=== PATIENT | male | born 1980 | race Caucasian/White ===

== ENCOUNTER 2024-03-17 17:05 | Emergency (ER) | payer OTHER, SELFPAY ==
[2024-03-17 17:20] VITALS: BP 144/85; PULSE 78; RESP 15; TEMP 36.6; O2SAT 97
--- NOTE | 2024-03-17 17:37 | ED.SKABFB ---
HPI - Skin/Abscess/Foreign Bdy General Chief complaint: Skin/Abscess/Foreign Body Stated complaint: allergic reaction Time Seen by Provider: 03/17/24 17:34 Source: patient, RN notes reviewed and old records reviewed Mode of arrival: ambulatory Limitations: no limitations History of Present Illness HPI narrative: 44 year old male presents to [facility] care with complaints of exposure to some form of poison plant on the 6th when doing yard work. He noticed a small cut to his left forearm on the 9 with start of rash and did a virtual visit through [employer] and started on steroids without improvement. Patient reports that rash has spread to his groin, left ankle, abdomen, chest, right arm and left ankle and is very pruritic. Patient has taken Benadryl at night to help him sleep. He denies any difficulty with breathing or with swallowing. MD complaint: rash Onset (ago): day(s) Location: generalized Severity scale (1-10): 7 Quality: aching, pruritic and other Treatments prior to arrival: other (steroid) Related Data Home Medications Medication Instructions Recorded Confirmed prednisone 20 mg tablet 20 mg DIRECTED 03/17/24 03/17/24 Allergies Allergy/AdvReac Type Severity Reaction Status Date / Time No Known Allergies Allergy Verified 03/17/24 17:22 Review of Systems Review of Systems: CONSTITUTIONAL: Denies fever, chills, or sweats. CARDIOVASCULAR: Denies chest pain, palpitations, or edema. RESPIRATORY: Denies cough or dyspnea. SKIN: Reports rash with increase since the 9th of month after exposure on the 6th while working in yard. rash red irritating and pruritic on left arm, right arm, chest abdomen and groin and left ankle. MUSCULOSKELETAL: Denies joint pain or myalgia. NEUROLOGIC: Denies headache, numbness, or weakness. All systems reviewed & are unremarkable except as noted in HPI and below PMFSH Surgical History Surgical History (Updated 03/17/24 @ 19:01 by Leah Chris NP) H/O hernia repair Hx of appendectomy Social History Social History (Updated 03/17/24 @ 19:15 by Leah Chris NP) Smoking status: Never smoker Alcohol intake: current Alcohol use details: social Substance use type: does not use Living arrangements: with family Gender identity (if verbalized by the patient): Male Comments At time of signature, agree with nursing past medical, surgical, social and family history. There is no relevant family history pertinent to the presenting complaint Exam Narrative: GENERAL: Well-appearing, well-nourished, and in no acute distress. HEAD: Normocephalic, atraumatic. EYES: PERRLA, conjunctivae clear, and EOMI. ENT: Mucous membranes moist. Oropharynx without edema, erythema or lesions. NECK: Supple. No lymphadenopathy CHEST: Clear to auscultation. No respiratory distress. SAO2 97% on room air HEART: Regular rate and rhythm. SKIN: Warm, dry.? Patches of erythema and edema noted on left forearm, on chest and abdomen and also left ankle and right arm and groin,itchy and some discomfort to areas. NEURO:? Alert and oriented x3. PSYCH: Normal mood and affect Course Course Emergency Course: Patient is aware of diagnosis, understands and agrees to treatment plan.? Anticipatory guidance given.? Patient agrees to follow-up as directed and is aware of reasons to seek care at the emergency department. Portions of this record may have been created with voice recognition software Level of Care: Express Care Visit Vital Signs Vital signs: Vital Signs Temperature 36.6 C 03/17/24 17:20 Pulse Rate 78 03/17/24 17:20 Respiratory Rate 15 03/17/24 17:20 Blood Pressure 144/85 H 03/17/24 17:20 Pulse Oximetry 97 03/17/24 17:20 Oxygen Delivery Room Air 03/17/24 17:20 Temperature 36.6 C 03/17/24 17:20 Pulse Rate 78 03/17/24 17:20 Respiratory Rate 15 03/17/24 17:20 Blood Pressure 144/85 H 03/17/24 17:20 Pulse Oximetry 97
[2024-03-17] MEDS: methylPREDNISolone ACETATE 80 MG/ML VIAL IM (17:48)
== END 2024-03-17 18:08 | disposition home or self-care (01) ==
PROVIDERS: Emergency Provider Registered Nurse; PCP Nurse Practitioner Family
DX: L23.7 Allergic contact dermatitis due to plants, except food (principal)
CPT/HCPCS: 96372; 99203; G0463; J1010

== ENCOUNTER 2024-06-01 17:12 | Emergency (ER) | payer OTHER, SELFPAY ==
--- NOTE | ~2024-06-01 | XR_ITS ---
EXAMINATION: XR chest 1V portable Exam Date/Time: 06/01/2024 21:06 SENIOR J2EE DEVELOPER HISTORY: R shoulder pain, chest tightness Comparison: None. RESULT: Lines, tubes, and devices: None. Lungs and pleura: Clear. Cardiomediastinal silhouette: Unremarkable. Other: No acute osseous or upper abdominal finding. IMPRESSION: No acute cardiopulmonary process. Reviewed, dictated and finalized at location K. OR J2EE DEVELOPER
--- NOTE | ~2024-06-01 | XR_ITS ---
EXAM: XR shoulder RT min 2V DATE: 06/01/2024 18:00 HISTORY: pain, no injury . COMPARISON: None available. FINDINGS: Normal mineralization. No fracture or dislocation. No lytic or blastic lesion. Mild degene rative change at the AC joint and glenohumeral joint. No erosion or periosteal change. Soft tissues w ithin normal limits. IMPRESSION: No acute osseous finding in the right shoulder. Reviewed, dictated and finalized at location K. NGUAL MIDDLE SCHOOL TEACHER
--- NOTE | ~2024-06-01 | CT_ITS ---
EXAMINATION: CTA brain carotid DATE: 06/01/2024 17:57 INDICATION: R neck pain, into RUE TECHNIQUE: Computed tomographic angiography (CTA) of the head was performed without and with 100 mL O [id number] intravenous contrast. CTA of the neck was performed with intravenous contrast. Automated exposure control and iterative reconstruction technique were employed. The dose-length product was 1 743.34 mGy-cm. Maximum intensity projection and volume rendered 3D-reconstructions were created by felisa wasserman technologist on a separate workstation. COMPARISON: None. FINDINGS: CT BRAIN: No acute large vessel infarct, intracranial hemorrhage, mass, or hydrocephalus. CTA HEAD: No large vessel occlusion, aneurysm, high flow vascular malformation, nidus or extravasation. CTA NECK: Aortic arch and proximal great vessels: The left vertebral artery takes its origin off the arch, an n ormal variant. Right common carotid, carotid bifurcation, and internal carotid artery: No plaque.There is 0% stenosi s of the proximal right internal carotid artery relative to normal distal artery lumen diameter (NASC ET criteria). Left common carotid, carotid bifurcation, and internal carotid artery: No plaque.There is 0% stenosis of the proximal left internal carotid artery relative to normal distal artery lumen diameter (NASCET criteria). Vertebral arteries: No significant plaque or stenosis. Vertebral arteries co-dominant. Other findings: None. IMPRESSION: No acute intracranial process. No large vessel intracranial occlusion, high-grade intracranial stenosis, or aneurysm. No carotid or vertebral artery occlusion, dissection, or significant stenosis. Reviewed, dictated and finalized at location K. ER MACHINE OPERATOR IMPRESSION: No acute intracranial process. No large vessel intracranial occlusion, high-grade intracranial stenosis, or an eurysm. No carotid or vertebral artery occlusion, dissection, or significant stenosis.
--- NOTE | 2024-06-01 17:14 | ECG_ITS ---
Test Date: 2024-06-01 17:23:06 Measurements Intervals [place] Rate: 78 P: 35 RI: 154 QRS: -40 QRSD: 126 T: 52 QT: 379 QTc: 433 Interpretive Statements SINUS RHYTHM MARKED LEFT AXIS DEVIATION [QRS AXIS < -30] POSSIBLE RIGHT VENTRICULAR CONDUCTION DELAY [RSR (QR) IN V1/V2] No previous ECG available for comparison Electronically Signed On 06-06-2024 10:22:29 ORDER PROCESSING MANAGER by Elvis Tate M.D.
[2024-06-01 17:15] VITALS: BP 151/96; PULSE 80; RESP 16; TEMP 36.6; O2SAT 100
--- NOTE | 2024-06-01 17:24 | ED.NECK ---
HPI - Neck Pain/Injury General Chief Complaint: Neck Pain/Injury <TOMMY Mcginnis Last Filed: 06/01/24 17:43> Stated Complaint: right side neck, shoulder, back pain since 05/20 <TOMMY Mcginnis Last Filed: 06/01/24 17:43> Time Seen by Provider: 06/01/24 17:24 <TOMMY Mcginnis Last Filed: 06/01/24 17:43> Focused HPI: Patient is a 44 y/o male who presents to the ED with c/o R sided neck pain. Patient reports he woke up with the pain on 05/20. States it has been progressively worsening since then. C/o pain in his R sided neck, radiating down R arm into his hand, into his R upper back. Pain worse with movement. Denies any known injury. Has had 3 chiropractor adjustments, using a TENS unit, taking ibuprofen and muscle relaxers w/o improvement. Has not taken anything for pain today. States pain began to radiate into his chest wall on the way here. Denies SOB, pleuritic pain. GENERAL: Mildly uncomfortable-appearing, obese with BMI of 33.0, and in mild acute distress d/t pain. HEAD: Normocephalic, atraumatic. CHEST: Clear to auscultation. ?No respiratory distress. HEART: Regular rate and rhythm.? MSK: Diffuse muscle tension R paraspinal cervical region into upper trapezius region with reproducible tenderness. No midline spinal tenderness. No palpable bony deformities or step offs. Sensation intact throughout RUE. Limited ROM of RUE d/t pain past 90 degree abduction/flexion. NEURO: ?Alert and oriented x3. Patient screened in triage and initial orders placed.? ?Additional care and disposition to be based upon?diagnostic testing and treatment. <TOMMY Mcginnis Last Filed: 06/01/24 17:43> Focused HPI: Patient is a 44 y/o male who presents to the ED with c/o R sided neck pain. Patient reports he woke up with the pain on 05/20. States it has been progressively worsening since then. C/o pain in his R sided neck, radiating down R arm into his hand, into his R upper back. Pain worse with movement. Denies any known injury. Has had 3 chiropractor adjustments, using a TENS unit, taking ibuprofen and muscle relaxers w/o improvement. Has not taken anything for pain today. States pain began to radiate into his chest wall on the way here. Denies SOB, pleuritic pain. after the patient arrived in the ED said he developed chest tightness in the center of his chest. GENERAL: Mildly uncomfortable-appearing, obese with BMI of 33.0, and in mild acute distress d/t pain. HEAD: Normocephalic, atraumatic. CHEST: Clear to auscultation. ?No respiratory distress. HEART: Regular rate and rhythm.? MSK: Diffuse muscle tension R paraspinal cervical region into upper trapezius region with reproducible tenderness. No midline spinal tenderness. No palpable bony deformities or step offs. Sensation intact throughout RUE. Limited ROM of RUE d/t pain past 90 degree abduction/flexion. NEURO: ?Alert and oriented x3. Patient screened in triage and initial orders placed.? ?Additional care and disposition to be based upon?diagnostic testing and treatment. <Errol Muhammad MD - Last Filed: 06/02/24 00:24> Source: patient <TOMMY Mcginnis Last Filed: 06/01/24 17:43> Mode of arrival: ambulatory <Karrie Russell PA-C - Last Filed: 06/01/24 17:43> Limitations: no limitations <TOMMY Mcginnis Last Filed: 06/01/24 17:43> Related Data Home Medications: Home Medications ?Medication ?Instructions ?Recorded ?Confirmed ?Last Taken ?Type prednisone 20 mg tablet 20 mg DIRECTED 03/17/24 03/17/24 Unknown History <Karrie Russell PA-C - Last Filed: 06/01/24 17:43> Allergies/Adverse Reactions: Allergies Allergy/AdvReac Type Severity Reaction Status Date / Time No Known Allergies Allergy Verified 03/17/24 17:22 <TOMMY Mcginnis Last Filed: 06/01/24 17:43> [facility] Surgical History Surgical History: Surgical History (Updated 03/17/24 @ 19:01 by Leah Chris NP) H/O hernia repair Hx of appendectomy <Karrie Russell PA-C - Last Filed: 06/01/24 17:43> Social History Social History: Social History (Updated 03/17/24 @ 19:15 by Leah Chris NP) Smoking status: Never smoker Alcohol intake: current Alcohol use details: social Substance use type: does not use Living arrangements: with family Gender identity (if verbalized by the patient): Male <Karrie Russell PA-C - Last Filed: 06/01/24 17:43> Exam Narrative: APPEARANCE: No apparent distress. Head: atraumatic. EYES: EOMI, NOSE: Atraumatic NECK: no midline tenderness RESPIRATORY: No increased rate of breathing CTAB CARDIOVASCULAR: RRR, ABDOMINAL: Non-distended MUSCULOSKELETAl: exquisitepain on active and passive range of motion of the shoulder, arm is neurovascularly intact, compartments are soft, trigger point noted just medial to the scapular edge NEURO: Alert. Moving 4/4 extremities SKIN:: Warm, dry. Normal color PSYCHIATRIC: Normal affect <Errol Muhammad MD - Last Filed: 06/02/24 00:24> Course Vital Signs Vital signs: Vital Signs Temperature 97.8 F 06/01/24 17:15 Pulse Rate 80 06/01/24 17:15 Respiratory Rate 16 06/01/24 17:15 Blood Pressure 151/96 H 06/01/24 17:15 Pulse Oximetry 100 06/01/24 17:15 Oxygen Delivery Room Air 06/01/24 17:15 Temperature 97.9 F 06/01/24 23:05 Pulse Rate 88 06/01/24 23:05 Respiratory Rate 17 06/01/24 23:05 Blood Pressure 138/69 06/01/24 23:05 Pulse Oximetry 98 06/01/24 23:05 Oxygen Delivery Room Air 06/01/24 17:15 <Karrie Russell PA-C - Last Filed: 06/01/24 17:43> Vital Signs Temperature 97.8 F 06/01/24 17:15 Pulse Rate 80 06/01/24 17:15 Respiratory Rate 16 06/01/24 17:15 Blood Pressure 151/96 H 06/01/24 17:15 Pulse Oximetry 100 06/01/24 17:15 Oxygen Delivery Room Air 06/01/24 17:15 Temperature 97.9 F 06/01/24 23:05 Pulse Rate 88 06/01/24 23:05 Respiratory Rate 17 06/01/24 23:05 Blood Pressure 138/69 06/01/24 23:05 Pulse Oximetry 98 06/01/24 23:05 Oxygen Delivery Room Air 06/01/24 17:15 <Errol Muhammad MD - Last Filed: 06/02/24 00:24> MDM - Neck Pain/Injury MDM Narrative Medical decision making narrative: MSE by FIDELIA in triage. <Karrie Russell PA-C - Last Filed: 06/01/24 17:43> MSE by FIDELIA in triage. -Course: 44-year-old male presenting with shoulder pain has gotten progressively worse chiropractic adjustments. Imaging and workup was negative for an acute cause. Physical exam shows some tenderness and a trigger point over the scapular ridge. Patient received multiple rounds p.o. and IV pain medications with no relief. We discussed trigger point injections and the patient is amenable to that. These were performed patient is feeling good enough to go home. Discharged with primary care follow-up -DDX includes but is not limited to: myofascial pain syndrome muscle spasm, muscle soreness, regional neuropathy -Independent interpretation of studies: labs imaging reviewed -Shared decision making / Disposition:discharged. <Errol Muhammad MD - Last Filed: 06/02/24 00:24> Lab Data Result diagrams: 06/01/24 20:15 06/01/24 20:15 <Karrie Russell PA-C - Last Filed: 06/01/24 17:43> Labs: Lab Results 06/01/24 06/01/24 Range/Units 20:15 22:58 WBC 9.7 (4.5-10.0) K/mm3 RBC 5.12 (4.6-6.20) M/mm3 Hgb 15.2 (14.0-18.0) g/dL Hct 43.7 (42.0-52.0) % MCV 85.4 (80-100) fl MCH 29.7 (26-34) pg MCHC 34.8 (32-36) g/dl RDW 12.3 (11.5-14.5) % Plt Count 247 (150-375) k/mm3 MPV 9.6 (7.4-10.4) fl Immature Gran % (Auto) 0.4 (0-0.5) % Neut % (Auto) 84.9 H (45.5-73.1) % Lymph % (Auto) 10.4 L (18.3-44.2) % Wirt % (Auto) 3.3 (2.6-8.5) % Eos % (Auto) 0.5 (0-4.4) % Baso % (Auto) 0.5 (0.2-1.2) % Lymph # (Auto) 1.01 (0.9-3.2) K/mm3 Wirt # (Auto) 0.3 (0.1-0.6) K/mm3 Eos # (Auto) 0.1 (0-0.3) K/mm3 Baso # (Auto) 0.1 (0.0-0.1) K/mm3 Abs Immat Gran (auto) 0.04 H (0.00-0.031) K/mm3 Absolute Neuts (auto) 8.2 H (1.3-6.7) K/mm3 Absolute Nucleated RBC 0.000 (0.0-0.012) K/mm3 Nucleated RBC % 0.0 (0.0-0.2) % D-Dimer < 0.27 (<0.48) ug/mL Sodium 136 L (137-145) mmol/L Potassium 4.0 (3.4-5.0) mmol/L Chloride 103 (98-107) mmol/L Carbon Dioxide 28 (22-30) mmol/L Anion Gap 5 (4-12) mmol/L BUN 25 H (9-20) mg/dL Creatinine 1.20 (0.7-1.3) mg/dL Estim Creat Clear Calc 92 ml/min Estimated GFR > 60 (59 - ) Glucose 109 (65-110) mg/dL Calcium 9.9 (8.4-10.2) mg/dL Total Bilirubin 1.2 (0.2-1.3) mg/dL AST 37 (17-59) U/L ALT 65 H (6-50) U/L Alkaline Phosphatase 81 (38-126) U/L Troponin I < 0.012 < 0.012 (0.000-0.034) ng/mL NT-Pro-B Natriuret Pep < 20 (19.9-100) pg/mL Total Protein 8.0 (6.3-8.2) g/dL Albumin 4.9 (3.5-5.1) g/dL <Karrie Russell PA-C - Last Filed: 06/01/24 17:43> Lab Results 06/01/24 06/01/24 Range/Units 20:15 22:58 WBC 9.7 (4.5-10.0) K/mm3 RBC 5.12 (4.6-6.20) M/mm3 Hgb 15.2 (14.0-18.0) g/dL Hct 43.7 (42.0-52.0) % MCV 85.4 (80-100) fl MCH 29.7 (26-34) pg MCHC 34.8 (32-36) g/dl RDW 12.3 (11.5-14.5) % Plt Count 247 (150-375) k/mm3 MPV 9.6 (7.4-10.4) fl Immature Gran % (Auto) 0.4 (0-0.5) % Neut % (Auto) 84.9 H (45.5-73.1) % Lymph % (Auto) 10.4 L (18.3-44.2) % Wirt % (Auto) 3.3 (2.6-8.5) % Eos % (Auto) 0.5 (0-4.4) % Baso % (Auto) 0.5 (0.2-1.2) % Lymph # (Auto) 1.01 (0.9-3.2) K/mm3 Wirt # (Auto) 0.3 (0.1-0.6) K/mm3 Eos # (Auto) 0.1 (0-0.3) K/mm3 Baso # (Auto) 0.1 (0.0-0.1) K/mm3 Abs Immat Gran (auto) 0.04 H (0.00-0.031) K/mm3 Absolute Neuts (auto) 8.2 H (1.3-6.7) K/mm3 Absolute Nucleated RBC 0.000 (0.0-0.012) K/mm3 Nucleated RBC % 0.0 (0.0-0.2) % D-Dimer < 0.27 (<0.48) ug/mL Sodium 136 L (137-145) mmol/L Potassium 4.0 (3.4-5.0) mmol/L Chloride 103 (98-107) mmol/L Carbon Dioxide 28 (22-30) mmol/L Anion Gap 5 (4-12) mmol/L BUN 25 H (9-20) mg/dL Creatinine 1.20 (0.7-1.3) mg/dL Estim Creat Clear Calc 92 ml/min Estimated GFR > 60 (59 - ) Glucose 109 (65-110) mg/dL Calcium 9.9 (8.4-10.2) mg/dL Total Bilirubin 1.2 (0.2-1.3) mg/dL AST 37 (17-59) U/L ALT 65 H (6-50) U/L Alkaline Phosphatase 81 (38-126) U/L Troponin I < 0.012 < 0.012 (0.000-0.034) ng/mL NT-Pro-B Natriuret Pep < 20 (19.9-100) pg/mL Total Protein 8.0 (6.3-8.2) g/dL Albumin 4.9 (3.5-5.1) g/dL <Errol Muhammad MD - Last Filed: 06/02/24 00:24> Discharge Plan Discharge Clinical Impression: Trapezius strain <Karrie Russell PA-C - Last Filed: 06/01/24 17:43> Patient Disposition: Home, Self-Care <Karrie Russell PA-C - Last Filed: 06/01/24 17:43> Condition: Stable <Karrie Russell PA-C - Last Filed: 06/01/24 17:43> Instructions: Antibiotic Form, Musculoskeletal Pain (ED), Trigger Point Injection (DC) <Karrie Russell PA-C - Last Filed: 06/01/24 17:43> Additional Instructions: You were seen in the emergency department for shoulder pain. Please take the medications as prescribed for your pain. Please follow-up with your primary care physician for further management. If your pain becomes unbearable or you develop any new symptoms like weakness your arm please return to ED for re-evaluation. <Karrie Russell PA-C - Last Filed: 06/01/24 17:43> Patient Language: Lithuanian <Karrie Russell PA-C - Last Filed: 06/01/24 17:43> Prescriptions: New acetaminophen 500 mg tablet 1,000 mg PO TID PRN (Reason: william) 7 Days Qty: 42 0RF ibuprofen 800 mg tablet 800 mg PO TID PRN (Reason: pain) 7 Days Qty: 21 0RF methocarbamol 750 mg tablet 1,500 mg PO TID Qty: 35 0RF lidocaine 5 % adhesive patch,medicated 1 patch topical DAILY Qty: 15 0RF Rx Instructions: leave on most painful area for up to 12 hrs oxycodone 5 mg tablet 5 mg PO Q4H PRN (Reason: pain) Qty: 6 0RF No Action prednisone 20 mg tablet 20 mg DIRECTED triamcinolone acetonide 0.1 % ointment 1 applic topical BID Qty: 80 0RF Rx Instructions: never use on face prednisone 10 mg tablet 10 mg PO DIRECTED Qty: 21 0RF Rx Instructions: see taper instructions 6 tabs day 1, 5 tabs day 2, 4 tabs day 3, 3 tabs day 4, 2 tabs day 5, 1 tab day 6 take with food in the morning famotidine [Pepcid] 20 mg tablet 20 mg PO DAILY Qty: 10 0RF <Karrie Russell PA-C - Last Filed: 06/01/24 17:43> Follow-up/Referrals: NATANAEL,BRYANT ANGULO [Primary Care Provider] - <Karrie Russell PA-C - Last Filed: 06/01/24 17:43>
[2024-06-01] MEDS: ACETAMINOPHEN 500 MG TABLET 1000 MG PO (17:38)
[2024-06-01] MEDS: KETOROLAC 30 MG/ML VIAL (*BKC) IV PUSH (17:39)
[2024-06-01] MEDS: diazePAM INJ (*CRX) 10 MG/2 ML SYRINGE 2 MG IV PUSH (17:39)
[2024-06-01] MEDS: methylPREDNISolone SOD SUCC 125 MG VIAL IV PUSH (17:39)
[2024-06-01 19:00] VITALS: BP 145/87; PULSE 88; RESP 19; O2SAT 100
[2024-06-01 20:22] LABS: Basophils Absolute Auto 0.1 K/mm3 (0.0-0.1); Basophils Percent Auto 0.5 % (0.2-1.2); Eosinophils Absolute Auto 0.1 K/mm3 (0-0.3); Eosinophils Percent Auto 0.5 % (0-4.4); Hematocrit 43.7 % (42.0-52.0); Hemoglobin 15.2 g/dL (14.0-18.0); Immature Granulocyte Absolute 0.04 K/mm3 (0.00-0.031); Immature Granulocyte Percent A 0.4 % (0-0.5); Lymphocytes Absolute Auto 1.01 K/mm3 (0.9-3.2); Lymphocytes Percent Auto 10.4 % (18.3-44.2); Mean Corpuscular HGB Conc 34.8 g/dl (32-36); Mean Corpuscular Hemoglobin 29.7 pg (26-34); Mean Corpuscular Volume 85.4 fl (80-100); Mean Platelet Volume 9.6 fl (7.4-10.4); Monocytes Absolute Auto 0.3 K/mm3 (0.1-0.6); Monocytes Percent Auto 3.3 % (2.6-8.5); Neutrophils Absolute Auto 8.2 K/mm3 (1.3-6.7); Neutrophils Percent Auto 84.9 % (45.5-73.1); Platelet Count Result 247 k/mm3 (150-375); Red Blood Count 5.12 M/mm3 (4.6-6.20); Red Cell Distribution Width 12.3 % (11.5-14.5); White Blood Count 9.7 K/mm3 (4.5-10.0)
[2024-06-01] MEDS: HYDROmorphone HCL INJ (*CRX) 1 MG/ML SYR IM (20:24)
[2024-06-01 20:34] LABS: Alanine Aminotransferase 65 U/L (6-50); Albumin Level 4.9 g/dL (3.5-5.1); Alkaline Phosphatase 81 U/L (38-126); Anion Gap 5 mmol/L (4-12); Aspartate Amino Transferase 37 U/L (17-59); Bilirubin,Total 1.2 mg/dL (0.2-1.3); Blood Urea Nitrogen 25 mg/dL (9-20); Calcium 9.9 mg/dL (8.4-10.2); Carbon Dioxide 28 mmol/L (22-30); Chloride 103 mmol/L (98-107); Estimated CRCL calculation 92 ml/min; Estimated Glomerular Filt Rate > 60; Glucose 109 mg/dL (65-110); Sodium 136 mmol/L (137-145)
[2024-06-01 20:43] LABS: D Dimer < 0.27 ug/mL (<0.48)
[2024-06-01 20:44] LABS: NT Pro B Type Natriuretic Pept < 20 pg/mL (19.9-100); Troponin I < 0.012 ng/mL (0.000-0.034)
[2024-06-01 21:50] VITALS: BP 136/79; PULSE 87; RESP 19; O2SAT 100
--- NOTE | 2024-06-01 22:48 | ECG_ITS ---
Test Date: 2024-06-01 22:57:39 Measurements Intervals [place] Rate: 86 P: 48 OR: 136 QRS: -25 QRSD: 124 T: 47 QT: 372 QTc: 446 Interpretive Statements SINUS RHYTHM BORDERLINE LEFT AXIS DEVIATION [QRS AXIS < -20] POSSIBLE RIGHT VENTRICULAR CONDUCTION DELAY [RSR (QR) IN V1/V2] Compared to ECG 06/01/2024 17:23:06 No significant changes Electronically Signed On 06-06-2024 10:27:22 COMBINER OPERATOR by Elvis Tate M.D.
[2024-06-01 23:05] VITALS: BP 138/69; PULSE 88; RESP 17; TEMP 36.6; O2SAT 98
[2024-06-01 23:30] LABS: Troponin I < 0.012 ng/mL (0.000-0.034)
[2024-06-03 10:24] LABS: Estimated CRCL calculation 86 ml/min; Estimated Glomerular Filt Rate 60
--- OUTSIDE RECORDS SUMMARY | 2024-06-08 15:02 | XMS_ITS | Encounter Summary ---
Author Organization [facility] Address [address] [place] [address] Care Team Providers Care [employer] Name Role Phone Hanh Duke MD Primary Care Provider Reason for Visit * Reason Comments Injury Leg c/o L leg pain. stat es metal fell on it at work. pain from knee down. states was hit in back of leg by a cart of metal Encounter Details Date Type Department Care Team (Late st Contact Info) Description 06/04/2015 11:25 AM PLANNING INTERN - 06/04/2015 12:54 PM PLANNING INTERN Emergency ER at [address] [address] Daren Orellana MD [address] [place] [address] [place] [address] Multiple leg contusions, left, initial encounter Discharge Disposition: Home or Self Care Social History Tobacco Use Types Packs/Day Years Used Date Smoking Tobacco: Never Assessed Sex and Gender Information Value Date Recorded Sex Assigned at Not on file Gender Identity Not on file Sexual Orientation Not on file documented as of this encounter Last Filed Vital Signs Vital Sign Reading Time Taken Comments Blood Pressure 141/95 06/04/2015 11:30 AM PLANNING INTERN Pulse 85 06/04/2015 11:29 AM PLANNING INTERN Temperature 36.3 ??C (97.4 ??F) 06/04/2015 11:[address] Respiratory Rate 19 06/04/2015 11:29 AM PLANNING INTERN Oxygen Saturation 100% 06/04/2015 11:29 AM PLANNING INTERN Inhaled Oxygen Concentration - - Weight 104.3 kg (230 lb) 06/04/2015 11:28 AM PLANNING INTERN Height 185.4 cm (6' 1 ) 06/04/2015 11:28 AM PLANNING INTERN Body Mass Index 30.34 06/04/2015 11:28 AM PLANNING INTERN documented in this encounter Discharge Instructions * Discharge Instructions* Jreomy Hunter PA-C - 06/04/2015 12:32 PM PLANNING INTERN Images from the original note were not included. Contusion A contusion is a deep bruise. Contusions happen when an injury causes bleeding under the skin. Signs of bruising include pain, puffiness (swelling), and discolored skin. The contusion may turn blue, purple, or yellow. HOME CARE ?? Put ice on the injured area. ?? Put ice in a plastic bag. ?? Place a towel between your skin and the bag. ?? Leave the ice on for 15-20 minutes, 3-4 times a day. ?? Only take medicine as told by your doctor. ?? Rest the injured area. ?? If possible, raise (elevate) the injured area to lessen puffiness. GET HELP RIGHT AWAY IF: ?? You have more bruising or puffiness. ?? You have pain that is getting worse. ?? Your puffiness or pain is not helped by medicine. MAKE SURE YOU: ?? Understand these instructions. ?? Will watch your condition. ?? Will get help right away if you are not doing well or get worse. Document Released: 11/03/2008 Document Revised: 08/09/2012 Document Reviewed: 03/22/2012 ExitCare?? Patient Information ??2013 mPATH. NING INTERN documented in this encounter Medications at Time of Discharge Medication Sig Dispensed Refills Start Date End Date hydrocodone-acetaminophen (NORCO) 5-325 MG tablet Take 1 Tab by mouth every 4 hours as needed for Pain 15 Tab 0 06/04/2015 naproxen (NAPROSYN) 500 MG tablet Take 1 Tab by mouth 2 times daily as needed for Pain 20 Tab 0 06/04/2015 documented as of this encounter ED Notes * Rachel Ortega APRN-CNP - 06/04/2015 12:54 PM CST Rigoberto wrap and crutches for comfort. NING INTERN * Jeromy Hunter PA-C - 06/04/2015 11:36 AM CST Provider contact with the patient: 06/04/2015 11:36 Ameya Santacruz [id number] [facility] History Chief Complaint Patient presents with ??? Injury Leg c/o L leg pain. states metal fell on it at work. pain from knee down. states was hit in back of legby a cart of metal Chief complaint narrative was entered by triage nurse, not by physician. HPI Comments: 11:36 AM Ameya Santacruz, a 35 y.o. male with no past medical history no that presents to the ER c/o left leg injury occuring prior to arrival. Pt reports that a large bundle of menta fell and landed on the back of his left leg by his knee. Pt states it struck the back of his knee and that the mental rolled down his leg but he was able to move so that it did not crush his leg. He states his pain is in back of his knee and calf, he denies ankle or foot pain. Pt is unable to ambulate secondary to pain. He rates his pain severity as a 10/10. Pt denies any other injury sustained from incident including head, neck, back pain.. No other complaints or modifying factors at this time. Pt was driven to the ED by his boss. 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 PCP: Hanh Duke MD No past medical history on file. No past surgical history on file. No family history on file. History Social History ??? Marital Status: Spouse Name: N/A Number of Children: N/A ??? Years of Education: N/A Occupational History ??? Not on file. Social History Main Topics ??? Smoking status: Not on file ??? Smokeless tobacco: Not on file ??? Alcohol Use: Not on file ??? Drug Use: Not on file ??? Sexual Activity: Not on file Other Topics Concern ??? Not on file Social History Narrative ??? No narrative on file Review of Systems Review of Systems Constitutional: Negative. Negative for fever and chills. HENT: Negative. Eyes: Negative. Negative for blurred vision. Respiratory: Negative. Negative for cough and shortness of breath. Cardiovascular: Negative. Negative for chest pain. Gastrointestinal: Negative. Negative for nausea, abdominal pain and diarrhea. Genitourinary: Negative. Negative for dysuria. Musculoskeletal: (+) left leg pain (lower leg) Skin: Negative. Negative for itching and rash. Neurological: Negative. Negative for dizziness, loss of consciousness, weakness and headaches. Psychiatric/Behavioral: Negative. All other systems reviewed and are negative. Physical Exam BP 141/95 mmHg Pulse 85 Temp(Src) 97.4 ??F Resp 19 Ht 1.854 m (6' 1 ) Wt 104.327 kg (230 lb) BMI 30.35 kg/m2 SpO2 100% Physical Exam Constitutional: He is oriented to person, place, and time. He appears well- developed and well-nourished. No distress. HENT: Head: Normocephalic and atraumatic. Right Ear: External ear normal. Left Ear: External ear normal. Nose: Nose normal. Mouth/Throat: Oropharynx is clear and moist. No oropharyngeal exudate. Eyes: Conjunctivae and EOM are normal. Pupils are equal, round, and reactive to light. Right eye exhibits no discharge. Left eye exhibits no discharge. No scleral icterus. Neck: Normal range of motion. Neck supple. No JVD present. No tracheal deviation present. No thyromegaly present. Cardiovascular: Normal rate, regular rhythm and intact distal pulses. Exam reveals no gallop and nofriction rub. No murmur heard. Pulses: Popliteal pulses are 2+ on the right side, and 2+ on the left side. Dorsalis pedis pulses are 2+ on the right side, and 2+ on the left side. Posterior tibial pulses are 2+ on the right side, and 2+ on the left side. Pulmonary/Chest: Effort normal and breath sounds normal. No stridor. No respiratory distress. He has no wheezes. He has no rales. He exhibits no tenderness. Abdominal: Soft. Bowel sounds are normal. He exhibits no distension and no mass. There is no tenderness. There is no rebound and no guarding. No hernia. Musculoskeletal: He exhibits tenderness. He exhibits no deformity. Left lower leg: He exhibits tenderness and swelling. He exhibits no bony tenderness, no edema, no deformity and no laceration. TTP of the posterior lateral aspect of the left knee with tenderness of the left calf. No visible deformity. Comparison with right slight swelling noted 1+ however not ecchymosis ROM limited secondary to pain. Tenderness of left 5th MTP left With dorsal swelling over dorsal aspect of foot and ankle. Tenderness of lateral malleolus of left foot however patient able to flex and extend and los and invert freely. Lymphadenopathy: He has no cervical adenopathy. Neurological: He is alert and oriented to person, place, and time. He has normal reflexes. He displays normal reflexes. No cranial nerve deficit. He exhibits normal muscle tone. Coordination normal. Skin: Skin is warm and dry. No rash noted. He is not diaphoretic. No erythema. No pallor. Psychiatric: He has a normal mood and affect. His behavior is normal. Judgment and thought content normal. Nursing note and vitals reviewed. Medications Current Outpatient Prescriptions Medication Sig Dispense Refill ??? hydrocodone-acetaminophen (NORCO) 5-325 MG tablet Take 1 Tab by mouth every 4 hours as needed for Pain 15 Tab 0 ??? naproxen (NAPROSYN) 500 MG tablet Take 1 Tab by mouth 2 times daily as needed for Pain 20 Tab 0 Procedures Procedures ECG Interpretation ECG Interpretation Lab Interpretation Oxygen Saturation Interpretation The oxygen saturation level is: 100%. The patient was on Room Air for the saturation measurement. Measurement frequency: Spot Check. Oxygen saturation interpretation is Normal. Intervention(s) used: None. No results found for this visit on 06/04/15. XR TIBIA AND FIBULA 2 VW LEFT Final Result No acute fracture. XR FOOT 3+ VW LEFT Final Result XR FOOT 3+ VW LEFT (Final result) Result time: 06/04/15 12:13:34 ?? Final result by Results Interface, Radiology In (06/04/15 12:13:34) ?? Narrative: ?? Left Foot 3 Views INDICATION: Left leg pain, fall, initial evaluation FINDINGS: ??No fracture or malalignment is seen. ? XR TIBIA AND FIBULA 2 VW LEFT (Final result) Result time: 06/04/15 12:13:53 ?? Final result by Results Interface, Radiology In (06/04/15 12:13:53) ?? Impression: ?No acute fracture. ?? Narrative: ?? Left tibia and fibula 2 views Indication: Left flank pain 2 views of the left lower leg are provided. There is normal alignment. There is normal mineralization. There is no fracture evident. There is no destructive lesion. Is no large effusion. Soft tissue swelling is noted at the anterior ankle. Progress Notes 1141: Patient administered 5/325mg Percocet po and ice applied to left lower calf and foot. 12:34 PM: Rechecked pt - Pt is resting in no acute distress. Pt was updated on XR reports and my clinical impression of acute sprain. I expressed to patient if he is unable to weight bear after 48 hours of RICE therapy and use of NSAID therapy to follow up with orthopedics or company preferred [facility] provider for injury. Educated pt on RICE therapy treatment methods. Pt expresses understanding and agrees with plan to be d/c home. All questions and concerns have been addressed. Pt is medically stable for d/c home at this time. I have given the patient instructions regarding his diagnosis, expectations, follow up, and return precautions. I explained to the patient that emergent conditions may arise and to return to the ER for new, worsening, or any persistent conditions. I've explained the importance of following up with his doctor--Hanh Duke MD--(or the referral physician) as instructed. The patient verbalizedunderstanding of the discharge instructions. ED Course Medical Decision Making I have reviewed the: Previous Chart, Nursing Notes and Vitals. I have interpreted the following results: X-Ray and Oxygen Saturation. Orders Placed This Encounter ??? XR TIBIA AND FIBULA 2 VW LEFT ??? XR FOOT 3+ VW LEFT ??? oxyCODONE-acetaminophen (PERCOCET) 5-325 MG tablet 2 Tab ??? hydrocodone-acetaminophen (NORCO) 5-325 MG tablet ??? naproxen (NAPROSYN) 500 MG tablet Diagnosis: Encounter Diagnoses Name Primary? Leg injury, left, initial encounter ??? Multiple leg contusions, left, initial encounter New Medications: New Prescriptions HYDROCODONE-ACETAMINOPHEN (NORCO) 5-325 MG TABLET Take 1 Tab by mouth every 4 hours as needed for Pain NAPROXEN (NAPROSYN) 500 MG TABLET Take 1 Tab by mouth 2 times daily as needed for Pain I have advised the patient to follow-up with: Hanh Duke MD [address] [place], [place] [address] [address] [place] [address] [facility] [address] Count includes the [facility] [id number] Disposition: Discharged I have reviewed the information recorded by the scribe and agree with its accuracy and contents--Brittany 06/04/2015 12:43 PM Transcribed by Broderick Lee acting scribe on behalf of MOHINDER Hunter 06/04/2015 11:36 AM NING INTERN documented in this encounter Plan of Treatment Not on file documented as of this encounter Procedures Procedure Name Priority Date/Time Associated Diagnosis Comments XR FOOT LEFT 3VW OR MORE STAT 06/04/2015 12:06 PM PLANNING INTERN Leg injury, left, initial encounter XR TIBIA FIBULA LEFT 2VW STAT 06/04/2015 12:06 PM PLANNING INTERN Leg injury, left, initial encounter documented in this encounter Results * XR FOOT 3+ VW LEFT (06/04/2015 12:06 PM PLANNING INTERN) Anatomical Region Laterality Modality Ankle / Foot Radiographic Fern ging 06/04/2015 12:0 9 PM PLANNING INTERN Narrative 06/04/2015 12:10 PM PLANNING INTERN Left Foot 3 Views INDICATION: Left leg pain, fall, initial evaluation FINDINGS: ??No fracture or malalignment is seen. Procedure Note Ron Lares MD - 06/04/2015 Left Foot 3 Views INDICATION: Left leg pain, fall, initial evaluation FINDINGS: No fracture or malalignment is seen. Jeromy Hunter PA-C DIAGNOSTIC IMAGING O RDERABLES * XR TIBIA AND FIBULA 2 VW LEFT (06/04/2015 12:06 PM PLANNING INTERN) Anatomical Region Laterality Modality Lower Extremity Radiographic Fern ging 06/04/2015 12:1 0 PM PLANNING INTERN Impressions 06/04/2015 12:10 PM PLANNING INTERN No acute fracture. Narrative 06/04/2015 12:10 PM PLANNING INTERN Left tibia and fibula 2 views Indication: Left flank pain 2 views of the left lower leg are provided. There is normal alignment. There is normal mineralization. There is no fracture evident. There is no destructive lesion. Is no large effusion. Soft tissue swelling is noted at the anterior ankle. Procedure Note Casandra Masterson MD - 06/04/2015 Left tibia and fibula 2 views Indication: Left flank pain 2 views of the left lower leg are provided. There is normal alignment. There is normal mineralization. There is no fracture evident. There is no destructive lesion. Is no large effusion. Soft tissue swelling is noted at the anterior ankle. IMPRESSION No acute fracture. Jeromy Hunter PA-C DIAGNOSTIC IMAGING O RDERABLES documented in this encounter Visit Diagnoses Diagnosis Leg injury, left, initial encounter Multiple leg contusions, left, initial encounter documented in this encounter Administered Medications Inactive Administered Medications - up to 3 most recent administrations Medication Order MAR Action Action Date Dose Rate Site oxyCODONE-acetaminophen (PERCOCET) 5-325 MG tablet 2 Tab 2 tablet, Oral, NOW, 1 dose, On Thu06/04/15 at 1145 $ Given 06/04/2015 11:44 AM PLANNING INTERN 2 tablets documented in this encounter Active and Recently Administered Medications Times are shown in PLANNING INTERN. Scheduled Medication Order 06/02/2015 06/03/2015 06/04/2015 oxyCODONE-acetaminophen (PERCOCET) 5-325 MG tablet 2 Tab (COMPLETED) 2 tablet, Oral, NOW, 1 dose, On Thu06/04/15 at 1145 1144 ($ Given - Prov ider: Faby Henderson, EMT-P) documented in this encounter Care Teams [employer] Relationship Specialty Start Date End Date Hanh Duke MD [address] [id number] PCP - General 09/05/08 documented as of this encounter
--- OUTSIDE RECORDS SUMMARY | 2024-06-08 15:02 | XMS_ITS | Patient Health Summary ---
Author Organization [facility] Communication Intelligence Address [address] [place] [address] Care Team Providers Care Script Writer Name Role Phone Hanh Duke MD Primary Care Provider [phone] Note from [facility],non-owned Affiliates and Associated Physician Practices is amultiple site organization consisting of ambulatory clinics and hospital sitesin [place], [place]. This disclosure is being madepursuant to the Care Everywhere program and may not contain all information available regarding this patient. Last updated 18.[facility] Communication Intelligence Allergies No known active allergies Medications * Be aware that medications may not be up to date on this document. Alwaysverify current medications with the patient. * hydrocodone-acetaminophen (NORCO) 5-325 MG tablet(Started 06/04/2015) Take 1 Tab by mouth every 4 hours as needed for Pain * naproxen (NAPROSYN) 500 MG tablet(Started 06/04/2015) Take 1 Tab by mouth 2 times daily as needed for Pain Social History Tobacco Use Types Packs/Day Years Used Date Smoking Tobacco: Never Assessed Sex and Gender Information Value Date Recorded Sex Assigned at Not on file Gender Identity Not on file Sexual Orientation Not on file Last Filed Vital Signs Vital Sign Reading Time Taken Comments Blood Pressure 141/95 06/04/2015 11:30 AM WELL LOGGING OPERATOR MUD ANALYSIS Pulse 85 06/04/2015 11:29 AM WELL LOGGING OPERATOR MUD ANALYSIS Temperature 36.3 ??C (97.4 ??F) 06/04/2015 11:[address] Respiratory Rate 19 06/04/2015 11:29 AM WELL LOGGING OPERATOR MUD ANALYSIS Oxygen Saturation 100% 06/04/2015 11:29 AM WELL LOGGING OPERATOR MUD ANALYSIS Inhaled Oxygen Concentration - - Weight 104.3 kg (230 lb) 06/04/2015 11:28 AM WELL LOGGING OPERATOR MUD ANALYSIS Height 185.4 cm (6' 1 ) 06/04/2015 11:28 AM WELL LOGGING OPERATOR MUD ANALYSIS Body Mass Index 30.34 06/04/2015 11:28 AM WELL LOGGING OPERATOR MUD ANALYSIS Procedures * XR FOOT LEFT 3VW OR MORE(Performed 06/04/2015) Performed for Leg injury, left, initial encounter * XR TIBIA FIBULA LEFT 2VW(Performed 06/04/2015) Performed for Leg injury, left, initial encounter * CT ANGIO CHEST(Performed 09/07/2008) Performed for Other Pulmonary Embolism and Infarction (HCC) * NM MYOCARD PERF REST STRESS(Performed 09/06/2008) Performed for Unspecified Chest Pain * LIPID PROFILE(Performed 09/06/2008) Performed for Unspecified Chest Pain * CK BLOOD(Performed 09/06/2008) Performed for Unspecified Chest Pain * TROPONIN I(Performed 09/06/2008) Performed for Unspecified Chest Pain * CKMB(Performed 09/06/2008) Performed for Unspecified Chest Pain * TROPONIN I(Performed 09/05/2008) Performed for Unspecified Chest Pain * MYOGLOBIN BLOOD(Performed 09/05/2008) Performed for Unspecified Chest Pain * COMPREHENSIVE METABOLIC PANEL(Performed 09/05/2008) Performed for Unspecified Chest Pain * MAGNESIUM BLOOD(Performed 09/05/2008) Performed for Unspecified Chest Pain * PTT(Performed 09/05/2008) Performed for Unspecified Chest Pain * PT-INR(Performed 09/05/2008) Performed for Unspecified Chest Pain * CBC W AUTO DIFFERENTIAL(Performed 09/05/2008) Performed for Unspecified Chest Pain * XR CHEST 1VW PORTABLE(Performed 09/05/2008) Performed for Unspecified Chest Pain Results * XR FOOT 3+ VW LEFT (06/04/2015 12:06 PM WELL LOGGING OPERATOR MUD ANALYSIS) Anatomical Region Laterality Modality Ankle / Foot Radiographic Fern ging 06/04/2015 12:0 9 PM WELL LOGGING OPERATOR MUD ANALYSIS Narrative 06/04/2015 12:10 PM WELL LOGGING OPERATOR MUD ANALYSIS Left Foot 3 Views INDICATION: Left leg pain, fall, initial evaluation FINDINGS: ??No fracture or malalignment is seen. Procedure Note Ron Lares MD - 06/04/2015 Left Foot 3 Views INDICATION: Left leg pain, fall, initial evaluation FINDINGS: No fracture or malalignment is seen. Jeromy VINES-Kaylie DIAGNOSTIC IMAGING O RDERABLES * XR TIBIA AND FIBULA 2 VW LEFT (06/04/2015 12:06 PM WELL LOGGING OPERATOR MUD ANALYSIS) Anatomical Region Laterality Modality Lower Extremity Radiographic Fern ging 06/04/2015 12:1 0 PM WELL LOGGING OPERATOR MUD ANALYSIS Impressions 06/04/2015 12:10 PM WELL LOGGING OPERATOR MUD ANALYSIS No acute fracture. Narrative 06/04/2015 12:10 PM WELL LOGGING OPERATOR MUD ANALYSIS Left tibia and fibula 2 views Indication: Left flank pain 2 views of the left lower leg are provided. There is normal alignment. There is normal mineralization. There is no fracture evident. There is no destructive lesion. Is no large effusion. Soft tissue swelling is noted at the anterior ankle. Procedure Note Jesse Oakes MD - 06/04/2015 Left tibia and fibula 2 views Indication: Left flank pain 2 views of the left lower leg are provided. There is normal alignment. There is normal mineralization. There is no fracture evident. There is no destructive lesion. Is no large effusion. Soft tissue swelling is noted at the anterior ankle. IMPRESSION No acute fracture. Jeromy VINES-Kaylie DIAGNOSTIC IMAGING O RDERABLES * CT ANGIO CHEST COMB INCLUDE PROC (09/07/2008 8:13 AM CDT) Anatomical Region Laterality Modality Chest Other 09/07/2008 8:13 AM CDT Narrative 09/07/2008 9:[address] CHEST WITH CONTRAST MEDIA Indication- chest pain and shortness of breath The CT scan of the chest is carried out during the administration of ??80 cc of Omnipaque 350 utilizing the special pulmonary embolus technique. Coronal reformatted images performed as part of pulmonary embolus protocol. The CT scan of the chest is negative. The pulmonary arteries are well seen down the through the fourth order branches and no emboli are identified. The mediastinal and hilar structures are unremarkable. The tracheobronchial airways are widely patent. Lung hallman are clear. Summary- Normal CT scan of the chest. ? Read By- JESSE OAKES ??M.D. ? Released By- JESSE M GAU ??M.D. ? Released Date Time- 09/07/08919 ? Tutoring Assistant- CODY ??GilaD. ? ADM- MITCH BAKER ?ATT- MITCH BAKER REF- ?CON- TWYLA LOBO- HANH DUKE ?SCP- Procedure Note Jesse Oakes - 09/07/2008 CT CHEST WITH CONTRAST MEDIA Indication- chest pain and shortness of breath The CT scan of the chest is carried out during the administration of 80 cc of Omnipaque 350 utilizing the special pulmonary embolus technique. Coronal reformatted images performed as part of pulmonary embolus protocol. The CT scan of the chest is negative. The pulmonary arteries are well seen down the through the fourth order branches and no emboli are identified. The mediastinal and hilar structures are unremarkable. The tracheobronchial airways are widely patent. Lung hallman are clear. Summary- Normal CT scan of the chest. Read By- JESSE OAKES M.D. Released By- JESSE OAKES M.D. Released Date Time- 09/07/08919 Tutoring Assistant- MMG M.D. ADM- MITCH BAKER ATT- MITCH BAKER REF- CON- BARIJESSICATWYLA PCP- HANH DUKE [facility]- Mitch Baker MD CT ORDERABLES * NUC MYOCARD PERFUSION SPECT STRESS AND REST (09/06/2008 12:30 PM CDT) Anatomical Region Laterality Modality Chest Other 09/06/2008 12:3 0 PM CDT Narrative 09/06/2008 3:26 PM CDT NM MYOCARDIAL SPECT SCAN Indication- Chest pain The resting dose is 11.0 mCi Myoview. ??The patient is reported to have exercised ?? for 10 minutes 38 seconds ?? achieving 85 % of maximum predicted heart rate at the time of injection and 90 % at the end of stress. The stress dose is 40.0 mCi Tc Myoview. No ? fixed or reversible perfusion defects are demonstrated. The left ventricular ejection fraction is borderline at 50 %. There is normal appearing left ventricular wall motion and volume. Impression- Borderline ejection fraction. The myocardial perfusion scan and motion study are otherwise negative. ? Read By- CHACE EANMORADO ??M.D. ? Released By- CHACE ENAMORADO ??M.D. ? Released Date Time- 09/06/08 1526 ? Tutoring Assistant- ADIEL ??M.D. ? ADM- MITCH BAKRE ?ATT- TRINITYMITCH Bernstein REF- ?QI- TWYLA LOBO SUSAN R ?SCP- Procedure Note Chace Enamorado - 09/06/2008 NM MYOCARDIAL SPECT SCAN Indication- Chest pain The resting dose is 11.0 mCi Myoview. The patient is reported to have exercised for 10 minutes 38 seconds achieving 85 % of maximum predicted heart rate at the time of injection and 90 % at the end of stress. The stress dose is 40.0 mCi Tc Myoview. No fixed or reversible perfusion defects are demonstrated. The left ventricular ejection fraction is borderline at 50 %. There is normal appearing left ventricular wall motion and volume. Impression- Borderline ejection fraction. The myocardial perfusion scan and motion study are otherwise negative. Read By- CHACE ENAMORADO M.D. Released By- CHACE ENAMORADO M.D. Released Date Time- 09/06/08 1526 Tutoring AssistantSahra CHUN M.D. ADM- MITCH BAKER ATT- MITCH BAKER REF- TWYLA ARREDONDO SUSAN R [facility]- Mitch Baker MD SD ORDERABLES * TROPONIN I (09/06/2008 5:03 AM CDT) Only the most recent of2 resultswithin the time period is included. Troponin I <0.10 SEE BELOW ng/ml [facility] Comment: Normal ? <0.10 [place] ??0.10-0.99 Positive ?? >=1.00 BLOOD SPECIMEN / Unknown 09/06/2008 5:03 AM CDT Mitch Baker MD LAB - CHEMISTRY YENNY RUIZ Performing Organization Address [facility] de Phone Number [facility] [address] [place] [address] * CKMB (09/06/2008 5:03 AM CDT) CK-MB 0.5 0.0 - 5.0 ng/ml [facility] Interpretation CK-MB [facility] Comment: An abrupt rise/fall of CKMB over 24 hours is an acute injury pattern. BLOOD SPECIMEN / Unknown 09/06/2008 5:03 AM CDT Mitch Baker MD LAB - CHEMISTRY YENNY RUIZ Performing Organization Address [facility] de Phone Number [facility] [address] [place] [address] * CK BLOOD (09/06/2008 5:03 AM CDT) CK 117 55.0 - 170.0 U/L [facility] BLOOD SPECIMEN / Unknown 09/06/2008 5:03 AM CDT Mitch Baker MD LAB - CHEMISTRY YENNY RUIZ Performing Organization Address [facility] de Phone Number [facility] [address] [place] [address] * (ABNORMAL) LIPID PROFILE (09/06/2008 5:03 AM CDT) Cholesterol 159 120.0 - 200.0 mg/dl [facility] Triglycerides 123 0.0 - 250.0 mg/dl [facility] HDL Cholesterol 27(L) >40 mg/dl [facility] LDL Calculated 107.4 mg/dl [facility] Chol HDL Ratio 5.9 [facility] Comment Lipid [facility] Comment: Risk Classification ? HDL CHOL ?? LDL CHOL ?TOTAL CHOL According to NCEP ? (mg/dl) ?(mg/dL) ?(mg/dl) ? Desirable ? >40 ?<130 ? < 200 ? Borderline/High ?- ?130-159 ?200-239 ? High ? - ? >159 ? > 239 The total cholesterol to HDL cholesterol ratio may be used to predict risk for coronary heart disease in untreated patients according to data reported from the [place] Study by Xavi Quijano M.D. ??The predictive value in patients over 60 years of age is uncertain. ? Risk ?TOTAL CHOL/HDL RATIO ? MEN ?WOMEN ? 1/2 Average ? 3.43 ? 3.27 ? Average ? 4.97 ? 4.44 ? 2X Average ?9.55 ? 7.05 ? 3X Average ? 23.39 ?11.04 In Coronary Artery Disease patients, in whom nonpharmacological therapy has failed, the AHA recommends that drug therapy should be prescribed to lower LDL cholesterol to <100mg/dL. ??Drug therapy may be instituted in patients with HDL <35mg/dL. ??The reported LDL is a calculated result. ??For a more precise measurement, a direct LDL test is available, as necessary. BLOOD SPECIMEN / Unknown 09/06/2008 5:03 AM CDT Mitch Baker MD LAB - CHEMISTRY YENNY RUIZ [facility] [address] [place] [address] * MYOGLOBIN BLOOD (09/05/2008 11:10 PM CDT) Pathologist [facility] Myoglobin 43.9 0.0 - 110.0 ng/ml [facility] BLOOD SPECIMEN / Unknown 09/05/2008 11:10 PM CDT Daniel De Jesus MD LAB - CHEMISTRY OR DERABLES Performing Organization Address City/[facility] Co de Phone Number [facility] [address] [place] [address] * PTT (09/05/2008 11:10 PM CDT) Pathologist [facility] PTT 27.6 24.0 - 32.0 seconds [facility] BLOOD SPECIMEN / Unknown 09/05/2008 11:10 PM CDT Daniel De Jesus MD LAB - COAGULATION ORDERABLES Performing Organization Address [facility] Co de Phone Number [facility] [address] [place] [address] * PT-INR (09/05/2008 11:10 PM CDT) Pathologist [facility] PT 10.9 9.4 - 11.2 seconds [facility] INR 1.0 0.9 - 1.1 [facility] Interpretation INR D [facility] Comment: Conventional Anticoagulation INR 2.0-3.0 Intensive Anticoagulation INR 2.5-3.5 BLOOD SPECIMEN / Unknown 09/05/2008 11:10 PM CDT Daniel De Jesus MD LAB - COAGULATION ORDERABLES Performing Organization Address City/[facility] Co de Phone Number [facility] [address] [place] [address] * (ABNORMAL) CBC W AUTO DIFFERENTIAL (09/05/2008 11:10 PM CDT) Pathologist [facility] WBC 5.9 4.5 - 11.0 1000/mm3 [facility] RBC 5.15 4.7 - 6.1 10X6 [facility] Hemoglobin 14.7 13.0 - 18.0 gm/dl [facility] Hematocrit 42.9 39.0 - 54.0 % [facility] MCV 83.3 80.0 - 99.0 fl [facility] MCH 28.5 25.0 - 31.0 pg [facility] MCHC 34.3 32.0 - 36.0 gm/dl [facility] RDW 12.1 11.5 - 14.5 % [facility] Platelet Count 220 130.0 - 400.0 1000/mm3 [facility] Granulocytes % 46.1 40.0 - 70.0 % [facility] Lymphocytes % Manual 41.9(H) 22.0 - 40.0 % [facility] Monocytes % 9.6 2.0 - 10.0 % [facility] Eosinophils % 1.7 0.0 - 6.0 % [facility] Basophils % 0.7 0.0 - 3.0 % [facility] Comment Manual Diff Not Indicated [facility] Granulocytes Absolute 2.70 1.8 - 7.7 1000/mm3 [facility] BLOOD SPECIMEN / Unknown 09/05/2008 11:10 PM CDT Daniel De Jesus MD LAB - HEMATOLOGY O RDERABLES [facility] [address] [place] [address] * (ABNORMAL) COMPREHENSIVE METABOLIC PANEL (09/05/2008 11:10 PM CDT) BUN 15 9.0 - 20.0 mg/dl [facility] Sodium 139 137 - 145 mEq/L [facility] Potassium 3.9 3.6 - 5.0 mEq/L [facility] Chloride 98 98.0 - 107.0 mEq/L [facility] Glucose 87 75 - 110 mg/dl [facility] Creatinine 1.2 0.8 - 1.5 mg/dl [facility] AST 57 17.0 - 59.0 U/L [facility] Alkaline Phosphatase 74 38.0 - 126.0 U/L [facility] Calcium 9.4 8.4 - 10.2 mg/dl [facility] Bilirubin Total 0.5 0.2 - 1.3 mg/dl [facility] Albumin 4.7 3.5 - 5.0 gm/dl [facility] Protein Total 7.8 6.3 - 8.2 gm/dl [facility] CO2 31(H) 22.0 - 30.0 mEq/L [facility] ALT 47 21.0 - 72.0 U/L [facility] eGFR by MDRD 76.6 ml/min/1.7 3m2 [facility] BLOOD SPECIMEN / Unknown 09/05/2008 11:10 PM CDT Daniel De Jesus MD LAB - CHEMISTRY OR DERABLES Performing Organization Address [facility] Co de Phone Number [facility] [address] [place] [address] * MAGNESIUM BLOOD (09/05/2008 11:10 PM CDT) Magnesium 2.1 1.6 - 2.3 mg/dl [facility] BLOOD SPECIMEN / Unknown 09/05/2008 11:10 PM CDT Daniel De Jesus MD LAB - CHEMISTRY OR DERABLES Performing Organization Address [facility] Co de Phone Number [facility] [address] [place] [address] * XR CHEST 1VW PORTABLE (09/05/2008 10:33 PM CDT) Anatomical Region Laterality Modality Chest Other 09/05/2008 10:3 3 PM CDT Narrative 09/06/2008 7:43 AM CDT Indication- Chest pain A single portable view of the chest shows the lungs are clear. Mediastinal contour and heart size are within normal limits. Pulmonary vascularity is unremarkable. Impression- No acute disease. Code 0 ? Read By- JESSE OAKES ??M.D. ? Released By- JESSE OAKES ??M.D. ? Released Date Time- 09/06/08742 ? Tutoring Assistant- CODY ??M.D. ? ADM- MITCH BAKER ?ATT- MITCH BAKER REF- ?CON- PCP- HANH DUKE ?SCP- Procedure Note Jesse Oakes - 09/06/2008 Indication- Chest pain A single portable view of the chest shows the lungs are clear. Mediastinal contour and heart size are within normal limits. Pulmonary vascularity is unremarkable. Impression- No acute disease. Code 0 Read By- JESSE OAKES M.D. Released By- JESSE OAKES M.D. Released Date Time- 09/06/08 0743 Tutoring Assistant- CODY Srivastava ADM- MITCH BAKER ATT- MITCH BAKER REF- CON- PCP- HANH DUKE SCP- Daniel De Jesus MD DIAGNOSTIC IMAGING ORDERABLES Care Teams Script Writer Relationship Specialty Start Date End Date Hanh Duke MD [address] [place] [address] [address] [place] [address] [facility] - General 09/05/08
--- OUTSIDE RECORDS SUMMARY | 2024-06-08 15:02 | XMS_ITS | Clinical Summary ---
Author Organization [employer] Address [address] [place] [address] Care Team Providers Care Cracking And Fanning Machine Operator Name Role Phone Hanh Duke MD Primary Care Provider Source Comments [facility],non-owned Affiliates and Associated Physician Practices is amultiple site organization consisting of ambulatory clinics and hospital sitesin [place], [place], [place] and [place]. This disclosure is being madepursuant to the Care Everywhere program and may not contain all information available regarding this patient. Last updated 18.[facility] Allergies No known active allergies Medications * Be aware that medications may not be up to date on this document. Alwaysverify current medications with the patient. Medication Sig Dispensed Refills Start Date End Date Status hydrocodone-acetaminop hen (NORCO) 5-325 MG tablet Take 1 Tab by mouth every 4 hours as needed for Pain 15 Tab 0 06/04/2015 Active naproxen (NAPROSYN) 500 MG tablet Take 1 Tab by mouth 2 times daily as needed for Pain 20 Tab 0 06/04/2015 Active Social History Tobacco Use Types Packs/Day Years Used Date Smoking Tobacco: Never Assessed Sex and Gender Information Value Date Recorded Sex Assigned at Not on file Gender Identity Not on file Sexual Orientation Not on file Last Filed Vital Signs Vital Sign Reading Time Taken Comments Blood Pressure 141/95 06/04/2015 11:30 AM CUSTOMER SUCCESS ADVOCATE Pulse 85 06/04/2015 11:29 AM CUSTOMER SUCCESS ADVOCATE Temperature 36.3 ??C (97.4 ??F) 06/04/2015 11:[address] Respiratory Rate 19 06/04/2015 11:29 AM CUSTOMER SUCCESS ADVOCATE Oxygen Saturation 100% 06/04/2015 11:29 AM CUSTOMER SUCCESS ADVOCATE Inhaled Oxygen Concentration - - Weight 104.3 kg (230 lb) 06/04/2015 11:28 AM CUSTOMER SUCCESS ADVOCATE Height 185.4 cm (6' 1 ) 06/04/2015 11:28 AM CUSTOMER SUCCESS ADVOCATE Body Mass Index 30.34 06/04/2015 11:28 AM CUSTOMER SUCCESS ADVOCATE Plan of Treatment Health Maintenance Due Date Last Done Comments HIV SCREENING 1995 HEPATITIS C SCREENING 03/08/1998 DTAP/TDAP/TD VACCINES (1 - Tdap) 1999 HEPATITIS B VACCINE (1 of 3 - 19+ 3-dose series) 1999 LIPID TESTING 09/06/2013 09/06/2008 COVID-19 VACCINE (1 - 2023-2 5 season) 2024 INFLUENZA VACCINE (#1) 2024 DEPRESSION SCREENING 06/01/2024 ZOSTER VACCINE (1 of 2) 2030 HIB VACCINE Aged Out No longer eligi ble based on patient's age to complete this topic HPV VACCINE Aged Out No longer eligi ble based on patient's age to complete this topic MENINGOCOCCAL (Group B) VACCINE Aged Out No longer eligible based on patient's age to complete this topic MENINGOCOCCAL VACCINE Aged Out No niurka janki eligible based on patient's age to complete this topic PNEUMOCOCCAL VACCINE Aged Out No long er eligible based on patient's age to complete this topic Procedures Procedure Name Priority Date/Time Associated Diagnosis Comments LIPID PROFILE Routine 09/06/2008 5:03 AM CDT Unspecified Chest Pain from Last 3 Months or Most Recently Relevant to Health Maintenance Results * (ABNORMAL) LIPID PROFILE (09/06/2008 5:03 AM CDT) Cholesterol 159 120.0 - 200.0 mg/dl [facility] Triglycerides 123 0.0 - 250.0 mg/dl [facility] HDL Cholesterol 27(L) >40 mg/dl [facility] LDL Calculated 107.4 mg/dl [facility] Chol HDL Ratio 5.9 [facility] Comment Lipid [facility] Comment: Risk Classification ? HDL CHOL [...] patients according to data reported from the [place] Study by Xavi Quijano M.D. ??The predictive [...] SPECIMEN / Unknown 09/06/2008 5:03 AM CDT Leanne Baker MD LAB - CHEMISTRY YENNY Benitez Organization Address City/State/ZIP Co de Phone Number [facility] [address] [place] [address] from Last 3 Months or Most Recently Relevant to Health Maintenance Care Teams Cracking And Fanning Machine Operator Relationship Specialty Start Date End Date Hanh Duke MD [address] [id number] PCP - General 09/05/08
--- OUTSIDE RECORDS SUMMARY | 2024-06-08 15:02 | XMS_ITS | Referral Summary ---
Author Organization [facility] [employer] Address [address] [place] [address] Care Team Providers Care Professor Of Management Name Role Phone Hanh Duke MD Primary Care Provider Source Comments [facility] [employer],non-owned Affiliates and Associated Physician Practices is amultiple site organization consisting of ambulatory clinics and hospital sitesin [place], [place], [place]. This disclosure is being madepursuant to the Care Everywhere program and may not contain all information available regarding this patient. Last updated 18.[place] Allergies No known active allergies Medications * [...] Comments Blood Pressure 141/95 06/04/2015 11:30 AM STEEL FIXER Pulse 85 06/04/2015 11:29 AM STEEL FIXER Temperature 36.3 ??C (97.4 ??F) 06/04/2015 11:[address] Respiratory Rate 19 06/04/2015 11:29 AM STEEL FIXER Oxygen Saturation 100% 06/04/2015 11:29 AM STEEL FIXER Inhaled Oxygen Concentration - - Weight 104.3 kg (230 lb) 06/04/2015 11:28 AM STEEL FIXER Height 185.4 cm (6' 1 ) 06/04/2015 11:28 AM STEEL FIXER Body Mass Index 30.34 06/04/2015 11:28 AM STEEL FIXER Plan of Treatment Not on file Procedures Procedure Name Priority Date/Time Associated Diagnosis Comments LIPID PROFILE Routine 09/06/2008 5:03 AM CDT Unspecified Chest Pain from Last 3 Months or Most Recently Relevant to Health Maintenance Results * (ABNORMAL) LIPID PROFILE (09/06/2008 5:03 AM CDT) Cholesterol 159 120.0 - 200.0 mg/dl [facility] Triglycerides 123 0.0 - 250.0 mg/dl [facility] HDL Cholesterol 27(L) >40 mg/dl [facility] LDL Calculated 107.4 mg/dl [facility] Chol HDL Ratio 5.9 [facility] Comment Lipid [facility] Comment: Risk Classification ? HDL CHOL [...] patients according to data reported from the [place] Study by Xavi Quijano M.D. ??The predictive [...] Leanne Baker MD LAB - CHEMISTRY [facility] [address] [place] [address] from Last 3 Months or Most Recently Relevant to Health Maintenance Care Teams Professor Of Management Relationship Specialty Start Date End Date Hanh Duke MD [address] [address] PCP - General 09/05/08
--- OUTSIDE RECORDS SUMMARY | 2024-06-08 15:03 | XMS_ITS | Encounter Summary ---
Author Organization [facility] Address [address] [place] [address]. [place], [place] [address] [place] [address] Care Team Providers Care Coroner/Medical Examiner Name Role Phone Jeanna Rubin Primary Care Provider Encounter Details Date Type Department Care Team (Latest Contact Info) Description 10/13/2016 Abstract [facility] Social History Tobacco Use Types Packs/Day Years Used Date Smoking Tobacco: Never Assessed Sex and Gender Information Value Date Recorded Sex Assigned at Not on file Legal Sex Male 8:31 PM CDT Gender Identity Not on file Sexual Orientation Not on file documented as of this encounter Plan of Treatment Not on file documented as of this encounter Visit Diagnoses Not on filedocumented in this encounter Care Teams Coroner/Medical Examiner Relationship Specialty Start Date End Date Jeanna Rubin FNP [address] [facility] [facility] [place] [address] PCP - General 09/24/16 documented as of this encounter
--- OUTSIDE RECORDS SUMMARY | 2024-06-08 15:03 | XMS_ITS | Encounter Summary ---
Author Organization [facility] Address [address] [place] [address]. [place], [place] [address] [place] [address] Care Team Providers Care Aircraft Communicator Name Role Phone Jeanna Rubin [facility] Primary Care Provider [phone] Encounter Details Date Type Department Care Team (Latest Contact Info) Description 06/02/2017 Abstract [facility] Social History Tobacco Use Types Packs/Day Years Used Date Smoking Tobacco: Never Assessed Sex and Gender Information Value Date Recorded Sex Assigned at Not on file Legal Sex Male 8:31 PM CDT Gender Identity Not on file Sexual Orientation Not on file documented as of this encounter Progress Notes * Generic Conversion MD Maritza - 06/02/2017 10:07 AM CST Message Recorded as Task Date: 05/31/2017 02:08 PM, Created By: Jeanna Rubin Task Name: Call Back Assigned To: [facility] Nurse Team Regarding Patient: Ameya Santacruz, Status: Active Comment: Jeanna Rubin - 31 May 2017 2:08 PM TASK CREATED Ameya's A1C is normal. It is 5.3 at 5.7 to 6.4, you are considered prediabetic. He should continue aheart healthy diet and daily physical activity. Kath Ward - 02 Jun 2017 9:47 AM TASK EDITED Kath Ward - 02 Jun 2017 9:49 AM TASK EDITED 06-02-17 tn Message: Pt updated and V/U-venkatesh Signatures Electronically signed by : Katiana Iverson R.N.; Jun 02 2017 10:08AM ENVELOPE PATTERNMAKER (Author) documented in this encounter Plan of Treatment Not on file documented as of this encounter Visit Diagnoses Not on filedocumented in this encounter Care Teams Aircraft Communicator Relationship Specialty Start Date End Date Jeanna Rubin FNP [address] [place] [address] PCP - General 09/24/16 documented as of this encounter
--- OUTSIDE RECORDS SUMMARY | 2024-06-08 15:03 | XMS_ITS | Encounter Summary ---
Author Organization [facility] Address [address] [place] [address]. [place], [place] [address] [place] [address] Care Team Providers Care Mopper Name Role Phone Jeanna Rubin Primary Care Provider Encounter Details Date Type Department Care Team (Latest Contact Info) Description 07/24/2017 Abstract [facility] Social History Tobacco Use Types [...] on filedocumented in this encounter Care Teams Mopper Relationship Specialty Start Date End Date Jeanna Rubin FNP [address] [place] [address] PCP - General 09/24/16 documented as of this encounter
--- OUTSIDE RECORDS SUMMARY | 2024-06-08 15:03 | XMS_ITS | Encounter Summary ---
Author Organization [facility] Address [address] [place] [address] [place] [address] Care Team Providers Care Local Az Truck Driver Name Role Phone Jeanna Rubin Primary Care Provider Jeanna Rubin Primary Care Provider Jeanna Rubin Primary Care Provider [phone] Encounter Details Date Type Department Care Team (Late st Contact Info) Description 04/21/[address] [facility] [place] [address] Jeanna Rubin FNP [address] [place], [place] [id number] Social History Tobacco Use Types Packs/Day Years [...] Procedure Name Priority Date/Time Associated Diagnosis Comments TSH W/REFLEX Routine 04/21/2016 11:37 AM SUPERVISOR MOLD [employer]OP TESTOSTERONE, FREE & TOTAL Routine 04/21/2016 11:37 AM [employer] COMPREHENSIVE METABOLIC PANEL Routine 04/21/2016 11:37 AM [employer]PER[employer] LIPID PANEL Routine 04/21/2016 11:37 AM [employer]PERVISOR [employer] CBC, MANUAL DIFF Routine 04/21/2016 11:3 7 AM SUPERVISOR MOLD SHOP VITAMIN D, 25 OH Routine 04/21/2016 11:3 7 AM SUPERVISOR [employer] documented in this encounter Results * VITAMIN D, 25 OH (04/21/2016 11:37 AM SUPERVISOR MOLD SHOP) VITAMIN D 25 HYDROXY S/P/B 42 30 - 100 NG/ML 04/22/2016 5:52 PM SUPERVISOR [employer] [facility] Comment: SUPPLEMENTING WITH VITAMIN D2 MAY RESULT IN FALSELY LOW RESULTS, CLINICAL CORRELATION NEEDED. ? INTERPRETATION ? DEFICIENT ??<20 ?INSUFFICIENT 20-30 ?SUFFICIENT 30-100 POTENTIAL INTOXICATION ??>100 TEST[place] [address] 04/21/2016 11:3 7 AM SUPERVISOR MOLD SHOP 04/21/2016 8:47 PM SUPERVISOR MOLD SHOP us Generic Conversion Md [facility] Final R esult [facility] [address] [place] [address], * TSH W/REFLEX (SNS) (04/21/2016 11:37 AM SUPERVISOR MOLD SHOP) Pathologist [facility] TSH 1.93 0.27 - 4.20 mIU/mL 04/21/2016 9:37 PM SUPERVISOR [employer]OLD [employer] [facility] Comment:FREE T4 NOT INDICATE D SERUM OR PLASMA SPECIMEN / Unknown 04/21/2016 11:37 AM SUPERVISOR MOLD SHOP 04/21/2016 8:47 PM SUPERVISOR MOLD SHOP Generic Conversion Md [facility] Final R esult [facility] [address] [address], [place] [phone] * TESTOSTERONE, FREE & TOTAL (04/21/2016 11:37 AM SUPERVISOR MOLD SHOP) TESTOSTERONE TOTAL 590 250 - 1,100 ng/dL 04/24/2016 4:55 PM SUPERVISOR M[employer] [facility] AIDAN MILLER Comment: For more information on this test, go to http://education.DeepRockDrive/faq/ TotalTestosteroneLCMSMS TESTOSTERONE FREE 83.8 35.0 - 155.0 pg/mL 04/24/2016 4:55 PM SUPERVISOR M[employer] [facility] AIDAN MILLER Comment: Test Performed by [employer], [employer] [facility], [address] [place] [address] Peter Silva M.D., Ph.D., Director of Laboratories , [facility] [id number] SERUM SPECIMEN / Unknown 04/21/2016 11:37 AM SUPER[employer] 04/21/2016 8:47 PM SUPERVISOR [employer] Generic Conversion Md [facility] Final R esult [facility] [address] [address], [place] [phone] * (ABNORMAL) LIPID PANEL (04/21/2016 11:37 AM SUPERVISOR MOLD SHOP) CHOLESTEROL 194 <200 MG/DL 04/21/2016 9:37 PM SUPERVISOR MOLD SH[employer] [facility] Comment: NOTE: Acetaminophen, N Acetyl p benzoquinone imine (NAPQI), N acetylcysteine (NAC), Metamizole, 4 Aminoantipyrine (4 AAP) and 4 Methylamino antipyrine (4 MAP) at high concentrations can cause falsely low results on Lactate, Uric Acid, Cholesterol, Triglyceride, HDL, and Direct LDL. TRIGLYCERIDES 72 <150 MG/DL 04/21/2016 9:37 PM [facility] HDL 44(L) >59 MG/DL 04/21/2016 9:37 PM [facility] LDL (CALCULATED) 136(H) <100 MG/DL 04/21/2016 9:37 PM [facility] NON HDL CHOLESTEROL 150(H) <130 MG/DL 04/21/2016 9:37 PM [facility] Comment: NOTE: WHEN THE TRIGLYCERIDES ARE >200 mg/dL, NON HDL C IS A SECONDARY TARGET OF THERAPY, WITH A GOAL 30 mg/dL HIGHER THAN THE IDENTIFIED LDL C GOAL. CHOL/HDL RATIO 4.4 0.0 - 4.5 04/21/2016 9:37 PM [facility] VLDL CALCULATION 14 5 - 55 MG/DL 04/21/2016 9:37 PM [facility] LIPID INTERPRETATION 04/21/2016 9:37 PM [facility] Comment: [facility] REPORT RECOMMENDATIONS: ?ADULT ?CHILD ??LOW RISK: ?CHOLESTEROL ? <200 ? <170 ?TRIGLYCERIDE ?<150 ?--- ?HDL ? >=60 ?--- ?LDL ? <100 ? <110 ??BORDERLINE: ?CHOLESTEROL ? 200-239 ?? 170-199 ?TRIGLYCERIDE ?150-199 ? --- ?HDL ?40-59 ?--- ?LDL ? 100-159 ?? 110-129 ??HIGH RISK: ?CHOLESTEROL ? >=240 ?>=200 ?TRIGLYCERIDE ?>=200 ? --- ?HDL ?<40 ?--- ?LDL ? >=160 ?>=130 04/21/2016 11:3 7 AM [employer] 04/21/2016 8:47 PM SUPERVIS[employer] us Generic Conversion Md [facility] Final R esult [facility] [address] [place] [address], * (ABNORMAL) COMPREHENSIVE METABOLIC PANEL (04/21/2016 11:37 AM SUPERVISOR [employer]) GLUCOSE 91 70 - 99 mg/dL 04/21/2016 9:37 PM [facility] BUN 12 8 - 23 mg/dL 04/21/2016 9:37 PM [facility] CREATININE S/P/B 0.94 0.70 - 1.20 mg/dL 04/21/2016 9:37 PM [facility] SODIUM S/P/B 140 136 - 145 mmol/L 04/21/2016 9:37 PM [facility] POTASSIUM S/P/B 4.5 3.5 - 5.1 mmol/L 04/21/2016 9:37 PM [facility] CHLORIDE S/P/B 101 98 - 107 mmol/L 04/21/2016 9:37 PM [facility] CO2 28 22 - 29 mmol/L 04/21/2016 9:37 PM [facility] BILIRUBIN TOTAL S/P/B 0.6 0.2 - 1.2 mg/dL 04/21/2016 9:37 PM [facility] CALCIUM S/P/B 9.8 8.6 - 10.2 mg/dL 04/21/2016 9:37 PM [facility] ALKALINE PHOSPHATASE S/P/B 65 40 - 129 U/L 04/21/2016 9:37 PM [facility] AST 32 0 - 40 U/L 04/21/2016 9:37 PM [facility] TOTAL PROTEIN S/P/B 7.2 6.4 - 8.3 g/dL 04/21/2016 9:37 PM [facility] ALBUMIN S/P/B 4.9 3.5 - 5.2 g/dL 04/21/2016 9:37 PM [facility] ALT 48(H) 0 - 41 U/L 04/21/2016 9:37 PM [facility] GLOBULIN 2.3 2.3 - 3.6 g/dL 04/21/2016 9:37 PM [facility] A/G RATIO 2.1(H) 1.0 - 2.0 04/21/2016 9:37 PM [facility] ANION GAP 16 8 - 20 04/21/2016 9:37 PM [facility] EGFR NON-AFR. AMER. >60 >60 mL/min/1.7 3m'2 04/21/2016 9:37 PM [facility] EGFR AFR. AMER. >60 >60 mL/min/1.7 3m'2 04/21/2016 9:37 PM SUPERVISOR MOLD SH[employer] [facility] Comment: NOTE: eGFR is not calculated for patients <18 years of age. This is an estimated GFR (CKD EPI) and should not be used for calculating drug doses. 04/21/2016 11:3 7 AM SUPERVISOR [employer] SH[employer] 04/21/2016 8:47 PM SUPERVISOR MOLD SHOP us Generic Conversion Md [facility] Final R esult [facility] [address] [place] [address], * (ABNORMAL) CBC, MANUAL DIFF (04/21/2016 11:37 AM SUPERVISOR MOLD SHOP) EOSINOPHILS 1 1.0 - 3.0 % 04/21/2016 11:55 PM [facility] BANDS 2 0.0 - 3.0 % 04/21/2016 11:55 PM [facility] SEG NEUTROPHILS 43 43.0 - 65.0 % 04/21/2016 11:55 PM [facility] LYMPHOCYTES 44 20.0 - 46.0 % 04/21/2016 11:55 PM [facility] MONOCYTES 10 5.0 - 12.0 % 04/21/2016 11:55 PM [facility] DIFFERENTIAL TYPE MANUAL 016 11:55 PM [facility] WBC 4.2(L) 4.8 - 10.8 x10'3/uL 04/21/2016 11:49 PM [facility] RBC 5.04 4.70 - 6.10 x10'6/uL 04/21/2016 11:49 PM [facility] HGB 14.9 14.0 - 18.0 G/DL 04/21/2016 11:49 PM [facility] HCT 44.3 43.0 - 54.0 % 04/21/2016 11:49 PM SUPERVISOR M[employer] SH[employer] [facility] MCV 87.9 80.0 - 94.0 FL 04/21/2016 11:49 PM [employer]PERVISOR [employer] [facility] MCH 29.6 27.0 - 31.0 PG 04/21/2016 11:49 PM SUPERVISOR MOLD SH[employer] [facility] MCHC 33.6 32.0 - 36.0 G/DL 04/21/2016 11:49 PM SUPERVISOR MOLD SH[employer] [facility] RDW 12.1 11.5 - 14.5 % 04/21/2016 11:49 PM SUPERVISOR MOLD SHOP [facility] PLT 217 130 - 400 x10'3/uL 04/21/2016 11:49 PM [facility] MPV 11.1 9.3 - 12.2 FL 04/21/2016 11:49 PM [facility] 04/21/2016 11:3 7 AM SUPERVISOR MOLD SHOP 04/21/2016 8:47 PM SUPERVISOR MOLD SHOP us Generic Conversion Md [facility] Final R esult Performing Organization Address City/State/[facility] Co de Phone Number [facility] [address] [place] [address], documented in this encounter Visit Diagnoses Diagnosis Left lower quadrant pain Abdominal pain, left lower quadrant documented in this encounter Care Teams Local Az Truck Driver Relationship Specialty Start Date End Date Jeanna Rubin FNP [address] [place] [address] PCP - General 09/24/16 Jeanna Rubin FNP [address] [place] [address] PCP - General 09/16/16 09/23/16 Jeanna Rubin FNP [address] [place] [address] PCP - General 04/21/16 09/15/16 documented as of this encounter
--- OUTSIDE RECORDS SUMMARY | 2024-06-08 15:03 | XMS_ITS | Encounter Summary ---
Author Organization [facility] Address [address]. [place], [place] [address] [place] [address] Care Team Providers Care Mobile Home Servicer Name Role Phone Jeanna Rubin Primary Care Provider [phone] Jeanna Rubin Primary Care Provider [phone] Encounter Details Date Type Department Care Team (Latest Contact Info) Description 09/17/2016 Abstract [facility] Medical Group Social History Tobacco Use Types Packs/Day Years Used Date Smoking Tobacco: Never Assessed Sex and Gender Information Value Date Recorded Sex Assigned at Not on file Legal Sex Male 8:31 PM CDT Gender Identity Not on file Sexual Orientation Not on file documented as of this encounter Progress Notes * MICHELLE Fox - 09/17/2016 10:21 AM CDT Message Recorded as Task Date: 09/16/2016 09:04 PM, Created By: Jeanna Rubin Task Name: Medical Complaint Callback [facility] Regarding Patient: Ameya Santacruz, Status: Complete Comment: Jeanna Rubin - 16 Sep 2016 9:04 PM TASK CREATED Ameya's labs show that he is ever so slightly dehydrated. He needs to make sure that he is drinking an electrolyte replacement type drink to help with this. It does not warrant IV hydration unless he is unable to keep fluids down. His white count was normal. I am still waiting for his records from [facility] to determine if further testing needs to be done. Clemente Anaya - 17 Sep 2016 10:11 AM TASK EDITED lmom for pt to call Mandy Raya - 17 Sep 2016 10:21 AM TASK COMPLETED Message: pt informed and verbalized understanding. Signatures Electronically signed by : Mandy Raya, ; Sep 17 2016 10:22AM REVIVAL CLERK (Author) documented in this encounter Plan of Treatment Not on file documented as of this encounter Visit Diagnoses Not on filedocumented in this encounter Care Teams Mobile Home Servicer Relationship Specialty Start Date End Date Jeanna Rubin FNP [address] [place] [address] PCP - General 09/24/16 Jeanna Rubin FNP [address] [place] [address] PCP - General 09/16/16 09/23/16 documented as of this encounter
--- OUTSIDE RECORDS SUMMARY | 2024-06-08 15:03 | XMS_ITS | Encounter Summary ---
Author Organization [facility] Address [address] [place] [address]. [place], [place] [id number] [place] [id number] Care Team Providers Care Spout Tender Name Role Phone Jeanna Rubin MICHELLE Primary Care Provider [phone] Reason for Visit * Reason Comments Other abdominal pain Encounter Details Date Type Department Care Team (Late st Contact Info) Description 06/15/2019 3:20 PM PRODUCT SPECIALIST Office Visit [facility] - [address] [phone] Sharad Rivers MD Other (abdominal pain) Social History Tobacco Use Types Packs/Day Years Used Date Smoking Tobacco: Former Cigarettes 1 2 Smokeless Tobacco: Never Alcohol Use Standard Drinks/Week Comments Yes 0 (1 standard drink = 0.6 oz pur e alcohol) Social PHQ-2 Answer Date Recorded PHQ-2 Score 0 06/08/2019 Sex and Gender Information Value Date Recorded Sex Assigned at Not on file Legal Sex Male 8:31 PM CDT Gender Identity Not on file Sexual Orientation Not on file documented as of this encounter Last Filed Vital Signs Vital Sign Reading Time Taken Comments Blood Pressure 130/93 06/15/2019 3:48 PM PRODUCT SPECIALIST Pulse 78 06/15/2019 3:48 PM PRODUCT SPECIALIST Temperature 37.1 ??C (98.8 ??F) 06/15/2019 3:48 PM CS T Respiratory Rate 18 06/15/2019 3:48 PM PRODUCT SPECIALIST Oxygen Saturation 97% 06/15/2019 3:48 PM PRODUCT SPECIALIST Inhaled Oxygen Concentration - - Weight 109 kg (240 lb 6.4 oz) 06/15/2019 3:48 PM PRODUCT SPECIALIST Height - - Body Mass Index 31.72 06/08/2019 11:33 AM PRODUCT SPECIALIST documented in this encounter Patient Instructions * Patient Instructions* Sharad Rivers MD - 06/15/2019 3:20 PM PRODUCT SPECIALIST Images from the original note were not included. 1) Take any prescribed medications or recommended over the counter medications as directed. 2) See your primary care physician in 2-3 days if not improving or sooner if symptoms worsen or change. 3) See any informational handouts. 4) Thank you for coming to the [facility] today. I hope that you had a good experience here today and I hope that you are feeling better very soon. Please understand that the Same Day Clinic is not a substitute for ongoing care and follow-up with your primary care physician. Please follow-up with your primary care physician as recommended and follow-up with your primary care physician for your regular check-ups/appointments. 5) TAKE OVER THE COUNTER MIRALAX DAILY UNTIL YOUR FOLLOW-UP WITH YOUR DOCTOR. THE DOSE OF MIRALAX IS 17 GRAMS BY MOUTH DAILY, SEE BOTTLE FOR DETAILS. SEE YOUR DOCTOR IN 7-10 DAYS FOR A RECHECK. Patient Education Patient Education Severe Abdominal Pain The Basics Written by the doctors and editors at [facility] Are there different types of abdominal pain???--??Yes. Abdominal pain means pain in the abdomen (or belly), which is the part of the body between the chest and the genital area. This pain can happen for different reasons. It can be chronic, which means it develops over time, or acute, which means it starts suddenly. It can be mild or severe. A person might feel the pain all over their abdomen, or only in 1 part. Abdominal pain can feel different for different people. It can feel sharp or crampy, or dull and steady. Some people feel better if they curl into a ball, while others need to lie flat and completelystill. People often feel sick to their stomach and retch or vomit. Doctors use the term acute abdomen to describe an episode of severe abdominal pain that starts suddenly and lasts for a few hours or longer. It can cause pain so severe that the person has a hard time moving or breathing and it makes them want to go to the hospital or see their doctor or nurse right away. A true acute abdomen is a medical emergency. What causes abdominal pain???--??Lots of different things can cause abdominal pain. When pain is less severe, it can be due to something like a virus or a stomach inflammation (called gastritis ). Acute pain that is more severe can be caused by problems with 1 or more organs in the abdomen. Organs in the abdomen can be part of the digestive, urinary, or reproductive systems (figure 1 and figure 2 and figure 3). Conditions that affect organs in the chest or genital area can also cause pain. Even though these organs aren't in the abdomen, people might still have abdominal pain. Common causes of acute abdominal pain in adults include: ?? Appendicitis - Appendicitis is the term for when the appendix (a long, thin pouch that hangs down from the large intestine) gets infected and inflamed. ?? Diverticulitis - Diverticulitis is an infection that develops in small pouches that can form in the intestine. This is common in older people. ?? Gallstones - Gallstones are small stones that form inside an organ called the gallbladder, whichstores bile, a fluid that helps the body break down fat. ?? Abscess - An abscess is a collection of pus. An abscess can form in the abdomen, typically near the intestine. ?? Kidney stones - Kidney stones can form when salts and minerals that are normally in the urine build up and harden. They can cause pain when they pass through the ureters, which are the tubes that carry urine from the kidney to the bladder. ?? Bowel perforation - This is a hole in the bowel wall. ?? Perforated ulcer - This is a hole in the wall of the stomach or intestine. ?? Pancreatitis - This is the term for when the pancreas gets inflamed. ?? Ruptured cyst in the ovary - Cysts in the ovary are fluid-filled sacs that can form in some women. They sometimes rupture, which means that they break open and spill out. ?? Ectopic - An ectopic is a that develops outside the uterus. Should I see a doctor or nurse???--??Yes. If you have sudden or severe abdominal pain, call your doctor or nurse or go to the hospital right away. Depending on the cause of your pain, you might need immediate treatment. Will I need tests???--??Probably. The doctor or nurse will ask about your symptoms, including whereyour pain is and what it feels like. The location of the pain can be an important clue to the cause. Your doctor will ask about your current and past medical conditions, and do a physical exam. They might do repeat exams over time to follow your symptoms. Your doctor will decide which tests you should have based on your symptoms and individual situation. The tests might include: ?? Blood tests ?? Urine tests ?? X-rays ?? An ultrasound, CT scan, or other imaging test - Imaging tests create pictures of the inside of the body. How is abdominal pain treated???--??Treatment depends on what's causing the pain. It might include 1 or more of the following: ?? Fluids given by IV ?? Pain medicines ?? Antibiotic medicines to treat an infection ?? Other medicines to treat other medical conditions ?? Surgery All topics are updated as new evidence becomes available and our peer review process is complete. This topic retrieved from [employer] on: Jan 12, 2019. Topic 03570 Version 12.0 Release: 27.3.2 - C27.227 ?2019??[employer] and/or its affiliates.??All rights reserved. figure 1: Organs inside the abdomen (belly) Graphic 70527 Version 6.0 figure 2: Anatomy of the urinary tract Urine is made by the kidneys. It passes from the kidneys into the bladder through two tubes called the ureters. Then it leaves the bladder through another tube called the urethra. Graphic 47003 Version 7.0 figure 3: Female reproductive anatomy These are the internal organs that make up a woman's reproductive system. Graphic 78644 Version 5.0 Consumer Information Use and Disclaimer This information is not specific medical advice and does not replace information you receive from your health care provider. This is only a brief summary of general information. It does NOT include all information about conditions, illnesses, injuries, tests, procedures, treatments, therapies, discharge instructions or life-style choices that may apply to you. You must talk with your health care provider for complete information about your health and treatment options. This information should not be used to decide whether or not to accept your health care provider's advice, instructions or recommendations. Only your health care provider has the knowledge and training to provide advice that is right for you.The use of [employer] content is governed by the [employer] Terms of Use. ??2019 [employer]. All rights reserved. Copyright ?2019??[employer] and/or its affiliates.??All rights reserved. Patient Education Patient Education Constipation in Adults The Basics Written by the doctors and editors at [facility] What is constipation???--??Constipation is a common problem that makes it hard to have bowel movements. Your bowel movements might be: ?? Too hard ?? Too small ?? Hard to get out ?? Happening fewer than 3 times a week What causes constipation???--??Constipation can be caused by: ?? Side effects of some medicines ?? Poor diet ?? Diseases of the digestive system (figure 1) What other symptoms should I watch for???--??These symptoms could signal a more serious problem: ?? Blood in the toilet or on the toilet paper after having a bowel movement ?? Fever ?? Weight loss ?? Feeling weak Is there anything I can do on my own to get rid of constipation???--??Yes. Try these steps: ?? Eat foods that have a lot of fiber. Good choices are fruits, vegetables, prune juice, and cereal(table 1). ?? Drink plenty of water and other fluids. ?? When you feel the need to go to the bathroom, go to the bathroom. Don't hold it. ?? Take laxatives. These are medicines that help make bowel movements easier to get out. Some are pills that you swallow. Others go into the rectum. These are called suppositories. Should I see a doctor or nurse???--??See your doctor or nurse if: ?? Your symptoms are new or not normal for you ?? You do not have a bowel movement for a few days ?? The problem comes and goes, but lasts for longer than 3 weeks ?? You are in a lot of pain ?? You have other symptoms that also worry you (for example, bleeding, weakness, weight loss, or fever) ?? Other people in your family have had colorectal cancer or inflammatory bowel disease Are there tests I should have???--??Your doctor or nurse will decide which tests you should have based on your age, other symptoms, and individual situation. There are lots of tests, but you might not need any. Here are the most common tests doctors use to find the cause of constipation: ?? Rectal exam - Your doctor will look at the outside of your anus. He or she will also use a finger to feel inside the opening. ?? Sigmoidoscopy or colonoscopy - For these tests, the doctor puts a thin tube into your anus. Then, he or she advances the tube into your large intestine. The large intestine is also called the colon. The tube has a camera attached to it, so the doctor can look inside your intestines. During thesetests, the doctor can also take samples of tissue to look at under a microscope (figure 2). ?? X-rays or MRI - These create images of the inside of your body. ?? Manometry studies - Manometry allows the doctor to measure the pressure inside the rectum at various points. It can help the doctor find out if the muscles that control bowel movements are workingright. The test also shows whether the person's rectum can feel normally. How is constipation treated???--??That depends on what is causing your constipation. First, your doctor will want you to try eating more fiber and drinking more water. If that doesn't help, your doctor might suggest: ?? Medicines that you swallow or put in your rectum ?? Changing the medicines you are taking for other conditions ?? A treatment called an enema. For this treatment, a doctor or nurse will squirt water into yourrectum. He or she might also use a thin tool to help break up bowel movements that are still insideyou. ?? Biofeedback - This is a technique that teaches you to relax your muscles so you can let go and push bowel movements out. Can constipation be prevented???--??You can reduce your chances of getting constipation again by: ?? Eating a diet that is full of fiber (table 1) ?? Drinking water and other fluids during the day ?? Going to the bathroom at regular times every day All topics are updated as new evidence becomes available and our peer review process is complete. This topic retrieved from [employer] on: Jan 12, 2019. Topic 55959 Version 6.0 Release: 27.3.2 - C27.227 ?2019??[employer]. and/or its affiliates.??All rights reserved. figure 1: Digestive system This drawing shows the organs in the body that process food. Together these organs are called the digestive system, or digestive tract. As food travels through this system, the body absorbs nutrients and water. Graphic 61545 Version 4.0 table 1: Amount of fiber in different foods Food Serving Grams of fiber Fruits Apple (with skin) 1 medium apple 4.4 Banana 1 medium banana 3.1 Oranges 1 orange 3.1 Prunes 1 cup, pitted 12.4 Juices Apple, unsweetened, with added ascorbic acid 1 cup 0.5 Grapefruit, white, canned, sweetened 1 cup 0.2 Grape, unsweetened, with added ascorbic acid 1 cup 0.5 [facility] 1 cup 0.7 Vegetables Cooked Green beans 1 cup 4.0 Carrots 1/2 cup sliced 2.3 Peas 1 cup 8.8 Potato (baked, with skin) 1 medium potato 3.8 Raw [place] (with peel) 1 cucumber 1.5 Lettuce 1 cup shredded 0.5 Tomato 1 medium tomato 1.5 Spinach 1 cup 0.7 Legumes Baked beans, canned, no salt added 1 cup 13.9 Kidney beans, canned 1 cup 13.6 Looney beans, canned 1 cup 11.6 Lentils, boiled 1 cup 15.6 Breads, pastas, flours Bran muffins 1 medium muffin 5.2 Oatmeal, cooked 1 cup 4.0 White bread 1 slice 0.6 Whole-wheat bread 1 slice 1.9 Pasta and rice, cooked Macaroni 1 cup 2.5 Rice, brown 1 cup 3.5 Rice, white 1 cup 0.6 Spaghetti (regular) 1 cup 2.5 Nuts Almonds 1/2 cup 8.7 Peanuts 1/2 cup 7.9 To learn how much fiber and other nutrients are in different foods, visit the [place] Department of Agriculture (USDA) National Nutrient Database at: http://www.nal.usda.gov/fnic/foodcomp/search/. Graphic 44237 Version 4.0 figure 2: Colonoscopy During a colonoscopy, you lie on your side and the doctor or nurse puts a thin tube with a camera into your anus (from behind). Then the doctor or nurse advances the tube into the rectum and colon. The camera sends pictures from inside your colon to a television screen. [id number] Version 5.0 Consumer Information Use and Disclaimer This information is not specific medical advice and does not replace information you receive from your health care provider. This is only a brief summary of general information. It does NOT include all information about conditions, illnesses, injuries, tests, procedures, treatments, therapies, discharge instructions or life-style choices that may apply to you. You must talk with your health care provider for complete information about your health and treatment options. This information should not be used to decide whether or not to accept your health care provider's advice, instructions or recommendations. Only your health care provider has the knowledge and training to provide advice that is right for you.The use of [employer] content is governed by the [employer] Terms of Use. ??2019 [employer]. All rights reserved. Copyright ?2019??[employer] and/or its affiliates.??All rights reserved. UCT SPECIALIST UCT SPECIALIST UCT SPECIALIST documented in this encounter Progress Notes * Sharad Rivers MD - 06/15/2019 3:20 PM CSTAddended by: SHARAD RIVERS on: 06/15/2019 06:36 PM Modules accepted: Orders UCT SPECIALIST * Sharad Rivers MD - 06/15/2019 3:20 PM CST Images from the original note were not included. OFFICE ACUTE VISIT Patient name: Ameya Santacruz Date of : 1980 Encounter Date: 06/15/2019 Chief Complaint: Ameya Santacruz is a 39-year-old male who presents for Other (abdominal pain) . HPI: Patient is a 39-year-old male who presents to the same-day clinic with a 5-week history of left lower quadrant abdominal pain. Patient says for the last 5 weeks he has a constant tightening pain in his left lower abdomen extending into his left groin. At times he will have intermittent stabbing pain in this area as well as spasming pains in this area, but he has had a constant tightness pain for 5 weeks. He denies any nausea, vomiting, diarrhea. He says his appetite is fine. He denies constipation. He denies any dysuria, but does think that he has had some urinary frequency for about 5 weeks.Denies any blood in the urine. He denies any penile discharge. He denies any testicular pain. Denies any fevers. He has had intermittent pain in his left lower back for the last several weeks, but hesays this is not uncommon for him to have low back pain, so this is not necessarily uncommon for him. 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 He says that usually movement does not affect the pain, but occasionally certain movements will make the pain worse. He reportsthat he is in a monogamous sexual relationship for the last 18 years and has no concerns about STDs. Patient saw his PCP for this problem on 06/08/2019. At that time a urine dip was negative and patient was prescribed Flagyl and Cipro for colitis. Patient says his symptoms are unchanged after taking the 1 week course of Flagyl and Cipro, so he presents to the same day clinic today. He does report that he feels as though he is belching more than normal, but this problem has been going on for months , prior to when the aforementioned abdominal pain began 5 weeks ago. He denies any chronic health problems. He does have a history of an appendectomy. He reports that he is currently on no medications. He says he took last dose of the Flagyl and Cipro prescribed by his PCP 1 week ago today. He says is low-grade he has only drinks alcohol. He is allergic to Toradol. Patient Active Problem List Diagnosis ??? Acute bacterial conjunctivitis of both eyes ??? Class 1 obesity with body mass index (BMI) of 32.0 to 32.9 in adult ??? Cough ??? Elevated fasting lipid profile ??? Fatigue ??? Hyperglycemia ??? URI, acute ??? Vitamin D deficiency History reviewed. No pertinent past medical history. Past Surgical History: Procedure Laterality Date ??? APPENDECTOMY Allergies Allergen Reactions ??? Ketorolac Tromethamine Vomiting Current Outpatient Medications Medication Sig Dispense Refill ??? omeprazole 40 MG capsule Take 1 capsule (40 mg total) by mouth daily. 30 capsule 0 ??? albuterol sulfate HFA (PROAIR HFA) 108 (90 Base) MCG/ACT inhaler Inhale 2 puffs into the lungs as needed. ??? ciprofloxacin (CIPRO) 500 MG tablet Take 1 tablet (500 mg total) by mouth 2 (two) times daily for 7 days. 14 tablet 0 ??? metroNIDAZOLE (FLAGYL) 500 MG tablet Take 1 tablet (500 mg total) by mouth 3 (three) times daily for 7 days. 21 tablet 0 No current facility-administered medications for this visit. Family History Problem Relation Name Age of Onset ??? Heart Disease Father Includes MA ??? Cancer Father Carcinoid ??? Cancer Maternal Grandmother Breast Cancer ??? Heart Disease Maternal Grandfather ??? Diabetes Paternal Grandmother ??? Cancer Paternal Grandmother Pancreatic ??? Cancer Paternal Grandfather Prostate Social History Socioeconomic History ??? Marital status: Spouse name: Not on file ??? Number of children: Not on file ??? Years of education: Not on file ??? Highest education level: Not on file Occupational History ??? Not on file Social Needs ??? Financial resource strain: Not on file ??? Food insecurity: Worry: Not on file Inability: Not on file ??? Transportation needs: Medical: Not on file Non-medical: Not on file Tobacco Use ??? Smoking status: Former Smoker Packs/day: 1.00 Years: 2.00 Pack years: 2.00 Types: Cigarettes ??? Smokeless tobacco: Never Used Substance and Sexual Activity ??? Alcohol use: Yes Comment: Social ??? Drug use: No ??? Sexual activity: Not on file Lifestyle ??? Physical activity: Days per week: Not on file Minutes per session: Not on file ??? Stress: Not on file Relationships ??? Social connections: Talks on phone: Not on file Gets together: Not on file Attends sikhism service: Not on file Active member of club or organization: Not on file Attends meetings of clubs or organizations: Not on file Relationship status: Not on file ??? Intimate partner violence: Fear of current or ex partner: Not on file Emotionally abused: Not on file Physically abused: Not on file Forced sexual activity: Not on file Other Topics Concern ??? Not on file Social History Narrative ??? Not on file ROS: See HPI Physical Exam: Filed Vitals: 06/15/19 1548 BP: (!) 130/93 Pulse: 78 Resp: 18 Temp: 98.8 ??F (37.1 ??C) SpO2: 97% Weight: 109 kg (240 lb 6.4 oz) Gen: Nad Heent: No rhinorhea. Neck: Supple. No adenopathy. Heart: RRR s MRG Lungs: CTA Abdomen: Soft. No masses. No organomegally. Mild tenderness in the left groin and inferior aspect of the LLQ. No hernia noted. Skin: No Rash Neuro: No gross, focal, neurologic deficits. Genital: No penile discharge or lesions. No testicular masses or tenderness. No hernia. Rectal: Prostate feels normal. No enlargement or masses. Labs: Microbiology Results (last 14 days) Procedure Component Value Units Date/Time CULTURE URINE [[id number]] Collected: 06/15/19 1716 Order Status: No result Lab Status: No result Specimen: URINE, CLEAN CATCH Procedure: Procedures Urine dip has trace leukocyte Esterase. Otherwise negative. Urine micro and urine culture ordered. Pt declines urine for STD testing. Assessment: Encounter Diagnose(s) ICD-10-CM ICD-9-CM SNOMED CT(R) 1. Abdominal pain, unspecified abdominal location R10.9 789.00 ABDOMINAL PAIN URINALYSIS AUTO DIP URINALYSIS MICRO ONLY CULTURE URINE CBC W/DIFF AUTOMATED COMPREHENSIVE METABOLIC PANEL LIPASE omeprazole 40 MG capsule Plan: 1. Abdominal pain, unspecified abdominal location - URINALYSIS AUTO DIP - URINALYSIS MICRO ONLY; Future - CULTURE URINE; Future - CBC W/DIFF AUTOMATED; Future - COMPREHENSIVE METABOLIC PANEL; Future - LIPASE; Future - omeprazole 40 MG capsule; Take 1 capsule (40 mg total) by mouth daily. Dispense: 30 capsule; Refill: 0 Discussion/Summary: Left lower quadrant abdominal pain for 5 weeks as described in HPI: Uncertain etiology. ? Constipation. ? Muscular ? Diverticulitis (I doubt this based on H and P and the fact that he had no improvement after 1 week of Cipro/Flagyl). Urine dip unremarkable. Urine micro and urine culture ordered. Ptdeclines urine STD testing. Physical exam unremarkable. Check stat labs and CT abdomen and pelvis. Further recommendations pending these results. Patient is going to [facility] now to get the labs and CT and will return to the same day clinic afterwards to discuss results and plan. May consider a trial of PPI due to his increased belching. Pt told that BP was elevated and to monitorBP with PCP. Addendum: CT abdomen and pelvis showed moderate stool throughout the colon including distention of the distal sigmoid colon and rectum with feces. No evidence of acute intra-abdominal pathology. White blood cell count 5.0, hemoglobin 14.4, platelets 229, lipase normal at 92, glucose 92, BUN 18, crea tinine 1.23, sodium 134, potassium 4.3, chloride 103, CO2 29, calcium 9.2, bilirubin 0.9, albumin 4.3, AST elevated at 65, ALT elevated at 99, alk phos normal at 63. Per EMR about 2 years ago patient's ALT was mildly elevated at 54 but AST was normal at that time at 32. Assessment: I believe patient's left lower quadrant abdominal pain is most likely from constipation given his CT findings. A lower abdominal muscle/groin muscle strain is also possible, but his CT findings including moderate stool throughout the colon and distention of the distal sigmoid colon and rectum with feces suggest that constipation is the more likely cause. I have recommended cena-pyi-zmcyyut MiraLAX 17 g p.o. daily until he follows up with PCP in 7 to 10 days. I have also recommended that he push oral fluids. Omeprazole 40 mg p.o. daily prescribed for what I believe is most likely acid reflux with the belching that he describes. Follow-up with PCP in 7 to 10 days for reevaluation. If his left lower quadrant abdominal pain does not resolve with above treatment, this may be an abdominal/groin muscle strain. Sodium is mildly decreased today. This is of doubtful clinical significance. Patient does have mild elevation of ALT and AST further work-up of this will be needed via PCP. This all discussed with patient at length and he communicated understanding. He will start the MiraLAX, omeprazole, push oral fluids, and follow-up with PCP in 7 to 10 days for reevaluation. This all discussed with patient. TM, 06/15/2019. Addendum: I called pt today (06/17/19) to see how he is doing. He told me he is feeling much better.I told him to continue Miralax and see PCP in ~ 1 week for a recheck. Consider GI referral via PCP.This all d/w pt. TM, 06/17/19 SHARAD RIVERS MD [facility] [address] [place] [address] (phone) [phone] (fax) UCT SPECIALIST UCT SPECIALIST UCT SPECIALIST UCT SPECIALIST documented in this encounter Plan of Treatment Not on file documented as of this encounter Procedures Procedure Name Priority Date/Time Associated Diagnosis Comments URINALYSIS AUTO DIP Routine 06/15/2019 Abdominal pain, unspecified abdominal location documented in this encounter Results * LIPASE (06/15/2019 5:56 PM PRODUCT SPECIALIST) Pathologist [facility] [place] LIPASE 92 73 - 393 UNITS/L 06/15/2019 6:36 PM PRODUCT SPECIALIST [facility] 06/15/2019 5:56 PM PRODUCT SPECIALIST us Sharad Rivers MD LABORATORY Final Result [facility] [address] [place] [address], [place] [phone] * (ABNORMAL) COMPREHENSIVE METABOLIC PANEL (06/15/2019 5:56 PM PRODUCT SPECIALIST) Pathologist [facility] [place] GLUCOSE 92 70 - 99 MG/DL 06/15/2019 6:36 PM PRODUCT SPECIALIST [facility] BUN 18 7 - 18 MG/DL 06/15/2019 6:36 PM [facility] CREATININE S/P/B 1.23 0.7 - 1.3 MG/DL 06/15/2019 6:36 PM [facility] SODIUM S/P/B 134(L) 136 - 145 MMOL/L 06/15/2019 6:36 PM [facility] POTASSIUM S/P/B 4.3 3.5 - 5.1 MMOL/L 06/15/2019 6:36 PM [facility] CHLORIDE S/P/B 103 100 - 108 MMOL/L 06/15/2019 6:36 PM [facility] CO2 29.0 21 - 32 MMOL/L 06/15/2019 6:36 PM [facility] CALCIUM S/P/B 9.2 8.5 - 10.1 MG/DL 06/15/2019 6:36 PM [facility] BILIRUBIN TOTAL S/P/B 0.9 0.2 - 1.2 MG/DL 06/15/2019 6:36 PM [facility] TOTAL PROTEIN S/P/B 7.5 6.4 - 8.2 G/DL 06/15/2019 6:36 PM [facility] ALBUMIN S/P/B 4.3 3.4 - 5.0 G/DL 06/15/2019 6:36 PM [facility] AST 65(H) 15 - 37 U/L 06/15/2019 6:36 PM [facility] ALT 99(H) 16 - 60 U/L 06/15/2019 6:36 PM [facility] ALKALINE PHOSPHATASE S/P/B 63 50 - 136 U/L 06/15/2019 6:36 PM [facility] ANION GAP 2.0(L) 5 - 15 MMOL/L 06/15/2019 6:36 PM [facility] BUN CREATININE RATIO 14.6 6 - 26 06/15/2019 6:36 PM [facility] A/G RATIO 1.3 1.0 - 2.0 RATIO 06/15/2019 6:36 PM [facility] EGFR NON-AFR. AMER. 73(L) >90 ML/MIN/1.7 3 M2 06/15/2019 6:36 PM [facility] EGFR AFR. AMER. 85(L) >90 ML/MIN/1.7 3 M2 06/15/2019 6:36 PM [facility] Comment: NOTE: eGFR is not calculated for patients <18 years of age. This is an estimated GFR (CKD EPI) and should not be used for calculating drug doses. 06/15/2019 5:56 PM PRODUCT SPECIALIST us Sharad Rivers MD LABORATORY Final Result [facility] [address] [place] [address], * CBC W/DIFF AUTOMATED (06/15/2019 5:56 PM PRODUCT SPECIALIST) WBC 5.0 4.5 - 11.0 x10'3/uL 06/15/2019 6:09 PM [facility] RBC 5.10 4.70 - 6.10 x10'6/uL 06/15/2019 6:09 PM [facility] HGB 14.4 14.0 - 18.0 G/DL 06/15/2019 6:09 PM [facility] HCT 43.4 43.0 - 54.0 % 06/15/2019 6:09 PM [facility] MCV 85.1 80.0 - 94.0 FL 06/15/2019 6:09 PM [facility] MCH 28.2 27.0 - 31.0 PG 06/15/2019 6:09 PM [facility] MCHC 33.2 32.0 - 36.0 G/DL 06/15/2019 6:09 PM [facility] RDW 12.0 11.5 - 14.5 % 06/15/2019 6:09 PM [facility] PLT 229 130 - 400 x10'3/uL 06/15/2019 6:09 PM [facility] MPV 9.6 9.3 - 12.2 FL 06/15/2019 6:09 PM [facility] DIFFERENTIAL TYPE AUTOMATED DIFFERENTIAL 06/15/2019 6:09 PM [facility] NEUTROPHILS % 50.8 % 06/15/2019 6:09 PM [facility] LYMPHOCYTES % 36.3 % 06/15/2019 6:09 PM [facility] MONOCYTES % 10.5 % 06/15/2019 6:09 PM [facility] EOSINOPHILS 1.4 % 06/15/2019 6:09 PM [facility] BASOPHILS 0.8 % 06/15/2019 6:09 PM [facility] IMMATURE GRANS % 0.2 % 06/15/19 20 6:09 PM [facility] ABS. NEUTROPHILS TOTAL 2.52 1.80 - 7.70 x10'3/uL 06/15/2019 6:09 PM [facility] ABS. LYMPHOCYTES 1.80 1.00 - 4.80 x10'3/uL 06/15/2019 6:09 PM [facility] ABS. MONOCYTES 0.52 0.30 - 0.82 x10'3/uL 06/15/2019 6:09 PM PRODUCT SPECIALIST [facility] ABS. EOSINOPHILS 0.07 0.04 - 0.54 x10'3/uL 06/15/2019 6:09 PM PRODUCT SPECIALIST [facility] ABS. BASOPHILS 0.04 0.01 - 0.08 x10'3/uL 06/15/2019 6:09 PM PRODUCT SPECIALIST [facility] ABS. IMMATURE GRANULOCYTES 0.01 0.00 - 0.49 x10'3/uL 06/15/2019 6:09 PM PRODUCT SPECIALIST [facility] 06/15/2019 5:56 PM PRODUCT SPECIALIST Sharad Rivers MD LABORATORY Final Result Performing Organization Address [facility]/ZIP Co de Phone Number [facility] [address] [place] [address], [place] [phone] * CULTURE URINE (06/15/2019 4:09 PM PRODUCT SPECIALIST) SPEC DESCRIPTION URINE CLEAN CATCH 06/15/2019 7:38 PM PRODUCT SPECIALIST [facility] SPECIAL REQUESTS NO SPECIAL REQUEST 06/15/2019 7:38 PM [facility] CULTURE RESULT NO GROWTH 2 DAYS 06/18/2019 10:21 AM PRODUCT SPECIALIST [facility] URINE SPECIMEN OBTAINED BY CLEAN CATCH PROCEDURE / Unknown 06/15/2019 4:09 PM PRODUCT SPECIALIST 06/15/2019 8:22 PM PRODUCT SPECIALIST us Sharad Rivers MD MICROBIOLOGY - GENERAL ORDER HARINDER Final Result Performing Organization Address City/[facility]/ZIP Co de Phone Number [facility] [address] [place] [address], [place] [phone] * URINALYSIS MICRO ONLY (06/15/2019 4:09 PM PRODUCT SPECIALIST) WBC/HPF <1 <6 /HPF 06/15/2019 9:28 PM PRODUCT SPECIALIST [facility] RBC/HPF 1 <6 /HPF 06/15/2019 9:28 PM PRODUCT SPECIALIST [facility] CA OXALATE CRYSTALS RARE /HPF 06/15/2019 9:28 PM PRODUCT SPECIALIST [facility] URINE SPECIMEN OBTAINED BY CLEAN CATCH PROCEDURE / Unknown 06/15/2019 4:09 PM PRODUCT SPECIALIST Sharad Rivers MD URINE ORDERABLES Final Resul t [facility] [address] [place] [address], [place] [phone] * URINALYSIS AUTO DIP (06/15/2019) COLOR (U) YELLOW [address], [place] TRANSPARENCY CLEAR [address], [place] GLUCOSE (U) NEGATIVE NEGATIVE MG/DL [address], [place] BILIRUBIN (U) NEGATIVE NEGATIVE [address], [place] KETONES MG/DL (U) NEGATIVE NEGATIVE MG/DL [address], [place] SPECIFIC GRAVITY (U) 1.030 1.001 - 1.[address], [place] BLOOD (U) NEGATIVE NEGATIVE [address], [place] U PH 5.5 5.0 - 9.[address], [place] PROTEIN (U) NEGATIVE NEGATIVE mg/dL [address], [place] UROBILINOGEN 0.2 0.2 - 1.0 EU/dL = mg/dL [address], [place] NITRITES NEGATIVE NEGATIVE MG/DL [address], [place] LEUKOCYTES (U) TRACE NEGATIVE [address], [place] URINE SPECIMEN OBTAINED BY CLEAN CATCH PROCEDURE / Unknown 06/15/2019 us Sharad Rivers MD URINE ORDERABLES Final Resul t [address], [place] [address] [place] [address], documented in this encounter Visit Diagnoses Diagnosis Abdominal pain, unspecified abdominal location- Primary documented in this encounter Additional Health Concerns Assessment Noted Time PHQ-9 Depression Total Score: 0 06/08/19 20 12:13 PM PRODUCT SPECIALIST documented as of this encounter Care Teams Spout Tender Relationship Specialty Start Date End Date Jeanna Rubin FNP [address] [place] [address] PCP - General 09/24/16 documented as of this encounter
--- OUTSIDE RECORDS SUMMARY | 2024-06-08 15:03 | XMS_ITS | Encounter Summary ---
Author Organization [facility] Address [facility] [place], [place] [address] [place] [address] Care Team Providers Care Professor Of Political Science Name Role Phone Jeanna Rubin MICHELLE Primary Care Provider [phone] Encounter Details Date Type Department Care Team (Latest Contact Info) Description 06/15/2019 7:37 PM BENEFITS CONSULTANT - 06/15/2019 11:59 PM [facility] Hospital Encounter [facility] [place] [address] Marcus Rivers MD Discharge Disposition: Home or Self Care (Routine Discharge) Social History Tobacco Use Types Packs/Day Years [...] on file documented as of this encounter Medications at Time of Discharge albuterol sulfate HFA (PROAIR HFA) 108 (90 Base) MCG/ACT inhaler Inhale 2 puffs into the lungs as needed. 09/16/2016 omeprazole 40 MG capsuleIndication s:Abdominal pain, unspecified abdominal location Take 1 capsule (40 mg total) by mouth daily. 30 capsule 06/15/2019 07/21/2019 documented as of this encounter Plan of Treatment Not on file documented as of this encounter Procedures Procedure Name Priority Date/Time Associated Diagnosis Comments URINE BACTERIA CULTURE Routine 06/15/2019 4:09 PM BENEFITS CONSULTANT Abdominal pain, unspecified abdominal location URINALYSIS MICRO ONLY Routine 06/15/2019 4:09 PM BENEFITS CONSULTANT Abdominal pain, unspecified abdominal location documented in this encounter Results * CULTURE URINE (06/15/2019 4:09 PM BENEFITS CONSULTANT) SPEC DESCRIPTION URINE CLEAN CATCH 06/15/2019 7:38 PM BENEFITS CONSULTANT [facility] SPECIAL REQUESTS NO SPECIAL REQUEST 06/15/2019 7:38 PM BENEFITS CONSULTANT [facility] CULTURE RESULT NO GROWTH 2 DAYS 06/18/2019 10:21 AM BENEFITS CONSULTANT [facility] URINE SPECIMEN OBTAINED BY CLEAN CATCH PROCEDURE / Unknown 06/15/2019 4:09 PM BENEFITS CONSULTANT 06/15/2019 8:22 PM BENEFITS CONSULTANT Marcus Rivers MD MICROBIOLOGY - GENERAL ORDER HARINDER Final Result [facility] [address] [place] [address], [place] [phone] * URINALYSIS MICRO ONLY (06/15/2019 4:09 PM BENEFITS CONSULTANT) WBC/HPF <1 <6 /HPF 06/15/2019 9:28 PM BENEFITS CONSULTANT [facility] RBC/HPF 1 <6 /HPF 06/15/2019 9:28 PM BENEFITS CONSULTANT [facility] CA OXALATE CRYSTALS RARE /HPF 06/15/2019 9:28 PM BENEFITS CONSULTANT [facility] URINE SPECIMEN OBTAINED BY CLEAN CATCH PROCEDURE / Unknown 06/15/2019 4:09 PM BENEFITS CONSULTANT us Marcus Rivers MD URINE ORDERABLES Final Resul t [facility] [address] [place] [address], documented in this encounter Visit Diagnoses Diagnosis Abdominal pain, unspecified abdominal location documented in this encounter Additional Health Concerns Assessment Noted Time PHQ-9 Depression Total Score: 0 06/08/19 20 12:13 PM BENEFITS CONSULTANT documented as of this encounter Care Teams Professor Of Political Science Relationship Specialty Start Date End Date Jeanna Rubin FNP [address] [place] [address] PCP - General 09/24/16 documented as of this encounter
--- OUTSIDE RECORDS SUMMARY | 2024-06-08 15:03 | XMS_ITS | Encounter Summary ---
Author Organization [facility] Address [address] [place] [address]. [place] [address] [place] [address] Care Team Providers Care Knotter Hand Name Role Phone Jeanna Rubin MICHELLE Primary Care Provider [phone] Encounter Details Date Type Department Care Team (Late st Contact Info) Description 07/23/2017 Abstract [facility] Medical [facility] Family and Sports Medicine - [address] [phone] Renetta Block DO Social History Tobacco Use Types Packs/Day Years Used Date Smoking Tobacco: Never Assessed Sex and Gender Information Value Date Recorded Sex Assigned at Not on file Legal Sex Male 8:31 PM CDT Gender Identity Not on file Sexual Orientation Not on file documented as of this encounter Last Filed Vital Signs Vital Sign Reading Time Taken Comments Blood Pressure 140/82 07/23/2017 10:35 AM COMMUNITY LEADER Pulse 76 07/23/2017 10:35 AM COMMUNITY LEADER Temperature - - Respiratory Rate - - Oxygen Saturation - - Inhaled Oxygen Concentration - - Weight 110.2 kg (243 lb) 07/23/2017 10:35 AM COMMUNITY LEADER Height 185.4 cm (6' 1 ) 07/23/2017 10:35 AM COMMUNITY LEADER Body Mass Index 32.06 07/23/2017 10:35 AM COMMUNITY LEADER documented in this encounter Progress Notes * Renetta Block DO - 07/23/2017 10:20 AM CST Chief Complaint Pt c/o cough, congestion, stuffy X Thursday History of Present Illness HPI Free Text: congestion and cough. mostly in head but fear of pneumonia as he has developed that in the past after head congestion. began 3 nights ago. occ prod cough. no SOB or wheeze. no asthma hx. no fever. Review of Systems See HPI for pertinent positives. Active Problems 1. Blood glucose elevated (790.29) (R73.9) 2. Class 1 obesity with body mass index (BMI) of 32.0 to 32.9 in adult (278.00,V85.32) (E66.9,Z68.32) 3. Cough (786.2) (R05) 4. Elevated fasting glucose (790.21) (R73.01) 5. Elevated fasting lipid profile (272.4) (E78.5) 6. Fatigue (780.79) (R53.83) 7. Immunization due (V05.9) (Z23) 8. Screening cholesterol level (V77.91) (Z13.220) 9. Screening for blood disease (V78.9) (Z13.0) 10. Vitamin D deficiency (268.9) (E55.9) Surgical History 1. History of Appendectomy Family History Father 1. Family history of Cardiovascular disease with arteriosclerosis 2. Family history of Malignant carcinoid tumor of unspecified site Maternal Grandmother 3. Family history of malignant neoplasm of breast (V16.3) (Z80.3) Paternal Grandmother 4. Family history of diabetes mellitus (V18.0) (Z83.3) 5. Family history of pancreatic cancer (V16.0) (Z80.0) Maternal Grandfather 6. Family history of Cardiovascular disease with arteriosclerosis Paternal Grandfather 7. Family history of prostate cancer (V16.42) (Z80.42) 8. FH: heart attack (V17.3) (Z82.49) Social History ?? Full-time employment ? Never a smoker ?? Two children Current Meds 1. ProAir HFA 108 (90 Base) MCG/ACT Inhalation Aerosol Solution; INHALE 2 PUFFS BY MOUTH EVERY 4 TO 6 HOURS NEEDED; Therapy: [id number] to (Last Rx:[id number]) Requested for: [id number] Ordered Rx By: Jeanna Rubin; Dispense: 0 Days ; #:1 X 8.5 GM Inhaler; Refill: 6; For: Cough; CONCETTA = N; Verified Transmission to [facility] [id number]; Last Updated By: Sonny Zaidi; 05/21/2017 5:02:17 PM Allergies 1. Toradol Vomiting; Recorded By: Marley Chen; 04/21/2016 9:32:03 AM Vitals Recorded: [id number] 10:35AM Temperature 98.2 F, Oral Heart Rate 76 Pulse Quality Normal Respiration Quality Normal Respiration 16 Systolic 140, Sitting Diastolic 82, Sitting O2 Saturation 97, RA Not able to obtain height Patient stated height Height 6 ft 1 in Weight 243 lb BMI Calculated 32.06 BSA Calculated 2.34 Physical Exam General Appearance : Well developed and well- nourished, NAD Eyes: clear conjunctiva. Ears: TM clear and flat bilaterally. Nose : nose clear. Mouth: Oropharynx clear with MMM. Throat: pharynx white post nasal drainage and tonsils normal. Neck : no lymphadenopathy. Heart : RRR, no murmurs. Lungs : clear to auscultation bilaterally, no wheezing, rhonchi, or rales. breathing effort normal. Assessment 1. URI, acute (465.9) (J06.9) Discussion/Summary Discussed usual viral etiology and expected course. May take 10-14 days from onset to resolve. Signs and symptoms of secondary bacterial infections discussed. For worsening or failure to resolve in expected time frame, to contact PCP. OTC measures discussed appropriate to patients symptoms and comor bid conditions in addition to rest and fluids. Signatures Electronically signed by : Renetta Block D.O.; Jul 23 2017 10:49AM COMMUNITY LEADER (Author) documented in this encounter Plan of Treatment Not on file documented as of this encounter Visit Diagnoses Not on filedocumented in this encounter Care Teams Knotter Hand Relationship Specialty Start Date End Date Jeanna Rubin FNP [address] [place] [address] PCP - General 09/24/16 documented as of this encounter
--- OUTSIDE RECORDS SUMMARY | 2024-06-08 15:03 | XMS_ITS | Encounter Summary ---
Author Organization [facility] Address [facility] [address] [place] [address] Care Team Providers Care Tutoring Assistant Name Role Phone Jeanna Rubin Primary Care Provider [phone] Jeanna Rubin Primary Care Provider [phone] Encounter Details Date Type Department Care Team (Late st Contact Info) Description 09/16/2016 Abstract [facility] [place] [address] Jeanna Rubin FNP [facility] [place], [place] [id number] Social History Tobacco Use Types Packs/Day Years [...] Procedure Name Priority Date/Time Associated Diagnosis Comments COMPREHENSIVE METABOLIC PANEL Routine 09/16/2016 10:43 AM CDT CBC W/DIFF AUTOMATED Routine 09/16/2016 10:43 AM CDT documented in this encounter Results * (ABNORMAL) COMPREHENSIVE METABOLIC PANEL (09/16/2016 10:43 AM CDT) GLUCOSE 107(H) 70 - 99 mg/dL 09/16/2016 8:48 PM CDT [facility] BUN 12 8 - 23 mg/dL 09/16/2016 8:48 PM CDT [facility] CREATININE S/P/B 0.98 0.70 - 1.20 mg/dL 09/16/2016 8:48 PM CDT [facility] SODIUM S/P/B 135(L) 136 - 145 mmol/L 09/16/2016 8:48 PM CDT [facility] POTASSIUM S/P/B 4.1 3.5 - 5.1 mmol/L 09/16/2016 8:48 PM CDT [facility] CHLORIDE S/P/B 93(L) 98 - 107 mmol/L 09/16/2016 8:48 PM CDT [facility] CO2 27 22 - 29 mmol/L 09/16/2016 8:48 PM CDT [facility] BILIRUBIN TOTAL S/P/B 0.7 0.2 - 1.2 mg/dL 09/16/2016 8:48 PM CDT [facility] CALCIUM S/P/B 9.4 8.6 - 10.2 mg/dL 09/16/2016 8:48 PM CDT [facility] ALKALINE PHOSPHATASE S/P/B 67 40 - 129 U/L 09/16/2016 8:48 PM CDT [facility] AST 23 0 - 40 U/L 09/16/2016 8:48 PM CDT [facility] TOTAL PROTEIN S/P/B 7.0 6.4 - 8.3 g/dL 09/16/2016 8:48 PM CDT [facility] ALBUMIN S/P/B 4.3 3.5 - 5.2 g/dL 09/16/2016 8:48 PM CDT [facility] ALT 32 0 - 41 U/L 09/16/2016 8:48 PM CDT [facility] GLOBULIN 2.7 2.3 - 3.6 g/dL 09/16/2016 8:48 PM CDT [facility] A/G RATIO 1.6 1.0 - 2.0 09/16/2016 8:48 PM CDT [facility] ANION GAP 19 8 - 20 09/16/2016 8:48 PM CDT [facility] EGFR NON-AFR. AMER. >60 >60 mL/min/1.7 3m'2 09/16/2016 8:48 PM CDT [facility] EGFR AFR. AMER. >60 >60 mL/min/1.7 '2 09/16/2016 8:48 PM CDT [facility] Comment: NOTE: eGFR is not calculated for patients <18 years of age. This is an estimated GFR (CKD EPI) and should not be used for calculating drug doses. 09/16/2016 10:4 3 AM CDT 09/16/2016 8:08 PM CDT us Generic Conversion Md [facility] Final R esult [facility] [address] [place] [address], * (ABNORMAL) CBC W/DIFF AUTOMATED (09/16/2016 10:43 AM CDT) WBC 6.0 4.8 - 10.8 x10'3/uL 09/16/2016 8:50 PM CDT [facility] RBC 4.99 4.70 - 6.10 x10'6/uL 09/16/2016 8:50 PM CDT [facility] HGB 14.4 14.0 - 18.0 G/DL 09/16/2016 8:50 PM CDT [facility] HCT 44.0 43.0 - 54.0 % 09/16/2016 8:50 PM CDT [facility] MCV 88.2 80.0 - 94.0 FL 09/16/2016 8:50 PM CDT [facility] MCH 28.9 27.0 - 31.0 PG 09/16/2016 8:50 PM CDT [facility] MCHC 32.7 32.0 - 36.0 G/DL 09/16/2016 8:50 PM CDT [facility] RDW 12.3 11.5 - 14.5 % 09/16/2016 8:50 PM CDT [facility] PLT 211 130 - 400 x10'3/uL 09/16/2016 8:50 PM CDT [facility] MPV 10.6 9.3 - 12.2 FL 09/16/2016 8:50 PM CDT [facility] IMMATURE GRANS % 0.3 0.0 - 1.0 % 09/16/2016 8:50 PM CDT [facility] NEUTROPHILS % 71.0(H) 43.0 - 65.0 % 09/16/2016 8:50 PM CDT [facility] LYMPHOCYTES % 15.1(L) 20.0 - 46.0 % 09/16/2016 8:50 PM T [facility] MONOCYTES % 12.1(H) 5.0 - 12.0 % 09/16/2016 8:50 PM CDT [facility] EOSINOPHILS 0.8(L) 1.0 - 3.0 % 09/16/2016 8:50 PM T [facility] BASOPHILS 0.7 0.0 - 1.0 % 09/16/2016 8:50 PM T [facility] WHOLE BLOOD SPECIMEN / Unknown 09/16/2016 10:43 AM CDT 09/16/2016 8:08 PM CDT us Generic Conversion Md [facility] Final R esult [facility] [address] [place] [address], documented in this encounter Visit Diagnoses Diagnosis Streptococcal pharyngitis Streptococcal sore throat documented in this encounter Care Teams Tutoring Assistant Relationship Specialty Start Date End Date Jeanna Rubin FNP [address] [place] [address] PCP - General 09/24/16 Jeanna Rubin FNP [address] [place] [address] PCP - General 09/16/16 09/23/16 documented as of this encounter
--- OUTSIDE RECORDS SUMMARY | 2024-06-08 15:03 | XMS_ITS | Encounter Summary ---
Author Organization [facility] Address [address] [place] [address]. [place], [place] [id number] [place] [address] Care Team Providers Care Technical Fellow Name Role Phone Jeanna Rubin Primary Care Provider Encounter Details Date Type Department Care Team (Late st Contact Info) Description 09/29/2016 Abstract [facility] Family [facility] Internal Medicine [place] [id number] [place] [address] Jeanna Rubin FNP [address] [place], [place] [id number] Social History Tobacco Use Types Packs/Day Years Used Date Smoking Tobacco: Never Assessed Sex and Gender Information Value Date Recorded Sex Assigned at Not on file Legal Sex Male 8:31 PM CDT Gender Identity Not on file Sexual Orientation Not on file documented as of this encounter Last Filed Vital Signs Vital Sign Reading Time Taken Comments Blood Pressure 120/80 09/29/2016 11:51 AM CDT Pulse 76 09/29/2016 11:51 AM CDT Temperature - - Respiratory Rate - - Oxygen Saturation - - Inhaled Oxygen Concentration - - Weight 102.5 kg (226 lb) 09/29/2016 11:51 AM CDT Height 185.4 cm (6' 1 ) 09/29/2016 11:51 AM CDT Body Mass Index 29.82 09/29/2016 11:51 AM CDT documented in this encounter Progress Notes * MICHELLE Fox - 09/29/2016 11:30 AM CDT Reason For Visit Acute Follow-Up Visit Chief Complaint Patient is here today to follow up on pneumonia and short of breath History of Present Illness HPI Free Text: Ameya presents to the office for a f/u of his recent pneumonia and strep throat illness. He states that he feels better but still has a productive cough with clear phlegm. He denies fever. He is stillusing the albuterol inhaler as needed and Advair daily. He would like to be released to resume normal duties/activities at work. Review of Systems See HPI for pertinent positives. Respiratory: cough and shortness of breath during exertion. Active Problems 1. Abdominal pain, left lower quadrant (789.04) (R10.32) 2. Acute streptococcal pharyngitis (034.0) (J02.0) 3. Dyspnea (786.09) (R06.00) 4. Headache (784.0) (R51) 5. Left flank pain (789.09) (R10.9) 6. Overweight (278.02) (E66.3) 7. Pneumonia (486) (J18.9) 8. Short of breath on exertion (786.05) (R06.02) Surgical History 1. History of Appendectomy Family History 1. Family history of Malignant carcinoid tumor of unspecified site 2. Family history of malignant neoplasm of breast (V16.3) (Z80.3) 3. Family history of diabetes mellitus (V18.0) (Z83.3) 4. Family history of pancreatic cancer (V16.0) (Z80.0) 5. Family history of prostate cancer (V16.42) (Z80.42) 6. FH: heart attack (V17.3) (Z82.49) Social History ?? Full-time employment ? Never a smoker ?? Two children Current Meds 1. Advair Diskus 250-50 MCG/DOSE Inhalation Aerosol Powder Breath Activated; INHALE 1 PUFF BY MOUTH TWICE DAILY . RINSE MOUTH AFTER USE; Therapy: [id number] to (Last Rx:24Sep2016) Ordered 2. Hydrocodone-Acetaminophen 5-325 MG Oral Tablet; Take 1 to 2 tablets every 4-6 hours as needed for pain; Therapy: [id number] to (Last Rx:[id number]) Ordered 3. ProAir HFA 108 (90 Base) MCG/ACT Inhalation Aerosol Solution; INHALE 2 PUFFS BY MOUTH EVERY 4 TO 6 HOURS NEEDED; Therapy: [id number] to (Last Rx:[id number]) Requested for: [id number] Ordered Allergies 1. Toradol Vitals Recorded: 29Sep2016 11:51AM Temperature 97.2 F Heart Rate 76 Respiration 16 Systolic 120 Diastolic 80 O2 Saturation 98 Height 6 ft 1 in Weight 226 lb BMI Calculated 29.82 BSA Calculated 2.27 Physical Exam Constitutional General appearance: No acute distress, well appearing and well nourished. Eyes Conjunctiva and lids: No swelling, erythema, or discharge. Pupils and irises: Equal, round and reactive to light. Ears, Nose, Mouth, and Throat External inspection of ears and nose: Normal. Pulmonary Respiratory effort: No increased work of breathing or signs of respiratory distress. Auscultation of lungs: Clear to auscultation. Cardiovascular Palpation of heart: Normal PMI, no thrills. Auscultation of heart: Normal rate and rhythm, normal S1 and S2, without murmurs. Examination of extremities for edema and/or varicosities: Normal. Lymphatic Palpation of lymph nodes in neck: No lymphadenopathy. Skin Skin and subcutaneous tissue: Normal without rashes or lesions. Psychiatric Orientation to person, place and time: Normal. Mood and affect: Normal. Results/Data CBC W Differential 24Sep2016 10:49AM Jeanna Rubin Test Name Result Flag Reference WBC 6.7 x10'3/uL 4.8-10.8 RBC 5.26 x10'6/uL 4.70-6.10 Hemoglobin (HGB) 15.4 G/DL 14.0-18.0 Hematocrit (HCT) 46.2 % 43.0-54.0 Mean Corpuscular Volume (MCV) 87.8 FL 80.0-94.0 Mean Corpuscular Hgb (MCH) 29.3 PG 27.0-31.0 Mean Corpuscular Hgb Conc (MCH 33.3 G/DL 32.0-36.0 RDW 12.2 % 11.5-14.5 PLATELET COUNT 326 x10'3/uL 130-400 Mean Platelet Volume (MPV) 10.3 FL 9.3-12.2 IMMATURE GRANULOCYTES 0.4 % 0.0-1.0 NEUTROPHILS 56.7 % 43.0-65.0 Lymphocytes % (Auto) 30.8 % 20.0-46.0 MONOCYTES 7.9 % 5.0-12.0 Eosinophils % (Auto) 3.0 % 1.0-3.0 Basophils % (Auto) 1.2 % H 0.0-1.0 Compr Metabolic Prof ( CMP ) 24Sep2016 10:49AM Jeanna Rubin Test Name Result Flag Reference Glucose 97 mg/dL 70-99 Blood Urea Nitrogen (BUN) 16 mg/dL 8-23 Creatinine 1.05 mg/dL 0.70-1.20 Sodium (Na) 140 mmol/L 136-145 Potassium (K) 4.5 mmol/L 3.5-5.1 Chloride (Cl) 99 mmol/L 98-107 Carbon Dioxide (CO2) 25 mmol/L 22-29 Total Bilirubin 0.6 mg/dL 0.2-1.2 Calcium 10.1 mg/dL 8.6-10.2 Alkaline Phosphatase (ALKP) 81 U/L 40-129 AST/GOT 24 U/L 0-40 Total Protein 7.5 g/dL 6.4-8.3 Albumin 4.7 g/dL 3.5-5.2 ALT/GPT 34 U/L 0-41 Globulin, Calc 2.8 g/dL 2.3-3.6 A:G Ratio 1.7 1.0-2.0 Anion Gap 21 H 8-20 Glomerular Filt Rate Calc >60 mL/min/1.73m'2 >60 Glomerular Filt Rate (AA) Calc >60 >60 NOTE: eGFR is not calculated for patients <18 years of age. This is an estimated GFR (CKD EPI) and should not be used for calculating drug doses. mL/min/1.73m'2 Counseling The patient was counseled regarding instructions for management, risk factor reductions, prognosis,patient and family education, impressions, risks and benefits of treatment options and importance of compliance with treatment. total time of encounter was 15 minutes and 10 minutes was spent counseling. Assessment 1. Pneumonia (486) (J18.9) Plan Pneumonia 1. Follow-up PRN Outpatient Follow-up Status: Complete Done: [id number] 12:41PM Ordered; For: Pneumonia; Ordered By: Jeanna Rubin Performed: Due: [id number] 2. Call if: New symptoms occur.; Status:Complete; Done: 29Sep2016 12:41PM Ordered; For:Pneumonia; Ordered By:Jeanna Rubin; 3. Call if: You have questions or concerns about your problem.; Status:Complete; Done: 29Sep2016 12:41PM Ordered; For:Pneumonia; Ordered By:Jeanna Rubin; 4. Call if: Your symptoms return during treatment.; Status:Complete; Done: 29Sep2016 12:41PM Ordered; For:Pneumonia; Ordered By:Jeanna Rubin; 5. Continue with our present treatment plan.; Status:Complete; Done: 29Sep2016 12:41PM Ordered; For:Pneumonia; Ordered By:Jeanna Rubin; 6. How to use an inhaler.; Status:Complete; Done: 29Sep2016 12:41PM Ordered; For:Pneumonia; Ordered By:Jeanna Rubin; 7. You may slowly resume your normal level of activity once you feel better.; Status:Complete; Done: 29Sep2016 12:41PM Ordered; For:Pneumonia; Ordered By:Jeanna Rubin; Signatures Electronically signed by : Jeanna Rubin CNP; Sep 29 2016 3:24PM PANEL CUTTER (Author) documented in this encounter Miscellaneous Notes * Letter - MICHELLE Fox - 09/29/2016 11:30 AM CDT Date: September 29, 2016 Work Release This is to advise that Ameya Santacruz was seen on September 29, 2016 and may return to work, no limitations on September 30, 2016. (Physician's Signature) Electronically signed by:Jeanna Rubin CNP Sep 29 2016 12:39PM PANEL CUTTER documented in this encounter Plan of Treatment Not on file documented as of this encounter Visit Diagnoses Not on filedocumented in this encounter Care Teams Technical Fellow Relationship Specialty Start Date End Date Jeanna Rubin FNP [address] [facility] [place] [address] PCP - General 09/24/16 documented as of this encounter
--- OUTSIDE RECORDS SUMMARY | 2024-06-08 15:03 | XMS_ITS | Encounter Summary ---
Author Organization [facility] Address [address] [address] Care Team Providers Care Heavy Truck Mechanic Name Role Phone Hanh Duke MD Primary Care Provider Encounter Details Date Type Department Care Team (Late st Contact Info) Description 09/05/2008 Orders Only [facility] Default [address] [place] [address] Daniel De Jesus MD [facility] [place] [address] Unspecified Chest Pain Social History Tobacco Use Types Packs/Day Years Used Date Smoking Tobacco: Never Assessed Sex and Gender Information Value Date Recorded Sex Assigned at Not on file Gender Identity Not on file Sexual Orientation Not on file documented as of this encounter Plan of Treatment Not on file documented as of this encounter Procedures Procedure Name Priority Date/Time Associated Diagnosis Comments XR CHEST 1VW PORTABLE STAT 09/05/2008 10:33 PM CDT Unspecified Chest Pain documented in this encounter Results * XR CHEST 1VW PORTABLE (09/05/2008 10:33 PM CDT) Anatomical Region Laterality Modality Chest Other 09/05/2008 10:3 3 PM CDT Narrative 09/06/2008 7:43 AM CDT Indication- Chest pain A single portable view of the chest shows the lungs are clear. Mediastinal contour and heart size are within normal limits. Pulmonary vascularity is unremarkable. Impression- No acute disease. Code 0 ? Read By- CASANDRA MASTERSON ??M.D. ? Released By- CASANDRA MASTERSON ??M.D. ? Released Date Time- 09/06/08742 ? Joni ROSS ??Regino. ? MITCH ALVARADO ?MITCH MATIAS REF- ?CON- PCP- [facility] ?SCP- Procedure Note Casandra Masterson - 09/06/2008 Indication- Chest pain A single portable view of the chest shows the lungs are clear. Mediastinal contour and heart size are within normal limits. Pulmonary vascularity is unremarkable. Impression- No acute disease. Code 0 Read By- CASANDRA MASTERSON M.D. Released By- CASANDRA MASTERSON M.D. Released Date Time- 09/06/08742 Joni ROSS M.D. - MITCH PETERSEN ARDAMAN S REF- CON- PCP- [facility] SCP- Daniel De Jesus MD DIAGNOSTIC IMAGING ORDERABLES documented in this encounter Visit Diagnoses Diagnosis Chest pain, unspecified documented in this encounter Care Teams Heavy Truck Mechanic Relationship Specialty Start Date End Date Hanh Duke MD [address] [address] PCP - General 09/05/08 documented as of this encounter
--- OUTSIDE RECORDS SUMMARY | 2024-06-08 15:03 | XMS_ITS | Encounter Summary ---
Author Organization [facility] Address [facility]ly [facility] [facility]. [place], [place] [address] [place] [address] Care Team Providers Care Anthropology Instructor Name Role Phone Jeanna Rubin Primary Care Provider [phone] Encounter Details Date Type Department Care Team (Latest Contact Info) Description 03/11/2024 Travel Social History Tobacco Use Types Packs/Day Years Used Date Smoking Tobacco: Former Cigarettes 1 2 Smokeless Tobacco: Never Alcohol Use Standard Drinks/Week Comments Yes 0 (1 standard drink = 0.6 oz pur e alcohol) Social PHQ-2 Answer Date Recorded PHQ-2 Score - If the patient scores above 3, please move on to questions 3-9 0 10/12/2020 Sex and Gender Information Value Date Recorded Sex Assigned at Not on file Legal Sex Male 8:31 PM CDT Gender Identity Not on file Sexual Orientation Not on file documented as of this encounter Plan of Treatment Not on file documented as of this encounter Visit Diagnoses Not on filedocumented in this encounter Additional Health Concerns Assessment Noted Time PHQ-9 Depression Total Score: 0 10/13/19 21 9:29 AM CDT documented as of this encounter Care Teams Anthropology Instructor Relationship Specialty Start Date End Date Jeanna Rubin FNP [address] [place] [address] PCP - General 09/24/16 documented as of this encounter
--- OUTSIDE RECORDS SUMMARY | 2024-06-08 15:03 | XMS_ITS | Encounter Summary ---
Author Organization [facility] Address [facility] [facility] [place] [address] [place] [address] Care Team Providers Care Finish Carpenter Name Role Phone Jeanna Rubin Primary Care Provider Reason for Visit * Reason Comments ER F/U Encounter Details Date Type Department Care Team (Late st Contact Info) Description 07/21/2019 2:20 PM CONTINUING EDUCATION DEAN Office Visit [facility] [id number] [place] [address] Jeanna Rubin FNP [address] [place] [address] [id number] ER F/U Social History Tobacco Use Types Packs/Day Years [...] on file documented as of this encounter Patient Instructions * Patient Instructions* MICHELLE Fox - 07/21/2019 2:20 PM CONTINUING EDUCATION DEAN Continue your medications as we discussed We will call you with your lab results when they come back Call for any questions or concerns Follow up in one month or sooner if needed. INUING EDUCATION DEAN documented in this encounter Progress Notes * MICHELLE Fox - 07/21/2019 2:20 PM CST Office Progress Note Reason for Visit: ER F/U History of Present Illness: Ameya presents to the office for follow up of a recent issue with abdominal pain. He reports that heis still having pain but it has subsided since he made this appointment on Thursday. He was treated for colitis/diverticulitis and then was found to have developed constipation afterward that sent him to the same day clinic. Needs to still have some dietary changes to help with constipation. He reports to still having left flank pain with no reported urinary symptoms. He was advised that his liver enzymes were elevated and he needed to return here for a recheck of these levels CT scan in the ER showed no abnormalities with his liver but did note some diverticulosis. The CT scan was obtained after he finished the antibiotics for the acute abdominal pain. ROS: Review of Systems Constitutional: Negative for chills, diaphoresis, fever, malaise/fatigue and weight loss. HENT: Negative for congestion, ear discharge, ear pain, hearing loss, nosebleeds, sinus pain, sore throat and tinnitus. Eyes: Negative for blurred vision, double vision, photophobia, pain, discharge and redness. Respiratory: Negative for cough, hemoptysis, sputum production, shortness of breath and wheezing. Cardiovascular: Negative for chest pain, palpitations, orthopnea, claudication, leg swelling and PND. Gastrointestinal: Positive for abdominal pain and constipation. Negative for blood in stool, diarrhea, heartburn, melena, nausea and vomiting. Genitourinary: Positive for flank pain. Negative for dysuria, frequency, hematuria and urgency. Musculoskeletal: Negative for falls, joint pain and myalgias. Neurological: Negative for dizziness, tingling, tremors, sensory change, speech change, focal weakness, seizures, loss of consciousness, weakness and headaches. Psychiatric/Behavioral: Negative for depression, hallucinations, memory loss, substance abuse and suicidal ideas. The patient is not nervous/anxious and does not have insomnia. Medications: Current Outpatient Medications on File Prior to Visit Medication Sig ??? albuterol sulfate HFA (PROAIR HFA) 108 (90 Base) MCG/ACT inhaler Inhale 2 puffs into the lungs as needed. ??? K-yxitljv-C-folic acid 1 mg Tab Take 1 tablet by mouth daily. No current facility-administered medications on file prior to visit. Allergies: Allergies Allergen Reactions ??? Ketorolac Tromethamine Vomiting Medical History: History reviewed. No pertinent past medical history. Surgical History: Past Surgical History: Procedure Laterality Date ??? APPENDECTOMY Social History: Social History Socioeconomic History ??? Marital status: [...] file Gets together: Not on file Attends rastafarian service: Not on file Active member of [...] Social History Narrative ??? Not on file Family History: Family History Problem Relation Name Age of Onset ??? Heart Disease Father Includes NM ??? Cancer Father Carcinoid ??? Cancer Maternal Grandmother Breast Cancer ??? Heart Disease Maternal Grandfather ??? Diabetes Paternal Grandmother ??? Cancer Paternal Grandmother Pancreatic ??? Cancer Paternal Grandfather Prostate PE: Physical Exam Constitutional: He is oriented to person, place, and time. Vital signs are normal. He appears well-developed and well-nourished. He is cooperative. He does not have a sickly appearance. He does not appear ill. No distress. HENT: Head: Normocephalic and atraumatic. Right Ear: Hearing and external ear normal. Left Ear: Hearing and external ear normal. Nose: Nose normal. Mouth/Throat: Oropharynx is clear and moist and mucous membranes are normal. Eyes: Pupils are equal, round, and reactive to light. Conjunctivae, EOM and lids are normal. Neck: Trachea normal, normal range of motion, full passive range of motion without pain and phonation normal. Neck supple. Normal carotid pulses present. Carotid bruit is not present. No tracheal deviation present. No thyroid mass and no thyromegaly present. Cardiovascular: Normal rate, regular rhythm, normal heart sounds and intact distal pulses. Exam reveals no gallop and no friction rub. No murmur heard. Pulmonary/Chest: Effort normal and breath sounds normal. No accessory muscle usage. No respiratory distress. He has no decreased breath sounds. He has no wheezes. He has no rhonchi. He has no rales. Abdominal: Soft. Bowel sounds are normal. He exhibits no distension, no abdominal bruit, no pulsatile midline mass and no mass. There is no hepatosplenomegaly. There is no tenderness. There is no rebound, no guarding and no CVA tenderness. Musculoskeletal: Normal range of motion. He exhibits no tenderness or deformity. Lymphadenopathy: He has no cervical adenopathy. Neurological: He is alert and oriented to person, place, and time. He has normal reflexes. Coordination and gait normal. Skin: Skin is warm, dry and intact. No rash noted. No erythema. Psychiatric: He has a normal mood and affect. His speech is normal and behavior is normal. Judgmentand thought content normal. Cognition and memory are normal. Nursing note and vitals reviewed. There were no vitals filed for this visit. Diagnoses/Impression: 1. Abnormal laboratory test CBC W/DIFF AUTOMATED COMPREHENSIVE METABOLIC PANEL VENIPUNC ARM DRAW 2. Elevated liver enzymes HEPATITIS PANEL,ACUTE VENIPUNC ARM DRAW 3. Left flank pain URINALYSIS AUTO DIP VENIPUNC ARM DRAW Recommendations and Plan: 1. Abnormal laboratory test - CBC W/DIFF AUTOMATED; Future - COMPREHENSIVE METABOLIC PANEL; Future - CBC W/DIFF AUTOMATED - COMPREHENSIVE METABOLIC PANEL - VENIPUNC ARM DRAW 2. Elevated liver enzymes - HEPATITIS PANEL,ACUTE; Future - HEPATITIS PANEL,ACUTE - VENIPUNC ARM DRAW 3. Left flank pain - URINALYSIS AUTO DIP - VENIPUNC ARM DRAW -labs today -continue current medications as previously directed - follow up in one month or sooner if needed. Orders Placed This Encounter ??? VENIPUNC ARM DRAW ??? CBC W/DIFF AUTOMATED ??? COMPREHENSIVE METABOLIC PANEL ??? URINALYSIS AUTO DIP ??? HEPATITIS PANEL,ACUTE ??? D-wvvybdu-P-folic acid 1 mg Tab Cannot display discharge medications since this is not an admission. PCP: MICHELLE KAUR 07/26/2019 INUING EDUCATION DEAN * MICHELLE Fox - 07/21/2019 2:20 PM CST Labs show liver enzymes are still a little elevated. He can continue to take the supplements that he was previously taking because they are lower than they were previously and maybe this has helped. His CT scan showed no abnormalities with his liver, and so we will just monitor these levels and recheck them in 2 weeks. Also, he should be referred to GI if not already done so. INUING EDUCATION DEAN documented in this encounter Plan of Treatment Not on file documented as of this encounter Procedures Procedure Name Priority Date/Time Associated Diagnosis Comments COLLECTION VENOUS BLOOD VENIPUNCTURE Routine 07/21/2019 3:14 PM CONTINUING EDUCATION DEAN Abnormal laboratory test Elevated liver enzymes Left flank pain COMPREHENSIVE METABOLIC PANEL Routine 07/21/2019 3:03 PM CONTINUING EDUCATION DEAN Abnormal laboratory test HEPATITIS PANEL,ACUTE Routine 07/21/2019 3:03 PM CONTINUING EDUCATION DEAN Elevated liver enzymes CBC W/DIFF AUTOMATED Routine 07/21/2019 3:03 PM CONTINUING EDUCATION DEAN Abnormal laboratory test URINALYSIS AUTO DIP Routine 07/21/2019 Left flank pain documented in this encounter Results * HEPATITIS PANEL,ACUTE (07/21/2019 3:03 PM CONTINUING EDUCATION DEAN) HAV IGM NON-REACT TIFFANY NON-REACT TIFFANY [facility] Comment: For additional information, please refer to http://TxCell.LiB/faq/RRJ439 (This link is being provided for informational/ educational purposes only.) HEPATITIS B SURFACE AG NON-REACT TIFFANY NON-REACT TIFFANY [facility] HEP B CORE IGM NON-REACT TIFFANY NON-REACT TIFFANY [facility] HEPATITIS C AB NON-REACT TIFFANY NON-REACT TIFFANY [facility] SIGNAL TO CUTOFF 0.01 <1.00 [facility] Comment: HCV antibody was non-reactive. There is no laboratory evidence of HCV infection. In most cases, no further action is required. However, if recent HCV exposure is suspected, a test for HCV RNA (test code 47003) is suggested. For additional information please refer to http://TxCell.LiB/faq/QEN09l0 (This link is being provided for informational/ educational purposes only.) 07/21/2019 3:03 PM CONTINUING EDUCATION DEAN 07/22/2019 5:02 AM CONTINUING EDUCATION DEAN Narrative Resulting Agency Comment Performing Organization Information: ?Site ID: [place] ?Name: [facility] ?Address: [address] [place] [address] ?Director: Xavi Silverman D.O., MPH [facility] Final Result [facility] * (ABNORMAL) COMPREHENSIVE METABOLIC PANEL (07/21/2019 3:03 PM CONTINUING EDUCATION DEAN) GLUCOSE 84 65 - 99 mg/dL [facility] Comment: ? Fasting reference interval BUN 20 7 - 25 mg/dL [facility] CREATININE S/P/B 1.15 0.60 - 1.35 mg/dL [facility] EGFR NON-AFR. AMER. 80 > OR = 60 mL/min/1. 73m2 [facility] EGFR AFR. AMER. 92 > OR = 60 mL/min/1. 73m2 [facility] BUN CREATININE RATIO NOT APPLICABLE 6 - 22 (calc) [facility] SODIUM S/P/B 137 135 - 146 mmol/L [facility] POTASSIUM S/P/B 3.9 3.5 - 5.3 mmol/L [facility] CHLORIDE S/P/B 100 98 - 110 mmol/L [facility] CO2 25 20 - 32 mmol/L [facility] CALCIUM S/P/B 9.9 8.6 - 10.3 mg/dL [facility] TOTAL PROTEIN S/P/B 6.9 6.1 - 8.1 g/dL [facility] ALBUMIN S/P/B 4.6 3.6 - 5.1 g/dL [facility] GLOBULIN 2.3 1.9 - 3.7 g/dL (calc) [facility] ALBUMIN/GLOBUL IN RATIO 2.0 1.0 - 2.5 (calc) [facility] BILIRUBIN TOTAL (FLUID) 0.7 0.2 - 1.2 mg/dL [facility] ALK PHOS 65 36 - 130 U/L [facility] AST 49(H) 10 - 40 U/L [facility] ALT 67(H) 9 - 46 U/L [facility] 07/21/2019 3:03 PM CONTINUING EDUCATION DEAN 07/22/2019 5:02 AM CONTINUING EDUCATION DEAN Narrative Resulting Agency Comment Performing Organization Information: ?Site ID: [place] ?Name: [facility] ?Address: [address] [place] [address] ?Director: Xavi Silverman D.O., MPH [facility] Final Result [facility] * CBC W/DIFF AUTOMATED (07/21/2019 3:03 PM CONTINUING EDUCATION DEAN) WBC 6.2 3.8 - 10.8 Thousand/u L [facility] RBC 5.02 4.20 - 5.80 Million/uL [facility] HGB 14.8 13.2 - 17.1 g/dL [facility] HCT 42.5 38.5 - 50.0 % [facility] MCV 84.7 80.0 - 100.0 fL [facility] MCH (QHPE) 29.5 27.0 - 33.0 pg [facility] MCHC 34.8 32.0 - 36.0 g/dL [facility] RDW (QHPE) 12.6 11.0 - 15.0 % [facility] PLT 210 140 - 400 Thousand/u L [facility] MPV 10.5 7.5 - 12.5 fL [facility] ABS. NEUTROPHILS 3,230 1,500 - 7,800 cells/uL [facility] ABS. LYMPHOCYTES 1,910 850 - 3,900 cells/uL [facility] ABS. MONOCYTES 837 200 - 950 cells/uL [facility] ABS. EOSINOPHILS 174 15 - 500 cells/uL [facility] ABS. BASOPHILS 50 0 - 200 cells/uL [facility] SEG NEUTROPHILS 52.1 % [facility] LYMPHOCYTES 30.8 % [facility] MONOCYTES 13.5 % [facility] EOSINOPHILS 2.8 % [facility] BASOPHILS 0.8 % [facility] 07/21/2019 3:03 PM CONTINUING EDUCATION DEAN 07/22/2019 5:02 AM CONTINUING EDUCATION DEAN Narrative Resulting Agency Comment Performing Organization Information: ?Site ID: [place] ?Name: [facility] ?Address: [facility] [address] [place] [address] ?Director: Xavi Silverman D.O., MPH [facility] Final Result [facility] * URINALYSIS AUTO DIP (07/21/2019) COLOR (U) YELLOW [facility] TRANSPARENCY CLEAR [facility] GLUCOSE (U) NEGATIVE NEGATIVE MG/DL [facility] BILIRUBIN (U) NEGATIVE NEGATIVE [facility] KETONES MG/DL (U) NEGATIVE NEGATIVE MG/DL [facility] SPECIFIC GRAVITY (U) 1.025 1.001 - 1.035 [facility] BLOOD (U) NEGATIVE NEGATIVE [facility] U PH 7.0 5.0 - 9.0 [facility] PROTEIN (U) NEGATIVE NEGATIVE mg/dL [facility] UROBILINOGEN 0.2 0.2 - 1.0 EU/dL = mg/dL [facility] NITRITES NEGATIVE NEGATIVE MG/DL [facility] LEUKOCYTES (U) NEGATIVE NEGATIVE [facility] URINE SPECIMEN OBTAINED BY CLEAN CATCH PROCEDURE / Unknown 07/21/2019 Jeanna MARTINEZ URINE ORDERABLES Final Result Performing Organization Address City/State/[facility] Co de Phone Number [facility] [address] [place] [address], documented in this encounter Visit Diagnoses Diagnosis Abnormal laboratory test- Primary Other abnormal clinical finding Elevated liver enzymes Nonspecific elevation of levels of transaminase or lactic acid dehydrogenase (LDH) Left flank pain Abdominal pain, unspecified site documented in this encounter Additional Health Concerns Assessment Noted Time PHQ-9 Depression Total Score: 0 06/08/19 20 12:13 PM CONTINUING EDUCATION DEAN documented as of this encounter Care Teams Finish Carpenter Relationship Specialty Start Date End Date Jeanna Rubin FNP [address] [place] [address] PCP - General 09/24/16 documented as of this encounter
--- OUTSIDE RECORDS SUMMARY | 2024-06-08 15:03 | XMS_ITS | Encounter Summary ---
Author Organization [facility] Address [facility] [place] [address] [place] [address] Care Team Providers Care Guide Escort Name Role Phone Jeanna Rubin Primary Care Provider [phone] Jeanna Rubin Primary Care Provider Encounter Details Date Type Department Care Team (Late st Contact Info) Description 09/16/2016 Abstract [facility] Family & Internal Medicine [facility] [address] [place] [address] Blue Shultz MD [address] [place] [address] [id number] Social History Tobacco Use Types Packs/Day Years Used Date Smoking Tobacco: Never Assessed Sex and Gender Information Value Date Recorded Sex Assigned at Not on file Legal Sex Male 8:31 PM CDT Gender Identity Not on file Sexual Orientation Not on file documented as of this encounter Last Filed Vital Signs Vital Sign Reading Time Taken Comments Blood Pressure 118/82 09/16/2016 9:16 AM CDT Pulse 71 09/16/2016 9:16 AM CDT Temperature - - Respiratory Rate - - Oxygen Saturation - - Inhaled Oxygen Concentration - - Weight 105.2 kg (232 lb) 09/16/2016 9:16 AM CDT Height 185.4 cm (6' 1 ) 09/16/2016 9:16 AM CDT Body Mass Index 30.61 09/16/2016 9:16 AM CDT documented in this encounter Progress Notes * MICHELLE Fox - 09/16/2016 9:00 AM CDT Date: Sep 16, 2016 To Whom It May Concern: This is to advise that Ameya Santacruz has been under my care and should be excused from work until at least Thursday, September 22, 2016. If you have any questions, you may contact my office at the numberlisted above. Thank you, Jeanna NUNES Electronically signed by:Jeanna Rubin ADVISORY INTERN Sep 16 2016 9:50AM DIRECTOR OF ORTHOPEDICS * MICHELLE Fox - 09/16/2016 9:00 AM CDT Reason For Visit Acute Visit Chief Complaint Patient c/o Headache,nausea,cough Patient was positive for strep throat and pneumonia August at [facility] ER History of Present Illness HPI Free Text: Ameya presents to the office, accompanied by his , with c/o being diagnosed with pneumonia and strep throat by [facility] on the . He reports that they gave him some IV fluids, one round of IV antibiotics and was sent home with Augmentin, Z-yaakov and Albuterol inhaler and to f/u with me and aPulmonologist. He and his report severe pain and SOB with his illness. He reports that it is hard to swallow his spit due to the pain and he is very fatigued. He is taking his antibiotics as ordered but feels like he is not improving. He still reports nausea, cough, headache, body aches and fever. Review of Systems See HPI for pertinent positives. Active Problems 1. Abdominal pain, left lower quadrant (789.04) (R10.32) 2. Left flank pain (789.09) (R10.9) Surgical History 1. History of Appendectomy Family History Father 1. Family history of Malignant carcinoid tumor of unspecified site Maternal Grandmother 2. Family history of malignant neoplasm of breast (V16.3) (Z80.3) Paternal Grandmother 3. Family history of diabetes mellitus (V18.0) (Z83.3) 4. Family history of pancreatic cancer (V16.0) (Z80.0) Paternal Grandfather 5. Family history of prostate cancer (V16.42) (Z80.42) 6. FH: heart attack (V17.3) (Z82.49) Social History ?? Full-time employment ? Never a smoker ?? Two children Allergies 1. Toradol Vitals Recorded: 16Sep2016 09:16AM Temperature 98.4 F Heart Rate 71 Respiration 16 Systolic 118 Diastolic 82 O2 Saturation 97 Height 6 ft 1 in Weight 232 lb BMI Calculated 30.61 BSA Calculated 2.29 Physical Exam Constitutional General appearance: Abnormal. acutely ill, uncomfortable, appears tired and acutely exhausted, but well developed and well nourished. Eyes Conjunctiva and lids: No swelling, erythema, or discharge. Pupils and irises: Equal, round and reactive to light. Ears, Nose, Mouth, and Throat External inspection of ears and nose: Normal. Otoscopic examination: Abnormal. The right tympanic membrane was red and was bulging. The left tympanic membrane was bulging, but was not red. The right external canal was normal. The left external canal was normal. Oropharynx: Abnormal. Oral mucosa was moist, but was normal. The palate examination showed no abnormalities. The tongue was normal. There was erythema of both tonsils. The posterior pharynx was erythematous. Pulmonary Respiratory effort: Abnormal. Respiratory rate: normal. Assessment of respiratory effort revealed normal rhythm and effort. Respiratory Findings: wet cough. Auscultation of lungs: Abnormal. no rales or crackles were heard bilaterally. rhonchi over both bases. no wheezing. diminished breath sounds over both bases. no bronchial breath sounds. Cardiovascular Palpation of heart: Normal PMI, no thrills. Auscultation of heart: Normal rate and rhythm, normal S1 and S2, without murmurs. Examination of extremities for edema and/or varicosities: Normal. Abdomen Abdomen: Non-tender, no masses. Liver and spleen: No hepatomegaly or splenomegaly. Lymphatic Palpation of lymph nodes in neck: Abnormal. bilateral anterior cervical node enlargement. Musculoskeletal Gait and station: Normal. Digits and nails: Normal without clubbing or cyanosis. Skin Skin and subcutaneous tissue: Abnormal. pallor. Psychiatric Orientation to person, place and time: Normal. Mood and affect: Normal. Counseling The patient was counseled regarding diagnostic results, instructions for management, risk factor reductions, prognosis, patient and family education, impressions, risks and benefits of treatment options and importance of compliance with treatment. total time of encounter was 25 minutes and 20 minutes was spent counseling. Assessment 1. Headache (784.0) (R51) 2. Acute streptococcal pharyngitis (034.0) (J02.0) 3. Pneumonia (486) (J18.9) Plan Acute streptococcal pharyngitis 1. Drink plenty of fluids.; Status:Complete; Done: [id number] 10:49PM Ordered; For:Acute streptococcal pharyngitis; Ordered By:Jeanna Rubin; 2. Gargle with warm salt water for 5 minutes every 4 hours.; Status:Complete; Done: [id number] 10:49PM Ordered; For:Acute streptococcal pharyngitis; Ordered By:Jeanna Rubin; 3. Stay home from work or school until your condition is improved.; Status:Complete; Done: [id number] 10:49PM Ordered; For:Acute streptococcal pharyngitis; Ordered By:Jeanna Rubin; 4. The following home treatments may soothe a sore throat.; Status:Complete; Done: [id number] 10:49PM Ordered; For:Acute streptococcal pharyngitis; Ordered By:Jeanna Rubin; 5. Call if: The fever has not gone away in 2 days.; Status:Complete; Done: [id number] 10:49PM Ordered; For:Acute streptococcal pharyngitis; Ordered By:Jeanna Rubin; 6. Call if: You get a rash.; Status:Complete; Done: [id number] 10:49PM Ordered; For:Acute streptococcal pharyngitis; Ordered By:Jeanna Rubin; 7. Call if: You start vomiting.; Status:Complete; Done: [id number] 10:49PM Ordered; For:Acute streptococcal pharyngitis; Ordered By:Jeanna Rubin; 8. Call if: Your swallowing difficulty is not better in 3 days.; Status:Complete; Done: [id number] 10:49PM Ordered; For:Acute streptococcal pharyngitis; Ordered By:Jeanna Rubin; 9. Call 911 if: You have difficulty breathing, or you are short of breath more often.; Status:Complete; Done: [id number] 10:49PM Ordered; For:Acute streptococcal pharyngitis; Ordered By:Jeanna Rubin; 10. Seek Immediate Medical Attention if: You become dehydrated.; Status:Complete; Done: 41Omz1439 10:49PM Ordered; For:Acute streptococcal pharyngitis; Ordered By:Jeanna Rubin; 11. Seek Immediate Medical Attention if: You get a severe headache that seems different from your usual ones.; Status:Complete; Done: [id number] 10:49PM Ordered; For:Acute streptococcal pharyngitis; Ordered By:Jeanna Rubin; 12. Seek Immediate Medical Attention if: Your swallowing difficulty is worse.; Status:Complete; Done: [id number] 10:49PM Ordered; For:Acute streptococcal pharyngitis; Ordered By:Jeanna Rbuin; Acute streptococcal pharyngitis, Headache, Pneumonia 13. Hydrocodone-Acetaminophen 5-325 MG Oral Tablet; Take 1 to 2 tablets every 4-6 hours as needed for pain Rx By: Jeanna Rubin; Dispense: 0 Days ; #:60 Tablet; Refill: 0; For: Acute streptococcal pharyngitis, Headache, Pneumonia; CONCETTA = N; Print Rx 14. MethylPREDNISolone 4 MG Oral Tablet; USE DIRECTED Rx By: Jeanna Rubin; Dispense: 0 Days ; #:21 Tablet; Refill: 0; For: Acute streptococcal pharyngitis, Headache, Pneumonia; CONCETTA = N; Verified Transmission to [facility]; Last Updated By: Sonny Zaidi; 09/16/2016 10:08:45 AM Acute streptococcal pharyngitis, Pneumonia 15. CefTRIAXone Sodium 1 GM Injection Solution Reconstituted Rx By: Jeanna Rubin; For: Acute streptococcal pharyngitis, Pneumonia; Dose of 1 GM; Intramuscular; CONCETTA = N; Administered by: Kath Ward: 09/16/2016 11:28:00 AM; Last Updated By: Kath Ward; 09/16/2016 11:29:26 AM 16. MethylPREDNISolone Acetate 80 MG/ML Injection Suspension Rx By: Jeanna Rubin; For: Acute streptococcal pharyngitis, Pneumonia; Dose of 80 MG; Intramuscular; CONCETTA = N; Administered by: Kath Ward: 09/16/2016 11:27:00 AM; Last Updated By: Kath Ward;09/16/2016 11:29:26 AM 17. Call if: You have questions or concerns about your problem.; Status:Complete; Done: [id number] 10:50PM Ordered; For:Acute streptococcal pharyngitis, Pneumonia; Ordered By:Jeanna Rubin; 18. Complete medication as prescribed.; Status:Complete; Done: 21Sep2016 10:50PM Ordered; For:Acute streptococcal pharyngitis, Pneumonia; Ordered By:Jeanna Rubin; 19. Follow-up visit in 2 days Outpatient Follow-up Status: Hold For - Scheduling Requested for: 21Sep2016 Ordered; For: Acute streptococcal pharyngitis, Pneumonia; Ordered By: Jeanna Rubin Performed: Due: [id number] Pneumonia 20. ProAir HFA 108 (90 Base) MCG/ACT Inhalation Aerosol Solution; INHALE 2 PUFFS BY MOUTH EVERY 4 TO 6 HOURS NEEDED Rx By: Jeanna Rubin; Dispense: 0 Days ; #:1 X 8.5 GM Inhaler; Refill: 2; For: Pneumonia; CONCETTA = N;Verified Transmission to [facility]; Last Updated By: Sonny Zaidi; 09/16/2016 10:08:45 AM 21. Ipratropium-Albuterol 0.5-2.5 (3) MG/3ML Inhalation Solution Rx By: Jeanna Rubin; For: Pneumonia; Dose of 1 VIAL; Inhalation; CONCETTA = N; Administered by: Kath Ward: 09/16/2016 11:39:00 AM; Last Updated By: Kath Ward; 09/16/2016 11:40:05 AM 22. Call if: The cough is not gone in 10 days.; Status:Complete; Done: [id number] 10:49PM Ordered; For:Pneumonia; Ordered By:Jeanna Rubin; 23. Call if: The symptoms seem worse.; Status:Complete; Done: [id number] 10:49PM Ordered; For:Pneumonia; Ordered By:Jeanna Rubin; 24. Call if: You have pain in the chest that gets worse with deep breathing or coughing.; Status:Complete; Done: [id number] 10:49PM Ordered; For:Pneumonia; Ordered By:Jeanna Rubin; 25. Call if: Your shortness of breath is getting worse.; Status:Complete; Done: [id number] 10:49PM Ordered; For:Pneumonia; Ordered By:Jeanna Rubin; 26. Seek Immediate Medical Attention if: You are coughing up blood or pink colored phlegm.; Status:Complete; Done: 93Kot8576 10:49PM Ordered; For:Pneumonia; Ordered By:Jeanna Rubin; 27. Seek Immediate Medical Attention if: You are feeling short of breath.; Status:Complete; Done: [id number] 10:49PM Ordered; For:Pneumonia; Ordered By:Jeanna Rubin; Continue the Z-yaakov and the Augmentin as prescribed from the ER doctor. Signatures Electronically signed by : Jeanna Rubin CNP; Sep 21 2016 10:52PM DIRECTOR OF ORTHOPEDICS (Author) documented in this encounter Plan of Treatment Not on file documented as of this encounter Procedures Procedure Name Priority Date/Time Associated Diagnosis Comments COMPREHENSIVE METABOLIC PANEL Routine 09/16/2016 10:43 AM CDT CBC W/DIFF AUTOMATED Routine 09/16/2016 10:43 AM CDT documented in this encounter Results * (ABNORMAL) COMPREHENSIVE METABOLIC PANEL (09/16/2016 10:43 AM CDT) SODIUM S/P/B 135(L) 136 - 145 mmol/L [facility] CONVERSION POTASSIUM S/P/B 4.1 3.5 - 5.1 mmol/L [facility] CONVERSION CHLORIDE S/P/B 93(L) 98 - 107 mmol/L [facility] CONVERSION CO2 27 22 - 29 mmol/L [facility] CONVERSION ANION GAP 19 8 - 20 [facility] T O EPIC CONVERSION BUN 12 8 - 23 mg/dL [facility] CONVERSION CREATININE S/P/B 0.98 0.70 - 1.20 mg/dL [facility] CONVERSION GFR ESTIMATE >60 >60 mL/min/1 .73m'2 [facility] CONVERSION EGFR AFR. AMER. >60 NOTE: eGFR is not calculated for patients <18 years of age. This is an estimated GFR (CKD EPI) and should not be used for calculating drug doses. >60 mL/min/1 .73m'2 [facility] CONVERSION GLUCOSE 107(H) 70 - 99 mg/dL [facility] CONVERSION CALCIUM S/P/B 9.4 8.6 - 10.2 mg/dL [facility] CONVERSION BILIRUBIN TOTAL S/P/B 0.7 0.2 - 1.2 mg/dL [facility] CONVERSION AST 23 0 - 40 U/L [facility] CONVERSION ALT 32 0 - 41 U/L [facility] CONVERSION ALKALINE PHOSPHATASE S/P/B 67 40 - 129 U/L [facility] CONVERSION TOTAL PROTEIN S/P/B 7.0 6.4 - 8.3 g/dL [facility] CONVERSION ALBUMIN S/P/B 4.3 3.5 - 5.2 g/dL [facility] CONVERSION GLOBULIN 2.7 2.3 - 3.6 g/dL [facility] CONVERSION A/G RATIO 1.6 1.0 - 2.0 [facility] CONVERSION 09/16/2016 10:4 3 AM CDT 09/16/2016 10:43 AM CDT Narrative [facility] CONVERSION - 09/16/2016 8:48 PM CDT Result Communication: No patient communication needed at this time Jeanna [facility] Final Result [facility] CONVERSION * (ABNORMAL) CBC W/DIFF AUTOMATED (09/16/2016 10:43 AM CDT) WBC 6.0 4.8 - 10.8 x10'3/uL [facility] CONVERSION RBC 4.99 4.70 - 6.10 x10'6/uL [facility] CONVERSION HGB 14.4 14.0 - 18.0 G/DL [facility] CONVERSION HCT 44.0 43.0 - 54.0 % [facility] CONVERSION MCV 88.2 80.0 - 94.0 FL [facility] CONVERSION MCH 28.9 27.0 - 31.0 PG [facility] CONVERSION MCHC 32.7 32.0 - 36.0 G/DL [facility] CONVERSION RDW 12.3 11.5 - 14.5 % [facility] CONVERSION PLT 211 130 - 400 x10'3/uL [facility] CONVERSION GLUCOSE 10.6 9.3 - 12.2 FL [facility] CONVERSION BASOPHILS % 0.7 0.0 - 1.0 % [facility] CONVERSION EOSINOPHILS % 0.8(L) 1.0 - 3.0 % [facility] CONVERSION NEUTROPHILS % 71.0(H) 43.0 - 65.0 % [facility] CONVERSION LYMPHOCYTES % 15.1(L) 20.0 - 46.0 % [facility] CONVERSION IMMATURE GRANS % 0.3 0.0 - 1.0 % [facility] CONVERSION MONOCYTES 12.1(H) 5.0 - 12.0 % [facility] CONVERSION 09/16/2016 10:4 3 AM CDT 09/16/2016 10:43 AM CDT Narrative [facility] CONVERSION - 09/16/2016 8:50 PM CDT Result Communication: No patient communication needed at this time Jeanna [facility] Final Result [facility] CONVERSION documented in this encounter Visit Diagnoses Not on filedocumented in this encounter Care Teams Guide Escort Relationship Specialty Start Date End Date Jeanna Rubin FNP [address] [place] [address] PCP - General 09/24/16 Jeanna Rubin FNP [address] [place] [address] PCP - General 09/16/16 09/23/16 documented as of this encounter
--- OUTSIDE RECORDS SUMMARY | 2024-06-08 15:03 | XMS_ITS | Encounter Summary ---
Author Organization [facility] Address [facility] [facility] [place] [address] [place] [address] Care Team Providers Care Field Agronomist Name Role Phone Kev Santoyo Primary Care Provider [phone] Reason for Referral * Imaging (Emergency) - Closed Specialty Diagnoses / Procedures Referred By Ankur sneed Referred To Contact RADIOLOGY Diagnoses Pain in both testicles Swelling of the testicles Procedures US TESTICULAR W DOPPLER Kev Santoyo FNP [address] [place] [address] Phone: tel: fax: Referral ID Status Reason Start Date Expiration Date Visits Re quested Visits Authorized [id number] Closed 10/12/2020 11/11/2021 1 1 Reason for Visit * Reason Comments Hernia lower abdomen/testic ular pain s/p surgeries Encounter Details Date Type Department Care Team (Late st Contact Info) Description 10/12/2020 8:00 AM CDT Office Visit [facility] Family & Internal Medicine - [address] [phone] Kev Santoyo FNP [address] [place] [address] Hernia (lower abdomen/testicular pain s/p surgeries ) Social History Tobacco Use Types Packs/Day Years [...] on file Sexual Orientation Not on file COVID-19 Exposure Response Date Recorded In the last month, have you been in contact with someone who was confirmed or suspected to have Coronavirus / COVID-19? No / Unsure 10/12/2020 7:52 AM CDT documented as of this encounter Last Filed Vital Signs Vital Sign Reading Time Taken Comments Blood Pressure 132/98 10/12/2020 9:04 AM CDT Pulse 83 10/12/2020 8:13 AM CDT Temperature 37.1 ??C (98.7 ??F) 10/12/2020 8:13 AM CD T Respiratory Rate 16 10/12/2020 8:13 AM CDT Oxygen Saturation 97% 10/12/2020 8:13 AM CDT Inhaled Oxygen Concentration - - Weight 115.2 kg (254 lb) 10/12/2020 8:13 AM CDT Height 185.4 cm (6' 1 ) 10/12/2020 8:13 AM CDT Body Mass Index 33.51 10/12/2020 8:13 AM CDT documented in this encounter Patient Instructions * Patient Instructions* MICHELLE Fox - 10/12/2020 8:00 AM CDT Testicular and groin imaging is needed today LIVIER, 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 Take medications as directed and prescribed Go to the ER for any worsening of your pain Maintain follow up with specialists as scheduled. Follow up with me in 2 weeks or sooner if needed or otherwise advised documented in this encounter Progress Notes * MICHELLE Fox - 10/12/2020 8:00 AM CDTSummary: testicular pain post op Images from the original note were not included. Office Progress Note Reason for Visit: Hernia (lower abdomen/testicular pain s/p surgeries ) History of Present Illness: Ameya presents to the office for a f/u of his recent hernia surgeries. He is here for c/o testicular pain. He reports that his last surgery was 3 weeks ago and that was aneurectomy. He reports that he is still having pain and trouble walking due to surgery. He reports that it is still hard standing or sitting for any extended period of time. He only get pain relief laying flat. He did follow up with surgeon last Thursday and was advised to alternate with azeb la and this is what he has been doing. He feels like something is wrong due to the increasedpain and swelling that is still present. He reports that he called the surgeon and is still yet to hear back from this surgeon since the about these issues. 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 He will call back once he gets the okay to have this done today. We will, at this time, order the imaging stat today. He is to go to the ER for any worsening of his symptoms. ROS: Review of Systems Constitutional: Negative for chills, diaphoresis, fever, malaise/fatigue and weight loss. HENT: Negative for congestion, ear discharge, ear pain, hearing loss, nosebleeds, sinus pain, sore throat and tinnitus. Eyes: Negative for blurred vision, double vision, photophobia, pain, discharge and redness. Respiratory: Negative for cough, hemoptysis, sputum production, shortness of breath, wheezing and stridor. Cardiovascular: Negative for chest pain, palpitations, orthopnea, claudication, leg swelling and PND. Gastrointestinal: Negative for abdominal pain, blood in stool, constipation, diarrhea, heartburn, melena, nausea and vomiting. Genitourinary: Negative for dysuria, flank pain, frequency, hematuria and urgency. Testicular pain bilaterally Musculoskeletal: Negative for back pain, falls, joint pain, myalgias and neck pain. Skin: Negative for itching and rash. Neurological: Negative for dizziness, tingling, tremors, sensory change, speech change, focal weakness, seizures, loss of consciousness, weakness and headaches. Endo/Heme/Allergies: Negative for environmental allergies and polydipsia. Does not bruise/bleed easily. Psychiatric/Behavioral: Negative for depression, hallucinations, memory loss, substance abuse and suicidal ideas. The patient is not nervous/anxious and does not have insomnia. Medications: Current Outpatient Medications on File Prior to Visit Medication Sig ??? albuterol sulfate HFA (PROAIR HFA) 108 (90 Base) MCG/ACT inhaler Inhale 2 puffs into the lungs as needed. ??? L-kcawvws-L-folic acid 1 mg Tab Take 1 tablet by mouth daily. ??? ibuprofen 200 MG tablet Take 200 mg by mouth every 6 (six) hours as needed for Pain. ??? Naproxen Sodium (ALEVE) 220 MG Cap No current facility-administered medications on file prior to visit. Allergies: Allergies Allergen Reactions ??? Ketorolac Tromethamine Vomiting Medical History: No past medical history on file. Surgical History: Past Surgical History: Procedure Laterality Date ??? APPENDECTOMY ??? HERNIA REPAIR x 3 with neurectomy Social History: Social History Socioeconomic History ??? Marital status: Spouse name: Not on file ??? Number of children: Not on file ??? Years of education: Not on file ??? Highest education level: Not on file Occupational History ??? Not on file Tobacco Use ??? Smoking status: Former Smoker Packs/day: 1.00 Years: 2.00 Pack years: 2.00 Types: Cigarettes ??? Smokeless tobacco: Never Used Substance and Sexual Activity ??? Alcohol use: Yes Comment: Social ??? Drug use: No ??? Sexual activity: Not on file Other Topics Concern ??? Not on file Social History Narrative ??? Not on file Social Determinants of Health Financial Resource Strain: ??? Difficulty of Paying Living Expenses: Food Insecurity: ??? Worried About Running Out of Food in the Last Year: ??? Ran Out of Food in the Last Year: Transportation Needs: ??? Lack of Transportation (Medical): ??? Lack of Transportation (Non-Medical): Physical Activity: ??? Days of Exercise per Week: ??? Minutes of Exercise per Session: Stress: ??? Feeling of Stress : Social Connections: ??? Frequency of Communication with Friends and Family: ??? Frequency of Social Gatherings with Friends and Family: ??? Attends Jewish Services: ??? Active Member of Clubs or Organizations: ??? Attends Club or Organization Meetings: ??? Marital Status: Intimate Partner Violence: ??? Fear of Current or Ex-Partner: ??? Emotionally Abused: ??? Physically Abused: ??? Sexually Abused: Family History: Family History Problem Relation Name Age of Onset ??? Heart Disease Father Includes [place] ??? Cancer Father Carcinoid ??? Cancer Maternal [...] external ear normal. Nose: Nose normal. Mouth/Throat: Mucous membranes are normal. Eyes: Conjunctivae, EOM and lids are normal. Cardiovascular: Normal rate and regular rhythm. Pulmonary/Chest: Effort normal. No accessory muscle usage. No respiratory distress. Abdominal: Soft. Normal appearance and bowel sounds are normal. There is no abdominal tenderness. Musculoskeletal: Cervical back: Full passive range of motion without pain and normal range of motion. Legs: Neurological: He is alert and oriented to person, place, and time. He has normal strength. No cranial nerve deficit or sensory deficit. Gait (hesitant due to pain, but steady) abnormal. Skin: Skin is warm, dry and intact. No rash noted. Psychiatric: He has a normal mood and affect. His speech is normal and behavior is normal. Judgmentand thought content normal. Cognition and memory are normal. Filed Vitals: 10/12/20 0813 10/12/20 0904 BP: (!) 138/103 (!) 132/98 Pulse: 83 Resp: 16 Temp: 98.7 ??F (37.1 ??C) SpO2: 97% Weight: 115.2 kg (254 lb) Height: 6' 1 (1.854 m) Diagnoses/Impression: 1. Pain in both testicles HYDROcodone-acetaminophen 5-325 MG tablet URINALYSIS AUTO DIP US TESTICULAR W DOPPLER 2. Swelling of the testicles US TESTICULAR W DOPPLER 3. S/P hernia surgery US GROIN NON VASCULAR 4. Inguinal pain, unspecified laterality US GROIN NON VASCULAR Recommendations and Plan: 1. Pain in both testicles - HYDROcodone-acetaminophen 5-325 MG tablet; Take 1-2 tablets by mouth every 6 (six) hours as needed for Pain. Indications: Acute Pain < 7 Day Supply Dispense: 30 tablet; Refill: 0 - URINALYSIS AUTO DIP - US TESTICULAR W DOPPLER; Future 2. Swelling of the testicles - US TESTICULAR W DOPPLER; Future 3. S/P hernia surgery - US GROIN NON VASCULAR; Future 4. Inguinal pain, unspecified laterality - US GROIN NON VASCULAR; Future - advised to take medications as directed and prescribed. - discussed going to the hospital for stat testing today, as we discussed and advised. - advised to maintain follow up with specialists as scheduled. - advised on 2 week f/u or sooner if needed or otherwise advised. Orders Placed This Encounter ??? URINALYSIS AUTO DIP ??? US TESTICULAR W DOPPLER ??? US GROIN NON VASCULAR ??? Naproxen Sodium (ALEVE) 220 MG Cap ??? ibuprofen 200 MG tablet ??? HYDROcodone-acetaminophen 5-325 MG tablet Cannot display discharge medications since this is not an admission. PCP: MICHELLE KAUR 10/12/2020 * MICHELLE Fox - 10/12/2020 8:00 AM CDT Discussed with patient at office visit. documented in this encounter Plan of Treatment Not on file documented as of this encounter Procedures Procedure Name Priority Date/Time Associated Diagnosis Comments URINALYSIS AUTO DIP Routine 10/12/2020 Pain in both testicles documented in this encounter Results * US TESTICULAR W DOPPLER (10/12/2020 12:41 PM CDT) Anatomical Region Laterality Modality Pelvis Ultrasound 10/12/2020 12:5 5 PM CDT Impressions 10/12/2020 12:58 PM CDT IMPRESSION: 1. ??Trace bilateral hydroceles. 2. ??No intratesticular lesion. 3. ??No abnormal vascular flow on Doppler ultrasound. Referred By: KEV SANTOYO Interpreted By: Demetrius Duarte MD, 10/12/2020 12:55 PM Narrative 10/12/2020 12:58 PM CDT EXAMINATION: US TESTICULAR W DOPPLER INDICATIONS: Pain and swelling COMPARISON: NONE TECHNIQUE B-mode ultrasound with color and duplex doppler of the testes and scrotum. FINDINGS: The right testicle measures approximately 3.8 x 2.2 x 3.0 cm with normal parenchymal echogenicity. No discrete parenchymal lesion or hypervascularity. The right epididymis is within normal limits. The left testicle measures approximately 4.2 x 2.3 x 3.5 ??cm with normal parenchymal echogenicity. No discrete parenchymal lesion or hypervascularity. The left epididymis is within normal limits. Symmetric color Doppler vascular flow to the testicles. Normal arterial and venous waveforms bilaterally. Trace bilateral hydroceles. No significant varicocele. Procedure Note Demetrius Duarte MD - 10/12/2020 EXAMINATION: US TESTICULAR W DOPPLER INDICATIONS: Pain and swelling COMPARISON: NONE TECHNIQUE B-mode ultrasound with color and duplex doppler of the testesand scrotum. FINDINGS: The right testicle measures approximately 3.8 x 2.2 x 3.0 cm with normalparenchymal echogenicity. No discrete parenchymal lesion or hypervascularity. The right epididymis is within normal limits. The left testicle measures approximately 4.2 x 2.3 x 3.5 cm with normalparenchymal echogenicity. No discrete parenchymal lesion or hypervascularity. The left epididymis is within normal limits. Symmetric color Doppler vascular flow to the testicles. Normal arterial and venous waveforms bilaterally. Trace bilateral hydroceles. No significant varicocele. IMPRESSION: 1. Trace bilateral hydroceles. 2. No intratesticular lesion. 3. No abnormal vascular flow on Doppler ultrasound. Referred By: KEV SANTOYO Interpreted By: Demetrius Duarte MD, 10/12/2020 12:55 PM Kev AARONP ULTRASOUND Final Result * URINALYSIS AUTO DIP (10/12/2020) COLOR (U) YELLOW [facility] TRANSPARENCY CLEAR -SOUT H [facility] GLUCOSE (U) NEGATIVE NEGATIVE MG/DL [facility] BILIRUBIN (U) NEGATIVE NEGATIVE [facility] KETONES MG/DL (U) NEGATIVE NEGATIVE MG/DL [facility] SPECIFIC GRAVITY (U) 1.030 1.001 - 1.035 [facility] BLOOD (U) NEGATIVE NEGATIVE [facility] U PH 5.0 5.0 - 9.0 [facility] PROTEIN (U) NEGATIVE NEGATIVE mg/dL [facility] UROBILINOGEN 0.2 0.2 - 1.0 EU/dL = mg/dL [facility] NITRITES NEGATIVE NEGATIVE MG/DL [facility] LEUKOCYTES (U) NEGATIVE NEGATIVE [facility] URINE SPECIMEN OBTAINED BY CLEAN CATCH PROCEDURE / Unknown 10/12/2020 Kev Santoyo [facility] URINE ORDERABLES Final Result [facility] [address] [place] [address], documented in this encounter Visit Diagnoses Diagnosis Pain in both testicles- Primary Swelling of the testicles Edema of male genital organs S/P hernia surgery Other postprocedural status Inguinal pain, unspecified laterality Pain in both testicles Swelling of the testicles Edema of male genital organs S/P hernia surgery Other postprocedural status Inguinal pain, unspecified laterality documented in this encounter Additional Health Concerns Assessment Noted Time PHQ-9 Depression Total Score: 0 10/13/19 21 9:29 AM CDT documented as of this encounter Care Teams Field Agronomist Relationship Specialty Start Date End Date Kev Santoyo FNP [address] [place] [address] PCP - General 09/24/16 documented as of this encounter
--- OUTSIDE RECORDS SUMMARY | 2024-06-08 15:03 | XMS_ITS | Encounter Summary ---
Author Organization [facility] Address [address] [facility] [place] [address] [place] [address] Care Team Providers Care Auto Accessories Installer Name Role Phone Jeanna Rubin Primary Care Provider [phone] Jeanna Rubin Primary Care Provider [phone] Jeanna Rubin Primary Care Provider [phone] Encounter Details Date Type Department Care Team (Latest Contact Info) Description 04/25/2016 Abstract [facility] Social History Tobacco Use Types Packs/Day Years Used Date Smoking Tobacco: Never Assessed Sex and Gender Information Value Date Recorded Sex Assigned at Not on file Legal Sex Male 8:31 PM CDT Gender Identity Not on file Sexual Orientation Not on file documented as of this encounter Progress Notes * Generic Conversion MD Maritza - 04/25/2016 2:56 PM CST Message Recorded as Task Date: 04/25/2016 07:28 AM, Created By: Jeanna Rubin Task Name: Medical Complaint Callback Assigned To: [facility] Nurse Team Regarding Patient: Ameya Santacruz, Status: In Progress Comment: Jeanna Rubin - 25 Apr 2016 7:28 AM TASK CREATED Ameya's labs are all within normal limits. His HDL (good cholesterol) could be a little higher, thiscan only improve with exercise. Otherwise everything else was normal. Please ask him how is abdominal pain is doing. and Thank you Jacinta Lyle - 25 Apr 2016 2:47 PM TASK IN PROGRESS Jacinta Lyle - 25 Apr 2016 2:49 PM TASK EDITED LMTC//af Jacinta Lyle - 25 Apr 2016 2:56 PM TASK EDITED Patient informed, he reports being pain free in abd since the 2nd day after being seen. he will call back if that changes//af Signatures Electronically signed by : Jacinta Lyle, ; Apr 25 2016 2:56PM SOCIAL SERVICES COORDINATOR (Author) documented in this encounter Plan of Treatment Not on file documented as of this encounter Visit Diagnoses Not on filedocumented in this encounter Care Teams Auto Accessories Installer Relationship Specialty Start Date End Date Jeanna Rubin FNP [address] [place] [address] PCP - General 09/24/16 Jeanna Rubin FNP [address] [place] [address] PCP - General 09/16/16 09/23/16 Jeanna Rubin FNP [address] [place] [address] PCP - General 04/21/16 09/15/16 documented as of this encounter
--- OUTSIDE RECORDS SUMMARY | 2024-06-08 15:03 | XMS_ITS | Encounter Summary ---
Author Organization [facility] Address [facility] [facility] [place] [address] [place] [address] Care Team Providers Care Brand Strategist Name Role Phone Jeanna Rubin MICHELLE Primary Care Provider [phone] Reason for Visit * Reason Comments Congestion Chest Breathing Problem Fatigue x 4 days Eye Problem right eye redness an d swelling x 4 days Encounter Details Date Type Department Care Team (Late st Contact Info) Description 10/28/2018 2:00 PM CDT Office Visit [facility] Family & Internal Medicine [address] [phone] Rafita Manzo DO [address] [place] [id number] Congestion (Chest ); Breathing Problem; Fatigue (x 4 days ); Eye Problem (right eye redness and swelling x 4 days ) Social History Tobacco Use Types Packs/Day Years Used Date Smoking Tobacco: Former Cigarettes 1 2 Smokeless Tobacco: Never Alcohol Use Standard Drinks/Week Comments Yes 0 (1 standard drink = 0.6 oz pur e alcohol) Social Sex and Gender Information Value Date Recorded Sex Assigned at Not on file Legal Sex Male 8:31 PM CDT Gender Identity Not on file Sexual Orientation Not on file documented as of this encounter Last Filed Vital Signs Vital Sign Reading Time Taken Comments Blood Pressure 108/78 10/28/2018 2:33 PM CDT Pulse 64 10/28/2018 2:12 PM CDT Temperature 35.8 ??C (96.4 ??F) 10/28/2018 2:12 PM CD T Respiratory Rate 16 10/28/2018 2:12 PM CDT Oxygen Saturation 98% 10/28/2018 2:12 PM CDT Inhaled Oxygen Concentration - - Weight 109.4 kg (241 lb 2 oz) 10/28/2018 2:12 PM CDT Height 185.4 cm (6' 1 ) 10/28/2018 2:12 PM CDT Body Mass Index 31.81 10/28/2018 2:12 PM CDT documented in this encounter Progress Notes * Rafita Woodruff Jovany, DO - 10/28/2018 2:00 PM CDT GENERAL OFFICE VISIT Encounter Date: 10/28/2018 Chief Complaint: 38-year-old male presents for Congestion (Chest ); Breathing Problem; Fatigue (x 4 days ); and Eye Problem (right eye redness and swelling x 4 days ) . HPI: Patient states symptoms have been present for 4 days. Symptoms include cough, fatigue, SOB, congestion. Pt has had pneumonia before; unsure if this similar. Pertinent negatives include N/V, Fevers, Chills, Chest Pain and Myalgias. Patient has No sick contacts. OTC medications tried include none. Does have an inhaler; he notes improvement with the albuterol. Pt has eye complaint. His eyelid has swollen. This has occurred in the past. There is yellow discharge. He has had this before and it improved with ciprofloxacin. He has noted improvement with cipro this time as well. The drops were from a previous infection. Review of Systems Constitutional: Negative for chills and fever. HENT: See HPI Eyes: Negative for discharge. Respiratory: See HPI Cardiovascular: Negative for chest pain. Gastrointestinal: Negative for abdominal pain, nausea and vomiting. Musculoskeletal: Negative for myalgias. Skin: Negative for rash. Patient Active Problem List Diagnosis ??? Acute bacterial conjunctivitis of both eyes ??? Class 1 obesity with body mass index (BMI) of 32.0 to 32.9 in adult ??? Cough ??? Elevated fasting lipid profile ??? Fatigue ??? Hyperglycemia ??? URI, acute ??? Vitamin D deficiency History reviewed. No pertinent past medical history. Past Surgical History: Procedure Laterality Date ??? APPENDECTOMY Family History Problem Relation Name Age of Onset ??? Heart Disease Father Includes [place] ??? Cancer Father Carcinoid ??? Cancer Maternal [...] file Gets together: Not on file Attends adventist service: Not on file Active member of [...] Social History Narrative ??? Not on file There is no immunization history on file for this patient. Current Outpatient Medications Medication Sig Dispense Refill ??? albuterol sulfate HFA (PROAIR HFA) 108 (90 Base) MCG/ACT inhaler Inhale 2 puffs into the lungs as needed. ??? azithromycin (ZITHROMAX) 250 MG tablet Take 2 tabs the first day, then 1 tab daily 6 tablet 0 ??? ciprofloxacin 0.3 % ophthalmic solution Apply 2 drops to eye 3 (three) times daily. ??? methylPREDNISolone, LYDIA, 4 MG tablet 6 TABLETS ON DAY ONE, 5 TABLETS DAY TWO, 4 TABLETS DAY THREE, 3 TABLETS DAY FOUR, 2 TABLETS DAY FIVE, AND 1 TABLET DAY SIX 1 each 0 No current facility-administered medications for this visit. Current Outpatient Medications on File Prior to Visit Medication Sig ??? albuterol sulfate HFA (PROAIR HFA) 108 (90 Base) MCG/ACT inhaler Inhale 2 puffs into the lungs as needed. ??? ciprofloxacin 0.3 % ophthalmic solution Apply 2 drops to eye 3 (three) times daily. No current facility-administered medications on file prior to visit. Allergies Allergen Reactions ??? Ketorolac Tromethamine Vomiting Objective: Filed Vitals: 10/28/18 1412 10/28/18 1433 BP: (!) 125/98 108/78 Pulse: 64 Resp: 16 Temp: 96.4 ??F (35.8 ??C) TempSrc: Oral SpO2: 98% Weight: 109.4 kg (241 lb 2 oz) Height: 6' 1 (1.854 m) Physical Exam Constitutional: He is well-developed, well-nourished, and in no distress. HENT: Head: Normocephalic and atraumatic. Right Ear: Tympanic membrane, external ear and ear canal normal. Left Ear: Tympanic membrane, external ear and ear canal normal. Nose: Nose normal. Cobblestoning in posterior oropharynx, otherwise WNL Eyes: EOM are normal. Notable swelling of upper eyelid on the right, conjunctiva mildly irritated, questionable drainage Neck: Neck supple. Cardiovascular: Normal rate, regular rhythm and normal heart sounds. Exam reveals no gallop and no friction rub. No murmur heard. Pulmonary/Chest: Effort normal and breath sounds normal. No respiratory distress. He has no wheezes. He has no rales. Abdominal: Soft. Bowel sounds are normal. There is no tenderness. Musculoskeletal: He exhibits no edema. Lymphadenopathy: He has no cervical adenopathy. Skin: Skin is warm and dry. No rash noted. Nursing note and vitals reviewed. Assessment & Plan: Ameya was seen today for congestion, breathing problem, fatigue and eye problem. Diagnoses and all orders for this visit: Bronchitis - methylPREDNISolone, LYDIA, 4 MG tablet; 6 TABLETS ON DAY ONE, 5 TABLETS DAY TWO, 4 TABLETS DAY THREE, 3 TABLETS DAY FOUR, 2 TABLETS DAY FIVE, AND 1 TABLET DAY SIX - azithromycin (ZITHROMAX) 250 MG tablet; Take 2 tabs the first day, then 1 tab daily Hordeolum externum of right upper eyelid Discussion/Summary: We will treat as per above. Expectant management discussed. Follow-up if not improving. Eye symptoms are most consistent with hordeolum; given improvement can continue ciprofloxacin drops, 2 drops inthe affected eye 3 times daily for 7 days. If not improving, patient needs to see eye care provider. Instructed pt to f/u with his regular PCP for check-up, as it has been some time since his last evaluation. Patient verbalized understanding. Rafita Manzo DO documented in this encounter Plan of Treatment Not on file documented as of this encounter Visit Diagnoses Diagnosis Bronchitis- Primary Bronchitis, not specified as acute or chronic Hordeolum externum of right upper eyelid Hordeolum externum documented in this encounter Care Teams Brand Strategist Relationship Specialty Start Date End Date Jeanna Rubin FNP [address] [place] [address] PCP - General 09/24/16 documented as of this encounter
--- OUTSIDE RECORDS SUMMARY | 2024-06-08 15:03 | XMS_ITS | Encounter Summary ---
Author Organization [facility] Address Formerly [facility], [facility] [place] [address] [place] [address] Care Team Providers Care Panelboard Tank Pumper Name Role Phone Kev Santoyo Primary Care Provider [phone] Reason for Referral * Imaging (Emergency) - Closed Specialty Diagnoses / Procedures Referred By Ankur sneed Referred To Contact RADIOLOGY Diagnoses Pain in both testicles Swelling of the testicles Procedures US TESTICULAR W DOPPLER Kev Santoyo FNP [address] [place] [address] Phone: tel: fax: Referral ID Status Reason Start Date Expiration Date Visits Re quested Visits Authorized [id number] Closed 10/12/2020 11/11/2021 1 1 Reason for Visit * Imaging (Emergency) - Closed Specialty Diagnoses / Procedures Referred By Ankur sneed Referred To Contact RADIOLOGY Diagnoses Pain in both testicles Swelling of the testicles Procedures US TESTICULAR W DOPPLER Kev Santoyo FNP [address] [place] [address] Phone: tel: fax: Referral ID Status Reason Start Date Expiration Date Visits Re quested Visits Authorized [id number] Closed 10/12/2020 11/11/2021 1 1 Encounter Details Date Type Department Care Team (Latest Contact Info) Description 10/12/2020 11:30 AM CDT - 10/12/2020 11:59 PM CDT Hospital Encounter [facility] [address] [place] [address] Kev Santoyo FNP [address] [place] [address] Discharge Disposition: Home or Self Care (Routine [...] AM CDT documented as of this encounter Medications at Time of Discharge albuterol sulfate HFA (PROAIR HFA) 108 (90 Base) MCG/ACT inhaler Inhale 2 puffs into the lungs as needed. 09/16/2016 U-ndrkhcr-K-folic acid 1 mg Tab Take 1 tablet by mouth daily. HYDROcodone-aceta minophen 5-325 MG tabletIndications :Acute Pain < 7 Day Supply Take 1-2 tablets by mouth every 6 (six) hours as needed for Pain. Indications: Acute Pain < 7 Day Supply 30 tablet 10/12/2020 ibuprofen 200 MG tablet Take 200 mg by mouth every 6 (six) hours as needed for Pain. Naproxen Sodium (ALEVE) 220 MG Cap documented as of this encounter Progress Notes * MICHELLE Fox - 10/12/2020 11:30 AM CDT Testicular u/s normal; wondering if we need to order a ct of his abdomen or pelvis to visualize mesh implants due to his pain? I guess check and see if his surgeon has returned his call please. documented in this encounter Plan of Treatment Not on file documented as of this encounter Procedures Procedure Name Priority Date/Time Associated Diagnosis Comments US TESTICULAR W DOPPLER STAT 10/12/2020 12:41 PM CDT Pain in both testicles Swelling of the testicles documented in this encounter Results * [...] Demetrius Duarte MD, 10/12/2020 12:55 PM Kev MARTINEZ ULTRASOUND Final Result documented in this encounter Visit Diagnoses Diagnosis Pain in both testicles Swelling of the testicles Edema of male genital organs S/P hernia surgery Other postprocedural status Inguinal pain, unspecified laterality documented in this encounter Additional Health Concerns Assessment Noted Time PHQ-9 Depression Total Score: 0 10/13/19 21 9:29 AM CDT documented as of this encounter Care Teams Panelboard Tank Pumper Relationship Specialty Start Date End Date Kev Santoyo FNP [address] [place] [address] PCP - General 09/24/16 documented as of this encounter
--- OUTSIDE RECORDS SUMMARY | 2024-06-08 15:03 | XMS_ITS | Encounter Summary ---
Author Organization [facility] Address [address] [place] [address]. [place], [place] [id number] [place] [id number] Care Team Providers Care Wire Rope Sling Maker Name Role Phone Jeanna Rubin Primary Care Provider [phone] Reason for Visit * Reason Comments Abdominal Pain LLQ Encounter Details Date Type Department Care Team (Late st Contact Info) Description 06/08/2019 11:00 AM TRADE CLERK Office Visit [facility] Medical Group Family & Internal Medicine [id number] [place] [address] Jeanna Rubin FNP [address] [place] [address] [phone] Abdominal Pain (LLQ) Social History Tobacco Use Types Packs/Day Years [...] Sign Reading Time Taken Comments Blood Pressure 128/86 06/08/2019 11:33 AM TRADE CLERK Pulse 70 06/08/2019 11:33 AM TRADE CLERK Temperature - - Respiratory Rate 16 06/08/2019 11:33 AM TRADE CLERK Oxygen Saturation 97% 06/08/2019 11:33 AM TRADE CLERK Inhaled Oxygen Concentration - - Weight 109.8 kg (242 lb) 06/08/2019 11:33 AM TRADE CLERK Height 185.4 cm (6' 1 ) 06/08/2019 11:33 AM TRADE CLERK Body Mass Index 31.93 06/08/2019 11:33 AM TRADE CLERK documented in this encounter Patient Instructions * Patient Instructions* Jeanna Rubin, MEDICAL CODING TECHNICIAN - 06/08/2019 11:00 AM TRADE CLERK Start the medications as directed and prescribed Drink plenty of fluids. If you do not notice any improvement in your symptoms by Thursday, please call and let us know. If your symptoms or pain worsen, please go to the ER, as we discussed Start a daily probiotic to help minimize the side effects of the medication. Patient Education Patient Education Colitis About this topic Colitis is inflammation or swelling of the lining of your large bowel or colon. There are many kinds of colitis and your doctor may not be able to tell you what kind you have without more tests. What are the causes? You may have colitis because of: ?? An infection ?? Poor blood flow ?? Food poisoning ?? Recent antibiotics ?? Radiation to your bowel ?? An allergic reaction ?? An abnormal immune reaction What can make this more likely to happen? Colitis is more likely to happen: ?? During or after some kind of infection ?? If a close family member also has this condition What are the main signs? You may have: ?? Belly pain, cramping, and feel bloated ?? Loose stools ?? Bloody or mucous stools ?? Upset stomach ?? Fever ?? Weight loss ?? Fatigue How does the doctor diagnose this health problem? Your doctor will do an exam and ask about your history. The doctor will feel your belly for any enlarged organs. Your doctor may order: ?? Lab tests ?? Stool test to look for germs ?? Colonoscopy or other tests to look at your bowel ?? CT Scan How does the doctor treat this health problem? Your care is based on what is causing your colitis. What drugs may be needed? The doctor may order drugs to: ?? Fight infection ?? Ease belly pain ?? Stop throwing up ?? Replace body fluids ?? Decrease the acid in the stomach Do not take drugs to stop the loose stools. This will only prevent your body from getting rid of the toxins. What problems could happen? ?? Too much fluid loss ?? Thrombotic microangiopathy ?? Low red blood cell count ?? Low platelet count ?? Weakened or damaged kidneys ?? Feel weak or pass out ?? Poor appetite; weight loss What can be done to prevent this health problem? ?? Wash your hands with soap and water before eating and after using the toilet or changing diapers. ?? Drink water and ice from a clean source. If you are not sure if your water is clean, boil it for3 minutes and then let it cool. If the ice source is unknown, do not use it. ?? Practice these food safety tips: ? Eat well-cooked food. Do not eat raw ground beef. ? Cook your foods fully. Make sure that meat is fully cooked or brown. Use a meat thermometer to make sure the meat is at least 155??F (68??C). ? Keep hot foods hot and cold foods cold. ? Wash, peel, or cook all fruits and vegetables. Wash salad greens thoroughly before eating them. ? Thaw meats in the refrigerator or microwave. Do not thaw them on the counter. ?? Prevent cross-contamination: ? Wash your kitchen tools after using on raw meat. ? Use different containers or cutting boards for dry and wet foods. ? Do not put cooked patties or meat on the same plate when it was still raw. ? Wash your hands with soap and water after touching raw meat. ?? Keep others from getting this illness: ? Stay at home until your loose stools are gone and the doctor says you cannot spread the disease. ? Do not cook food for others while you have loose stools. ? Wash hands right away after you visit a petting zoo. Last Reviewed Date 2018-11-08 Consumer Information Use and Disclaimer This information [...] or not to accept your health care provider???s advice, instructions or recommendations. Only your health care provider has the knowledge and training to provide advice that is right for you. Copyright Copyright ?? 2019 [employer] and its affiliates and/or licensors. All rights reserved. E CLERK documented in this encounter Progress Notes * MICHELLE Fox - 06/08/2019 11:00 AM CST Office Progress Note Reason for Visit: Abdominal Pain (LLQ) History of Present Illness: He is here with lower abdomen pain, left sided for about one month. He denies any known injury but reports that he lifts things daily due to his job. He denies trying any medications for the pain andreports sitting and moving makes pain uncomfortable. He reports that his pain is worse with movement. He denies any N/V/D with this pain. He does report that he had some urinary urgency when the pain started but not at this time. He alsodenies any hematuria or fever with this pain. ROS: Review of Systems Constitutional: Negative for chills, fever and weight loss. HENT: Negative for congestion, ear discharge, ear pain, hearing loss, nosebleeds, sinus pain, sore throat and tinnitus. Eyes: Negative for blurred vision, double vision, photophobia, pain, discharge and redness. Respiratory: Negative for cough, hemoptysis, sputum production, shortness of breath and wheezing. Cardiovascular: Negative for chest pain, palpitations, orthopnea, claudication, leg swelling and PND. Gastrointestinal: Positive for abdominal pain. Negative for blood in stool, constipation, diarrhea,heartburn, melena, nausea and vomiting. Genitourinary: Positive for urgency. Negative for dysuria, flank pain, frequency and hematuria. Musculoskeletal: Positive for back pain. Negative for falls, joint pain and myalgias. [...] 2 puffs into the lungs as needed. No current facility-administered medications on file prior [...] file Gets together: Not on file Attends druze service: Not on file Active member of [...] of Onset ??? Heart Disease Father Includes MS ??? Cancer Father Carcinoid ??? Cancer Maternal Grandmother Breast Cancer ??? Heart Disease Maternal Grandfather ??? Diabetes Paternal Grandmother ??? Cancer Paternal Grandmother Pancreatic ??? Cancer Paternal Grandfather Prostate PE: Physical Exam Constitutional: He is oriented to person, place, and time. He appears well- developed and well-nourished. He is cooperative. He does not have a sickly appearance. He does not appear ill. No distress. HENT: Head: Normocephalic and atraumatic. Right Ear: Hearing and external ear normal. Left Ear: Hearing and external ear normal. Nose: Nose normal. Mouth/Throat: Uvula is midline, oropharynx is clear and moist and mucous membranes are normal. Eyes: Conjunctivae, EOM and lids are normal. Pupils are equal, round, and reactive to light. Neck: Trachea normal, normal range of motion, full passive range of motion without pain and phonation normal. Neck supple. Normal carotid pulses present. No spinous process tenderness and no musculartenderness present. Carotid bruit is not present. No [...] mass. There is no hepatosplenomegaly. There is tenderness in the left upper quadrant and left lower quadrant. There is CVA tenderness. There is no rigidity, no rebound, no guarding, no tenderness at McBurney's point and negative Solares's sign. Musculoskeletal: Normal range of motion. He exhibits no tenderness or deformity. Lymphadenopathy: He has no cervical adenopathy. Neurological: He is alert and oriented to person, place, and time. He has normal reflexes. No cranial nerve deficit. Coordination and gait normal. Skin: Skin is warm, dry and intact. No rash noted. No erythema. Psychiatric: He has a normal mood and affect. His speech is normal and behavior is normal. Judgmentand thought content normal. Cognition and memory are normal. Nursing note and vitals reviewed. Filed Vitals: 06/08/19 1133 BP: 128/86 Pulse: 70 Resp: 16 SpO2: 97% Weight: 109.8 kg (242 lb) Height: 6' 1 (1.854 m) Diagnoses/Impression: 1. Left lower quadrant abdominal pain URINALYSIS AUTO DIP 2. Colitis metroNIDAZOLE (FLAGYL) 500 MG tablet ciprofloxacin (CIPRO) 500 MG tablet 3. Flank pain Recommendations and Plan: 1. Left lower quadrant abdominal pain - URINALYSIS AUTO DIP 2. Colitis - metroNIDAZOLE (FLAGYL) 500 MG tablet; Take 1 tablet (500 mg total) by mouth 3 (three) times dailyfor 7 days. Dispense: 21 tablet; Refill: 0 - ciprofloxacin (CIPRO) 500 MG tablet; Take 1 tablet (500 mg total) by mouth 2 (two) times daily for 7 days. Dispense: 14 tablet; Refill: 0 3. Flank pain Orders Placed This Encounter ??? URINALYSIS AUTO DIP ??? metroNIDAZOLE (FLAGYL) 500 MG tablet ??? ciprofloxacin (CIPRO) 500 MG tablet Cannot display discharge medications since this is not an admission. Time Spent: Approximately 25 minutes was spent in direct patient consultation and the majority of that time (>50%) was spent on counseling and coordination of care. PCP: MICHELLE KAUR 06/16/2019 E CLERK documented in this encounter Plan of Treatment Not on file documented as of this encounter Procedures Procedure Name Priority Date/Time Associated Diagnosis Comments URINALYSIS AUTO DIP Routine 06/08/2019 Left lower quadrant abdominal pain documented in this encounter Results * URINALYSIS AUTO DIP (06/08/2019) COLOR (U) YELLOW [facility] TRANSPARENCY [facility]AR [facility] GLUCOSE (U) NEGATIVE NEGATIVE MG/DL [facility] BILIRUBIN (U) NEGATIVE NEGATIVE [facility] KET[facility] MG/DL (U) NEGATIVE NEGATIVE MG/DL [facility] SPECIFIC GRAVITY (U) 1.030 1.001 - 1.035 [facility] BLOOD (U) NEGATIVE NEGATIVE [facility] U PH 5.5 5.0 - 9.0 [facility] PROTEIN (U) NEGATIVE NEGATIVE mg/dL [facility] UROBILINOGEN 0.2 0.2 - 1.0 EU/dL = mg/dL [facility] NITRITES NEGATIVE NEGATIVE MG/DL [facility] LEUKOCYTES (U) NEGATIVE NEGATIVE [facility] URINE SPECIMEN OBTAINED BY CLEAN CATCH PROCEDURE / Unknown 06/08/2019 Jeanna MARTINEZ URINE ORDERABLES Final Result [facility] [address] [place] [address], documented in this encounter Visit Diagnoses Diagnosis Left lower quadrant abdominal pain- Primary Colitis Other and unspecified noninfectious gastroenteritis and colitis Flank pain Abdominal pain, unspecified site documented in this encounter Additional Health Concerns Assessment Noted Time PHQ-9 Depression Total Score: 0 06/08/19 20 12:13 PM TRADE CLERK documented as of this encounter Care Teams Wire Rope Sling Maker Relationship Specialty Start Date End Date Jeanna Rubin FNP [address] [place] [address] PCP - General 09/24/16 documented as of this encounter
--- OUTSIDE RECORDS SUMMARY | 2024-06-08 15:03 | XMS_ITS | Encounter Summary ---
Author Organization [facility] Address [address] [facility] [place] [address] [place] [address] Care Team Providers Care Specialty Development Consultant Name Role Phone Jeanna Rubin Primary Care Provider [phone] Reason for Referral * Consultation (Routine) - Closed Specialty Diagnoses / Procedures Referred By Ankur sneed Referred To Contact GASTROENTEROLOGY Diagnoses Elevated liver enzymes Abnormal laboratory test Jeanna Rubin FNP [address] [place] [address] Phone: tel: fax: Chandler eZng MD [address] [place] [address] Phone: tel: fax: Referral ID Status Reason Start Date Expiration Date Visits Re quested Visits Authorized [id number] Closed 07/26/2019 08/24/2020 100 100 ORATING MACHINE OPERATOR Reason for Visit * Reason Onset Date Comments Lab Results 07/25/2019 Encounter Details Date Type Department Care Team (Late st Contact Info) Description 07/25/2019 Telephone [facility] Medical Group Family & Internal Medicine - [place] [address] [place] [address] Jeanna Rubin FNP [address] [place], [place] [phone] (work) Lab Results Social History Tobacco Use Types Packs/Day Years [...] as of this encounter Progress Notes * Rebeca Chaudhari MA - 07/26/2019 9:39 AM CST Patient notified and v/u ORATING MACHINE OPERATOR * Karrie Mcnulty RN - 07/26/2019 9:02 AM CST LMTC 07/26/19 ORATING MACHINE OPERATOR * Karrie Mcnulty RN - 07/25/2019 10:17 AM CST LMTC 07/25/19 lab pended and referral pended ORATING MACHINE OPERATOR * Karrie Mcnulty RN - 07/25/2019 10:09 AM CST ----- Message from MICHELLE Fox sent at 07/25/2019 9:36 AM PERFORATING MACHINE OPERATOR ----- Labs show liver enzymes are still a [...] to GI if not already done so. ORATING MACHINE OPERATOR documented in this encounter Plan of Treatment Scheduled Referrals Name Type Priority Associated Diagnoses Orde r Schedule Ambulatory referral to Gastroenterology (OTHER) Referral Routine Elevated liver enzymes Abnormal laboratory test Ordered: 07/26/2019 documented as of this encounter Visit Diagnoses Diagnosis Elevated liver enzymes- Primary Nonspecific elevation of levels of transaminase or lactic acid dehydrogenase (LDH) Abnormal laboratory test Other abnormal clinical finding documented in this encounter Additional Health Concerns Assessment Noted Time PHQ-9 Depression Total Score: 0 06/08/19 20 12:13 PM PERFORATING MACHINE OPERATOR documented as of this encounter Care Teams Specialty Development Consultant Relationship Specialty Start Date End Date Jeanna Rubin FNP [address] [place] [address] PCP - General 09/24/16 documented as of this encounter
--- OUTSIDE RECORDS SUMMARY | 2024-06-08 15:03 | XMS_ITS | Encounter Summary ---
Author Organization [facility] Address [facility] [place] [address] [place] [address] Care Team Providers Care Address Change Clerk Name Role Phone Jeanna Rubin Primary Care Provider Reason for Visit * Reason Onset Date Comments Follow Up Call 06/15/2019 Encounter Details Date Type Department Care Team (Late st Contact Info) Description 06/15/2019 Telephone [facility] Medical Group Family & Internal Medicine [id number] [place] [address] Jeanna Rubin FNP [facility] [place] [address] Follow Up Call Social History Tobacco Use Types Packs/Day Years [...] Progress Notes * Rebeca Chaudhari MA - 06/15/2019 2:00 PM CST Patient scheduled for SDC SALES EXECUTIVE * Rafita Manzo DO - 06/15/2019 12:55 PM CST Needs to be seen today, at this point in the day can do same day clinic. He needs imaging, and he needs evaluation by someone in person ascertain if we can continue trying to treat this as an outpatient. SALES EXECUTIVE * Nazia Burciaga - 06/15/2019 12:18 PM CST Pt was in to see Jeanna last week due to abd pain, was rxd abx. Pt finished this and only had slight improvement. Stated the pain is still miserable. Asking what next steps would be? SALES EXECUTIVE documented in this encounter Plan of Treatment Not on file documented as of this encounter Visit Diagnoses Not on filedocumented in this encounter Additional Health Concerns Assessment Noted Time PHQ-9 Depression Total Score: 0 06/08/19 20 12:13 PM IT SALES EXECUTIVE documented as of this encounter Care Teams Address Change Clerk Relationship Specialty Start Date End Date Jeanna Rubin FNP [address] [place] [address] PCP - General 09/24/16 documented as of this encounter
--- OUTSIDE RECORDS SUMMARY | 2024-06-08 15:03 | XMS_ITS | Encounter Summary ---
Author Organization [facility] Address [address] [place] [address]. [place], [place] [id number] [place] [id number] Care Team Providers Care Mailroom Coordinator Name Role Phone Jeanna Rubin Primary Care Provider Encounter Details Date Type Department Care Team (Late st Contact Info) Description 09/24/2016 Abstract [facility] Family & Internal Medicine [id number] [place] [address] Blue Shultz MD [address] [place] [address] [id number] Social History Tobacco Use Types Packs/Day Years Used Date Smoking Tobacco: Never Assessed Sex and Gender Information Value Date Recorded Sex Assigned at Not on file Legal Sex Male 8:31 PM CDT Gender Identity Not on file Sexual Orientation Not on file documented as of this encounter Last Filed Vital Signs Vital Sign Reading Time Taken Comments Blood Pressure 122/84 09/24/2016 10:01 AM CDT Pulse 93 09/24/2016 10:01 AM CDT Temperature - - Respiratory Rate - - Oxygen Saturation - - Inhaled Oxygen Concentration - - Weight 102.5 kg (226 lb) 09/24/2016 10:01 AM CDT Height 185.4 cm (6' 1 ) 09/24/2016 10:01 AM CDT Body Mass Index 29.82 09/24/2016 10:01 AM CDT documented in this encounter Progress Notes * MICHELLE Fox - 09/24/2016 9:45 AM CDT Reason For Visit Acute Visit Chief Complaint Patient still c/o shortness of breath and productive cough with clear mucous History of Present Illness HPI Free Text: Ameya presents to the office with continued cough and SOB. He was diagnosed with strep throat and pneumonia on the 14 of September and does feel somewhat better but still has fatigue and SOB. He denies fever. He reports that the only medication he is still taking is Augmentin and today is his last dayof this medication. He is also using the Albuterol inhaler PRN. He states that his phlegm is clear when he coughs it up. Review of Systems See HPI for pertinent positives. Constitutional: feeling tired. Respiratory: shortness of breath, cough and shortness of breath during exertion. Active Problems 1. Abdominal pain, left lower quadrant (789.04) (R10.32) 2. Acute streptococcal pharyngitis (034.0) (J02.0) 3. Headache (784.0) (R51) 4. Left flank pain (789.09) (R10.9) 5. Pneumonia (486) (J18.9) Surgical History 1. History of Appendectomy Family [...] smoker ?? Two children Current Meds 1. Hydrocodone-Acetaminophen 5-325 MG Oral Tablet; Take 1 to 2 tablets every 4-6 hours as needed for pain; Therapy: [id number] to (Last Rx:[id number]) Ordered 2. MethylPREDNISolone 4 MG Oral Tablet; USE DIRECTED; Therapy: [id number] to (Last Rx:[id number]) Requested for: [id number] Ordered 3. ProAir HFA 108 (90 Base) MCG/ACT Inhalation Aerosol Solution; INHALE 2 PUFFS BY MOUTH EVERY 4 TO 6 HOURS NEEDED; Therapy: [id number] to (Last Rx:16Sep2016) Requested for: [id number] Ordered Allergies 1. Toradol Vitals Recorded: 24Sep2016 10:01AM Temperature 97.3 F Heart Rate 93 Respiration 16 Systolic 122 Diastolic 84 O2 Saturation 97 Height 6 ft 1 in Weight 226 lb BMI Calculated 29.82 BSA Calculated 2.27 Physical Exam Constitutional General appearance: No acute distress, well appearing and well nourished. Eyes Conjunctiva and lids: No swelling, erythema, or discharge. Pupils and irises: Equal, round and reactive to light. Ears, Nose, Mouth, and Throat External inspection of ears and nose: Normal. Otoscopic examination: Tympanic membrane translucent with normal light reflex. Canals patent without erythema. Oropharynx: Normal with no erythema, edema, exudate or lesions. Pulmonary Respiratory effort: Abnormal. Respiratory rate: normal. Assessment of respiratory effort revealed normal rhythm and effort. Respiratory Findings: wet cough. Auscultation of lungs: Abnormal. no rales or crackles were heard bilaterally. rhonchi over both bases. no friction rub. no wheezing. diminished breath sounds over both bases. no bronchial breath sounds. Cardiovascular Palpation of heart: Normal PMI, no thrills. Auscultation of heart: Normal rate and rhythm, normal S1 and S2, without murmurs. Examination of extremities for edema and/or varicosities: Normal. Lymphatic Palpation of lymph nodes in neck: No lymphadenopathy. Musculoskeletal Gait and station: Normal. Digits and nails: Normal without clubbing or cyanosis. Skin Skin and subcutaneous tissue: Normal without rashes or lesions. Psychiatric Orientation to person, place and time: Normal. Mood and affect: Normal. Counseling The patient was counseled regarding instructions for management, risk factor reductions, prognosis,patient and family education, impressions, risks and benefits of treatment options and importance of compliance with treatment. total time of encounter was 25 minutes and 20 minutes was spent counseling. Assessment 1. Overweight (278.02) (E66.3) 2. Short of breath on exertion (786.05) (R06.02) 3. Dyspnea (786.09) (R06.00) 4. Pneumonia (486) (J18.9) Plan Overweight 1. Begin or continue regular aerobic exercise. Gradually work up to at least 3 sessions of 30 minutes of exercise a week.; Status:Complete; Done: 24Sep2016 Last Updated By:Kath Ward; 09/24/2016 10:07:57 AM;Ordered; For:Overweight; Ordered By:Jeanna Rubin; 2. We recommend that you change your eating habits slowly.; Status:Complete; Done: 24Sep2016 Last Updated By:Kath Ward; 09/24/2016 10:07:57 AM;Ordered; For:Overweight; Ordered By:Jeanna Rubin; Pneumonia 3. Advair Diskus 250-50 MCG/DOSE Inhalation Aerosol Powder Breath Activated; INHALE 1 PUFF BY MOUTH TWICE DAILY . RINSE MOUTH AFTER USE Rx By: Jeanna Rubin; Dispense: 0 Days ; #:2 Aerosol Powder Breath Activated; Refill: 0; For: Pneumonia; CONCETTA = N; Dispense Sample; Last Updated By: Kath Ward; 09/24/2016 10:19:33 AM 4. CBC W Differential; Status:In Progress - Specimen/Data Collected; Done: 24Sep2016 Perform:[facility]; Due:24Oct2016; Last Updated By:Rachael Cerda; 09/24/2016 10:49:38 AM;Ordered; For:Pneumonia; Ordered By:Jeanna Rubin; 5. Compr Metabolic Prof ( CMP ); Status:In Progress - Specimen/Data Collected; Done: 24Sep2016 [facility]; Due:24Oct2016; Last Updated By:Rachael Cerda; 09/24/2016 10:49:38 AM;Ordered; For:Pneumonia; Ordered By:Jeanna Rubin; 6. XR CHEST 2 VIEW ( Routine ); Status:Active; Requested for:22Oct2016; Perform:[facility]; Due:21Nov2016; Last Updated By:Kath Ward; 09/24/2016 10:16:13 AM;Ordered; For:Pneumonia; Ordered By:Jeanna Rubin; 7. Avoid exposure to cigarette smoke.; Status:Complete; Done: 24Sep2016 03:14PM Ordered; For:Pneumonia; Ordered By:Jeanna Rubin; 8. Complete medication as prescribed.; Status:Complete; Done: 24Sep2016 03:15PM Ordered; For:Pneumonia; Ordered By:Jeanna Rubin; 9. Drink at least 6 glasses of clear liquids a day.; Status:Complete; Done: 24Sep2016 03:14PM Ordered; For:Pneumonia; Ordered By:Jeanna Rubin; 10. Eat small frequent meals.; Status:Complete; Done: 24Sep2016 03:14PM Ordered; For:Pneumonia; Ordered By:Jeanna Rubin; 11. Use a cool mist humidifier in the room.; Status:Complete; Done: 24Sep2016 03:14PM Ordered; For:Pneumonia; Ordered By:Jeanna Rubin; 12. Call if: New symptoms occur.; Status:Complete; Done: 24Sep2016 03:15PM Ordered; For:Pneumonia; Ordered By:Jeanna Rubin; 13. Call if: The cough is not gone in 10 days.; Status:Complete; Done: 24Sep2016 03:14PM Ordered; For:Pneumonia; Ordered By:Jeanna Rubin; 14. Call if: The symptoms are suddenly worse.; Status:Complete; Done: 24Sep2016 03:15PM Ordered; For:Pneumonia; Ordered By:Jeanna Rubin; 15. Call if: The symptoms seem worse.; Status:Complete; Done: 24Sep2016 03:14PM Ordered; For:Pneumonia; Ordered By:Jeanna Rubin; 16. Call if: You have pain in the chest that gets worse with deep breathing or coughing.; Status:Complete; Done: 24Sep2016 03:14PM Ordered; For:Pneumonia; Ordered By:Jeanna Rubin; 17. Call if: You have questions or concerns about your problem.; Status:Complete; Done: 24Sep2016 03:15PM Ordered; For:Pneumonia; Ordered By:Jeanna Rubin; 18. Call if: Your shortness of breath is getting worse.; Status:Complete; Done: 24Sep2016 03:14PM Ordered; For:Pneumonia; Ordered By:Jeanna Rubin; 19. Call if: Your temperature is higher than 101F.; Status:Complete; Done: 24Sep2016 03:14PM Ordered; For:Pneumonia; Ordered By:Jeanna Rubin; 20. Seek Immediate Medical Attention if: You are coughing up blood or pink colored phlegm.; Status:Complete; Done: 24Sep2016 03:14PM Ordered; For:Pneumonia; Ordered By:Jeanna Rubin; 21. Seek Immediate Medical Attention if: You are feeling short of breath.; Status:Complete; Done: 24Sep2016 03:14PM Ordered; For:Pneumonia; Ordered By:Jeanna Rubin; Pneumonia, Short of breath on exertion 22. *Nebulizer Treatment In Office; Status:Hold For - Manual Activation; Requested for:24Sep2016; Perform:In Office; Due:[id number]; Last Updated By:Kath Ward; 09/24/2016 10:17:49 AM;Ordered; For:Pneumonia, Short of breath on exertion; Ordered By:Jeanna Rubin; Short of breath on exertion 23. Ipratropium-Albuterol 0.5-2.5 (3) MG/3ML Inhalation Solution Rx By: Jeanna Rubin; For: Short of breath on exertion; Dose of 1 VIAL; Inhalation; CONCETTA = N; Administered by: Kath Ward: 09/24/2016 10:17:00 AM; Last Updated By: Kath Ward; 09/24/2016 10:17:49 AM Signatures Electronically signed by : Jeanna Rubin CNP; Sep 24 2016 3:16PM DIRECTOR WORK (Author) documented in this encounter Miscellaneous Notes * Letter - Generic Conversion MD Maritza - 09/24/2016 9:45 AM CDT Date: Sep 24, 2016 Work Release This is to advise that Ameya Santacruz was seen on Sep 24, 2016 and may return to work with the following limitations No climbing No pushing/pulling No prolonged standing/walking No lifiting over _5__ lbs. No reaching above shoulders [Will be on light duty until re-evauation on September (Physician's Signature) Electronically signed by:Jeanna Rubin DIRECTOR OF DIRECT MARKETING Sep 24 2016 11:06AM DIRECTOR WORK documented in this encounter Plan of Treatment Not on file documented as of this encounter Procedures Procedure Name Priority Date/Time Associated Diagnosis Comments COMPREHENSIVE METABOLIC PANEL Routine 09/24/2016 10:49 AM CDT CBC W/DIFF AUTOMATED Routine 09/24/2016 10:49 AM CDT documented in this encounter Results * (ABNORMAL) COMPREHENSIVE METABOLIC PANEL (09/24/2016 10:49 AM CDT) SODIUM S/P/B 140 136 - 145 mmol/L [facility] TO [facility] CONVERSION POTASSIUM S/P/B 4.5 3.5 - 5.1 mmol/L [facility] TO [facility] CONVERSION CHLORIDE S/P/B 99 98 - 107 mmol/L [facility] CONVERSION CO2 25 22 - 29 mmol/L [facility] TO [facility] CONVERSION ANION GAP 21(H) 8 - 20 [facility] T O EPIC CONVERSION BUN 16 8 - 23 mg/dL [facility] CONVERSION CREATININE S/P/B 1.05 0.70 - 1.20 mg/dL [facility] CONVERSION GFR ESTIMATE >60 >60 mL/min/1 .73m'2 [facility] TO [facility] CONVERSION EGFR AFR. AMER. >60 NOTE: eGFR is not calculated for patients <18 years of age. This is an estimated GFR (CKD EPI) and should not be used for calculating drug doses. >60 mL/min/1 .73m'2 [facility] TO [facility]IC CONVERSION GLUCOSE 97 70 - 99 mg/dL [facility] CONVERSION CALCIUM S/P/B 10.1 8.6 - 10.2 mg/dL [facility] TO [facility]IC CONVERSION BILIRUBIN TOTAL S/P/B 0.6 0.2 - 1.2 mg/dL [facility] CONVERSION AST 24 0 - 40 U/L [facility] CONVERSION ALT 34 0 - 41 U/L [facility] CONVERSION ALKALINE PHOSPHATASE S/P/B 81 40 - 129 U/L [facility] CONVERSION TOTAL PROTEIN S/P/B 7.5 6.4 - 8.3 g/dL [facility] TO [facility] CONVERSION ALBUMIN S/P/B 4.7 3.5 - 5.2 g/dL [facility] CONVERSION GLOBULIN 2.8 2.3 - 3.6 g/dL [facility] CONVERSION A/G RATIO 1.7 1.0 - 2.0 [facility] TO [facility] CONVERSION 09/24/2016 10:4 9 AM CDT 09/24/2016 10:49 AM CDT Narrative [facility] CONVERSION - 09/24/2016 8:42 PM CDT Result Communication: No patient communication needed at this time us Jeanna C[facility] Final Result [facility] TO [facility] CONVERSION * (ABNORMAL) CBC W/DIFF AUTOMATED (09/24/2016 10:49 AM CDT) WBC 6.7 4.8 - 10.8 x10'3/uL [facility] CONVERSION RBC 5.26 4.70 - 6.10 x10'6/uL [facility] CONVERSION HGB 15.4 14.0 - 18.0 G/DL [facility] CONVERSION HCT 46.2 43.0 - 54.0 % [facility] CONVERSION MCV 87.8 80.0 - 94.0 FL [facility] TO [facility] CONVERSION MCH 29.3 27.0 - 31.0 PG [facility] TO [facility] CONVERSION MCHC 33.3 32.0 - 36.0 G/DL [facility] TO [facility] CONVERSION RDW 12.2 11.5 - 14.5 % [facility] TO [facility] CONVERSION PLT 326 130 - 400 x10'3/uL [facility] CONVERSION GLUCOSE 10.3 9.3 - 12.2 FL [facility] TO [facility]IC CONVERSION BASOPHILS % 1.2(H) 0.0 - 1.0 % [facility] TO [facility]IC CONVERSION EOSINOPHILS % 3.0 1.0 - 3.0 % [facility] TO [facility] CONVERSION NEUTROPHILS % 56.7 43.0 - 65.0 % [facility] CONVERSION LYMPHOCYTES % 30.8 20.0 - 46.0 % [facility] CONVERSION IMMATURE GRANS % 0.4 0.0 - 1.0 % [facility] CONVERSION MONOCYTES 7.9 5.0 - 12.0 % [facility] CONVERSION 09/24/2016 10:4 9 AM CDT 09/24/2016 10:49 AM CDT Narrative [facility] CONVERSION - 09/24/2016 8:30 PM CDT Result Communication: No patient communication needed at this time Jeanna [facility] Final Result [facility] CONVERSION documented in this encounter Visit Diagnoses Not on filedocumented in this encounter Care Teams Mailroom Coordinator Relationship Specialty Start Date End Date Jeanna Rubin FNP [address] [place] [address] PCP - General 09/24/16 documented as of this encounter
--- OUTSIDE RECORDS SUMMARY | 2024-06-08 15:03 | XMS_ITS | Clinical Summary ---
Author Organization [facility] Address [address] [place] [address] [place] [address] Care Team Providers Care Front Office Coordinator Name Role Phone Jeanna Rubin MICEHLLE Primary Care Provider [phone] Allergies Active Allergy Reactions Criticality Noted Date Comments Ketorolac Tromethamine Vomiting 04/21/2016 Medications albuterol sulfate HFA (PROAIR HFA) 108 (90 Base) MCG/ACT inhaler Inhale 2 puffs into the lungs as needed. 09/16/2016 Active G-yrkokhy-T-fol ic acid 1 mg Tab Take 1 tablet by mouth daily. Active Naproxen Sodium (ALEVE) 220 MG Cap Active ibuprofen 200 MG tablet Take 200 mg by mouth every 6 (six) hours as needed for Pain. Active HYDROcodone-maria luisa taminophen 5-325 MG tabletIndicatio ns:Acute Pain < 7 Day Supply Take 1-2 tablets by mouth every 6 (six) hours as needed for Pain. Indications: Acute Pain < 7 Day Supply 30 tablet 10/12/2020 Active Active Problems Problem Noted Date Diagnosed Date Pain in both testicles 10/12/2020 Swelling of the testicles 10/12/2020 S/P hernia surgery 10/12/2020 Inguinal pain, unspecified laterality 10/12/2020 Abnormal laboratory test 07/26/2019 Elevated liver enzymes 07/26/2019 Left flank pain 07/26/2019 Left lower quadrant abdominal pain 06/16/2019 Colitis 06/16/2019 Flank pain 06/16/2019 Acute bacterial conjunctivitis of both eyes 07/31 URI, acute 07/23/2017 Elevated fasting lipid profile 07/21/2017 Fatigue 07/21/2017 Vitamin D deficiency 07/21/2017 Hyperglycemia 05/28/2017 Class 1 obesity with body ma ss index (BMI) of 32.0 to 32.9 in adult 05/27/2017 Cough 05/21/2017 Encounters Date Type Department Care Team Description 03/17/2024 Scan [facility] Scanned, Doc [facility] 03/11/2024 Travel 03/10/2024 Telephone [facility] Family & Internal Medicine [address] [phone] Jeanna Rubin FNP Medication from Last 3 Months Family History Medical History Relation Comments Cancer Father Carcinoid Heart Disease Father Includes [place] Heart Disease Maternal Grandfather Cancer Maternal Grandmother Breast Canc er Cancer Paternal Grandfather Prostate Cancer Paternal Grandmother Pancreatic Diabetes Paternal Grandmother Relation Status Comments Father Maternal Grandfather Maternal Grandmother Paternal Grandfather Paternal Grandmother Social History Tobacco Use Types Packs/Day Years [...] Mass Index 33.51 10/12/2020 8:13 AM CDT Plan of Treatment Health Maintenance Due Date Last Done Comments Annual Physical 1983 DTaP, Tdap and Td Vaccines ( 1 - Tdap) 1999 Hepatitis B Vaccines (1 of 3 - 19+ 3-dose series) 1999 COVID-19 Vaccine (2023-2 5 season) 2024 Influenza Adult (#1) 2024 Hepatitis C Completed 07/21/2019 HPV Vaccines Aged Out No longer eligi ble based on patient's age to complete this topic Meningococcal Vaccine Aged Out No niurka janki eligible based on patient's age to complete this topic Pneumococcal Vaccine: Pediat rics (0 to 5 Years) and At-Risk Patients (6 to 64 Years) Aged Out No longer eligi ble based on patient's age to complete this topic RSV Immunizations Under 20 Months Aged Out No longer eligible based on patient's age to complete this topic Procedures Procedure Name Priority Date/Time Associated Diagnosis Comments HEPATITIS PANEL,ACUTE Routine 07/21/2019 3:03 PM PASTE UP WORKER Elevated liver enzymes from Last 3 Months or Most Recently Relevant to Health Maintenance Results * HEPATITIS PANEL,ACUTE (07/21/2019 3:03 PM PASTE UP WORKER) HAV IGM NON-REACT TIFFANY NON-REACT TIFFANY [facility] Comment: For additional information, please refer to http://[employer].BoatsGo/faq/RMT345 (This link is being provided for informational/ [...] a test for HCV RNA (test code 35924) is suggested. For additional information please refer to http://[employer].BoatsGo/faq/GIK35o8 (This link is being provided for informational/ educational purposes only.) 07/21/2019 3:03 PM PASTE UP WORKER 07/22/2019 5:02 AM PASTE UP WORKER Narrative Resulting Agency Comment Performing Organization Information: ?Site ID: [email or web address] ?Name: [facility] ?Address: [facility] [place] [id number] ?Director: Xavi Silverman D.O., MPH us Jeanna [facility] Final Result [facility] from Last 3 Months or Most Recently Relevant to Health Maintenance [place] [address] [place] [address] Care Teams Front Office Coordinator Relationship Specialty Start Date End Date Jeanna Rubin FNP [address] [place] [id number] PCP - General 09/24/16
--- OUTSIDE RECORDS SUMMARY | 2024-06-08 15:03 | XMS_ITS | Encounter Summary ---
Author Organization [facility] Address On license of [facility] [place] [address] [place] [address] Care Team Providers Care Wood And Hardware Outfitter Name Role Phone Jeanna Rubin MICHELLE Primary Care Provider [phone] Reason for Referral * Imaging (Emergency) - Closed Specialty Diagnoses / Procedures Referred By Contac t Referred To Contact RADIOLOGY Diagnoses Abdominal pain Procedures CT ABD+PEL W CON Marcus Rivers MD Referral ID Status Reason Start Date Expiration Date Visits Re quested Visits Authorized [id number] Closed 06/15/2019 07/16/2020 1 1 [facility] HEALTH NURSE PRACTITIONER Reason for Visit * Imaging (Emergency) - Closed Specialty Diagnoses / Procedures Referred By Contac t Referred To Contact RADIOLOGY Diagnoses Abdominal pain Procedures CT ABD+PEL W CON Marcus Rivers MD Referral ID Status Reason Start Date Expiration Date Visits Re quested Visits Authorized [id number] Closed 06/15/2019 07/16/2020 1 1 Encounter Details Date Type Department Care Team (Latest Contact Info) Description 06/15/2019 4:30 PM MENTAL HEALTH NURSE PRACTITIONER - 06/15/2019 4:46 PM MENTAL HEALTH NURSE PRACTITIONER Hospital Encounter [facility] CT [address] [place] [address] Marcus Rivers MD Discharge Disposition: Home or [...] puffs into the lungs as needed. 09/16/2016 ciprofloxacin (CIPRO) 500 MG tabletIndications :Colitis Take 1 tablet (500 mg total) by mouth 2 (two) times daily for 7 days. 14 tablet 06/08/2019 06/15/2019 metroNIDAZOLE (FLAGYL) 500 MG tabletIndications :Colitis Take 1 tablet (500 mg total) by mouth 3 (three) times daily for 7 days. 21 tablet 06/08/2019 06/15/2019 documented as of this encounter Plan of Treatment Not on file documented as of this encounter Procedures Procedure Name Priority Date/Time Associated Diagnosis Comments CT ABD+PEL W CON STAT 06/15/2019 5:37 PM MENTAL HEALTH NURSE PRACTITIONER Abdominal pain documented in this encounter Results * CT ABD+PEL W CON (06/15/2019 5:37 PM MENTAL HEALTH NURSE PRACTITIONER) Anatomical Region Laterality Modality Abdomen Computed Tomogra phy 06/15/2019 5:51 PM MENTAL HEALTH NURSE PRACTITIONER Impressions 06/15/2019 5:55 PM MENTAL HEALTH NURSE PRACTITIONER IMPRESSION: Moderate stool throughout the colon. No evidence of acute intra-abdominal pathology. Interpreted By: Nikos Saab MD, 06/15/2019 5:51 PM Narrative 06/15/2019 5:55 PM MENTAL HEALTH NURSE PRACTITIONER CT ABD+PEL W CON: 06/15/2019 5:24 PM CLINICAL INFORMATION: General abdominal pain COMPARISON: No relevant studies available for comparison. TECHNIQUE: Computed tomography of the ??abdomen, and pelvis was performed before after the administration of 100 mL Isovue-370 contrast according to routine protocol without immediate complication. A dose lowering technique was used for this procedure, which may include, but is not limited to, dose reduction technique, automated exposure control, the use of iterative reconstruction, and ALARA (As Low As Reasonably Achievable) / Image Gently techniques. Oral contrast: No oral contrast administered. ?? FINDINGS: Lower Chest: No infiltrate. ??No pleural effusion. Abdomen: Liver: within normal limits. Bile Ducts: Normal caliber. Gallbladder: No calcified gallstones. Normal caliber wall. Pancreas: No pancreatic ductal dilatation. No discrete mass. Spleen: No evidence of splenomegaly. Adrenals: No suspicious adrenal enlargement. Kidneys: 17 mm cyst lower pole left kidney. ??No hydronephrosis. ??No suspicious renal masses. Pelvis: Reproductive Organs: There is some calcification within the prostate. ??Is not enlarged. ??There are no pelvic masses. Ureters: within normal limits. Bladder: Bladder is incompletely distended. ??No discrete mass. Appendix: There is a surgical clip in the right lower quadrant which I suspect is from prior appendectomy correlate clinically. ??No inflammatory changes. Bowel: Moderate stool throughout the colon. ??Few scattered diverticuli without evidence of diverticulitis. ??There is distention of the distal sigmoid colon and rectum with feces correlate with any clinical symptoms of constipation or impaction. Mesenteric Lymph Nodes: No enlarged mesenteric lymph nodes. Peritoneum: No ascites or free air, no fluid collection. Vessels: Normal caliber aorta. Retroperitoneum: within normal limits. Abdominal Wall: within normal limits. Bones: No osseous destructive lesions. ?? Procedure Note Nikos Saab MD - 06/15/2019 CT ABD+PEL W CON: 06/15/2019 5:24 PM CLINICAL INFORMATION: General abdominal pain COMPARISON: No relevant studies available for comparison. TECHNIQUE: Computed tomography of the abdomen, and pelvis was performedbefore after the administration of 100 mL Isovue-370 contrast according toroutine protocol without immediate complication. A dose lowering techniquewas used for this procedure, which may include, but is not limited to,dose reduction technique, automated exposure control, the use of iterativereconstruction, and ALARA (As Low As Reasonably Achievable) / Image Gentlytechniques. Oral contrast: No oral contrast administered. FINDINGS: Lower Chest: No infiltrate. No pleural effusion. Abdomen: Liver: within normal limits. Bile Ducts: Normal caliber. Gallbladder: No calcified gallstones. Normal caliber wall. Pancreas: No pancreatic ductal dilatation. No discrete mass. Spleen: No evidence of splenomegaly. Adrenals: No suspicious adrenal enlargement. Kidneys: 17 mm cyst lower pole left kidney. No hydronephrosis. Nosuspicious renal masses. Pelvis: Reproductive Organs: There is some calcification within the prostate. Isnot enlarged. There are no pelvic masses. Ureters: within normal limits. Bladder: Bladder is incompletely distended. No discrete mass. Appendix: There is a surgical clip in the right lower quadrant which Isuspect is from prior appendectomy correlate clinically. No inflammatorychanges. Bowel: Moderate stool throughout the colon. Few scattered diverticuliwithout evidence of diverticulitis. There is distention of the distalsigmoid colon and rectum with feces correlate with any clinical symptomsof constipation or impaction. Mesenteric Lymph Nodes: No enlarged mesenteric lymph nodes. Peritoneum: No ascites or free air, no fluid collection. Vessels: Normal caliber aorta. Retroperitoneum: within normal limits. Abdominal Wall: within normal limits. Bones: No osseous destructive lesions. IMPRESSION: Moderate stool throughout the colon. No evidence of acute intra-abdominal pathology. Interpreted By: Nikos Saab MD, 06/15/2019 5:[address] MD [address] Final Result documented in this encounter Visit Diagnoses Diagnosis Abdominal pain Abdominal pain, unspecified site documented in this encounter Administered Medications Inactive Administered Medications - up to 3 most recent administrations Medication Order MAR Action Action Date Dose Rate Site iopamidol (ISOVUE-370) 76 % injection 100 mL 100 mL, Intravenous, IMG once as needed, Contrast, 1 dose, Starting on Thu06/15/19 at 1735, Until Thu06/15/19 at 1736 Given 06/15/2019 5:36 PM MENTAL HEALTH NURSE PRACTITIONER 100 mLs Ri ght Arm documented in this encounter Additional Health Concerns Assessment Noted Time PHQ-9 Depression Total Score: 0 06/08/19 20 12:13 PM MENTAL HEALTH NURSE PRACTITIONER documented as of this encounter Care Teams Wood And Hardware Outfitter Relationship Specialty Start Date End Date Jeanna Rubin FNP [address] [place] [address] PCP - General 09/24/16 documented as of this encounter
--- OUTSIDE RECORDS SUMMARY | 2024-06-08 15:03 | XMS_ITS | Encounter Summary ---
Author Organization [facility] Address [address] [place] [address]. [place] [address] [place] [address] Care Team Providers Care Back Tender Fourdrinier Name Role Phone Jeanna Rubin MICHELLE Primary Care Provider [phone] Encounter Details Date Type Department Care Team (Late st Contact Info) Description 08/20/2017 Abstract [facility] Family and Sports Medicine - [place] [id number] Renetta Block DO Social History Tobacco Use Types Packs/Day Years Used Date Smoking Tobacco: Never Assessed Sex and Gender Information Value Date Recorded Sex Assigned at Not on file Legal Sex Male 8:31 PM CDT Gender Identity Not on file Sexual Orientation Not on file documented as of this encounter Last Filed Vital Signs Vital Sign Reading Time Taken Comments Blood Pressure 130/88 08/20/2017 5:08 PM CDT Pulse 77 08/20/2017 5:08 PM CDT Temperature - - Respiratory Rate - - Oxygen Saturation - - Inhaled Oxygen Concentration - - Weight 108.4 kg (239 lb) 08/20/2017 5:08 PM CDT Height 185.4 cm (6' 1 ) 08/20/2017 5:08 PM CDT Body Mass Index 31.53 08/20/2017 5:08 PM CDT documented in this encounter Progress Notes * Renetta Block DO - 08/20/2017 5:00 PM CDT Chief Complaint Pt c/o itchy, red, swollen eyes. History of Present Illness HPI Free Text: 6 days ago contacts bothered him when he put in, so took out after 4 hours. he doesn't wear them often. eyes were swelling few days ago, and he saw a sore inside L eyelid. R eye began feeling the same yesterday. gunk draining through the day. red eyeball. vision ok and no photophobia. has been wearing glasses since onset Review of Systems See HPI for pertinent [...] Screening for blood disease (V78.9) (Z13.0) 10. URI, acute (465.9) (J06.9) 11. Vitamin D deficiency (268.9) (E55.9) Surgical History [...] EVERY 4 TO 6 HOURS NEEDED; Therapy: [id number] to (Last Rx:[id number]) Requested for: [id number] Ordered Rx By: Jeanna Rubin; Dispense: 0 Days ; #:1 X 8.5 GM Inhaler; Refill: 6; For: Cough; CONCETTA = N; Verified Transmission to [facility] [address]; Last Updated By: Nativeflow; 05/21/2017 5:02:17 PM Allergies 1. Toradol Vomiting; Recorded By: Marley Chen; 04/21/2016 9:32:03 AM Vitals Recorded: 20Aug2017 05:08PM Temperature 98.2 F Heart Rate 77 Respiration 14 Systolic 130, Sitting Diastolic 88, Sitting O2 Saturation 97, RA Height 6 ft 1 in Weight 239 lb BMI Calculated 31.53 BSA Calculated 2.32 Physical Exam General Appearance : Well developed and well- nourished, NAD Eyes: mild injected conjunctiva B. Ears: TM clear and flat bilaterally. Nose : nose clear. Mouth: Oropharynx clear with MMM. Throat: pharynx and tonsils normal. Neck : no lymphadenopathy. Heart : RRR, no murmurs. Lungs : clear to auscultation bilaterally, no wheezing, rhonchi, or rales. breathing effort normal. Assessment 1. Acute bacterial conjunctivitis of both eyes (372.03) (H10.33) Plan Acute bacterial conjunctivitis of both eyes 1. Ciprofloxacin HCl - 0.3 % Ophthalmic Solution; INSTILL 2 DROPS IN THE AFFECTED EYE 3 TIMES A DAY Rx By: Renetta Block; Dispense: 0 Days ; #:1 X 10 ML Bottle; Refill: 0; For: Acute bacterial conjunctivitis of both eyes; CONCETTA = N; Verified Transmission to [facility] [address]; Last Updated By: [employer]; 08/20/2017 5:19:06 PM Discussion/Summary discussed hygiene to prevent spread. OTC eye drops for symptom relief. For worrisome sx like visiontrouble, or severe photophobia, to notify. Change contacts Signatures Electronically signed by : Renetta Block D.O.; Aug 20 2017 5:24PM DEPUTY COUNTY CLERK (Author) documented in this encounter Plan of Treatment Not on file documented as of this encounter Visit Diagnoses Not on filedocumented in this encounter Care Teams Back Tender Fourdrinier Relationship Specialty Start Date End Date Jeanna Rubin FNP [address] [place] [address] PCP - General 09/24/16 documented as of this encounter
--- OUTSIDE RECORDS SUMMARY | 2024-06-08 15:03 | XMS_ITS | Encounter Summary ---
Author Organization [facility] Address [address] [place] [address]. [place], [place] [address] [place] [address] Care Team Providers Care Cashier Or Checker Stock Clerk Name Role Phone Jeanna Rubin Primary Care Provider [phone] Encounter Details Date Type Department Care Team (Latest Contact Info) Description 10/28/2023 Scan [facility] Scanned, Doc Med Group Social History Tobacco Use Types Packs/Day [...] documented as of this encounter Care Teams Cashier Or Checker Stock Clerk Relationship Specialty Start Date End Date Jeanna Rubin FNP [address] [place] [address] PCP - General 09/24/16 documented as of this encounter
--- OUTSIDE RECORDS SUMMARY | 2024-06-08 15:03 | XMS_ITS | Encounter Summary ---
Author Organization [facility] Address [address] [place] [address]. [place] [address] [place] [address] Care Team Providers Care Application Security Specialist Name Role Phone Jeanna Rubin Primary Care Provider [phone] Encounter Details Date Type Department Care Team (Latest Contact Info) Description 10/09/2020 Travel Social History Tobacco Use Types Packs/Day [...] have Coronavirus / COVID-19? No / Unsure 10/09/2020 3:18 PM CDT documented as of this encounter Plan of Treatment Not on file documented as of this encounter Visit Diagnoses Not on filedocumented in this encounter Additional Health Concerns Assessment Noted Time PHQ-9 Depression Total Score: 0 06/08/19 20 12:13 PM COUNTER PROFESSIONAL documented as of this encounter Care Teams Application Security Specialist Relationship Specialty Start Date End Date Jeanna Rubin FNP [address] [place] [address] PCP - General 09/24/16 documented as of this encounter
--- OUTSIDE RECORDS SUMMARY | 2024-06-08 15:03 | XMS_ITS | Encounter Summary ---
Author Organization [facility] Address [facility]. [place], [place] [address] [place] [address] Care Team Providers Care Level Vial Grinder Name Role Phone Jeanna Rubin MICHELLE Primary Care Provider [phone] Encounter Details Date Type Department Care Team (Latest Contact Info) Description 06/15/2019 4:47 PM SUPERVISOR LOADING - 06/15/2019 7:36 PM [facility] Hospital Encounter [facility] [place] [address] Marcus Rivers MD Discharge Disposition: Home or [...] for 7 days. 21 tablet 06/08/2019 06/15/2019 omeprazole 40 MG capsuleIndication s:Abdominal pain, unspecified abdominal location Take 1 capsule (40 mg total) by mouth daily. 30 capsule 06/15/2019 07/21/2019 documented as of this encounter Plan of Treatment Not on file documented as of this encounter Procedures Procedure Name Priority Date/Time Associated Diagnosis Comments COMPREHENSIVE METABOLIC PANEL STAT 06/15/2019 5:56 PM SUPERVISOR LOADING Abdominal pain, unspecified abdominal location CBC W/DIFF AUTOMATED STAT 06/15/2019 5:56 PM SUPERVISOR LOADING Abdominal pain, unspecified abdominal location LIPASE STAT 06/15/2019 5:56 PM SUPERVISOR LOADING Abdominal pain, unspecified abdominal location documented in this encounter Results * LIPASE (06/15/2019 5:56 PM SUPERVISOR LOADING) LIPASE 92 73 - 393 UNITS/L 06/15/2019 6:36 PM SUPERVISOR LOADING [facility] 06/15/2019 5:56 PM SUPERVISOR LOADING Marcus Rivers MD LABORATORY Final Result [facility] [address] [place] [address], * (ABNORMAL) COMPREHENSIVE METABOLIC PANEL (06/15/2019 5:56 PM SUPERVISOR LOADING) GLUCOSE 92 70 - 99 MG/DL 06/15/2019 6:36 PM SUPERVISOR LOADING [facility] BUN 18 7 - 18 MG/DL 06/15/2019 6:36 PM SUPERVISOR LOADING [facility] CREATININE S/P/B 1.23 0.7 - 1.3 MG/DL 06/15/2019 6:[address] [facility] SODIUM S/P/B 134(L) 136 - 145 MMOL/L 06/15/2019 6:[address] [facility] POTASSIUM S/P/B 4.3 3.5 - 5.1 MMOL/L 06/15/2019 6:[address] [facility] CHLORIDE S/P/B 103 100 - 108 MMOL/L 06/15/2019 6:[address] [facility] CO2 29.0 21 - 32 MMOL/L 06/15/2019 6:[address] [facility] CALCIUM S/P/B 9.2 8.5 - 10.1 MG/DL 06/15/2019 6:[address] [facility] BILIRUBIN TOTAL S/P/B 0.9 0.2 - 1.2 MG/DL 06/15/2019 6:[address] [facility] TOTAL PROTEIN S/P/B 7.5 6.4 - 8.2 G/DL 06/15/2019 6:[address] [facility] ALBUMIN S/P/B 4.3 3.4 - 5.0 G/DL 06/15/2019 6:[address] [facility] AST 65(H) 15 - 37 U/L 06/15/2019 6:[address] [facility] ALT 99(H) 16 - 60 U/L 06/15/2019 6:[address] [facility] ALKALINE PHOSPHATASE S/P/B 63 50 - 136 U/L 06/15/2019 6:[address] [facility] ANION GAP 2.0(L) 5 - 15 MMOL/L 06/15/2019 6:[address] [facility] BUN CREATININE RATIO 14.6 6 - 26 06/15/2019 6:[address] [facility] A/G RATIO 1.3 1.0 - 2.0 RATIO 06/15/2019 6:[address] [facility] EGFR NON-AFR. AMER. 73(L) >90 ML/MIN/1.7 3 M2 06/15/2019 6:[address] [facility] EGFR AFR. AMER. 85(L) >90 ML/MIN/1.7 3 M2 06/15/2019 6:[address] [facility] Comment: NOTE: eGFR is not calculated for patients <18 years of age. This is an estimated GFR (CKD EPI) and should not be used for calculating drug doses. 06/15/2019 5:56 PM SUPERVISOR LOADING us Marcus Rivers MD LABORATORY Final Result [facility] [address] [place] [address], * CBC W/DIFF AUTOMATED (06/15/2019 5:56 PM SUPERVISOR LOADING) WBC 5.0 4.5 - 11.0 x10'3/uL 06/15/2019 6:[address] [facility] RBC 5.10 4.70 - 6.10 x10'6/uL 06/15/2019 6:[address] [facility] HGB 14.4 14.0 - 18.0 G/DL 06/15/2019 6:[address] [facility] HCT 43.4 43.0 - 54.0 % 06/15/2019 6:[address] [facility] MCV 85.1 80.0 - 94.0 FL 06/15/2019 6:[address] [facility] MCH 28.2 27.0 - 31.0 PG 06/15/2019 6:[address] [facility] MCHC 33.2 32.0 - 36.0 G/DL 06/15/2019 6:[address] [facility] RDW 12.0 11.5 - 14.5 % 06/15/2019 6:[address] [facility] PLT 229 130 - 400 x10'3/uL 06/15/2019 6:[address] [facility] MPV 9.6 9.3 - 12.2 FL 06/15/2019 6:[address] [facility] DIFFERENTIAL TYPE AUTOMATED DIFFERENTIAL 06/15/2019 6:[address] [facility] NEUTROPHILS % 50.8 % 06/15/2019 6:[address] [facility] LYMPHOCYTES % 36.3 % 06/15/2019 6:[address] [facility] MONOCYTES % 10.5 % 06/15/2019 6:[address] [facility] EOSINOPHILS 1.4 % 06/15/2019 6:[address] [facility] BASOPHILS 0.8 % 06/15/2019 6:[address] [facility] IMMATURE GRANS % 0.2 % 06/15/19 20 6:[address] [facility] ABS. NEUTROPHILS TOTAL 2.52 1.80 - 7.70 x10'3/uL 06/15/2019 6:[address] [facility] ABS. LYMPHOCYTES 1.80 1.00 - 4.80 x10'3/uL 06/15/2019 6:[address] [facility] ABS. MONOCYTES 0.52 0.30 - 0.82 x10'3/uL 06/15/2019 6:[address] [facility] ABS. EOSINOPHILS 0.07 0.04 - 0.54 x10'3/uL 06/15/2019 6:[address] [facility] ABS. BASOPHILS 0.04 0.01 - 0.08 x10'3/uL 06/15/2019 6:09 PM SUPERVISOR LOADING [facility] ABS. IMMATURE GRANULOCYTES 0.01 0.00 - 0.49 x10'3/uL 06/15/2019 6:09 PM SUPERVISOR LOADING [facility] 06/15/2019 5:56 PM SUPERVISOR LOADING us Marcus Rivers MD LABORATORY Final Result [facility] [address] [place] [address], documented in this encounter Visit Diagnoses Diagnosis Abdominal pain, unspecified abdominal location documented in this encounter Additional Health Concerns Assessment Noted Time PHQ-9 Depression Total Score: 0 06/08/19 20 12:13 PM SUPERVISOR LOADING documented as of this encounter Care Teams Level Vial Grinder Relationship Specialty Start Date End Date Jeanna Rubin FNP [address] [place] [address] PCP - General 09/24/16 documented as of this encounter
--- OUTSIDE RECORDS SUMMARY | 2024-06-08 15:03 | XMS_ITS | Encounter Summary ---
Author Organization [facility] Address [address] [facility] [place] [address] [place] [address] Care Team Providers Care Net Web Developer Name Role Phone Jeanna Rubin Primary Care Provider [phone] Jeanna Rubin Primary Care Provider [phone] Encounter Details Date Type Department Care Team (Latest Contact Info) Description 09/19/2016 Abstract [facility] , Generic ConversionMD Social History Tobacco Use Types Packs/Day Years Used Date Smoking Tobacco: Never Assessed Sex and Gender Information Value Date Recorded Sex Assigned at Not on file Legal Sex Male 8:31 PM CDT Gender Identity Not on file Sexual Orientation Not on file documented as of this encounter Progress Notes * Generic Conversion MD Maritza - 09/19/2016 2:37 PM CDT Message Recorded as Task Date: 09/18/2016 10:58 AM, Created By: Gail Jones Task Name: Medical Complaint Callback [facility] [place] Regarding Patient: Ameya Santacruz, Status: In Progress Comment: Gail Jones - 18 Sep 2016 10:58 AM TASK CREATED Would like note to 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 Katiana Iverson - 18 Sep 2016 4:17 PM TASK EDITED [facility]-Katiana Anthony - 18 Sep 2016 4:18 PM TASK IN PROGRESS Jacinta Lyle - 19 Sep 2016 10:14 AM TASK EDITED Patient's would like to have light duty with no heavy lifting//af Message: Good - [email or web address] Signatures Electronically signed by : Katiana Iverson, [email or web address]; Sep 19 2016 2:37PM INTEGRATION CONSULTANT (Author) documented in this encounter Miscellaneous Notes * Letter - MICHELLE Fox - 09/19/2016 10:14 AM CDT Date: Sep 19, 2016 Work Release This is to advise that Ameya Santacruz was seen on Sep 19, 2016 and may return to work with the following limitations on Thursday September 22, 2016. Light Duty only No climbing No lifting over 10 lbs No strenuous actives If you have any further questions, contact my office at [phone]. MANJU Fox Electronically signed by:Jacinta Lyle Sep 19 2016 10:37AM INTEGRATION CONSULTANT documented in this encounter Plan of Treatment Not on file documented as of this encounter Visit Diagnoses Not on filedocumented in this encounter Care Teams Net Web Developer Relationship Specialty Start Date End Date Jeanna Rubin FNP [address] [place] [address] PCP - General 09/24/16 Jeanna Ruibn FNP [address] [place] [address] PCP - General 09/16/16 09/23/16 documented as of this encounter
--- OUTSIDE RECORDS SUMMARY | 2024-06-08 15:03 | XMS_ITS | Encounter Summary ---
Author Organization [facility] Address [facility] [place] [address] [place] [address] Care Team Providers Care Saloon Keeper Name Role Phone Jeanna Rubin Primary Care Provider Reason for Visit * Reason Onset Date Comments Medication 03/10/2024 Encounter Details Date Type Department Care Team (Late st Contact Info) Description 03/10/2024 Telephone [facility] Medical Group Family & Internal Medicine [facility] [address] [place] [address] Jeanna Rubin FNP [facility][note 3][address] [place] [address] Medication Social History Tobacco Use Types Packs/Day Years [...] as of this encounter Progress Notes * RT ThaddeusR - 03/10/2024 3:42 PM CDT Called and scheduled pt. For VV at 1340 pt. Was not very happy he has to be seen for just poison reba . Informed pt. That since Dr. Manzo has never seen him before he needed to at least do a VV before prescribing any medication. Pt. States he is 43 he has had poison reba before and knows what it looks like still unsure why he needed to be seen but is willing to do VV. * Rafita Manzo DO - 03/10/2024 3:04 PM CDT OK for virtual visit tomorrow. Please schedule. * Oniel Luis - 03/10/2024 8:30 AM CDT Pt has Poison Reba since Thursday and he is wanting a Oral Steroid, he use's [facility] [address] in [place], [facility] call and discuss. documented in this encounter Plan of Treatment Not on file documented as of this encounter Visit Diagnoses Not on filedocumented in this encounter Additional Health Concerns Assessment Noted Time PHQ-9 Depression Total Score: 0 10/13/19 21 9:29 AM CDT documented as of this encounter Care Teams Saloon Keeper Relationship Specialty Start Date End Date Jeanna Rubin FNP [address] [place] [address] PCP - General 09/24/16 documented as of this encounter
--- OUTSIDE RECORDS SUMMARY | 2024-06-08 15:03 | XMS_ITS | Encounter Summary ---
Author Organization [facility] Address [address] [place] [address]. [place] [address] [place] [address] Care Team Providers Care Edge Molder Name Role Phone Jeanna Rubin MICHELLE Primary Care Provider [phone] Reason for Visit * Reason Onset Date Comments Reschedule 08/05/2019 Encounter Details Date Type Department Care Team (Late st Contact Info) Description 08/05/2019 Telephone [facility] Medical [facility] [address] [facility] [address] [place] [id number] Chandler Zeng MD 3 [facility] [address] [place] [address] Reschedule Social History Tobacco Use Types Packs/Day Years [...] as of this encounter Progress Notes * Radha Way - 08/05/2019 9:19 AM CST LVM for pt to give the office a call to reschedule his appt for today due to Dr. Zegn is out sick. M CLINICIAN documented in this encounter Plan of Treatment Not on file documented as of this encounter Visit Diagnoses Not on filedocumented in this encounter Additional Health Concerns Assessment Noted Time PHQ-9 Depression Total Score: 0 06/08/19 20 12:13 PM CLAIM CLINICIAN documented as of this encounter Care Teams Edge Molder Relationship Specialty Start Date End Date Jeanna Rubin FNP [address] [facility] [address] PCP - General 09/24/16 documented as of this encounter
--- OUTSIDE RECORDS SUMMARY | 2024-06-08 15:03 | XMS_ITS | Encounter Summary ---
Author Organization [facility] Address [address] [place] [address]. [place] [address] [place] [address] Care Team Providers Care Oil Well Service Unit Operator Name Role Phone Jeanna Rubin Primary Care Provider [phone] Encounter Details Date Type Department Care Team (Latest Contact Info) Description 10/12/2020 Travel Social History Tobacco Use Types Packs/Day [...] AM CDT documented as of this encounter Plan of Treatment Not on file documented as of this encounter Visit Diagnoses Not on filedocumented in this encounter Additional Health Concerns Assessment Noted Time PHQ-9 Depression Total Score: 0 10/13/19 21 9:29 AM CDT documented as of this encounter Care Teams Oil Well Service Unit Operator Relationship Specialty Start Date End Date Jeanna Rubin FNP [address] [place] [id number] PCP - General 09/24/16 documented as of this encounter
--- OUTSIDE RECORDS SUMMARY | 2024-06-08 15:03 | XMS_ITS | Encounter Summary ---
Author Organization [facility] Address [address] [place] [address]. [place], [place] [address] [place] [address] Care Team Providers Care Examining Officer Name Role Phone Jeanna Rubin Primary Care Provider [phone] Encounter Details Date Type Department Care Team (Latest Contact Info) Description 01/18/2021 Scan HEALTH INFO SRVCS Scanned, Documents Social History Tobacco Use Types Packs/Day Years [...] documented as of this encounter Care Teams Examining Officer Relationship Specialty Start Date End Date Jeanna Rubin FNP [address] [place] [address] PCP - General 09/24/16 documented as of this encounter
--- OUTSIDE RECORDS SUMMARY | 2024-06-08 15:03 | XMS_ITS | Encounter Summary ---
Author Organization [facility] Address [facility] [place] [address] [place] [address] Care Team Providers Care Underwriting Account Representative Name Role Phone Jeanna Rubin Primary Care Provider [phone] Encounter Details Date Type Department Care Team (Late st Contact Info) Description 09/24/2016 Abstract [facility] [place] [address] Jeanna Rubin FNP [facility] [place], [place] [id number] Social History Tobacco Use Types Packs/Day Years [...] COMPREHENSIVE METABOLIC PANEL (09/24/2016 10:49 AM CDT) GLUCOSE 97 70 - 99 mg/dL 09/24/2016 8:42 PM CDT [facility] BUN 16 8 - 23 mg/dL 09/24/2016 8:42 PM CDT [facility] CREATININE S/P/B 1.05 0.70 - 1.20 mg/dL 09/24/2016 8:42 PM CDT [facility] SODIUM S/P/B 140 136 - 145 mmol/L 09/24/2016 8:42 PM CDT [facility] POTASSIUM S/P/B 4.5 3.5 - 5.1 mmol/L 09/24/2016 8:42 PM CDT [facility] CHLORIDE S/P/B 99 98 - 107 mmol/L 09/24/2016 8:42 PM CDT [facility] CO2 25 22 - 29 mmol/L 09/24/2016 8:42 PM CDT [facility] BILIRUBIN TOTAL S/P/B 0.6 0.2 - 1.2 mg/dL 09/24/2016 8:42 PM CDT [facility] CALCIUM S/P/B 10.1 8.6 - 10.2 mg/dL 09/24/2016 8:42 PM CDT [facility] ALKALINE PHOSPHATASE S/P/B 81 40 - 129 U/L 09/24/2016 8:42 PM CDT [facility] AST 24 0 - 40 U/L 09/24/2016 8:42 PM CDT [facility] TOTAL PROTEIN S/P/B 7.5 6.4 - 8.3 g/dL 09/24/2016 8:42 PM CDT [facility] ALBUMIN S/P/B 4.7 3.5 - 5.2 g/dL 09/24/2016 8:42 PM CDT [facility] ALT 34 0 - 41 U/L 09/24/2016 8:42 PM CDT [facility] GLOBULIN 2.8 2.3 - 3.6 g/dL 09/24/2016 8:42 PM CDT [facility] A/G RATIO 1.7 1.0 - 2.0 09/24/2016 8:42 PM CDT [facility] ANION GAP 21(H) 8 - 20 09/24/2016 8:42 PM CDT [facility] EGFR NON-AFR. AMER. >60 >60 mL/min/1.7 3m'2 09/24/2016 8:42 PM CDT [facility] EGFR AFR. AMER. >60 >60 mL/min/1.7 3m'2 09/24/2016 8:42 PM CDT [facility] Comment: NOTE: eGFR is not calculated for patients <18 years of age. This is an estimated GFR (CKD EPI) and should not be used for calculating drug doses. 09/24/2016 10:4 9 AM CDT 09/24/2016 7:20 PM CDT us Generic Conversion Md [facility] Final R esult [facility] [address] [id number], [place] [phone] * (ABNORMAL) CBC W/DIFF AUTOMATED (09/24/2016 10:49 AM CDT) WBC 6.7 4.8 - 10.8 x10'3/uL 09/24/2016 8:30 PM CDT [facility] RBC 5.26 4.70 - 6.10 x10'6/uL 09/24/2016 8:30 PM CDT [facility] HGB 15.4 14.0 - 18.0 G/DL 09/24/2016 8:30 PM CDT [facility] HCT 46.2 43.0 - 54.0 % 09/24/2016 8:30 PM CDT [facility] MCV 87.8 80.0 - 94.0 FL 09/24/2016 8:30 PM CDT [facility] MCH 29.3 27.0 - 31.0 PG 09/24/2016 8:30 PM CDT [facility] MCHC 33.3 32.0 - 36.0 G/DL 09/24/2016 8:30 PM CDT [facility] RDW 12.2 11.5 - 14.5 % 09/24/2016 8:30 PM CDT [facility] PLT 326 130 - 400 x10'3/uL 09/24/2016 8:30 PM CDT [facility] MPV 10.3 9.3 - 12.2 FL 09/24/2016 8:30 PM CDT [facility] IMMATURE GRANS % 0.4 0.0 - 1.0 % 09/24/2016 8:30 PM CDT [facility] NEUTROPHILS % 56.7 43.0 - 65.0 % 09/24/2016 8:30 PM CDT [facility] LYMPHOCYTES % 30.8 20.0 - 46.0 % 09/24/2016 8:30 PM CDT [facility] MONOCYTES % 7.9 5.0 - 12.0 % 09/24/2016 8:30 PM CDT [facility] EOSINOPHILS 3.0 1.0 - 3.0 % 09/24/2016 8:30 PM CDT [facility] BASOPHILS 1.2(H) 0.0 - 1.0 % 09/24/2016 8:30 PM CDT [facility] WHOLE BLOOD SPECIMEN / Unknown 09/24/2016 10:49 AM CDT 09/24/2016 7:20 PM CDT us Generic Conversion Md [facility] Final R esult [facility] [address] [place] [address], documented in this encounter Visit Diagnoses Diagnosis Pneumonia Pneumonia, organism unspecified documented in this encounter Care Teams Underwriting Account Representative Relationship Specialty Start Date End Date Jeanna Rubin FNP [address] [place] [address] PCP - General 09/24/16 documented as of this encounter
--- OUTSIDE RECORDS SUMMARY | 2024-06-08 15:03 | XMS_ITS | Encounter Summary ---
Author Organization [facility] Address [facility] [place] [address] [place] [address] Care Team Providers Care Plasma Center Nurse Name Role Phone Jeanna Rubin Primary Care Provider Encounter Details Date Type Department Care Team (Late st Contact Info) Description 05/21/2017 Abstract [facility] Medical Group Family & Internal Medicine [address] [place] [address] Jeanna Rubin FNP [address] [place], [place] [id number] Social History Tobacco Use Types Packs/Day Years Used Date Smoking Tobacco: Never Assessed Sex and Gender Information Value Date Recorded Sex Assigned at Not on file Legal Sex Male 8:31 PM CDT Gender Identity Not on file Sexual Orientation Not on file documented as of this encounter Last Filed Vital Signs Vital Sign Reading Time Taken Comments Blood Pressure 144/86 05/21/2017 4:11 PM PARTITION ASSEMBLY MACHINE OPERATOR Pulse 97 05/21/2017 4:11 PM PARTITION ASSEMBLY MACHINE OPERATOR Temperature - - Respiratory Rate - - Oxygen Saturation - - Inhaled Oxygen Concentration - - Weight 112.5 kg (248 lb) 05/21/2017 4:11 PM PARTITION ASSEMBLY MACHINE OPERATOR Height 185.4 cm (6' 1 ) 05/21/2017 4:11 PM PARTITION ASSEMBLY MACHINE OPERATOR Body Mass Index 32.72 05/21/2017 4:11 PM PARTITION ASSEMBLY MACHINE OPERATOR documented in this encounter Progress Notes * MICHELLE Fox - 05/21/2017 4:00 PM CST Reason For Visit Chronic Recheck Visit Chief Complaint patient is here for a general check up with no complaints History of Present Illness HPI Free Text: Ameya presents to the office for routine f/u. He denies any complaints or concerns. He is not a smoker, only occasional alcohol use and non- iilicit drug use. He does have the ProAir inhaler as needed for cough or wheeze. He is declining the Influenza vaccine this visit. He is due for routine yearly labs. Review of Systems See HPI for pertinent positives. Surgical History 1. History of Appendectomy Family [...] EVERY 4 TO 6 HOURS NEEDED; Therapy: [id number] to (Last Rx:16Sep2016) Requested for: 29Sep2016 Ordered Allergies 1. Toradol Vitals Recorded: 21May2017 04:11PM Heart Rate 97 Respiration 16 Systolic 144 Diastolic 86 O2 Saturation 98 Height 6 ft 1 in Weight 248 lb BMI Calculated 32.72 BSA Calculated 2.36 Physical Exam Constitutional General appearance: No acute [...] edema, exudate or lesions. Pulmonary Respiratory effort: No increased work of [...] and nails: Normal without clubbing or cyanosis. Inspection/palpation of joints, bones, and muscles: Normal. Skin Skin and subcutaneous tissue: Normal without rashes or lesions. Neurologic Cranial nerves: Cranial nerves 2-12 intact. Reflexes: 2+ and symmetric. Sensation: No sensory loss. Psychiatric Orientation to person, place and time: Normal. Mood and affect: Normal. Counseling The patient was counseled regarding diagnostic results, instructions for management, risk factor reductions, prognosis, patient and family education, impressions, risks and benefits of treatment options and importance of compliance with treatment. total time of encounter was 25 minutes and 20 minutes was spent counseling. Assessment 1. Cough (786.2) (R05) 2. Screening cholesterol level (V77.91) (Z13.220) 3. Screening for blood disease (V78.9) (Z13.0) 4. Immunization due (V05.9) (Z23) 5. Class 1 obesity with body mass index (BMI) of 32.0 to 32.9 in adult (278.00,V85.32) (E66.9,Z68.32) Plan Cough 1. ProAir HFA 108 (90 Base) MCG/ACT Inhalation Aerosol Solution; INHALE 2 PUFFS BY MOUTH EVERY 4 TO 6 HOURS NEEDED Rx By: Jeanna Rubin; Dispense: 0 Days ; #:1 X 8.5 GM Inhaler; Refill: 6; For: Cough; CONCETTA = N; Verified Transmission to [employer] [id number]; Last Updated By: Sonny Zaidi; 05/21/2017 5:02:17 PM Health Maintenance 2. Always use a seat belt and shoulder strap when riding or driving a motor vehicle.; Status:Complete; Done: [id number] 10:44PM Ordered; For:Health Maintenance; Ordered By:Jeanna Rubin; 3. Call if: You have any warning signs of skin cancer.; Status:Complete; Done: 27May2017 10:44PM Ordered; For:Health Maintenance; Ordered By:Jeanna Rubin; 4. Be sure to tell us about all herbal supplements you use.; Status:Complete; Done: 38Zlo5459 10:44PM Ordered; For:Health Maintenance; Ordered By:Jeanna Rubin; 5. Begin or continue regular aerobic exercise. Gradually work up to at least 3 sessions of 30 minutes of exercise a week.; Status:Complete; Done: 57Wwf1532 10:44PM Ordered; For:Health Maintenance; Ordered By:Jeanna Rubin; 6. [place] your teeth 3 times a day and floss at least once a day.; Status:Complete; Done: 27May2017 10:44PM Ordered; For:Health Maintenance; Ordered By:Jeanna Rubin; 7. Decreasing the stress in your life may help your condition improve.; Status:Complete; Done: 27May2017 10:44PM Ordered; For:Health Maintenance; Ordered By:Jeanna Rubin; 8. Diets that are low in carbohydrates and high in protein are very popular for weight loss.; Status:Complete; Done: 27May2017 10:44PM Ordered; For:Health Maintenance; Ordered By:Jeanna Rubin; 9. Drink plenty of fluids.; Status:Complete; Done: 27May2017 10:44PM Ordered; For:Health Maintenance; Ordered By:Jeanna Rubin; 10. Eat a low fat and low cholesterol diet.; Status:Complete; Done: 27May2017 10:44PM Ordered; For:Health Maintenance; Ordered By:Jeanna Rubin; 11. Keep a diary of when and what you eat.; Status:Complete; Done: 32Rcm8318 10:44PM Ordered; For:Health Maintenance; Ordered By:Jeanna Rubin; 12. Limit your use of alcohol to 2 drinks or cans of beer a day.; Status:Complete; Done: 74Frp2120 10:44PM Ordered; For:Health Maintenance; Ordered By:Jeanna Rubin; 13. Regular aerobic exercise can help reduce stress.; Status:Complete; Done: 52Kxs7129 10:44PM Ordered; For:Health Maintenance; Ordered By:Jeanna Rubin; 14. Some eating tips that can help you lose weight.; Status:Complete; Done: 38Baq9508 10:44PM Ordered; For:Health Maintenance; Ordered By:Jeanna Rubin; 15. There are ways to decrease your stress and improve your sense of well-being. We encourage you to keep active and exercise regularly. Make time to take care of yourself and participate in activities that you enjoy. Stay connected to friends and family that can support and comfort you. If at any time you have thoughts of harming yourself or someone else, contact us immediately.; Status:Complete; Done: 57Cmq6043 10:44PM Ordered; For:Health Maintenance; Ordered By:Jeanna Rubin; 16. Use a sun block product with an SPF of 15 or more.; Status:Complete; Done: 76Xjz9194 10:44PM Ordered; For:Health Maintenance; Ordered By:Jeanna Rubin; 17. Vitamins can help you get daily requirements that your diet may not be giving you.; Status:Complete; Done: 08Ogj1942 10:44PM Ordered; For:Health Maintenance; Ordered By:Jeanna Rubin; 18. We encourage all of our patients to exercise regularly. 30 minutes of exercise or physical activity five or more days a week is recommended for children and adults.; Status:Complete; Done: 18Yhp4467 10:44PM Ordered; For:Health Maintenance; Ordered By:Jeanna Rubin; 19. We encourage you to begin to make lifestyle changes to help control your blood pressure. These may include losing weight, increasing your activity level, limiting salt in your diet, decreasing alcohol intake, and eating a diet low in fat and rich in fruits and vegetables.; Status:Complete; Done: 26Asc4031 10:44PM Ordered; For:Health Maintenance; Ordered By:Jeanna Rubin; 20. We recommend routine visits to a dentist.; Status:Complete; Done: 97Kci0126 10:44PM Ordered; For:Health Maintenance; Ordered By:Jeanna Rubin; 21. We recommend that you bring your body mass index down to 25.; Status:Complete; Done: 02Yrd7904 10:44PM Ordered; For:Health Maintenance; Ordered By:Jeanna Rubin; 22. We recommend that you follow these rules for gun safety.; Status:Complete; Done: 54Auq6769 10:44PM Ordered; For:Health Maintenance; Ordered By:Jeanna Rubin; 23. We recommend you modify your diet to achieve and maintain a healthy weight. Being underweight may increase your risk of developing health problems from vitamin and mineral deficiencies. We recommend a balanced diet rich in fruits and vegetables. You may also consider increasing your calorie intake by eating more frequently or adding nuts, avocados, and low-fat cheese or milk to your meals. Please let us know if you would like to learn more about your nutrition and calorie needs, and additional options to help you achieve your weight goals.; Status:Complete; Done: 74Aku6219 10:44PM Ordered; For:Health Maintenance; Ordered By:Jeanna Rubin; Discussion/Summary Suicide Risk Assessment Completed. Positive adult depression screening. Psychiatric State Evaluation Completed. Tobacco use screening completed. Signatures Electronically signed by : Jeanna Rubin CNP; May 27 2017 10:44PM PARTITION ASSEMBLY MACHINE OPERATOR (Author) documented in this encounter Plan of Treatment Not on file documented as of this encounter Visit Diagnoses Not on filedocumented in this encounter Care Teams Plasma Center Nurse Relationship Specialty Start Date End Date Jeanna Rubin FNP [address] [place] [address] PCP - General 09/24/16 documented as of this encounter
--- OUTSIDE RECORDS SUMMARY | 2024-06-08 15:03 | XMS_ITS | Encounter Summary ---
Author Organization [facility] Address [facility]. [place], [place] [address] [place] [address] Care Team Providers Care Master Black Belt Name Role Phone Jeanna Rubin [facility] Primary Care Provider [phone] Encounter Details Date Type Department Care Team (Latest Contact Info) Description 09/25/2016 Abstract [facility] Medical Group , Generic ConversionMD Social History Tobacco Use Types Packs/Day Years Used Date Smoking Tobacco: Never Assessed Sex and Gender Information Value Date Recorded Sex Assigned at Not on file Legal Sex Male 8:31 PM CDT Gender Identity Not on file Sexual Orientation Not on file documented as of this encounter Progress Notes * Generic Conversion MD Maritza - 09/25/2016 2:33 PM CDT Message Recorded as Task Date: 09/25/2016 09:12 AM, Created By: Jeanna Rubin Task Name: Medical Complaint Callback Assigned To: [facility] Nurse Team Regarding Patient: Ameya Santacruz, Status: Active Comment: Jeanna Rubin - 25 Sep 2016 9:12 AM TASK CREATED Ameya's labs are all normal. How is he feeling today? Rebeca Chaudhari - 25 Sep 2016 2:04 PM TASK IN PROGRESS Rebeca Chaudhari - 25 Sep 2016 2:06 PM TASK EDITED [id number] Mandy aRya - 25 Sep 2016 2:20 PM TASK EDITED pt notified and stated that he is feeling about the same, short of breath and fatigue. Jeanna Rubin - 25 Sep 2016 2:29 PM TASK REPLIED TO: Previously Assigned To Jeanna Rubin noted Signatures Electronically signed by : Rebeca Chaudhari MA; Sep 25 2016 2:33PM CAR REPAIRER HELPER (Author) documented in this encounter Plan of Treatment Not on file documented as of this encounter Visit Diagnoses Not on filedocumented in this encounter Care Teams Master Black Belt Relationship Specialty Start Date End Date Jeanna Rubin FNP [address] [place] [address] PCP - General 09/24/16 documented as of this encounter
--- OUTSIDE RECORDS SUMMARY | 2024-06-08 15:03 | XMS_ITS | Encounter Summary ---
Author Organization [facility] Address [address] [place] [address]. [place] [address] [place] [address] Care Team Providers Care Title Curator Name Role Phone Jeanna Rubin Primary Care Provider [phone] Reason for Visit * Reason Onset Date Comments Results 10/12/2020 Encounter Details Date Type Department Care Team (Late st Contact Info) Description 10/12/2020 Telephone [facility] Medical Group Family & Internal Medicine [id number] [place] [address] Jeanna Rubin FNP [address] [place] [address] Results Social History Tobacco Use Types Packs/Day [...] AM CDT documented as of this encounter Progress Notes * Kath Ward MA - 10/12/2020 1:57 PM CDT Patient informed that the testicular u/s was normal. He is on his way to the surgeons office now. He will let us know how that visit goes and what is ordered. Informed that he will need a ct to visualize the mesh and for his pain. tn * Kath Ward MA - 10/12/2020 1:54 PM CDT ----- Message from MICHELLE Fox sent at 10/12/2020 1:19 PM CDT ----- Testicular u/s normal; wondering if we need [...] documented as of this encounter Care Teams Title Curator Relationship Specialty Start Date End Date Jeanna Rubin FNP [address] [place] [address] PCP - General 09/24/16 documented as of this encounter
--- OUTSIDE RECORDS SUMMARY | 2024-06-08 15:03 | XMS_ITS | Encounter Summary ---
Author Organization [facility] Address [address] [place] [address]. [place], [place] [address] [place] [address] Care Team Providers Care Environmental Research Scientist Name Role Phone Jeanna Rubin Primary Care Provider [phone] Encounter Details Date Type Department Care Team (Latest Contact Info) Description 03/17/2024 Scan [facility] INFO [facility] [...] documented as of this encounter Care Teams Environmental Research Scientist Relationship Specialty Start Date End Date Jeanna Rubin FNP [address] [place] [address] PCP - General 09/24/16 documented as of this encounter
--- OUTSIDE RECORDS SUMMARY | 2024-06-08 15:03 | XMS_ITS | Encounter Summary ---
Author Organization [facility] Address [facility] [place] [address] [place] [address] Care Team Providers Care Direct Support Staff Name Role Phone Jeanna Rubin Primary Care Provider [phone] Jeanna Rubin Primary Care Provider Encounter Details Date Type Department Care Team (Late st Contact Info) Description 09/18/2016 Abstract [facility] Family & Internal Medicine [facility] [address] [place] [address] Blue Shultz MD [address] [place] [address] [id number] Social History Tobacco Use Types Packs/Day Years Used Date Smoking Tobacco: Never Assessed Sex and Gender Information Value Date Recorded Sex Assigned at Not on file Legal Sex Male 8:31 PM CDT Gender Identity Not on file Sexual Orientation Not on file documented as of this encounter Last Filed Vital Signs Vital Sign Reading Time Taken Comments Blood Pressure 128/86 09/18/2016 9:02 AM CDT Pulse 86 09/18/2016 9:02 AM CDT Temperature - - Respiratory Rate - - Oxygen Saturation - - Inhaled Oxygen Concentration - - Weight 102.5 kg (226 lb) 09/18/2016 9:02 AM CDT Height 185.4 cm (6' 1 ) 09/18/2016 9:02 AM CDT Body Mass Index 29.82 09/18/2016 9:02 AM CDT documented in this encounter Progress Notes * Jeanna Berkowitzradhames, WOOD [employer]KER - 09/18/2016 9:00 AM CDT Reason For Visit Acute Visit Chief Complaint Patient is here for a 2 day follow up on pneumonia, headache and shortness of breath Ameya presents to the office for a 2 day f/u of his acute illness with diagnosed pneumonia and strepthroat. He is doing well. He is still having some SOB with exertion and coughing but overall much better. He is not having anymore high fevers and is not taking the pain medication as much as he was two days ago. He is still taking the oral steroids, Augmentin and Z-Steven that was given to him. He denies any side effects of the medications. He is taking a probiotic daily. He is wondering if he should go back to work now or not. Review of Systems See HPI for pertinent positives. Constitutional: feeling tired. ENT: sore throat. Respiratory: cough and shortness of breath during exertion. Active Problems 1. Abdominal pain, left lower quadrant (789.04) (R10.32) 2. Headache (784.0) (R51) 3. Left flank pain (789.09) (R10.9) Surgical History [...] 4-6 hours as needed for pain; Therapy: [id number] to (Last Rx:[id number]) Ordered Rx By: Jeanna Rubin; Dispense: 0 Days ; #:60 Tablet; Refill: 0; For: Acute streptococcal pharyngitis, Headache, Pneumonia; CONCETTA = N; Print Rx 2. MethylPREDNISolone 4 MG Oral Tablet; USE DIRECTED; Therapy: [id number] to (Last Rx:[id number]) Requested for: [id number] Ordered Rx By: Jeanna Rubin; Dispense: 0 Days ; #:21 Tablet; Refill: 0; For: Acute streptococcal pharyngitis, Headache, Pneumonia; CONCETTA = N; Verified Transmission to [facility]; Last Updated By: DaoliCloud; 09/16/2016 10:08:45 AM 3. ProAir HFA 108 (90 Base) MCG/ACT Inhalation Aerosol Solution; INHALE 2 PUFFS BY MOUTH EVERY 4 TO 6 HOURS NEEDED; Therapy: [id number] to (Last Rx:[id number]) Requested for: [id number] Ordered Rx By: Jeanna Rubin; Dispense: 0 Days ; #:1 X 8.5 GM Inhaler; Refill: 2; For: Pneumonia; CONCETTA = N;Verified Transmission to [facility]; Last Updated By: DaoliCloud; 09/16/2016 10:08:45 AM Allergies 1. Toradol Vomiting; Recorded By: Marley Chen; 04/21/2016 9:32:03 AM Vitals Signs [Data Includes: Current Encounter] Temperature: 98.6 F Heart Rate: 86 Respiration: 16 Systolic: 128 Diastolic: 86 O2 Saturation: 98 Height: 6 ft 1 in Weight: 226 lb BMI Calculated: 29.82 BSA Calculated: 2.27 Physical Exam Constitutional General appearance: No acute distress, well appearing and well nourished. improved from last exam. Eyes Conjunctiva and lids: No swelling, erythema, or discharge. Pupils and irises: Equal, round and reactive to light. Ears, Nose, Mouth, and Throat External inspection of ears and nose: Normal. Otoscopic examination: Tympanic membrane translucent with normal light reflex. Canals patent without erythema. Oropharynx: Abnormal. Oral mucosa was moist, but was normal. The palate examination showed no abnormalities. The tongue was normal. There was enlargement and erythema of both tonsils. The posterior pharynx was erythematous. Pulmonary Respiratory effort: Abnormal. Respiratory rate: normal. Assessment of respiratory effort revealed normal rhythm and effort. Respiratory Findings: wet cough. Auscultation of lungs: Abnormal. no rales or crackles were heard bilaterally. rhonchi over the right base. no friction rub. no wheezing. diminished breath sounds over the right base, but diminshed breath sounds over the left lung. no bronchial breath sounds. Cardiovascular Palpation of [...] and affect: Normal. Results/Data CBC W Differential 16Sep2016 10:43AM Jeanna Rubin Test Name Result Flag Reference WBC 6.0 x10'3/uL 4.8-10.8 RBC 4.99 x10'6/uL 4.70-6.10 Hemoglobin (HGB) 14.4 G/DL 14.0-18.0 Hematocrit (HCT) 44.0 % 43.0-54.0 Mean Corpuscular Volume (MCV) 88.2 FL 80.0-94.0 Mean Corpuscular Hgb (MCH) 28.9 PG 27.0-31.0 Mean Corpuscular Hgb Conc (MCH 32.7 G/DL 32.0-36.0 RDW 12.3 % 11.5-14.5 PLATELET COUNT 211 x10'3/uL 130-400 Mean Platelet Volume (MPV) 10.6 FL 9.3-12.2 IMMATURE GRANULOCYTES 0.3 % 0.0-1.0 NEUTROPHILS 71.0 % H 43.0-65.0 Lymphocytes % (Auto) 15.1 % L 20.0-46.0 MONOCYTES 12.1 % H 5.0-12.0 Eosinophils % (Auto) 0.8 % L 1.0-3.0 Basophils % (Auto) 0.7 % 0.0-1.0 Compr Metabolic Prof ( CMP ) 16Sep2016 10:43AM Jeanna Rubin Test Name Result Flag Reference Glucose 107 mg/dL H 70-99 Blood Urea Nitrogen (BUN) 12 mg/dL 8-23 Creatinine 0.98 mg/dL 0.70-1.20 Sodium (Na) 135 mmol/L L 136-145 Potassium (K) 4.1 mmol/L 3.5-5.1 Chloride (Cl) 93 mmol/L L 98-107 Carbon Dioxide (CO2) 27 mmol/L 22-29 Total Bilirubin 0.7 mg/dL 0.2-1.2 Calcium 9.4 mg/dL 8.6-10.2 Alkaline Phosphatase (ALKP) 67 U/L 40-129 AST/GOT 23 U/L 0-40 Total Protein 7.0 g/dL 6.4-8.3 Albumin 4.3 g/dL 3.5-5.2 ALT/GPT 32 U/L 0-41 Globulin, Calc 2.7 g/dL 2.3-3.6 A:G Ratio 1.6 1.0-2.0 Anion Gap 19 8-20 Glomerular Filt Rate Calc >60 mL/min/1.73m'2 >60 Glomerular Filt Rate (AA) Calc >60 >60 NOTE: eGFR is not calculated for patients <18 years of age. This is an estimated GFR (CKD EPI) and should not be used for calculating drug doses. mL/min/1.73m'2 Counseling The patient and patient's family was counseled regarding instructions for management, risk factor reductions, prognosis, patient and family education, impressions, risks and benefits of treatment options and importance of compliance with treatment. total time of encounter was 15 minutes and 12 minutes was spent counseling. Assessment 1. Pneumonia (486) (J18.9) 2. Acute streptococcal pharyngitis (034.0) (J02.0) Plan Acute streptococcal pharyngitis, Pneumonia 1. Recheck if symptoms do not improve in 4-7 days Outpatient Follow-up Status: Active Requested for: 18Sep2016 2. Complete medication as prescribed.; Status:Complete; Done: 23Sep2016 06:17PM 3. Drink plenty of fluids.; Status:Complete; Done: 23Sep2016 06:17PM 4. Call if: New symptoms occur.; Status:Complete; Done: 23Sep2016 06:17PM 5. Call if: You have questions or concerns about your problem.; Status:Complete; Done: 23Sep2016 06:17PM 6. Seek Immediate Medical Attention if: Your temperature is greater than 103F.; Status:Complete; Done: 23Sep2016 06:17PM Pneumonia 7. CefTRIAXone Sodium 1 GM Injection Solution Reconstituted Signatures Electronically signed by : Jeanna Rubin CNP; Sep 23 2016 6:18PM VIDEO EFFECTS EDITOR (Author) documented in this encounter Plan of Treatment Not on file documented as of this encounter Visit Diagnoses Not on filedocumented in this encounter Care Teams Direct Support Staff Relationship Specialty Start Date End Date Jeanna Rubin FNP [address] [place] [address] PCP - General 09/24/16 Jeanna Rubin FNP [address] [place] [address] PCP - General 09/16/16 09/23/16 documented as of this encounter
--- OUTSIDE RECORDS SUMMARY | 2024-06-08 15:03 | XMS_ITS | Encounter Summary ---
Author Organization [facility] Address [address] [place] [address] Care Team Providers Care Application Architect Manager Name Role Phone Hanh Duke MD Primary Care Provider Encounter Details Date Type Department Care Team (Late st Contact Info) Description 09/06/2008 1:50 AM CDT - 09/07/2008 1:10 PM CDT Emergency [facility] 7S TELE/NEURO [address] [place] [address] Daniel De Jesus MD [address] [place] [id number] [place] [id number] [address] Medical Outpatient Discharge Disposition: Home or Self Care Social History Tobacco Use Types Packs/Day Years Used Date Smoking Tobacco: Never Assessed Sex and Gender Information Value Date Recorded Sex Assigned at Not on file Gender Identity Not on file Sexual Orientation Not on file documented as of this encounter Consult Notes * Neyda Gavin - 09/06/2008 4:30 PM [facility] Consultation REASON FOR CONSULTATION: Medical management. HISTORY OF PRESENT ILLNESS: The patient is a 28-year-old gentleman with no significant past medicalhistory and a family history of heart disease, presents with chest pain that was present, but has now resolved. The chest pain is sharp stabbing chest pain that comes and goes, located in the left middle portion of his chest. It is not associated with indigestion, not worse with breath or position,just comes out of the blue. He has had a couple of episodes of chest pain today, worse after his stress test. His EKG is normal. His cardiac enzymes are normal and he has a negative stress test. He has no other complaints at this time. No fever, shaking chills, nausea, vomiting, abdominal pain, polyuria, polydipsia, hematuria, hematochezia, easy bruising, easy bleeding at this time. ALLERGIES: NO KNOWN DRUG ALLERGIES. PAST MEDICAL HISTORY: None. PSYCHIATRIC HISTORY: None. SURGICAL HISTORY: Appendectomy. SOCIAL HISTORY: No tobacco, alcohol or drug use. FAMILY HISTORY: Asthma, coronary artery disease, CVA, diabetes, hypertension, malignancy, or premature heart disease. HOME MEDICATIONS: None. REVIEW OF SYSTEMS: As per HPI. A full 11 point review of systems was obtained and is negative if not described as above. PHYSICAL EXAMINATION: VITAL SIGNS: Reviewed. GENERAL: Alert, oriented x3. HEENT: Atraumatic and normocephalic. Pupils equally round and reacted to light bilaterally. NECK: Supple. CARDIOVASCULAR: Regular rate and rhythm. No murmurs, rubs or gallops. LUNGS: Clear to auscultation bilaterally. GI: Bowel sounds present. Soft, nontender, nondistended. EXTREMITIES: No cyanosis, clubbing or edema. NEUROLOGIC: Nonfocal. LABORATORY TESTS: Reviewed. Cardiac enzymes were negative x3. LDL was 107 with an HDL of 27. Stresstest was negative and cardiac enzymes were negative x2. Chest x-ray was unremarkable. IMPRESSION/PLAN: Chest pain, atypical in nature, probably secondary to costochondritis. The patient's electrocardiogram, cardiac enzymes and stress test were negative. Therefore the patient is medically cleared to be discharged home today. Neyda Gavin MD Electronically Signed 09/09/2008 09:39:17 CDT AZR/Ceci #: [id number] documented in this encounter Plan of Treatment Not on file documented as of this encounter Procedures Procedure Name Priority Date/Time Associated Diagnosis Comments TROPONIN I Routine 09/06/2008 5:03 AM CDT Unspecified Chest Pain CKMB Routine 09/06/2008 5:03 AM CDT Unspecified Chest Pain CK BLOOD Routine 09/06/2008 5:03 AM CDT Unspecified Chest Pain LIPID PROFILE Routine 09/06/2008 5:03 AM CDT Unspecified Chest Pain TROPONIN I STAT 09/05/2008 11:10 PM CDT Unspecified Chest Pain MYOGLOBIN BLOOD STAT 09/05/2008 11:10 PM CDT Unspecified Chest Pain PTT STAT 09/05/2008 11:10 PM CDT Unspecified Chest Pain PT-INR STAT 09/05/2008 11:10 PM CDT Unspecified Chest Pain CBC W AUTO DIFFERENTIAL STAT 09/05/2008 11:10 PM CDT Unspecified Chest Pain COMPREHENSIVE METABOLIC PANEL STAT 09/05/2008 11:10 PM CDT Unspecified Chest Pain MAGNESIUM BLOOD STAT 09/05/2008 11:10 PM CDT Unspecified Chest Pain documented in this encounter Results * (ABNORMAL) LIPID PROFILE (09/06/2008 5:03 AM CDT) [facility] Cholesterol 159 120.0 - 200.0 mg/dl [facility] Triglycerides 123 0.0 - 250.0 mg/dl [facility] HDL Cholesterol 27(L) >40 mg/dl [facility] LDL Calculated 107.4 mg/dl [facility] Chol HDL Ratio 5.9 [facility] Comment Lipid [facility] Comment: Risk Classification ? HDL CHOL [...] patients according to data reported from the [place]rose Study by Xavi Quijano M.D. ??The predictive [...] Leanne Baker MD LAB - CHEMISTRY YENNY RIUZ [facility] Organization Address City/State/ZIP Co de Phone Number [facility] [address] [place] [address] * CK BLOOD (09/06/2008 5:03 AM CDT) CK 117 55.0 - 170.0 U/L [facility] BLOOD SPECIMEN / Unknown 09/06/2008 5:03 AM CDT Leanne Baker MD LAB - CHEMISTRY YENNY RUIZ Performing Organization Address [facility] Co de Phone Number [facility] [address] [place] [address] * TROPONIN I (09/06/2008 5:03 AM CDT) Troponin I <0.10 SEE BELOW ng/ml [facility] Comment: Normal ? <0.10 [place] ??0.10-0.99 Positive ?? >=1.00 BLOOD SPECIMEN / Unknown 09/06/2008 5:03 AM CDT Leanne Baker MD LAB - CHEMISTRY YENNY RUIZ Performing Organization Address [facility] de Phone Number [facility] [address] [place] [address] * CKMB (09/06/2008 5:03 AM CDT) CK-MB 0.5 0.0 - 5.0 ng/ml [facility] Interpretation CK-MB [facility] Comment: An abrupt rise/fall of CKMB over 24 hours is an acute injury pattern. BLOOD SPECIMEN / Unknown 09/06/2008 5:03 AM CDT Leanne Baker MD LAB - CHEMISTRY ORDAlexys RUIZ Performing Organization Address [facility] de Phone Number [facility] [address] [place] [address] * TROPONIN I (09/05/2008 11:10 PM CDT) Troponin I <0.10 SEE BELOW ng/ml [facility] Comment: Normal ? <0.10 [place] ??0.10-0.99 Positive ?? >=1.00 BLOOD SPECIMEN / Unknown 09/05/2008 11:10 PM CDT Daniel De Jesus MD LAB - CHEMISTRY OR DERABLES Performing Organization Address City/[facility]/ZIP Co de Phone Number [facility] [address] [place] [address] * MYOGLOBIN BLOOD (09/05/2008 11:10 PM CDT) Myoglobin 43.9 0.0 - 110.0 ng/ml [facility] BLOOD SPECIMEN / Unknown 09/05/2008 11:10 PM CDT Daniel De Jesus MD LAB - CHEMISTRY OR DERABLES Performing Organization Address [facility] Co de Phone Number [facility] [address] [place] [address] * (ABNORMAL) COMPREHENSIVE METABOLIC PANEL (09/05/2008 11:10 PM CDT) BUN 15 9.0 - 20.0 mg/dl [facility] Sodium 139 137 - 145 mEq/L [facility] Potassium 3.9 3.6 - 5.0 mEq/L [facility] Chloride 98 98.0 - 107.0 mEq/L [facility] Glucose 87 75 - 110 mg/dl [facility] Creatinine 1.2 0.8 - 1.5 mg/dl [facility] AST 57 17.0 - 59.0 U/L [facility] Alkaline Phosphatase 74 38.0 - 126.0 U/L [facility] Calcium 9.4 8.4 - 10.2 mg/dl [facility] Bilirubin Total 0.5 0.2 - 1.3 mg/dl [facility] Albumin 4.7 3.5 - 5.0 gm/dl [facility] Protein Total 7.8 6.3 - 8.2 gm/dl [facility] CO2 31(H) 22.0 - 30.0 mEq/L [facility] ALT 47 21.0 - 72.0 U/L [facility] eGFR by MDRD 76.6 ml/min/1.7 3m2 [facility] BLOOD SPECIMEN / Unknown 09/05/2008 11:10 PM CDT Daniel De Jesus MD LAB - CHEMISTRY OR DERABLES Performing Organization Address [facility] de Phone Number [facility] [address] [place] [address] * MAGNESIUM BLOOD (09/05/2008 11:10 PM CDT) [facility] Magnesium 2.1 1.6 - 2.3 mg/dl [facility] BLOOD SPECIMEN / Unknown 09/05/2008 11:10 PM CDT Daniel De Jesus MD LAB - CHEMISTRY OR DERABLES Performing Organization Address [facility] de Phone Number [facility] [address] [place] [address] * PTT (09/05/2008 11:10 PM CDT) [facility] PTT 27.6 24.0 - 32.0 seconds [facility] BLOOD SPECIMEN / Unknown 09/05/2008 11:10 PM CDT Daniel De Jesus MD LAB - COAGULATION ORDERABLES Performing Organization Address [facility] de Phone Number [facility] [address] [place] [address] * PT-INR (09/05/2008 11:10 PM CDT) [facility] PT 10.9 9.4 - 11.2 seconds [facility] INR 1.0 0.9 - 1.1 [facility] Interpretation INR D [facility] Comment: Conventional Anticoagulation INR 2.0-3.0 Intensive Anticoagulation INR 2.5-3.5 BLOOD SPECIMEN / Unknown 09/05/2008 11:10 PM CDT Daniel De Jesus MD LAB - COAGULATION ORDERABLES Performing Organization Address [facility] de Phone Number [facility] [id number] [place] [id number] * (ABNORMAL) CBC W AUTO DIFFERENTIAL (09/05/2008 11:10 PM CDT) [facility] WBC 5.9 4.5 - 11.0 1000/mm3 [facility] RBC 5.15 4.7 - 6.1 10X6 [facility] Hemoglobin 14.7 13.0 - 18.0 gm/dl [facility] Hematocrit 42.9 39.0 - 54.0 % [facility] MCV 83.3 80.0 - 99.0 fl [facility] MCH 28.5 25.0 - 31.0 pg [facility] MCHC 34.3 32.0 - 36.0 gm/dl [facility] RDW 12.1 11.5 - 14.5 % [facility] Platelet Count 220 130.0 - 400.0 1000/mm3 [facility] Granulocytes % 46.1 40.0 - 70.0 % [facility] Lymphocytes % Manual 41.9(H) 22.0 - 40.0 % [facility] Monocytes % 9.6 2.0 - 10.0 % [facility] Eosinophils % 1.7 0.0 - 6.0 % [facility] Basophils % 0.7 0.0 - 3.0 % [facility] Comment Manual Diff Not Indicated [facility] Granulocytes Absolute 2.70 1.8 - 7.7 1000/mm3 [facility] BLOOD SPECIMEN / Unknown 09/05/2008 11:10 PM CDT Daniel De Jesus MD LAB - HEMATOLOGY O RDERABLES Performing Organization Address City/State/[facility] Co de Phone Number [facility] [address] [place] [address] documented in this encounter Visit Diagnoses Diagnosis Chest pain, unspecified documented in this encounter Care Teams Application Architect Manager Relationship Specialty Start Date End Date Hanh Duke MD [address] [facility] [address] [place] [address] PCP - General 09/05/08 documented as of this encounter
--- OUTSIDE RECORDS SUMMARY | 2024-06-08 15:03 | XMS_ITS | Encounter Summary ---
Author Organization [facility] Address [address] [facility] [place] [address] [place] [address] Care Team Providers Care Compliance Vice President Name Role Phone Jeanna Rubin Primary Care Provider Encounter Details Date Type Department Care Team (Latest Contact Info) Description 05/26/2017 Abstract [facility] Jeanna Rubin FNP [facility] [place] [address] Social History Tobacco Use Types Packs/Day Years [...] Date/Time Associated Diagnosis Comments TSH W/REFLEX Routine 05/26/2017 8:14 AM AUTO ACCESSORIES INSTALLER HEMOGLOBIN, GLYCOSYLATED Routine 05/26/2017 8:14 AM AUTO ACCESSORIES INSTALLER URINALYSIS, AUTO, COMPLETE Routine 05/26/2017 8:14 AM AUTO ACCESSORIES INSTALLER COMPREHENSIVE METABOLIC PANEL Routine 05/26/2017 8:14 AM AUTO ACCESSORIES INSTALLER CBC W/DIFF AUTOMATED Routine 05/26/2017 8:14 AM AUTO ACCESSORIES INSTALLER VITAMIN D, 25 OH Routine 05/26/2017 8:14 AM AUTO ACCESSORIES INSTALLER URIC ACID BLOOD Routine 05/26/2017 8:14 AM AUTO ACCESSORIES INSTALLER documented in this encounter Results * CBC W/DIFF AUTOMATED (05/26/2017 8:14 AM AUTO ACCESSORIES INSTALLER) WBC 4.7 3.8 - 10.8 [facility] TO EPIC CONVERSION Comment:Result Comment: UNIT S: Thousand/uL Red Blood Cell Count 5.19 4.20 - 5.80 Million/uL [facility] TO EPIC CONVERSION HGB 15.4 13.2 - 17.1 g/dL [facility] TO EPIC CONVERSION HCT 45.8 38.5 - 50.0 % [facility] TO EPIC CONVERSION MCV 88.2 80.0 - 100.0 fL [facility] TO EPIC CONVERSION MCH (QHPE) 29.7 27.0 - 33.0 pg [facility] TO EPIC CONVERSION MCHC 33.6 32.0 - 36.0 g/dL [facility] TO EPIC CONVERSION RDW (QHPE) 12.8 11.0 - 15.0 % [facility] TO EPIC CONVERSION PLT 239 140 - 400 [facility] T O EPIC CONVERSION Comment:Result Comment: UNIT S: Thousand/uL MPV 10.5 7.5 - 12.5 fL [facility] TO EPIC CONVERSION ABS. NEUTROPHILS 2359 1500 - 7800 cells/uL [facility] TO EPIC CONVERSION ABS. LYMPHOCYTES 1542 850 - 3900 cells/uL [facility] TO EPIC CONVERSION ABS. MONOCYTES 555 200 - 950 cells/uL [facility] TO EPIC CONVERSION ABS. EOSINOPHILS 202 15 - 500 cells/uL [facility] TO EPIC CONVERSION ABS. BASOPHILS 42 0 - 200 cells/uL [facility] TO EPIC CONVERSION SEG NEUTROPHILS 50.2 % [facility] ROUP TO EPIC CONVERSION LYMPHOCYTES 32.8 % [facility] TO EPIC CONVERSION MONOCYTES 11.8 % [facility] T O EPIC CONVERSION EOSINOPHILS 4.3 % [facility] TO EPIC CONVERSION BASOPHILS 0.9 % [facility] T O EPIC CONVERSION Comment: Result Comment: Test Performed at: [employer] [address] [place], [place] ??[address] ? SHAHAB GR DO,MPH 05/26/2017 8:14 AM AUTO ACCESSORIES INSTALLER 05/26/2017 8:14 AM AUTO ACCESSORIES INSTALLER Narrative [facility] TO EPIC CONVERSION - 05/26/2017 8:15 AM AUTO ACCESSORIES INSTALLER Result Communication: No patient communication needed at this time Jeanna Berkowitzradhames [facility] Final Result [facility] TO EPIC CONVERSION * VITAMIN D, 25 OH (05/26/2017 8:14 AM AUTO ACCESSORIES INSTALLER) VITAMIN D 25 HYDROXY TOTAL S/P/B 38 30 - 100 ng/mL [facility] TO EPIC CONVERSION Comment: Result Comment: Vitamin D Status ? 25-OH Vitamin D: Deficiency: ?<20 ng/mL Insufficiency: ? 20 - 29 ng/mL Optimal: ? > or = 30 ng/mL For 25-OH Vitamin D testing on patients on D2-supplementation and patients for whom quantitation of D2 and D3 fractions is required, the QuestArchitizerureD(TM) 25-OH VIT D, (D2,D3), LC/MS/MS is recommended: order code 44034 (patients >2yrs). For more information on this test, go to: http://education.SkillBoost/faq/LPH920 (This link is being provided for informational/educational purposes only.) REPORT COMMENT: FASTING:YES Test Performed at: [employer] [facility] ??[phone] ? SHAHAB GR DO,MPH 05/26/2017 8:14 AM AUTO ACCESSORIES INSTALLER 05/26/2017 8:14 AM AUTO ACCESSORIES INSTALLER Narrative [facility] TO EPIC CONVERSION - 05/26/2017 8:15 AM AUTO ACCESSORIES INSTALLER Result Communication: No patient communication needed at this time Jeanna Berkowitzradhames [facility] Final Result Performing Organization Address [facility]/ZIP Co de Phone Number [facility] TO EPIC CONVERSION * URIC ACID BLOOD (05/26/2017 8:14 AM AUTO ACCESSORIES INSTALLER) URIC ACID 5.4 4.0 - 8.0 mg/dL [facility] TO EPIC CONVERSION Comment: Result Comment: Therapeutic target for gout patients: <6.0 mg/dL ?? Test Performed at: [employer] [facility] [address] [place], [place] ??[address] ? SHAHAB GR DO,MPH 05/26/2017 8:14 AM AUTO ACCESSORIES INSTALLER 05/26/2017 8:14 AM AUTO ACCESSORIES INSTALLER Narrative [facility] TO EPIC CONVERSION - 05/26/2017 8:15 AM AUTO ACCESSORIES INSTALLER Result Communication: No patient communication needed at this time Jeanna [facility] Final Result [facility] TO EPIC CONVERSION * HEMOGLOBIN, GLYCOSYLATED (05/26/2017 8:14 AM AUTO ACCESSORIES INSTALLER) HGB A1C 5.3 <5.7 [facility] T O EPIC CONVERSION Comment: Result Comment: UNITS: % of total Hgb For the purpose of screening for the presence of diabetes: <5.7% ? Consistent with the absence of diabetes 5.7-6.4% ?Consistent with increased risk for diabetes ?(prediabetes) > or =6.5% ??Consistent with diabetes This assay result is consistent with a decreased risk of diabetes. Currently, no consensus exists regarding use of hemoglobin A1c for diagnosis of diabetes in children. According to [place] Diabetes Association (ADA) guidelines, hemoglobin A1c <7.0% represents optimal control in non- diabetic patients. Different metrics may apply to specific patient populations. Standards of Medical Care in Diabetes(ADA). ?? REPORT COMMENT: FASTING:YES Test Performed at: [employer] [place] [address] [place], [place] ??[address] ? SHAHAB GR DO,MPH 05/26/2017 8:14 AM AUTO ACCESSORIES INSTALLER 05/26/2017 8:14 AM AUTO ACCESSORIES INSTALLER Narrative [facility] TO EPIC CONVERSION - 05/26/2017 8:15 AM AUTO ACCESSORIES INSTALLER Result Communication: No patient communication needed at this time Jeanna Rubin PLUG CUTTING MACHINE OPERATOR [facility] Final Result [facility] TO EPIC CONVERSION * (ABNORMAL) COMPREHENSIVE METABOLIC PANEL (05/26/2017 8:14 AM AUTO ACCESSORIES INSTALLER) [facility] GLUCOSE 104(H) 65 - 99 mg/dL [facility] TO EPIC CONVERSION Comment: Result Comment: ? Fasting reference interval For someone without known diabetes, a glucose value between 100 and 125 mg/dL is consistent with prediabetes and should be confirmed with a follow-up test. BUN 16 7 - 25 mg/dL [facility] TO EPIC CONVERSION CREATININE S/P/B 1.10 0.60 - 1.35 mg/dL [facility] TO EPIC CONVERSION EGFR NON-AFR. AMER. 85 > OR = 60 [facility] TO [facility]IC CONVERSION Comment:Result Comment: UNIT S: mL/min/1.73m2 EGFR AFR. AMER. 99 > OR = 60 [facility] ROUP TO EPIC CONVERSION Comment:Result Comment: UNIT S: mL/min/1.73m2 BUN CREATININE RATIO NOT APPLICABLE 6 - 22 (calc) [facility] TO EPIC CONVERSION SODIUM S/P/B 139 135 - 146 mmol/L [facility] TO EPIC CONVERSION POTASSIUM S/P/B 4.9 3.5 - 5.3 mmol/L [facility] TO EPIC CONVERSION CHLORIDE S/P/B 105 98 - 110 mmol/L [facility] TO EPIC CONVERSION CO2 29 20 - 31 mmol/L [facility] TO EPIC CONVERSION CALCIUM S/P/B 9.7 8.6 - 10.3 mg/dL [facility] TO EPIC CONVERSION PROTEIN 6.8 6.1 - 8.1 g/dL [facility] TO EPIC CONVERSION ALBUMIN S/P/B 4.5 3.6 - 5.1 g/dL [facility] TO EPIC CONVERSION GLOBULIN 2.3 1.9 - 3.7 [facility] T O EPIC CONVERSION Comment:Result Comment: UNIT S: g/dL (calc) ALBUMIN/GLOBULI N RATIO 2.0 1.0 - 2.5 (calc) [facility] TO EPIC CONVERSION BILIRUBIN TOTAL (FLUID) 0.5 0.2 - 1.2 mg/dL [facility] TO EPIC CONVERSION ALK PHOS 60 40 - 115 U/L [facility] TO EPIC CONVERSION AST 32 10 - 40 U/L [facility] TO EPIC CONVERSION ALT 54(H) 9 - 46 U/L [facility] TO EPIC CONVERSION Comment: Result Comment: Test Performed at: [employer] [facility] [address] [place], [place] ??[address] ? SHAHAB GR DO,MPH 05/26/2017 8:14 AM AUTO ACCESSORIES INSTALLER 05/26/2017 8:14 AM AUTO ACCESSORIES INSTALLER Narrative [facility] TO EPIC CONVERSION - 05/26/2017 8:15 AM AUTO ACCESSORIES INSTALLER Result Communication: No patient communication needed at this time [facility] Final Result Performing Organization Address [facility]/ZIP Co de Phone Number [facility] TO EPIC CONVERSION * TSH W/REFLEX (SNS) (05/26/2017 8:14 AM AUTO ACCESSORIES INSTALLER) Pathologist [facility] TSH 2.94 0.40 - 4.50 mIU/L [facility] TO EPIC CONVERSION Comment: Result Comment: Test Performed at: [employer] [facility] ??[phone] ? SHAHAB GR DO,MPH 05/26/2017 8:14 AM AUTO ACCESSORIES INSTALLER 05/26/2017 8:14 AM AUTO ACCESSORIES INSTALLER Narrative [facility] TO EPIC CONVERSION - 05/26/2017 8:15 AM AUTO ACCESSORIES INSTALLER Result Communication: No patient communication needed at this time [facility] Final Result Performing Organization Address [facility]/ZIP Co de Phone Number [facility] TO EPIC CONVERSION * URINALYSIS, AUTO, COMPLETE (05/26/2017 8:14 AM AUTO ACCESSORIES INSTALLER) COLOR (U) YELLOW YELLOW [facility] T O EPIC CONVERSION APPEARANCE SEMEN CLEAR CLEAR [facility] TO EPIC CONVERSION SPECIFIC GRAVITY (U) 1.018 1.001 - 1.035 [facility] TO EPIC CONVERSION PH (U) 6.0 5.0 - 8.0 [facility] T O EPIC CONVERSION URINE GLUCOSE NEGATIVE NEGATIVE [facility] UP TO EPIC CONVERSION BILIRUBIN (U) NEGATIVE NEGATIVE [facility] UP TO EPIC CONVERSION KETONE (U) NEGATIVE NEGATIVE [facility] TO [facility] CONVERSION OCCULT BLOOD FECAL NEGATIVE NEGATIVE [facility] TO [facility] CONVERSION PROTEIN (U) NEGATIVE NEGATIVE [facility] TO [facility] CONVERSION NITRITES NEGATIVE NEGATIVE [facility] T O EPIC CONVERSION LEUKOCYTES (U) NEGATIVE NEGATIVE [facility] OUP TO EPIC CONVERSION WBC NONE SEEN < OR = 5 /HPF [facility] TO EPIC CONVERSION RBC/HPF NONE SEEN < OR = 2 /HPF [facility] TO EPIC CONVERSION SQUAMOUS EPITHELIALS NONE SEEN < OR = 5 /HPF [facility] TO EPIC CONVERSION ORGANISM NONE SEEN NONE SEEN /HPF [facility] TO EPIC CONVERSION HYALINE CASTS NONE SEEN NONE SEEN /LPF [facility] TO EPIC CONVERSION Comment: Result Comment: Test Performed at: [employer] [address] ??[address] ? SHAHAB GR DO,MPH 05/26/2017 8:14 AM AUTO ACCESSORIES INSTALLER 05/26/2017 8:14 AM AUTO ACCESSORIES INSTALLER Narrative [facility] TO EPIC CONVERSION - 05/26/2017 8:15 AM AUTO ACCESSORIES INSTALLER Result Communication: No patient communication needed at this time Jeanna MARTINEZ URINE ORDERABLES Final Result [facility] TO EPIC CONVERSION documented in this encounter Visit Diagnoses Not on filedocumented in this encounter Care Teams Compliance Vice President Relationship Specialty Start Date End Date Jeanna Rubin FNP [address] [place] [address] PCP - General 09/24/16 documented as of this encounter
--- OUTSIDE RECORDS SUMMARY | 2024-06-08 15:03 | XMS_ITS | Encounter Summary ---
Author Organization [facility] Address [facility] [facility]. [place], [place] [address] [place] [address] Care Team Providers Care Profiling Machine Set Up Operator Name Role Phone Jeanna Rubin [facility] Primary Care Provider [phone] Encounter Details Date Type Department Care Team (Latest Contact Info) Description 05/28/2017 Abstract [facility] Social History Tobacco Use Types Packs/Day Years Used Date Smoking Tobacco: Never Assessed Sex and Gender Information Value Date Recorded Sex Assigned at Not on file Legal Sex Male 8:31 PM CDT Gender Identity Not on file Sexual Orientation Not on file documented as of this encounter Progress Notes * Generic Conversion MD Maritza - 05/28/2017 3:14 PM CST Message Recorded as Task Date: 05/27/2017 04:46 PM, Created By: Jeanna Rubin Task Name: Call Back Assigned To: [facility]-Caryn Nurse Team Regarding Patient: Ameya Santacruz, Status: In Progress Comment: Jeanna Rubin - 27 May 2017 4:46 PM TASK CREATED It looks like Ameya's glucose was elevated, was he fasting? We could check an A1C if he was fasting to check for diabetes. One of his liver enzymes was elevated and this could be due to medication he might have taken the night before or if he had an alcoholic drink. We can keep an eye on this level. Katiana Iverson - 28 May 2017 3:10 PM TASK IN PROGRESS Message: Pt updated and HgA1c added to blood in lab via quest connect-venkatesh Plan 1. QU-HEMOGLOBIN A1C 496; Status:Hold For - Manual Activation; Requested for:[id number]; Perform:[facility]; Due:27Jun2017;Ordered; For:Blood glucose elevated; Ordered By:Jeanna Rubin; Signatures Electronically signed by : Katiana Iverson R.N.; May 28 2017 3:19PM SCREEN AND CYCLONE REPAIRER (Author) documented in this encounter Plan of Treatment Not on file documented as of this encounter Visit Diagnoses Not on filedocumented in this encounter Care Teams Profiling Machine Set Up Operator Relationship Specialty Start Date End Date Jeanna Rubin FNP [address] [place] [address] PCP - General 09/24/16 documented as of this encounter
--- OUTSIDE RECORDS SUMMARY | 2024-06-08 15:03 | XMS_ITS | Encounter Summary ---
Author Organization [facility] Address [facility] [facility]. [place], [place] [address] [place] [address] Care Team Providers Care First Assistant Name Role Phone Jeanna Rubin Primary Care Provider [phone] Encounter Details Date Type Department Care Team (Latest Contact Info) Description 07/21/2019 Travel Social History Tobacco Use Types Packs/Day [...] Total Score: 0 06/08/19 20 12:13 PM RADIO OPERATOR documented as of this encounter Care Teams First Assistant Relationship Specialty Start Date End Date Jeanna Rubin FNP [address] [place] [address] PCP - General 09/24/16 documented as of this encounter
--- OUTSIDE RECORDS SUMMARY | 2024-06-08 15:03 | XMS_ITS | Encounter Summary ---
Author Organization [facility] Address [address] [facility] [place] [address] Care Team Providers Care Hydrographical Technical Officer Name Role Phone Hanh Duke MD Primary Care Provider [phone] Encounter Details Date Type Department Care Team (Late st Contact Info) Description 09/06/2008 Orders Only [facility] 7S TELE/NEURO [address] [place] [address] [place] [address] [address] Unspecified Chest Pain; Other Pulmonary Embolism and Infarction (HCC) Social History Tobacco Use Types Packs/Day Years Used Date Smoking Tobacco: Never Assessed Sex and Gender Information Value Date Recorded Sex Assigned at Not on file Gender Identity Not on file Sexual Orientation Not on file documented as of this encounter Plan of Treatment Not on file documented as of this encounter Procedures Procedure Name Priority Date/Time Associated Diagnosis Comments CT ANGIO CHEST Routine 09/07/2008 8:13 AM CDT Other Pulmonary Embolism and Infarction (HCC) NM MYOCARD PERF REST STRESS STAT 09/06/2008 12:30 PM CDT Unspecified Chest Pain documented in this encounter Results * CT ANGIO CHEST COMB INCLUDE PROC [...] scan of the chest. ? Read By- CASANDRA MASTERSON ??M.D. ? Released By- CASANDRA MASTERSON ??M.D. ? Released Date Time- 09/07/08919 ? Microbiology Quality Control Technician- MMG ??M.D. ? ADM- MITCH PETERSEN ?ATT- MITCH PETERSEN REF- ?CON- TWYLA LOBO- HANH DUKE ?SCP- Procedure Note Casandra Masterson - 09/07/2008 CT CHEST WITH CONTRAST MEDIA [...] CT scan of the chest. Read By- CASANDRA MASTERSON M.D. Released By- CASANDRA MASTERSON M.D. Released Date Time- 09/07/08919 Microbiology Quality Control Technician- COYD Srivastava ADM- MITCH PETERSEN ATT- MITCH PETERSEN REF- CON- TWYLA LOBO PCP- HANH DUKE SCP- Mitch Petersen MD CT ORDERABLES * NUC MYOCARD PERFUSION [...] are otherwise negative. ? Read By- CHACE ENAMORADO ??M.D. ? Released By- CHACE ENAMORADO ??M.D. ? Released Date Time- 09/06/08 1526 ? Microbiology Quality Control Technician- ADIEL ?Nehal. ? ADM- MITCH PETERSEN ?ATT- MITCH PETERSEN REF- ?CON- TWYLA LOBO- HANH DUKE ?SCP- Procedure Note Chace Enamorado - 09/06/2008 [...] ENAMORADO M.D. Released Date Time- 09/06/08 1526 Joni CHUN M.D. ADM- MITCH PETERSEN ATT- MITCH PETERSEN REF- CON- TWYLA LOBO PCP- HANH DUKE SCP- Mitch Petersen MD NM ORDERABLES documented in this encounter Visit Diagnoses Diagnosis Chest pain, unspecified Other pulmonary embolism and infarction (HCC) Other pulmonary embolism and infarction documented in this encounter Care Teams Hydrographical Technical Officer Relationship Specialty Start Date End Date Hanh Duke MD [address] [address] PCP - General 09/05/08 documented as of this encounter
--- OUTSIDE RECORDS SUMMARY | 2024-06-08 15:03 | XMS_ITS | Encounter Summary ---
Author Organization [facility] Address [facility] [place] [address] [place] [address] Care Team Providers Care Pad Assembler Name Role Phone Jeanna Rubin Primary Care Provider [phone] Jeanna Rubin Primary Care Provider [phone] Jeanna Rubin Primary Care Provider [phone] Encounter Details Date Type Department Care Team (Late st Contact Info) Description 04/21/2016 Abstract [facility] Family & Internal Medicine - [place] [id number] [place] [address] Jeanna Rubin FNP [address], [place] [id number] Social History Tobacco Use Types Packs/Day Years Used Date Smoking Tobacco: Never Assessed Sex and Gender Information Value Date Recorded Sex Assigned at Not on file Legal Sex Male 8:31 PM CDT Gender Identity Not on file Sexual Orientation Not on file documented as of this encounter Last Filed Vital Signs Vital Sign Reading Time Taken Comments Blood Pressure 128/84 04/21/2016 9:37 AM CLEANING PORTER Pulse 68 04/21/2016 9:37 AM CLEANING PORTER Temperature - - Respiratory Rate - - Oxygen Saturation - - Inhaled Oxygen Concentration - - Weight 108.4 kg (239 lb) 04/21/2016 9:37 AM CLEANING PORTER Height 185.4 cm (6' 1 ) 04/21/2016 9:37 AM CLEANING PORTER Body Mass Index 31.53 04/21/2016 9:37 AM CLEANING PORTER documented in this encounter Progress Notes * Jeanna Rubin, DIVER TENDER - 04/21/2016 9:30 AM CST Reason For Visit New Patient Visit Chief Complaint New patient, get established. C/o LUQ and LLQ pain x 2 weeks, intermittent. History of Present Illness PHQ-9 Depression Questionnaire: Over the past 2 weeks, how often have you been bothered by the following problems? 1.) Little interest or pleasure in doing things? Not at all. 2.) Feeling down, depressed or hopeless? Not at all. 3.) Trouble falling asleep or sleeping too much? Not at all. 4.) Feeling tired or having little energy? Not at all. 5.) Poor appetite or overeating? Not at all. 6.) Feeling bad about yourself, or that you are a failure, or have let yourself or your family down? Not at all. 7.) Trouble concentrating on things, such as reading a newspaper or watching television? Not at all. 8.) Moving or speaking so slowly that other people could have noticed, or the opposite, moving or speaking faster than usual? Not at all. 9.) Thoughts that you would be off or of hurting yourself in some way? Not at all. TOTAL SCORE: 0. How difficult have these problems made it for you to do your work, take care of things at home, or get along with people? Not at all. HPI Free Text: Ameya is here to establish primary care at this office. He is , has two children, works full-time. He denies being a smoker, uses alcohol occasionally, and denies illicit drug use. He sees his dentist regularly, eye doctor was a couple years ago. He wears glasses. He has had a hx of appendectomy, but denies any significant medical history. He does c/o left sided lower abdominal pain and left flank pain for about 1 1/2 weeks. He denies any N/V/D at this time. He denies fever. He denies any urinary symptoms. Family Hx includes a grandparent with pancreatitis, which he is concerned about. Review of Systems See HPI for pertinent [...] smoker ?? Two children Current Meds 1. No Reported Medications Recorded Allergies 1. Toradol Vitals Recorded: 21Apr2016 09:37AM Heart Rate 68 Respiration 16 Systolic 128 Diastolic 84 O2 Saturation 98 Height 6 ft 1 in Weight 239 lb BMI Calculated 31.53 BSA Calculated 2.32 Physical Exam Constitutional General appearance: No acute [...] for edema and/or varicosities: Normal. Abdomen Abdomen: Abnormal. The abdomen was flat. Bowel sounds were normal. The abdomen was soft. There was mild tenderness. no tenderness in the epigastric area. no tenderness in the periumbilical area. no tenderness in the suprapubic area. no tenderness in the right upper quadrant. no tenderness in the right lower quadrant. tenderness in the left upper quadrant. tenderness in the left lower quadrant. The abdomen was not firm and not rigid. No rebound tenderness. No guarding. There was a negative Solares's sign. no masses palpated. The abdomen was normal to percussion. no CVA tenderness Liver and spleen: No hepatomegaly or splenomegaly. [...] time: Normal. Mood and affect: Normal. Results/Data *Urine dip auto In Office 21Apr2016 10:20AM Jeanna Rubin Test Name Result Flag Reference Color Dark yellow Clarity Slightly cloudy Glucose Negative Bilirubin Negative Ketones Negative Specific Freer 1.020 Blood Negative pH 7.0 5.0 - 7.0 Protein Negative Urobilinogen 0.2 E.U./dL Nitrites neg Leukocytes Negative Counseling The patient was counseled regarding diagnostic results, instructions for management, risk factor reductions, prognosis, patient and family education, impressions, risks and benefits of treatment options and importance of compliance with treatment. total time of encounter was 30 minutes and 20 minutes was spent counseling. Assessment 1. Left flank pain (789.09) (R10.9) 2. Abdominal pain, left lower quadrant (789.04) (R10.32) Plan Abdominal pain, left lower quadrant 1. *Urine dip auto In Office; Status:Complete; Done: 21Apr2016 10:20AM Performed:In Office;Ordered; For:Abdominal pain, left lower quadrant; Ordered By:Jeanna Rubin; 2. CBC W Manual Differential; Status:Hold For - Manual Activation; Requested for:21Apr2016; Perform:[facility]; Due:[id number]; Last Updated By:Marley Chen; 04/21/2016 10:14:46 AM;Ordered; For:Abdominal pain, left lower quadrant; Ordered By:Jeanna Rubin; 3. Compr Metabolic Prof ( CMP ); Status:Hold For - Manual Activation; Requested for:21Apr2016; Perform:[facility]; Due:[id number]; Last Updated By:Marley Chen; 04/21/2016 10:14:46 AM;Ordered; For:Abdominal pain, left lower quadrant; Ordered By:Jeanna Rubin; 4. Free / Total Testosterone; Status:Hold For - Manual Activation; Requested for:21Apr2016; Perform:[facility]; Due:[id number]; Last Updated By:Marley Chen; 04/21/2016 10:14:46 AM;Ordered; For:Abdominal pain, left lower quadrant; Ordered By:Jeanna Rubin; 5. Lipid Profile; Status:Hold For - Manual Activation; Requested for:21Apr2016; Perform:[facility]; Due:[id number]; Last Updated By:Marley Chen; 04/21/2016 10:14:46 AM;Ordered; For:Abdominal pain, left lower quadrant; Ordered By:Jeanna Rubin; 6. TSH W Reflex Free T4; Status:Hold For - Manual Activation; Requested for:21Apr2016; Perform:[facility]; Due:[id number]; Last Updated By:Marley Chen; 04/21/2016 10:14:46 AM;Ordered; For:Abdominal pain, left lower quadrant; Ordered By:Jeanna Rubin; 7. Vitamin D 25 - Hydroxy; Status:Hold For - Manual Activation; Requested for:21Apr2016; Perform:[facility]; Due:[id number]; Last Updated By:Marley Chne; 04/21/2016 10:14:46 AM;Ordered; For:Abdominal pain, left lower quadrant; Ordered By:Jeanna Rubin; Abdominal pain, left lower quadrant, Left flank pain 8. Ciprofloxacin HCl - 500 MG Oral Tablet; Take 1 tablet twice daily Rx By: Jeanna Rubin; Dispense: 10 Days ; #:20 Tablet; Refill: 0; For: Abdominal pain, left lower quadrant, Left flank pain; CONCETTA = N; Verified Transmission to [facility]; Last Updated By:Sonny Zaidi; 04/21/2016 10:23:49 AM 9. MetroNIDAZOLE 500 MG Oral Tablet (Flagyl); Take 1 tablet twice daily Rx By: Jeanna Rubin; Dispense: 10 Days ; #:20 Tablet; Refill: 0; For: Abdominal pain, left lower quadrant, Left flank pain; CONCETTA = N; Verified Transmission to [facility] 10. Follow-up PRN Outpatient Follow-up Status: Complete Done: 21Apr2016 Ordered; For: Abdominal pain, left lower quadrant, Left flank pain; Ordered By: Jeanna Rubin Performed: Due: [id number] 11. Complete medication as prescribed.; Status:Complete; Done: 21Apr2016 Ordered; For:Abdominal pain, left lower quadrant, Left flank pain; Ordered By:Jeanna Rubin; 12. Drink plenty of fluids.; Status:Complete; Done: 21Apr2016 Ordered; For:Abdominal pain, left lower quadrant, Left flank pain; Ordered By:Jeanna Rubin; 13. Status:Complete; Done: 21Apr2016 Ordered; For:Abdominal pain, left lower quadrant, Left flank pain; Ordered By:Jeanna Rubin; 14. We suggest that you try a probiotic supplement.; Status:Complete; Done: 21Apr2016 10:41AM Ordered; For:Abdominal pain, left lower quadrant, Left flank pain; Ordered By:Jeanna Rubin; 15. Call if: The symptoms are not better in 4 days.; Status:Complete; Done: 21Apr2016 Ordered; For:Abdominal pain, left lower quadrant, Left flank pain; Ordered By:Jeanna Rubin; 16. Call if: You have questions or concerns about your problem.; Status:Complete; Done: 21Apr2016 Ordered; For:Abdominal pain, left lower quadrant, Left flank pain; Ordered By:Jeanna Rubin; 17. Seek Immediate Medical Attention if: The symptoms are suddenly worse.; Status:Complete; Done: 21Apr2016 Ordered; For:Abdominal pain, left lower quadrant, Left flank pain; Ordered By:Jeanna Rubin; Health Maintenance 18. Exercise daily and eat a diet low in salt, fats, and sweets.; Status:Complete; Done: 21Apr2016 Ordered; For:Health Maintenance; Ordered By:Jeanna Rubin; Discussion/Summary PHQ-9 Completed (Score 0). Signatures Electronically signed by : Jeanna Rubin, ; Apr 21 2016 10:41AM CLEANING PORTER (Author) documented in this encounter Plan of Treatment Not on file documented as of this encounter Procedures Procedure Name Priority Date/Time Associated Diagnosis Comments TSH W/REFLEX Routine 04/21/2016 11:37 AM CLEANING PORTER TESTOSTERONE, FREE & TOTAL Routine 04/21/2016 11:37 AM CLEANING PORTER COMPREHENSIVE METABOLIC PANEL Routine 04/21/2016 11:37 AM CLEANING PORTER LIPID PANEL Routine 04/21/2016 11:37 AM CLEANING PORTER CBC, MANUAL DIFF Routine 04/21/2016 11:3 7 AM CLEANING PORTER VITAMIN D, 25 OH Routine 04/21/2016 11:3 7 AM CLEANING PORTER URINALYSIS AUTO DIP Routine 04/21/2016 1 0:20 AM CLEANING PORTER documented in this encounter Results * (ABNORMAL) CBC, MANUAL DIFF (04/21/2016 11:37 AM CLEANING PORTER) WBC 4.2(L) 4.8 - 10.8 x10'3/uL [facility] TO EP[facility] CONVERSION RBC 5.04 4.70 - 6.10 x10'6/uL [facility] TO EPIC CONVERSION HGB 14.9 14.0 - 18.0 G/DL [facility] TO EPIC CONVERSION HCT 44.3 43.0 - 54.0 % [facility] TO EPIC CONVERSION MCV 87.9 80.0 - 94.0 FL [facility] TO EPIC CONVERSION MCH 29.6 27.0 - 31.0 PG [facility] TO EPIC CONVERSION MCHC 33.6 32.0 - 36.0 G/DL [facility] TO EPIC CONVERSION RDW 12.1 11.5 - 14.5 % [facility] TO [facility]IC CONVERSION PLT 217 130 - 400 x10'3/uL [facility] TO EP[facility] CONVERSION GLUCOSE 11.1 9.3 - 12.2 FL [facility] TO EPIC CONVERSION DIFFERENTIAL TYPE MANUAL ME [facility] TO EPIC CONVERSION SEG NEUTROPHILS 43 43.0 - 65.0 % [facility] TO EPIC CONVERSION BANDS 2 0.0 - 3.0 % [facility] TO EPIC CONVERSION LYMPHOCYTES 44 20.0 - 46.0 % [facility] TO EPIC CONVERSION MONOCYTES 10 5.0 - 12.0 % [facility] TO EPIC CONVERSION EOSINOPHILS 1 1.0 - 3.0 % [facility] TO EPIC CONVERSION 04/21/2016 11:3 7 AM CLEANING PORTER 04/21/2016 11:37 AM CLEANING PORTER Narrative [facility] TO EPIC CONVERSION - 04/21/2016 10:55 PM CLEANING PORTER Result Communication: No patient communication needed at this time Jeanna Berkowitzradhames [facility] Final Result [facility] TO EPIC CONVERSION * TESTOSTERONE, FREE & TOTAL (04/21/2016 11:37 AM CLEANING PORTER) TESTOSTERONE TOTAL 590 [facility] TO EPIC CONVERSION Comment: Result Comment: Reference range: 250 to 1100 Unit: ng/dL For more information on this test, go to http://education.Nanoogo/faq/ TotalTestosteroneLCMSMS TESTOSTERONE FREE 83.8 ME [facility] TO EPIC CONVERSION Comment: Result Comment: Reference range: 35.0 to 155.0 Unit: pg/mL Test Per[facility] by [facility], [address] [place] [address] Petre Silva M.D., Ph.D., Director of Laboratories , [facility] [id number] 04/21/2016 11:3 7 AM CLEANING PORTER 04/21/2016 11:37 AM CLEANING PORTER Narrative [facility] TO EPIC CONVERSION - 04/24/2016 3:55 PM CLEANING PORTER Result Communication: No patient communication needed at this time Jeanna Caryn [facility] Final Result Performing Organization Address [facility] Co de Phone Number [facility] TO EPIC CONVERSION * (ABNORMAL) LIPID PANEL (04/21/2016 11:37 AM CLEANING PORTER) CHOLESTEROL 194 <200 MG/DL [facility] TO EPIC CONVERSION Comment: Result Comment: NOTE: Acetaminophen, N Acetyl p benzoquinone imine (NAPQI), N acetylcysteine (NAC), Metamizole, 4 Aminoantipyrine (4 AAP) and 4 Methylamino antipyrine (4 MAP) at high concentrations can cause falsely low results on Lactate, Uric Acid, Cholesterol, Triglyceride, HDL, and Direct LDL. TRIGLYCERIDES 72 <150 MG/DL [facility] TO EPIC CONVERSION HDL 44(L) >59 MG/DL [facility] TO EPIC CONVERSION LDL (CALCULATED) 136(H) <100 MG/DL [facility] TO EPIC CONVERSION NON HDL CHOLESTEROL 150(H) <130 MG/DL [facility] TO EPIC CONVERSION Comment: Result Comment: NOTE: WHEN THE TRIGLYCERIDES ARE >200 mg/dL, NON HDL C IS A SECONDARY TARGET OF THERAPY, WITH A GOAL 30 mg/dL HIGHER THAN THE IDENTIFIED LDL C GOAL. CHOL/HDL RATIO 4.4 0.0 - 4.5 [facility] TO EPIC CONVERSION VLDL CHOLESTEROL (LMP) 14 5 - 55 MG/DL [facility] TO EPIC CONVERSION LIPID INTERPRETATION NIH CONCENSUS REPORT RECOMMENDATI ONS: ?ADULT ?CHILD ??LOW RISK: ?CHOLESTERO L ? <200 ? <170 ?TRIGLYCERI DE ?<150 ?--- ?HDL ? >=60 ?--- ?LDL ? <100 ? <110 ?BORDERLINE : ?CHOLESTERO L ? 200-239 ?? 170-199 ?TRIGLYCERI DE ?150-199 ? --- ?HDL ?40-59 ?--- ?LDL ? 100-159 ?? 110-129 ?HIGH RISK: ?CHOLESTERO L ? >=240 ?>=200 ?TRIGLYCERI DE ?>=200 ? --- ?HDL ?<40 ?--- ?LDL ? >=160 ?>=130 [facility] TO EPIC CONVERSION 04/21/2016 11:3 7 AM CLEANING PORTER 04/21/2016 11:37 AM CLEANING PORTER Narrative [facility] TO EPIC CONVERSION - 04/21/2016 8:37 PM CLEANING PORTER Result Communication: No patient communication needed at this time Jeanna Rubin [facility] Final Result [facility] TO EPIC CONVERSION * (ABNORMAL) COMPREHENSIVE METABOLIC PANEL (04/21/2016 11:37 AM CLEANING PORTER) SODIUM S/P/B 140 136 - 145 mmol/L [facility] TO EPIC CONVERSION POTASSIUM S/P/B 4.5 3.5 - 5.1 mmol/L [facility] TO EPIC CONVERSION CHLORIDE S/P/B 101 98 - 107 mmol/L [facility] TO EPIC CONVERSION CO2 28 22 - 29 mmol/L [facility] TO EPIC CONVERSION ANION GAP 16 8 - 20 [facility] T O EPIC CONVERSION BUN 12 8 - 23 mg/dL [facility] TO EPIC CONVERSION CREATININE S/P/B 0.94 0.70 - 1.20 mg/dL [facility] TO EPIC CONVERSION GFR ESTIMATE >60 >60 mL/min/1 .73m'2 [facility] TO EPIC CONVERSION EGFR AFR. AMER. >60 NOTE: eGFR is not calculated for patients <18 years of age. This is an estimated GFR (CKD EPI) and should not be used for calculating drug doses. >60 mL/min/1 .73m'2 [facility] TO EPIC CONVERSION GLUCOSE 91 70 - 99 mg/dL [facility] TO EPIC CONVERSION CALCIUM S/P/B 9.8 8.6 - 10.2 mg/dL [facility] TO EPIC CONVERSION BILIRUBIN TOTAL S/P/B 0.6 0.2 - 1.2 mg/dL [facility] TO EPIC CONVERSION AST 32 0 - 40 U/L [facility] TO EPIC CONVERSION ALT 48(H) 0 - 41 U/L [facility] TO EPIC CONVERSION ALKALINE PHOSPHATASE S/P/B 65 40 - 129 U/L [facility] TO EPIC CONVERSION TOTAL PROTEIN S/P/B 7.2 6.4 - 8.3 g/dL [facility] TO EPIC CONVERSION ALBUMIN S/P/B 4.9 3.5 - 5.2 g/dL [facility] TO EPIC CONVERSION GLOBULIN 2.3 2.3 - 3.6 g/dL [facility] TO EPIC CONVERSION A/G RATIO 2.1(H) 1.0 - 2.0 [facility] TO EPIC CONVERSION 04/21/2016 11:3 7 AM CLEANING PORTER 04/21/2016 11:37 AM CLEANING PORTER Narrative [facility] TO EPIC CONVERSION - 04/21/2016 8:37 PM CLEANING PORTER Result Communication: No patient communication needed at this time Jeanna Berkowitzradhames [facility] Final Result Performing Organization Address [facility]/ZIP Co de Phone Number [facility] TO EPIC CONVERSION * TSH W/REFLEX (SNS) (04/21/2016 11:37 AM CLEANING PORTER) TSH 1.93 0.27 - 4.20 mIU/mL [facility] TO EPIC CONVERSION Comment:Result Comment: FREE T4 NOT INDICATED 04/21/2016 11:3 7 AM CLEANING PORTER 04/21/2016 11:37 AM CLEANING PORTER Narrative [facility] TO EPIC CONVERSION - 04/21/2016 8:37 PM CLEANING PORTER Result Communication: No patient communication needed at this time [facility] Final Result [facility] TO EPIC CONVERSION * VITAMIN D, 25 OH (04/21/2016 11:37 AM CLEANING PORTER) VITAMIN D 25 HYDROXY S/P/B 42 30 - 100 NG/ML [facility] TO EPIC CONVERSION Comment: Result Comment: ?? SUPPLEMENTING WITH VITAMIN D2 MAY RESULT IN FALSELY LOW RESULTS, CLINICAL CORRELATION NEEDED. ? INTERPRETATION ? DEFICIENT ??<20 ?INSUFFICIENT 20-30 ?SUFFICIENT 30-100 POTENTIAL INTOXICATION ??>100 ? TESTING PERFORMED AT [facility] [address] [place] [address] 04/21/2016 11:3 7 AM CLEANING PORTER 04/21/2016 11:37 AM CLEANING PORTER Narrative [facility] TO EPIC CONVERSION - 04/22/2016 4:52 PM CLEANING PORTER Result Communication: No patient communication needed at this time Jeanna MARTINEZ [facility] Final Result [facility] TO EPIC CONVERSION * URINALYSIS AUTO DIP (04/21/2016 10:20 AM CLEANING PORTER) COLOR (U) Dark yellow [facility] TO EPIC CONVERSION TRANSPARENCY Slightly cloudy [facility] TO [facility]IC CONVERSION GLUCOSE Negative [facility] T O EPIC CONVERSION BILIRUBIN (U) Negative [facility] UP TO EPIC CONVERSION KETONE (U) Negative [facility] TO EPIC CONVERSION SPECIFIC GRAVITY (U) 1.020 [facility] TO EPIC CONVERSION BLOOD (U) Negative [facility] T O EPIC CONVERSION PH (U) 7.0 5.0 - 7.0 [facility] T O EPIC CONVERSION PROTEIN (ELP) (U) Negative [facility] TO EPIC CONVERSION UROBILINOGEN 0.2 E.U./dL [facility] OUP TO EPIC CONVERSION NITRITES neg [facility] T O EPIC CONVERSION LEUKOCYTES (U) Negative [facility] OUP TO EPIC CONVERSION 04/21/2016 10:2 0 AM CLEANING PORTER 04/21/2016 10:20 AM CLEANING PORTER Narrative [facility] TO EPIC CONVERSION - 04/21/2016 10:20 AM CLEANING PORTER Result Communication: No patient communication needed at this time Jeanna MARTINEZ URINE ORDERABLES Final Result Performing Organization Address City/[facility]/ZIP Co de Phone Number [facility] TO EPIC CONVERSION documented in this encounter Visit Diagnoses Not on filedocumented in this encounter Care Teams Pad Assembler Relationship Specialty Start Date End Date Jeanna Rubin FNP [address] [place] [address] PCP - General 09/24/16 Jeanna Rubin FNP [address] [place] [address] PCP - General 09/16/16 09/23/16 Jeanna Rubin FNP [address] [place] [address] PCP - General 04/21/16 09/15/16 documented as of this encounter
--- OUTSIDE RECORDS SUMMARY | 2024-06-08 15:06 | XMS_ITS | Clinical Summary ---
Author Organization [facility] Address [address] [place] [address] Care Team Providers Care Hatchery Manager Name Role Phone Jeanna Rubin NP Primary Care Provider [phone] Allergies Active Allergy Reactions Criticality Noted Date Comments Ketorolac Tromethamine Vomiting Low 04/21/2016 Medications UNABLE TO FIND PT STATES THAT HE TAKES NO MEDS CURRENTLY Active Active Problems No known active problems Family History Medical History Relation Name Comments No Known Problems Father No Known Problems Mother Relation Name Status Comments Father Mother Social History Tobacco Use Types Packs/Day Years Used Date Smoking Tobacco: Former Personal Safety Answer Date Recorded Getting School Help Needed Not on file 08/14 Sex and Gender Information Value Date Recorded Sex Assigned at Not on file Legal Sex Male 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 Gender Identity Not on file Sexual Orientation Not on file Obstetrics History Last Filed Vital Signs Vital Sign Reading Time Taken Comments Blood Pressure 130/86 01/18/2021 11:31 AM CDT Pulse 77 01/18/2021 11:31 AM CDT Temperature 36.8 ??C (98.2 ??F) 01/18/2021 1 1:31 AM CDT Respiratory Rate - - Oxygen Saturation 95% 09/14/2016 4:09 PM CDT Inhaled Oxygen Concentration - - Weight 116.9 kg (257 lb 12.8 oz) 2020 11:31 AM CDT Height 185.4 cm (6' 1 ) 01/18/2021 11:3 1 AM CDT Body Mass Index 34.01 01/18/2021 11:31 AM CDT Plan of Treatment Not on file Insurance ANTHEM TRADITIONAL ANTHEM PREFERRED Care Teams Hatchery Manager Relationship Specialty Start Date End Date Jeanna Rubin NP [address] [place] [id number] PCP - General Nurse Practitioner 11/13/20
--- OUTSIDE RECORDS SUMMARY | 2024-06-08 15:06 | XMS_ITS | Encounter Summary ---
Author Organization [facility] Address [address] [place] [address] Phone Care Team Providers Care Game Warden Name Role Phone Jeanna Rubin NP Primary Care Provider [phone] Encounter Details Date Type Department Care Team (Late st Contact Info) Description 01/08/[address] [facility] Surgery [facility] 8th [place] [address] [place] [phone] Hannah Yoder CPhT Social History Tobacco Use Types Packs/Day Years Used Date Smoking Tobacco: Never Assessed Sex and Gender Information Value Date Recorded Sex Assigned at Not on file Legal Sex Male 3:35 PM EXTERMINATOR HELPER Gender Identity Not on file Sexual Orientation Not on file documented as of this encounter Miscellaneous Notes * Telephone Encounter - Hannah Yoder CPhT - 01/08/2021 10:54 AM CDT Called patient and left message to call the office to give the location of the CT scan that was to be done in October 2020. documented in this encounter Plan of Treatment Not on file documented as of this encounter Visit Diagnoses Not on filedocumented in this encounter Care Teams Game Warden Relationship Specialty Start Date End Date Jeanna Rubin NP [address] [place] [address] PCP - General Nurse Practitioner 11/13/20 documented as of this encounter
--- OUTSIDE RECORDS SUMMARY | 2024-06-08 15:06 | XMS_ITS | Encounter Summary ---
Author Organization [facility] Address [address] [place] [address] Phone Care Team Providers Care Electric Motor Tester Assembler Name Role Phone eJanna Rubin NP Primary Care Provider Encounter Details Date Type Department Care Team (Late st Contact Info) Description 01/10/2021 Telephone [facility] Surgery [address] [facility] 8th [place] [address] [place] [phone] Hannah Yoder CPhT Social History Tobacco Use Types Packs/Day Years Used Date Smoking Tobacco: Never Assessed Sex and Gender Information Value Date Recorded Sex Assigned at Not on file Legal Sex Male 3:35 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 documented in this encounter Plan of Treatment Not on file documented as of this encounter Visit Diagnoses Not on filedocumented in this encounter Care Teams Electric Motor Tester Assembler Relationship Specialty Start Date End Date Jeanna Rubin NP [facility] [place] [address] PCP - General Nurse Practitioner 11/13/20 documented as of this encounter
--- OUTSIDE RECORDS SUMMARY | 2024-06-08 15:06 | XMS_ITS | Encounter Summary ---
Author Organization [facility] Healthcare Address [address] [place] [address] Care Team Providers Care Mechanical Engineer Name Role Phone Unavailable Primary Care Provider Unavailabl e Encounter Details Date Type Department Care Team (Latest Contact Info) Description 09/14/2016 3:59 PM CDT - 09/14/2016 8:45 PM CDT Hospital Encounter [facility] Jorden Umanzro II, MD [address] [place] [address] Lobar pneumonia (CMS/HCC) Social History Tobacco Use Types Packs/Day Years Used Date Smoking Tobacco: Never Assessed Sex and Gender Information Value Date Recorded Sex Assigned at Not on file 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 Gender Identity Not on file Sexual Orientation Not on file documented as of this encounter Last Filed Vital Signs Vital Sign Reading Time Taken Comments Blood Pressure 130/74 09/14/2016 4:09 PM CDT Pulse 76 09/14/2016 4:09 PM CDT Temperature 39 ??C (102.2 ??F) 09/14/2016 4:09 PM CDT Respiratory Rate - - Oxygen Saturation 95% 09/14/2016 4:09 PM CDT Inhaled Oxygen Concentration - - Weight 105.6 kg (232 lb 12.9 oz) 09/14/2016 4:09 PM CDT Height 185.4 cm (6' 1 ) 09/14/2016 4:09 PM CDT Body Mass Index 30.72 09/14/2016 4:09 PM CDT documented in this encounter Plan of Treatment Not on file documented as of this encounter Procedures Procedure Name Priority Date/Time Associated Diagnosis Comments MICROBIOLOGY SPECIMEN REPORT (CONVERTED) Routine 09/14/2016 7:28 PM CDT MICROBIOLOGY SPECIMEN REPORT (CONVERTED) Routine 09/14/2016 6:50 PM CDT LACTATE Routine 09/14/2016 6:50 PM CDT CBC WITH AUTO DIFFERENTIAL Routine 09/14/2016 6:50 PM CDT COMPREHENSIVE METABOLIC PANEL Routine 09/14/2016 6:50 PM CDT MICROBIOLOGY SPECIMEN REPORT (CONVERTED) Routine 09/14/2016 4:30 PM CDT STREP A DNA, QUANTITATIVE Routine 09/14/2016 4:30 PM CDT INFLUENZA A/B ANTIGENS, RAPID Routine 09/14/2016 4:30 PM CDT XR CHEST 1 VIEW Routine 09/14/2016 12:00 AM CDT documented in this encounter Results * Microbiology Specimen Report (Converted) (09/14/2016 7:28 PM CDT) 09/14/2016 7:28 PM CDT 09/14/2016 7:44 PM CDT [facility] HISTORICAL RESULTS - 09/14/2016 7:28 PM CDT Microbiology Specimen Report (Converted) SPECIMEN [id number] ?? COLLECTED: 2016-09-14 19:28:00 [id number] ?? REQ#: [id number] REQUESTING DR: Jorden Umanzor MD ?? SOURCE: BLOOD ?? SP DESC: COMMENT: LAC BC Draw ?? --- PROCEDURE --- ?--- RESULT --- ?? CULTURE BLOOD ADULT (SET OF 2) ??(Final) ??- ??Performed at [facility] ?* NO GROWTH DAY 5 - [facility] ? [address] ? [place] [address] ? Austin Garner MD Procedure Note 08/21/2018 Microbiology Specimen Report (Converted) SPECIMEN [id number] COLLECTED: 2016-09-14 19:28:00 [id number] REQ#:[id number] REQUESTING DR: Jorden Umanzor MD SOURCE: BLOOD SP DESC: COMMENT: LAC BC Draw --- PROCEDURE --- --- RESULT --- CULTURE BLOOD ADULT (SET OF 2) (Final) - Performed at [facility] * NO GROWTH DAY 5 - [facility] [address] [place] [address] Austin Garner MD us Jorden Umanzor II, MD LAB BLOOD ORDERABLES Bria l Result [facility] HISTORICAL RESULTS * Microbiology Specimen Report (Converted) (09/14/2016 6:50 PM CDT) 09/14/2016 6:50 PM CDT 09/14/2016 6:58 PM CDT Narrative [facility] HISTORICAL RESULTS - 09/14/2016 6:50 PM CDT Microbiology Specimen Report (Converted) SPECIMEN [id number] ?? COLLECTED: 2016-09-14 18:50:00 RN ?? REQ#: [id number] REQUESTING DR: Jorden Umanzor MD ?? SOURCE: BLOOD ?? SP DESC: --- PROCEDURE --- ?--- RESULT --- ?? CULTURE BLOOD ADULT (SET OF 2) ??(Final) ??- ??Performed at [facility] ?* NO GROWTH DAY 5 - [facility] ? [address] [facility] ? [place] [address] ? Austin Garner MD Procedure Note 08/21/2018 Microbiology Specimen Report (Converted) SPECIMEN [id number] COLLECTED: 2016-09-14 18:50:00 RN REQ#:[id number] REQUESTING DR: Jorden Umanzor MD SOURCE: BLOOD SP DESC: --- PROCEDURE --- --- RESULT --- CULTURE BLOOD ADULT (SET OF 2) (Final) - Performed at [facility] * NO GROWTH DAY 5 - [address] [address] Austin Garner MD us Jorden Umanzor II, MD LAB BLOOD ORDERABLES Bria l Result [facility] [place] HISTORICAL RESULTS * Lactate (09/14/2016 6:50 PM CDT) [facility] L-Lactate 0.8 mmol/L 09/14/2016 7:18 PM CDT [facility] [place] HISTORICAL RESULTS Comment:Lactate Reference Ra nge: 0.5 - 2.2 mmol/L 09/14/2016 6:50 PM CDT 09/14/2016 6:58 PM CDT us Jorden Umanzor II, MD LAB BLOOD ORDERABLES Bria l Result Performing Organization Address [facility]/ZIP Co de Phone Number [facility] [place] HISTORICAL RESULTS * (ABNORMAL) Comprehensive metabolic panel (09/14/2016 6:50 PM CDT) [facility] Sodium 135 135 - 145 mmol/L 09/14/2016 8:17 PM T [facility] [place] HISTORICAL RESULTS Potassium 3.8 3.3 - 5.1 mmol/L 09/14/2016 8:17 PM T [facility] [place] HISTORICAL RESULTS Chloride 94(L) 96 - 108 mmol/L 09/14/2016 8:17 PM T [facility] [place] HISTORICAL RESULTS Carbon Dioxide 26 22 - 32 mmol/L 09/14/2016 8:17 PM T [facility] [place] HISTORICAL RESULTS Anion Gap 15 7 - 16 09/14/2016 8:17 PM T [facility] [place] HISTORICAL RESULTS Glucose 112(H) 70 - 100 mg/dL 09/14/2016 8:17 PM T [facility] [place] HISTORICAL RESULTS BUN 14 6 - 20 mg/dL 09/14/2016 8:17 PM T [facility] [place] HISTORICAL RESULTS Creatinine 1.0 0.5 - 1.3 mg/dL Comment: NOTE: Estimated GFR (Cockroft-Gault) will NOT be calculated unless patient Height and Weight were entered. Also, Kidney Disease Stage (GFR) and Estimated GFR (Cockroft-Gault) will NOT be calculated if Creatinine result is <0.2. Kidney Disease Stage 90 mL/MIN Comment: NOTE; ??The GFR is an estimated value using the creatinine, sex, age, and race of the patient. THE Estimated Kidney Disease GFR is validated for AGES 18-70 YEARS STAGE ?mL/Min ?DESCRIPTION ??1 ?90 mL/min or more ?Normal or elevated GFR ??2 ? 60-89 mL/min ?Mildly decreased GFR ??3 ? 30-59 mL/min ?Moderately decreased GFR ??4 ? 15-29 mL/min ?Severely decreased GFR ??5 ? <15 mL/min ? Kidney failure or on dialysis @ Est GFR (Cockcroft-G) 130 ml/MIN Comment: Estimated GFR(Cockroft-Gault)is used to calculate patient medication dosage Calcium 9.3 8.6 - 10.0 mg/dL Total Protein 7.6 6.4 - 8.3 g/dL Albumin 4.2 3.5 - 5.2 g/dL Globulin 3.4 2.3 - 3.5 gm/dL 09/14/2016 8:17 PM CDT [facility] [place] HISTORICAL RESULTS Albumin/Globulin Ratio 1.2 1.1 - 1.8 09/14/2016 8:17 PM CDT [facility] [place] HISTORICAL RESULTS Total Bilirubin 0.9 0.0 - 1.2 mg/dL 09/14/2016 8:17 PM CDT [facility] [place] HISTORICAL RESULTS AST 44(H) 0 - 40 U/L 09/14/2016 8:17 PM CDT [facility] [place] HISTORICAL RESULTS ALT 45(H) 0 - 41 U/L 09/14/2016 8:17 PM CDT [facility] [place] HISTORICAL RESULTS Alkaline Phosphatase 71 40 - 129 U/L 09/14/2016 8:17 PM CDT [facility] HISTORICAL RESULTS 09/14/2016 6:50 PM CDT 09/14/2016 6:58 PM CDT us Jorden Umanzor II, MD LAB BLOOD ORDERABLES Bria l Result [facility] [place] HISTORICAL RESULTS * CBC with auto differential (09/14/2016 6:50 PM CDT) WBC 8.7 4.6 - 10.2 x10 3/ul 09/14/2016 7:04 PM T [facility] [place] HISTORICAL RESULTS RBC 5.05 4.11 - 5.71 x10 6/ul 09/14/2016 7:04 PM T [facility] [place] HISTORICAL RESULTS Hemoglobin 15.0 13.0 - 17.0 g/dl 09/14/2016 7:04 PM T [facility] [place] HISTORICAL RESULTS Hct 42.4 38.2 - 48.5 % 09/14/2016 7:04 PM T [facility] [place] HISTORICAL RESULTS MCV 84.0 80.0 - 97.0 fl 09/14/2016 7:04 PM T [facility] [place] HISTORICAL RESULTS MCH 29.7 27.0 - 31.2 pg 09/14/2016 7:04 PM T [facility] [place] HISTORICAL RESULTS MCHC 35.4 31.8 - 35.4 g/dl 09/14/2016 7:04 PM T [facility] [place] HISTORICAL RESULTS RDW 12.0 11.6 - 14.8 % Plt Count 164 124 - 400 x10 3/ul MPV 9.6 7.4 - 10.4 fl Neut % 82.9 37.0 - 85.0 % Immature Gran % 0.5 0.0 - 3.0 % Lymph % 7.7 5.0 - 45.0 % Greene % 8.6 3.0 - 15.0 % Eos % 0.0 0.0 - 7.0 % Baso % 0.3 0.0 - 2.0 % Absolute Neuts (auto) 7.2 1.7 - 8.7 x10 3/ul Immature Gran # 0.0 0.0 - 0.3 x10 3/ul Absolute Lymphs (auto) 0.7 0.2 - 4.6 x10 3/ul Absolute Monos (auto) 0.8 0.1 - 1.5 x10 3/ul Absolute Eos (auto) 0.0 0.0 - 0.7 x10 3/ul Absolute Basos (auto) 0.0 0.0 - 0.2 x10 3/ul 09/14/2016 6:50 PM CDT 09/14/2016 6:58 PM CDT us Jorden Umanzor II, MD LAB BLOOD ORDERABLES Bria l Result Performing Organization Address City/[facility]/ZIP Co de Phone Number [facility] [place] HISTORICAL RESULTS * Microbiology Specimen Report (Converted) (09/14/2016 4:30 PM CDT) 09/14/2016 4:30 PM CDT 09/14/2016 4:41 PM CDT Narrative [facility] HISTORICAL RESULTS - 09/14/2016 4:30 PM CDT Microbiology Specimen Report (Converted) SPECIMEN 17:[id number] ?? COLLECTED: 2016-09-14 16:30:00 ARC ?? REQ#: [id number] REQUESTING DR: Jacy Smith ?? SOURCE: THROAT ?? SP DESC: SWAB --- PROCEDURE --- ?--- RESULT --- ?? CULTURE THROAT: BETA STREP A ??(Final) ??- ??Performed at [facility] ?* NO PATHOGENIC STREPTOCOCCI ISOLATED. - [facility] ? [address] [place] [address] ? [place] [address] ? Austin Garner MD Procedure Note 08/21/2018 Microbiology Specimen Report (Converted) SPECIMEN [id number] COLLECTED: 2016-09-14 16:30:00 ARC REQ#:[id number] REQUESTING DR: Jacy Smith SOURCE: THROAT SP DESC: SWAB --- PROCEDURE --- --- RESULT --- CULTURE THROAT: BETA STREP A (Final) - Performed at [facility] * NO PATHOGENIC STREPTOCOCCI ISOLATED. - [address] [address] Austin Garner MD us Jacy Smith NP LAB BLOOD ORDERABLES Final Result Performing Organization Address [facility]/ZIP Co de Phone Number [facility] [place] HISTORICAL RESULTS * Influenza A/B antigens, rapid (09/14/2016 4:30 PM CDT) [facility] Influenza A Ag NEGATIVE NEGATIVE 09/14/2016 5:03 PM CDT [facility] [place] HISTORICAL RESULTS Influenza B Ag NEGATIVE NEGATIVE 09/14/2016 5:03 PM CDT [facility] [place] HISTORICAL RESULTS Comment: A NEGATIVE RESULT DOES NOT ELIMINATE THE POSSIBILITY OF AN ?? INFLUENZA A OR B INFECTION. ??INADEQUATE SPECIMEN COLLECTION ?? OR IMPROPER SAMPLE HANDLING/TRANSPORT, OR LOW LEVELS OF ?? VIRAL SHEDDING MAY YIELD A FALSE NEGATIVE RESULT. 09/14/2016 4:30 PM CDT 09/14/2016 4:41 PM CDT [facility] HISTORICAL RESULTS - 09/14/2016 5:03 PM CDT Collected By arc us Jacy Smith FEED MIXER HELPER LAB MICROBIOLOGY - GENERAL ORDERABLES Final Result Performing Organization Address [facility] de Phone Number [facility] HISTORICAL RESULTS * Strep A DNA, quantitative (09/14/2016 4:30 PM CDT) [facility] Rapid Strep A NEGATIVE NEGATIVE 09/14/2016 6:58 PM CDT [facility] HISTORICAL RESULTS Comment:CULTURE ADDED RESULT S TO FOLLOW. 09/14/2016 4:30 PM CDT 09/14/2016 4:41 PM CDT [facility] HISTORICAL RESULTS - 09/14/2016 6:58 PM CDT Collected By arc us Jacy Smith FEED MIXER HELPER LAB BODY FLUIDS AND STOOLS ORDERABLES Final Result Performing Organization Address [facility] de Phone Number [facility] HISTORICAL RESULTS * XR Chest 1 View (09/14/2016 12:00 AM CDT) Anatomical Region Laterality Modality Body, Chest N/A Radiographic Fern ging 09/14/2016 Impressions 09/14/2016 6:12 PM CDT ?? 1. ??Right basilar airspace disease which in the acute setting may represent pneumonia. ??Follow up to resolution is recommended. THIS IS AN ELECTRONICALLY VERIFIED REPORT 09/14/2016 6:09 PM: ??Rashaad Settler, D.O. ?? Rashaad Arce D.O. :as 06:09 PM 06:09 PM BM [EOD] Narrative 09/14/2016 6:12 PM CDT EXAMINATION: ??Portable chest HISTORY: ??Cough, fatigue and weakness since Thursday. TECHNIQUE: ??N/A COMPARISON: ??None. FINDINGS: There is right infrahilar airspace disease which does not obliterate either the diaphragmatic margin or right heart border. In the acute setting, this could represent pneumonia. ??Follow up to resolution is recommended. ?? Would also recommend next follow-up be performed utilizing PA and lateral chest.. If this does not adequately resolve, follow-up with chest CT is suggested. Heart size is normal. ??There is no pulmonary vascularity congestion. ??No pleural effusion or pneumothorax. ??Bony thorax is unremarkable. Procedure Note Provider, MD Garo - 10/16/2020 EXAMINATION: Portable chest HISTORY: Cough, fatigue and weakness since Thursday. TECHNIQUE: N/A COMPARISON: None. FINDINGS: There is right infrahilar airspace disease which does notobliterate either the diaphragmatic margin or right heart border. In the acutesetting, this could represent pneumonia. Follow up to resolution is recommended. Would also recommend next follow-up be performed utilizing PA and lateral chest.. If this does not adequately resolve, follow-up with chest CT issuggested. Heart size is normal. There is no pulmonary vascularity congestion. No pleural effusion or pneumothorax. Bony thorax is unremarkable. IMPRESSION: 1. Right basilar airspace disease which in the acute setting mayrepresent pneumonia. Follow up to resolution is recommended. THIS IS AN ELECTRONICALLY VERIFIED REPORT 09/14/2016 6:09 PM: Rashaad Arce D.O. Rashaad Arce D.O. :as 06:09 PM 06:09 PM [facility] [EOD] Jorden Umanzor II, MD IMG XR PROCEDURES Final R esult documented in this encounter Visit Diagnoses Diagnosis Lobar pneumonia (CMS/HCC) (HCC) Pneumococcal pneumonia (streptococcus pneumoniae pneumonia) documented in this encounter
--- OUTSIDE RECORDS SUMMARY | 2024-06-08 15:06 | XMS_ITS | Encounter Summary ---
Author Organization [facility] Healthcare Address [address] [place] [address] Care Team Providers Care Cloth Doffer Name Role Phone Jeanna Rubin NP Primary Care Provider [phone] Encounter Details Date Type Department Care Team (Latest Contact Info) Description 01/15/2021 4:00 PM CDT - 01/15/2021 11:59 PM CDT Hospital Encounter [facility] [address] [place] [address] Discharge Disposition: Discharge to home or self care Social History Tobacco Use Types Packs/Day Years Used Date Smoking Tobacco: Never Assessed Sex and Gender Information Value Date Recorded Sex Assigned at Not on file 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 Gender Identity Not on file Sexual Orientation Not on file documented as of this encounter Discharge Disposition Disposition Code Departure Means Destination Discharge to home or self care documented in this encounter Plan of Treatment Not on file documented as of this encounter Procedures Procedure Name Priority Date/Time Associated Diagnosis Comments CT BODY OUTSIDE REFERENCE Routine 01/15/2021 4:00 PM CDT Diagnosis unknown documented in this encounter Results * CT Body Outside Reference (01/15/2021 4:00 PM CDT) Impressions [facility]_PACS_[facility] - 01/15/2021 4:00 PM CDT These images are for Reference purposes only and have not been reviewed by [facility]. ??There will be no report generated by a [facility] Radiologist. Narrative RAD_PACS_[facility] - 01/15/2021 4:00 PM CDT EXAMINATION: ??Images For Reference Purposes Only us Victoriano Saunders MD IMG CT PROCEDURES Final Result [facility] documented in this encounter Visit Diagnoses Not on filedocumented in this encounter Care Teams Cloth Doffer Relationship Specialty Start Date End Date Jeanna Rubin NP [address] [place] [id number] PCP - General Nurse Practitioner 11/13/20 documented as of this encounter
--- OUTSIDE RECORDS SUMMARY | 2024-06-08 15:06 | XMS_ITS | Encounter Summary ---
Author Organization [facility] Healthcare Address [address] [place] [address] Care Team Providers Care Simplex Printer Installer Name Role Phone Unavailable Primary Care Provider Unavailabl e Encounter Details Date Type Department Care Team (Late st Contact Info) Description 10/14/2008 8:19 PM CDT - 10/14/2008 11:05 PM CDT Hospital Encounter [facility] Xavi Grace Jr., MD [address] [facility] [address] [place] [address] Open wound of lip; Striking against or struck accidentally by objects or persons in sports without subsequent fall; Place of occurrence, place for recreation and sport Social History Tobacco Use Types Packs/Day Years Used Date Smoking Tobacco: Never Assessed Sex and Gender Information Value Date Recorded Sex Assigned at Not on file 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
--- OUTSIDE RECORDS SUMMARY | 2024-06-08 15:06 | XMS_ITS | Encounter Summary ---
Author Organization [facility] Address [address] [place] [address] Phone Care Team Providers Care Child Welfare Consultant Name Role Phone Unavailable Primary Care Provider Unavailabl e Encounter Details Date Type Department Care Team (Late st Contact Info) Description 11/09/2020 Telephone [facility] Surgery On license of [facility] 8th [place] [address] [place] [address] Hannah Yoder CPhT Social History Tobacco Use Types Packs/Day Years Used Date Smoking Tobacco: Never Assessed Sex and Gender Information Value Date Recorded Sex Assigned at Not on file 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 Saunders. documented in this encounter Plan of Treatment Not on file documented as of this encounter Visit Diagnoses Not on filedocumented in this encounter
--- OUTSIDE RECORDS SUMMARY | 2024-06-08 15:06 | XMS_ITS | Referral Summary ---
Author Organization [facility] Address [address] [place] [address] Care Team Providers Care Cardiac Exercise Specialist Name Role Phone Jeanna Rubin NP Primary Care Provider [phone] Allergies Active Allergy Reactions Criticality Noted Date Comments Ketorolac Tromethamine Vomiting Low 04/21/2016 Medications UNABLE TO FIND PT STATES THAT HE TAKES NO MEDS CURRENTLY Active Active Problems No known active problems Social History Tobacco Use Types Packs/Day Years Used Date Smoking Tobacco: Former Personal Safety Answer Date Recorded Getting School Help Needed Not on file 08/14 Sex and Gender Information Value Date Recorded Sex Assigned at Not on file 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
--- OUTSIDE RECORDS SUMMARY | 2024-06-08 15:06 | XMS_ITS | Encounter Summary ---
Author Organization [facility] Healthcare Address [address] [place] [address] Care Team Providers Care Commutator Assembler Name Role Phone Unavailable Primary Care Provider Unavailabl e Encounter Details Date Type Department Care Team (Late st Contact Info) Description 06/25/2006 10:14 AM REHABILITATION CONSULTANT - 06/28/2006 5:00 PM REHABILITATION CONSULTANT Hospital Encounter [facility] El[facility] Ruiz Jr., MD [address] [facility] [address] [address] Social History Tobacco Use Types Packs/Day Years Used Date Smoking Tobacco: Never Assessed Sex and Gender Information Value Date Recorded Sex Assigned at Not on file 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
--- OUTSIDE RECORDS SUMMARY | 2024-06-08 15:06 | XMS_ITS | Continuity of Care Document ---
Author Organization [facility] Address [address] [place] [address] Phone Care Team Providers Care Composition Teacher Name Role Phone Hanh Duke MD Unavailable Unavailable Advance Directives Directive Yes / No Effective Date File Name No Information Encounters Encounter Description Practice Location Reason(s) For Visit Diagnoses Date Provider Providers Copied on Encounter [facility], [address], [place], [place], [id number], tel:[phone] [facility] No Information Nov-0 5-200 6 [address], [address], [place], [place], [id number] , [place]. tel: [phone] [facility], [address], [place], [place], [address], tel:[phone] [facility] ROUTINE MEDICAL EXAMCOMMUNIC DIS CONTACT NOS Carlos-3 0-200 6 Srik[address], [address], [place], [place], [id number] , . tel: [phone] [facility], [address], [place], [place], [address], tel:[phone] [facility] BACKACHE NOSESOPHAGEAL REFLUX Aug-0 2-200 5 Srik[address], [address], [place], [place], [id number] , [place]. tel: [phone] [facility], [address], [place], [place], [address], tel:[phone] [facility] OTALGIA NOSIMPACTED CERUMENSWELLING IN HEAD & NECK Mar-1 0-200 5 Srik[address], [address], [place], [place], [id number] , [place]. tel: [phone] Family History Family Member Type Diagnosis Age At Onset No Information Payers Payer name Insurance type Covered democrat ID Authoriza tion(s) No Information Social History Type Description Quantity Date Captured Comments Sex Male Smoking Status No Information Chief Complaint And Reason For Visit No Information Reason For Referral Reason For Referral No Information History Of Present Illness Encounter Date Complaint History Of Prese nt Illness No Information Functional Status Date Functional Assessmen t No Information Instructions Date Instruction Additional Infor mation No Information Assessments Type Assessment Date No Information Patient Care Teams Name Effective Dates (start - stop) Status Members No Information
--- OUTSIDE RECORDS SUMMARY | 2024-06-08 15:06 | XMS_ITS | Encounter Summary ---
Author Organization [facility] Address [address] [place] [address] Phone Care Team Providers Care Stemmer Machine Name Role Phone Jeanna Rubin NP Primary Care Provider [phone] Reason for Visit * Consultation (Routine) - Closed Specialty Diagnoses / Procedures Referred By Ankur t Referred To Contact Minimally Invasive Surgery Diagnoses Inguinal pain, unspecified laterality Jeanna Rubin, AUTHORIZATION MANAGER [address] [place] [address] Phone: tel: fax: [facility] (All Locations) Referral ID Status Reason Start Date Expiration Date V isits Requested Visits Authorized [id number] Closed Specialty Services Required 11/13/2020 12/13/2021 1 Encounter Details Date Type Department Care Team (Late st Contact Info) Description 01/18/2021 11:00 AM CDT Office Visit [facility] Surgery [address] 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 Gender Identity Not on file Sexual Orientation Not on file documented as of this encounter Last Filed Vital Signs Vital Sign Reading Time Taken Comments Blood Pressure 130/86 01/18/2021 11:31 AM CDT Pulse 77 01/18/2021 11:31 AM CDT Temperature 36.8 ??C (98.2 ??F) 01/18/2021 1 1:31 AM CDT Respiratory Rate - - Oxygen Saturation - - Inhaled Oxygen Concentration - - Weight 116.9 kg (257 lb 12.8 oz) 2020 11:31 AM CDT Height 185.4 cm (6' 1 ) 01/18/2021 11:3 1 AM CDT Body Mass Index 34.01 01/18/2021 11:31 AM CDT documented in this encounter Progress Notes * Victoriano Saunders MD - 01/18/2021 11:00 AM CDT Images from the original note were not included. [facility] Minimally Invasive Surgery New Patient Inguinal Hernia Evaluation Ameya Santacruz [id number] REFERRING PHYSICIAN: Jeanna Rubin NP PCP: Jeanna Rubin NP Reason for Visit: Consult requested by Jeanna Rubin NP for evaluation of bilateral groin pain s/p lap inguinal hernia repair HPI: Ameya Santacruz is a 40 y.o. male with a complaint of bilateral groin pain following bilateralTEP inguinal hernia repairs. He has had symptoms of pain and discomfort for 18 months. In brief, the patient reports ungoing initial hernia repair for groin pain with faint bulge. His immediate postop course was notable for resolution of his pain for several months. However, as soon as her returned to full work 2 months after surgery, he noted onset of severe, L worse than R sharp groin pain. He eventually underwent L open triple neurectomy, which did not resolve his symptoms. He then underwentrepeat open, bilateral neurectomy 07/2020 which, again, did not resolve his symptoms. At that point,he arranged a visit with us to further evaluate his severe pain. However, today he reports that his groin pain has markedly improved over the past month. While he still has rare shooting pain, it is momentary and no longer activity limiting. His only major residual symptom is a pulling sensation in his left groin. He has returned to work, though is no longer doing heavy lifting as he used to. Review of Symptoms: A comprehensive review of systems was completed by the patient and reviewed, signed and dated in [facility]. Physical Exam: Vitals BP 130/86 Pulse 77 Temp 36.8 ??C (98.2 ??F) Ht 185.4 cm (6' 1 ) Wt 116.9 kg (257 lb 12.8 oz) BMI 34.01 kg/m?? Body mass index is 34.01 kg/m??. Physical Exam General appearance: appears stated age, cooperative and no distress Head: Normocephalic, without obvious abnormality, atraumatic Eyes: conjunctivae/corneas clear. PERRL, EOMs intact, anicteric Nose: Nares normal. Septum midline. Mucosa normal. No drainage or sinus tenderness. Throat: lips, mucosa, and tongue normal; teeth and gums normal Neck: supple, symmetrical, trachea midline Lungs: Non-labored breathing. Equal excursion bilaterally. Chest wall: no tenderness Heart: regular rate and rhythm Abdomen: soft, non-tender, non-distended. He has well-healed bilateral groin incisions without inguinal hernias on either side. Extremities: extremities normal, warm and well-perfused Skin: Skin color, texture, turgor normal. No rashes or lesions Neurological: alert and oriented x3. No focal motor or sensory deficits Psychiatric: appropriate affect and mood Diagnostic studies reviewed include: I personally reviewed his most recent CT pelvis, which shows no recurrent inguinal hernias. Assessment/Plan: 40 y.o. male presenting for evaluation of bilateral groin pain. His symptoms have improved markedlyin the past month. I advised him to continue stretching his groins and working through the pullingsensation. As he does not have a clinical or radiographic evidence of recurrence and his symptoms are improving, I recommend no intervention at this time. The patient is in agreement and will followup with me as needed. Will Muriel hebert TEACHING ATTESTATION I have seen and examined the patient along with the resident and agree with their note and plan as documented above. Briefly, patient is a 40 y.o. male presenting for evaluation of bilateral groin pain after inguinalhernia repair. He does report at this time that his pain is made significant improvements over the last couple months. He reports less symptoms and is able to the slowly start resuming his activities. At this point time I would not recommend any surgical intervention. He is okay to increase his physical activity as tolerated. Has no evidence of hernia recurrence on physical exam or imaging. He can follow up with me as needed. Victoriano Saunders MD Minimally Invasive GI Surgery & Abdominal Wall Reconstruction clinical pharmacy coordinator [facility] [phone] documented in this encounter Plan of Treatment Not on file documented as of this encounter Visit Diagnoses Diagnosis Inguinal pain, unspecified laterality documented in this encounter Historical Medications * This list may reflect changes made after this encounter. UNABLE TO FIND PT STATES THAT HE TAKES NO MEDS CURRENTLY added in this encounter Orders Outpatient Referral Count Last Ordered Date Fir st Ordered Date AMB REFERRAL TO MINIMALLY INVASIVE SURGERY 1 01/18/2021 documented in this encounter Care Teams Stemmer Machine Relationship Specialty Start Date End Date Jeanna Rubin NP [address] [place] [address] PCP - General Nurse Practitioner 11/13/20 documented as of this encounter
--- OUTSIDE RECORDS SUMMARY | 2024-06-08 15:06 | XMS_ITS | Clinical Summary ---
Author Organization [facility] Address [address] [place] [address] Phone Care Team Providers Care Decontamination Worker Name Role Phone Unavailable Primary Care Provider Unavailabl e Social History Tobacco Use Types Packs/Day Years Used Date Smoking Tobacco: Never Assessed Sex and Gender Information Value Date Recorded Sex Assigned at Not on file Gender Identity Not on file Sexual Orientation Not on file Plan of Treatment Upcoming Encounters Date Type Department Care Team (Late st Contact Info) Description 06/13/2024 11:45 AM REGISTERED DIETICIAN Appointment [facility] [address] [facility] [address] [place] [address] Kraig Baugh MD [address] [facility] [address] [place] [address] Health Maintenance Due Date Last Done Comments DTAP/TDAP/TD VACCINES (1 - Tdap) 1999 HEPATITIS B VACCINES (1 of 3 - 19+ 3-dose series) 1999 INFLUENZA VACCINE (#1) 2023 HPV VACCINES Aged Out No longer eligi ble based on patient's age to complete this topic PNEUMOCOCCAL VACCINE 0-64 YEARS Aged Out No longer eligible based on patient's age to complete this topic
--- OUTSIDE RECORDS SUMMARY | 2024-06-08 17:07 | XMS_ITS | Encounter Summary ---
Author Organization [facility] Address [address] [place] [address]. [place], [place] [address] [place] [address] Care Team Providers Care Emergency Communications Dispatcher Name Role Phone Jeanna Rubin MICHELLE Primary Care Provider [phone] Reason for Visit * Reason Comments Other abdominal pain Encounter Details Date Type Department Care Team (Late st Contact Info) Description 06/15/2019 3:20 PM ACTING SECTION CHIEF Office Visit [facility] - [address] [address] Sharad Rivers MD Other (abdominal pain) Social [...] Comments Blood Pressure 130/93 06/15/2019 3:48 PM ACTING SECTION CHIEF Pulse 78 06/15/2019 3:48 PM ACTING SECTION CHIEF Temperature 37.1 ??C (98.8 ??F) 06/15/2019 3:48 PM CS T Respiratory Rate 18 06/15/2019 3:48 PM ACTING SECTION CHIEF Oxygen Saturation 97% 06/15/2019 3:48 PM ACTING SECTION CHIEF Inhaled Oxygen Concentration - - Weight 109 kg (240 lb 6.4 oz) 06/15/2019 3:48 PM ACTING SECTION CHIEF Height - - Body Mass Index 31.72 06/08/2019 11:33 AM ACTING SECTION CHIEF documented in this encounter Patient Instructions * Patient Instructions* Sharad Rivers MD - 06/15/2019 3:20 PM ACTING SECTION CHIEF Images from the original note were not [...] Written by the doctors and editors at [facility] Are there different types of abdominal pain???--??Yes. [...] process is complete. This topic retrieved from [employer] on: Jan 12, 2019. Topic [id number] Version 12.0 Release: 27.3.2 - C27.227 ?2019??[employer] and/or its affiliates.??All rights reserved. figure 1: Organs inside the abdomen (belly) Graphic 60693 Version 6.0 figure 2: Anatomy of the urinary tract Urine is made by the kidneys. It passes from the kidneys into the bladder through two tubes called the ureters. Then it leaves the bladder through another tube called the urethra. Graphic 81567 Version 7.0 figure 3: Female reproductive anatomy These are the internal organs that make up a woman's reproductive system. Graphic 90926 Version 5.0 Consumer Information Use and Disclaimer [...] that is right for you.The use of [employer] content is governed by the [employer] Terms of Use. ??2019 Into [employer]. All rights reserved. Copyright ?2019??[employer] and/or its affiliates.??All rights reserved. Patient Education Patient Education Constipation in Adults The Basics Written by the doctors and editors at [facility] What is constipation???--??Constipation is a common problem [...] process is complete. This topic retrieved from E[employer] on: Jan 12, 2019. Topic [id number] Version 6.0 Release: 27.3.2 - C27.227 ?2019??[employer]. and/or its affiliates.??All rights reserved. figure 1: Digestive system This drawing shows the organs in the body that process food. Together these organs are called the digestive system, or digestive tract. As food travels through this system, the body absorbs nutrients and water. Graphic 64940 Version 4.0 table 1: Amount of fiber in different foods Food Serving Grams of fiber Fruits Apple (with skin) 1 medium apple 4.4 Banana 1 medium banana 3.1 Oranges 1 orange 3.1 Prunes 1 cup, pitted 12.4 Juices Apple, unsweetened, with added ascorbic acid 1 cup 0.5 Grapefruit, white, canned, sweetened 1 cup 0.2 Grape, unsweetened, with added ascorbic acid 1 cup 0.5 [place] 1 cup 0.7 Vegetables Cooked Green beans 1 cup 4.0 Carrots 1/2 cup sliced 2.3 Peas 1 cup 8.8 Potato (baked, with skin) 1 medium potato 3.8 Raw [place] (with peel) 1 cucumber 1.5 Lettuce 1 [...] (USDA) National Nutrient Database at: http://www.nal.usda.gov/fnic/foodcomp/search/. Graphic 84269 Version 4.0 figure 2: Colonoscopy During a colonoscopy, you lie on your side and the doctor or nurse puts a thin tube with a camera into your anus (from behind). Then the doctor or nurse advances the tube into the rectum and colon. The camera sends pictures from inside your colon to a television screen. Pops258 Version 5.0 Consumer Information Use and Disclaimer [...] that is right for you.The use of [employer] content is governed by the [employer] Terms of Use. ??2019 Into [employer]. All rights reserved. Copyright ?2019??[employer] and/or its affiliates.??All rights reserved. NG SECTION CHIEF NG SECTION CHIEF NG SECTION CHIEF documented in this encounter Progress Notes * Sharad Rivers MD - 06/15/2019 3:20 PM CSTAddended by: SHARAD RIVERS on: 06/15/2019 06:36 PM Modules accepted: Orders NG SECTION CHIEF * Sharad Rivers MD - 06/15/2019 3:20 [...] him. 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 Heart Disease Father Includes [place] ??? Cancer Father Carcinoid ??? Cancer Maternal [...] file Gets together: Not on file Attends moravian service: Not on file Active member of [...] Procedure Component Value Units Date/Time CULTURE URINE [[id number]] Collected: 06/15/19 1716 Order Status: No result [...] pending these results. Patient is going to [facility] now to get the labs and CT [...] the more likely cause. I have recommended cbug-dpi-acaggwt MiraLAX 17 g p.o. daily until he [...] SHARAD RIVERS MD [facility] [address] [place] [address] (phone) [phone] (fax) NG SECTION CHIEF NG SECTION CHIEF NG SECTION CHIEF NG SECTION CHIEF documented in this encounter Plan of Treatment Not on file documented as of this encounter Procedures Procedure Name Priority Date/Time Associated Diagnosis Comments URINALYSIS AUTO DIP Routine 06/15/2019 Abdominal pain, unspecified abdominal location documented in this encounter Results * LIPASE (06/15/2019 5:56 PM ACTING SECTION CHIEF) Pathologist [facility] LIPASE 92 73 - 393 UNITS/L 06/15/2019 6:36 PM ACTING SECTION CHIEF [facility] 06/15/2019 5:56 PM ACTING SECTION CHIEF us Sharad Rivers MD LABORATORY Final Result [facility] [address] [place] [address], [place] [phone] * (ABNORMAL) COMPREHENSIVE METABOLIC PANEL (06/15/2019 5:56 PM ACTING SECTION CHIEF) Pathologist [facility] GLUCOSE 92 70 - 99 MG/DL 06/15/2019 6:36 PM ACTING SECTION CHIEF [facility] BUN 18 7 - 18 MG/DL 06/15/2019 6:36 PM [facility] CREATININE S/P/B 1.23 0.7 - 1.3 MG/DL 06/15/2019 6:36 PM [facility] SODIUM S/P/B 134(L) 136 - 145 MMOL/L 06/15/2019 6:36 PM [facility] POTASSIUM S/P/B 4.3 3.5 - 5.1 MMOL/L 06/15/2019 6:36 PM [facility] CHLORIDE S/P/B 103 100 - 108 MMOL/L 06/15/2019 6:36 PM [facility] CO2 29.0 21 - 32 MMOL/L 06/15/2019 6:36 PM [facility] CALCIUM S/P/B 9.2 8.5 - 10.1 MG/DL 06/15/2019 6:36 PM [facility] BILIRUBIN TOTAL S/P/B 0.9 0.2 - 1.2 MG/DL 06/15/2019 6:36 PM [facility] TOTAL PROTEIN S/P/B 7.5 6.4 - 8.2 G/DL 06/15/2019 6:36 PM [facility] ALBUMIN S/P/B 4.3 3.4 - 5.0 G/DL 06/15/2019 6:36 PM [facility] AST 65(H) 15 - 37 U/L 06/15/2019 6:36 PM [facility] ALT 99(H) 16 - 60 U/L 06/15/2019 6:36 PM [facility] ALKALINE PHOSPHATASE S/P/B 63 50 - 136 U/L 06/15/2019 6:36 PM [facility] ANION GAP 2.0(L) 5 - 15 MMOL/L 06/15/2019 6:36 PM [facility] BUN CREATININE RATIO 14.6 6 - 26 06/15/2019 6:36 PM [facility] A/G RATIO 1.3 1.0 - 2.0 RATIO 06/15/2019 6:36 PM [facility] EGFR NON-AFR. AMER. 73(L) >90 ML/MIN/1.7 3 M2 06/15/2019 6:36 PM [facility] EGFR AFR. AMER. 85(L) >90 ML/MIN/1.7 3 M2 06/15/2019 6:36 PM [facility] Comment: NOTE: eGFR is not calculated for patients <18 years of age. This is an estimated GFR (CKD EPI) and should not be used for calculating drug doses. 06/15/2019 5:56 PM ACTING SECTION CHIEF us Sharad Rivers MD LABORATORY Final Result [facility] [address] [place] [address], * CBC W/DIFF AUTOMATED (06/15/2019 5:56 PM ACTING SECTION CHIEF) WBC 5.0 4.5 - 11.0 x10'3/uL 06/15/2019 6:09 PM [facility] RBC 5.10 4.70 - 6.10 x10'6/uL 06/15/2019 6:09 PM [facility] HGB 14.4 14.0 - 18.0 G/DL 06/15/2019 6:09 PM [facility] HCT 43.4 43.0 - 54.0 % 06/15/2019 6:09 PM [facility] MCV 85.1 80.0 - 94.0 FL 06/15/2019 6:09 PM [facility] MCH 28.2 27.0 - 31.0 PG 06/15/2019 6:09 PM [facility] MCHC 33.2 32.0 - 36.0 G/DL 06/15/2019 6:09 PM [facility] RDW 12.0 11.5 - 14.5 % 06/15/2019 6:09 PM [facility] PLT 229 130 - 400 x10'3/uL 06/15/2019 6:09 PM [facility] MPV 9.6 9.3 - 12.2 FL 06/15/2019 6:09 PM [facility] DIFFERENTIAL TYPE AUTOMATED DIFFERENTIAL 06/15/2019 6:09 PM [facility] NEUTROPHILS % 50.8 % 06/15/2019 6:09 PM [facility] LYMPHOCYTES % 36.3 % 06/15/2019 6:09 PM [facility] MONOCYTES % 10.5 % 06/15/2019 6:09 PM [facility] EOSINOPHILS 1.4 % 06/15/2019 6:09 PM [facility] BASOPHILS 0.8 % 06/15/2019 6:09 PM [facility] IMMATURE GRANS % 0.2 % 06/15/19 20 6:09 PM [facility] ABS. NEUTROPHILS TOTAL 2.52 1.80 - 7.70 x10'3/uL 06/15/2019 6:09 PM [facility] ABS. LYMPHOCYTES 1.80 1.00 - 4.80 x10'3/uL 06/15/2019 6:09 PM [facility] ABS. MONOCYTES 0.52 0.30 - 0.82 x10'3/uL 06/15/2019 6:09 PM ACTING SECTION CHIEF [facility] ABS. EOSINOPHILS 0.07 0.04 - 0.54 x10'3/uL 06/15/2019 6:09 PM ACTING SECTION CHIEF [facility] ABS. BASOPHILS 0.04 0.01 - 0.08 x10'3/uL 06/15/2019 6:09 PM ACTING SECTION CHIEF [facility] ABS. IMMATURE GRANULOCYTES 0.01 0.00 - 0.49 x10'3/uL 06/15/2019 6:09 PM ACTING SECTION CHIEF [facility] 06/15/2019 5:56 PM ACTING SECTION CHIEF Sharad Rivers MD LABORATORY Final Result Performing Organization Address [facility]/ZIP Co de Phone Number [facility] [address] [place] [address], [place] [phone] * CULTURE URINE (06/15/2019 4:09 PM ACTING SECTION CHIEF) SPEC DESCRIPTION URINE CLEAN CATCH 06/15/2019 7:38 PM ACTING SECTION CHIEF [facility] SPECIAL REQUESTS NO SPECIAL REQUEST 06/15/2019 7:38 PM [facility] CULTURE RESULT NO GROWTH 2 DAYS 06/18/2019 10:21 AM ACTING SECTION CHIEF [facility] URINE SPECIMEN OBTAINED BY CLEAN CATCH PROCEDURE / Unknown 06/15/2019 4:09 PM ACTING SECTION CHIEF 06/15/2019 8:22 PM ACTING SECTION CHIEF us Sharad Rivers MD MICROBIOLOGY - GENERAL ORDER HARINDER Final Result Performing Organization Address City/[facility]/ZIP Co de Phone Number [facility] [address] [place] [address], [place] [phone] * URINALYSIS MICRO ONLY (06/15/2019 4:09 PM ACTING SECTION CHIEF) WBC/HPF <1 <6 /HPF 06/15/2019 9:28 PM ACTING SECTION CHIEF [facility] RBC/HPF 1 <6 /HPF 06/15/2019 9:28 PM ACTING SECTION CHIEF [facility] CA OXALATE CRYSTALS RARE /HPF 06/15/2019 9:28 PM ACTING SECTION CHIEF [facility] URINE SPECIMEN OBTAINED BY CLEAN CATCH PROCEDURE / Unknown 06/15/2019 4:09 PM ACTING SECTION CHIEF Sharad Rivers MD URINE ORDERABLES Final Resul t [facility] [address] [place] [address], [place] [phone] * URINALYSIS AUTO DIP (06/15/2019) COLOR (U) YELLOW [address], [place] TRANSPARENCY CLEAR [address], [place] GLUCOSE (U) NEGATIVE NEGATIVE MG/DL [address], [place] BILIRUBIN (U) NEGATIVE NEGATIVE [address], [...] Rivers MD URINE ORDERABLES Final Resul t [address], [place] [address] [place] [address], documented in this encounter Visit Diagnoses Diagnosis Abdominal pain, unspecified abdominal location- Primary documented in this encounter Additional Health Concerns Assessment Noted Time PHQ-9 Depression Total Score: 0 06/08/19 20 12:13 PM ACTING SECTION CHIEF documented as of this encounter Care Teams Emergency Communications Dispatcher Relationship Specialty Start Date End Date Jeanna Rubin FNP [address] [place] [address] PCP - General 09/24/16 documented as of this encounter
--- OUTSIDE RECORDS SUMMARY | 2024-06-08 17:07 | XMS_ITS | Encounter Summary ---
Author Organization [facility] Address [facility] [facility] [place] [address] [place] [address] Care Team Providers Care Account Advisor Name Role Phone Kev Santoyo Primary Care Provider [phone] Reason for Referral * Imaging (Emergency) - Closed Specialty Diagnoses / Procedures Referred By Ankur sneed Referred To Contact RADIOLOGY Diagnoses Pain in both testicles Swelling of the testicles Procedures US TESTICULAR W DOPPLER Kev Santoyo FNP [address] [place] [address] Phone: tel: fax: Referral ID Status Reason Start Date Expiration Date Visits Re quested Visits Authorized [id number] Closed 10/12/2020 11/11/2021 1 1 Reason for Visit * Imaging (Emergency) - Closed Specialty Diagnoses / Procedures Referred By Ankur sneed Referred To Contact RADIOLOGY Diagnoses Pain in both testicles Swelling of the testicles Procedures US TESTICULAR W DOPPLER Kev Santoyo FNP [address] [place] [address] Phone: tel: fax: Referral ID Status Reason Start Date Expiration Date Visits Re quested Visits Authorized [id number] Closed 10/12/2020 11/11/2021 1 1 Encounter Details Date Type Department Care Team (Latest Contact Info) Description 10/12/2020 11:30 AM CDT - 10/12/2020 11:59 PM CDT Hospital Encounter [facility] [address] [address] Kev Santoyo FNP [address] [place] [address] Discharge Disposition: Home or Self Care (Routine [...] puffs into the lungs as needed. 09/16/2016 O-xfppznn-R-folic acid 1 mg Tab Take 1 tablet [...] documented as of this encounter Care Teams Account Advisor Relationship Specialty Start Date End Date Kev Santoyo FNP [address] [place] [address] PCP - General 09/24/16 documented as of this encounter
--- OUTSIDE RECORDS SUMMARY | 2024-06-08 17:07 | XMS_ITS | Encounter Summary ---
Author Organization [facility] Address [address] [place] [address] Care Team Providers Care Piercer Operator Name Role Phone Hanh Duke MD Primary Care Provider Reason for Visit * Reason Comments Injury Leg c/o L leg pain. stat es metal fell on it at work. pain from knee down. states was hit in back of leg by a cart of metal Encounter Details Date Type Department Care Team (Late st Contact Info) Description 06/04/2015 11:[address] JUDGE - 06/04/2015 12:[address] JUDGE Emergency ER at [address] [address] Daren Orellana MD [address] [place] [address] [place] [address] Multiple leg contusions, left, initial [...] Comments Blood Pressure 141/95 06/04/2015 11:[address] JUDGE Pulse 85 06/04/2015 11:[address] JUDGE Temperature 36.3 ??C (97.4 ??F) 06/04/2015 11:[address] Respiratory Rate 19 06/04/2015 11:[address] JUDGE Oxygen Saturation 100% 06/04/2015 11:[address] JUDGE Inhaled Oxygen Concentration - - Weight 104.3 kg (230 lb) 06/04/2015 11:[address] JUDGE Height 185.4 cm (6' 1 ) 06/04/2015 11:[address] JUDGE Body Mass Index 30.34 06/04/2015 11:[address] JUDGE documented in this encounter Discharge Instructions * Discharge Instructions* Jeromy Hunter PA-C - 06/04/2015 12:[address] JUDGE Images from the original note were not [...] Document Reviewed: 03/22/2012 ExitCare?? Patient Information ??[address] JUDGE documented in this encounter Medications at Time [...] CST Rigoberto wrap and crutches for comfort. ING COURT JUDGE * Jeromy Hunter PA-C - 06/04/2015 11:36 AM CST Provider contact with the patient: 06/04/2015 11:36 Ameya Santacruz [id number] [facility] History Chief Complaint Patient [...] by his boss. 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 PCP: Hanh Duke MD No past medical [...] follow up with orthopedics or company preferred [facility]. Educated pt on RICE [...] patient to follow-up with: Hanh Duke MD [address] [place], [place] [address] [address] [place] [address] [facility] [address] [facility] [id number] Disposition: Discharged I have reviewed the information recorded by the scribe and agree with its accuracy and contents--Brittany 06/04/2015 12:43 PM Transcribed by Broderick Lee acting scribe on behalf of MOHINDER Hunter 06/04/2015 11:[address] JUDGE documented in this encounter Plan of Treatment Not on file documented as of this encounter Procedures Procedure Name Priority Date/Time Associated Diagnosis Comments XR FOOT LEFT 3VW OR MORE STAT 06/04/2015 12:[address] JUDGE Leg injury, left, initial encounter XR TIBIA FIBULA LEFT 2VW STAT 06/04/2015 12:[address] JUDGE Leg injury, left, initial encounter documented in this encounter Results * XR FOOT 3+ VW LEFT (06/04/2015 12:[address] JUDGE) Anatomical Region Laterality Modality Ankle / Foot Radiographic Fern ging 06/04/2015 12:[address] JUDGE Narrative 06/04/2015 12:[address] JUDGE Left Foot 3 Views INDICATION: Left leg pain, fall, initial evaluation FINDINGS: ??No fracture or malalignment is seen. Procedure Note Ron Lares MD - 06/04/2015 Left Foot 3 Views INDICATION: Left leg pain, fall, initial evaluation FINDINGS: No fracture or malalignment is seen. Jeromy Hunter PA-C DIAGNOSTIC IMAGING O RDERABLES * XR TIBIA AND FIBULA 2 VW LEFT (06/04/2015 12:[address] JUDGE) Anatomical Region Laterality Modality Lower Extremity Radiographic Fern ging 06/04/2015 12:[address] JUDGE Impressions 06/04/2015 12:[address] JUDGE No acute fracture. Narrative 06/04/2015 12:[address] JUDGE Left tibia and fibula 2 views Indication: [...] at 1145 $ Given 06/04/2015 11:[address] JUDGE 2 tablets documented in this encounter Active and Recently Administered Medications Times are shown in HOUSING COURT JUDGE. Scheduled Medication Order 06/02/2015 06/03/2015 06/04/2015 oxyCODONE-acetaminophen (PERCOCET) 5-325 MG tablet 2 Tab (COMPLETED) 2 tablet, Oral, NOW, 1 dose, On Thu06/04/15 at 1145 1144 ($ Given - Prov ider: Faby Henderson, EMT-P) documented in this encounter Care Teams Piercer Operator Relationship Specialty Start Date End Date Hanh Duke MD [address] [address] PCP - General 09/05/08 documented as of this encounter
--- OUTSIDE RECORDS SUMMARY | 2024-06-08 17:07 | XMS_ITS | Encounter Summary ---
Author Organization [facility] Address [address] [place] [address]. [place], [place] [address] [place] [address] Care Team Providers Care Crib Attendant Name Role Phone Jeanna Rubin [facility] Primary Care Provider [phone] Encounter Details Date Type Department Care Team (Latest Contact Info) Description 06/02/2017 Abstract [facility] Medical Group Social History [...] Rubin Task Name: Call Back Assigned To: [facility] [place] [place] Team Regarding Patient: Ameya Santacruz, Status: [...] Katiana Iverson R.N.; Jun 02 2017 10:08AM MANAGER RISK (Author) documented in this encounter Plan of Treatment Not on file documented as of this encounter Visit Diagnoses Not on filedocumented in this encounter Care Teams Crib Attendant Relationship Specialty Start Date End Date Jeanna Rubin FNP [address] [place] [address] PCP - General 09/24/16 documented as of this encounter
--- OUTSIDE RECORDS SUMMARY | 2024-06-08 17:07 | XMS_ITS | Encounter Summary ---
Author Organization [facility] Address [facility] [place] [address] [place] [address] Care Team Providers Care Rotor Pilot Name Role Phone Jeanna Rubin Primary Care Provider Encounter Details Date Type Department Care Team (Late st Contact Info) Description 05/21/2017 Abstract [facility] Medical Group Family & Internal Medicine [id number] [place] [address] Jeanna Rubin FNP [address] [place], [place] [id number] Social History Tobacco Use Types Packs/Day Years Used Date Smoking Tobacco: Never Assessed Sex and Gender Information Value Date Recorded Sex Assigned at Not on file Legal Sex Male 8:31 PM CDT Gender Identity Not on file Sexual Orientation Not on file documented as of this encounter Last Filed Vital Signs Vital Sign Reading Time Taken Comments Blood Pressure 144/86 05/21/2017 4:11 PM FOOT SPECIALIST Pulse 97 05/21/2017 4:11 PM FOOT SPECIALIST Temperature - - Respiratory Rate - - Oxygen Saturation - - Inhaled Oxygen Concentration - - Weight 112.5 kg (248 lb) 05/21/2017 4:11 PM FOOT SPECIALIST Height 185.4 cm (6' 1 ) 05/21/2017 4:11 PM FOOT SPECIALIST Body Mass Index 32.72 05/21/2017 4:11 PM FOOT SPECIALIST documented in this encounter Progress Notes [...] EVERY 4 TO 6 HOURS NEEDED; Therapy: 65Olv2201 to (Last Rx:16Sep2016) Requested for: 29Sep2016 Ordered [...] Cough; CONCETTA = N; Verified Transmission to [facility] [address]; Last Updated By: Sonny aZidi; 05/21/2017 5:02:17 PM Health Maintenance 2. Always use a seat belt and shoulder strap when riding or driving a motor vehicle.; Status:Complete; Done: 11Sjd6251 10:44PM Ordered; For:Health Maintenance; Ordered By:Jeanna Rubin; 3. Call if: You have any warning signs of skin cancer.; Status:Complete; Done: 27May2017 10:44PM Ordered; For:Health Maintenance; Ordered By:Jeanna Rubin; 4. Be sure to tell us about all herbal supplements you use.; Status:Complete; Done: 49Axq8866 10:44PM Ordered; For:Health Maintenance; Ordered By:Jeanna Rubin; 5. Begin or continue regular aerobic exercise. Gradually work up to at least 3 sessions of 30 minutes of exercise a week.; Status:Complete; Done: 47Pip1184 10:44PM Ordered; For:Health Maintenance; Ordered By:Jeanna Rubin; 6. [place] your teeth 3 times a day and [...] when and what you eat.; Status:Complete; Done: 72Kae9385 10:44PM Ordered; For:Health Maintenance; Ordered By:Jeanna Rubin; 12. Limit your use of alcohol to 2 drinks or cans of beer a day.; Status:Complete; Done: 69Cma6518 10:44PM Ordered; For:Health Maintenance; Ordered By:Jeanna Rubin; 13. Regular aerobic exercise can help reduce stress.; Status:Complete; Done: 89Dby1362 10:44PM Ordered; For:Health Maintenance; Ordered By:Jeanna Rubin; 14. Some eating tips that can help you lose weight.; Status:Complete; Done: 46Sfx7484 10:44PM Ordered; For:Health Maintenance; Ordered By:Jeanna Rubin; [...] someone else, contact us immediately.; Status:Complete; Done: 51Hqo3123 10:44PM Ordered; For:Health Maintenance; Ordered By:Jeanna Rubin; 16. Use a sun block product with an SPF of 15 or more.; Status:Complete; Done: 01Bqe2558 10:44PM Ordered; For:Health Maintenance; Ordered By:Jeanna Rubin; 17. Vitamins can help you get daily requirements that your diet may not be giving you.; Status:Complete; Done: 47Ntq8705 10:44PM Ordered; For:Health Maintenance; Ordered By:Jeanna Rubin; 18. We encourage all of our patients to exercise regularly. 30 minutes of exercise or physical activity five or more days a week is recommended for children and adults.; Status:Complete; Done: 59Oxi8806 10:44PM Ordered; For:Health Maintenance; Ordered By:Jeanna Rubin; 19. We encourage you to begin to make lifestyle changes to help control your blood pressure. These may include losing weight, increasing your activity level, limiting salt in your diet, decreasing alcohol intake, and eating a diet low in fat and rich in fruits and vegetables.; Status:Complete; Done: 77Fzk9998 10:44PM Ordered; For:Health Maintenance; Ordered By:Jeanna Rubin; 20. We recommend routine visits to a dentist.; Status:Complete; Done: 25Yge6250 10:44PM Ordered; For:Health Maintenance; Ordered By:Jeanna Rubin; 21. We recommend that you bring your body mass index down to 25.; Status:Complete; Done: 09Ozk3227 10:44PM Ordered; For:Health Maintenance; Ordered By:Jeanna Rubin; 22. We recommend that you follow these rules for gun safety.; Status:Complete; Done: 09Sol4629 10:44PM Ordered; For:Health Maintenance; Ordered By:Jeanna Rubin; [...] you achieve your weight goals.; Status:Complete; Done: 08Wuj6309 10:44PM Ordered; For:Health Maintenance; Ordered By:Jeanna Rubin; Discussion/Summary Suicide Risk Assessment Completed. Positive adult depression screening. Psychiatric State Evaluation Completed. Tobacco use screening completed. Signatures Electronically signed by : Jeanna Rubin CNP; May 27 2017 10:44PM FOOT SPECIALIST (Author) documented in this encounter Plan of Treatment Not on file documented as of this encounter Visit Diagnoses Not on filedocumented in this encounter Care Teams Rotor Pilot Relationship Specialty Start Date End Date Jeanna Rubin FNP [address] [place] [address] PCP - General 09/24/16 documented as of this encounter
--- OUTSIDE RECORDS SUMMARY | 2024-06-08 17:07 | XMS_ITS | Encounter Summary ---
Author Organization [facility] Address [address] [place] [address]. [place], [place] [address] [place] [address] Care Team Providers Care Naval Designer Name Role Phone Jeanna Rubin Primary Care Provider [phone] Encounter Details Date Type Department Care Team [...] documented as of this encounter Care Teams Naval Designer Relationship Specialty Start Date End Date Jeanna Rubin FNP [address] [place] [address] PCP - General 09/24/16 documented as of this encounter
--- OUTSIDE RECORDS SUMMARY | 2024-06-08 17:07 | XMS_ITS | Encounter Summary ---
Author Organization [facility] Address [address] [place] [address] Care Team Providers Care Produce Laborer Name Role Phone Hanh Duke MD Primary Care Provider Encounter Details Date Type Department Care Team (Late st Contact Info) Description 09/06/2008 Orders Only [facility] 7S TELE/NEURO [address] [place] [address] [place] [address] [address] Unspecified Chest Pain; Other Pulmonary [...] ??M.D. ? Released Date Time- 09/07/08919 ? Head Operator- MMG ??M.D. ? ADM- MITCH PETERSEN ?ATT- [...] CASANDRA MASTERSON M.D. Released Date Time- 09/07/08919 Head Operator- CODY Srivastava ADM- MITCH PETERSEN ATT- MITCH PETERSEN [...] ? Released Date Time- 09/06/08 1526 ? Head Operator- ADIEL ?Nehal. ? ADM- MITCH PETERSEN ?ATT- [...] infarction documented in this encounter Care Teams Produce Laborer Relationship Specialty Start Date End Date Hanh Duke MD [address] [address] PCP - General 09/05/08 documented as of this encounter
--- OUTSIDE RECORDS SUMMARY | 2024-06-08 17:07 | XMS_ITS | Encounter Summary ---
Author Organization [facility] Address [facility] [facility] [place] [address] [place] [address] Care Team Providers Care Under Trimmer Name Role Phone Jeanna Rubin Primary Care Provider [phone] Jeanna Rubin Primary Care Provider Encounter Details Date Type Department Care Team (Late st Contact Info) Description 09/16/2016 Abstract [facility] Medical Group Family & Internal Medicine [facility] [address] [place] [address] Blue Shultz MD [address] [place] [id number] Social History Tobacco Use Types Packs/Day Years [...] you, Jeanna NUNES Electronically signed by:Jeanna Rubin CIGARETTE MAKER Sep 16 2016 9:50AM SENIOR FINANCIAL REPORTING ACCOUNTANT * MICHELLE Fox - 09/16/2016 9:00 AM CDT Reason For Visit Acute Visit Chief Complaint Patient c/o Headache,nausea,cough Patient was positive for strep throat and pneumonia August at [facility] ER History of Present Illness HPI Free Text: Ameya presents to the office, accompanied by his , with c/o being diagnosed with pneumonia and strep throat by [facility] ER on the . He reports [...] 1. Drink plenty of fluids.; Status:Complete; Done: 64Lwj5119 10:49PM Ordered; For:Acute streptococcal pharyngitis; Ordered By:Jeanna Rubin; 2. Gargle with warm salt water for 5 minutes every 4 hours.; Status:Complete; Done: 16Qyu0541 10:49PM Ordered; For:Acute streptococcal pharyngitis; Ordered By:Jeanna Rubin; 3. Stay home from work or school until your condition is improved.; Status:Complete; Done: 63Pwj7786 10:49PM Ordered; For:Acute streptococcal pharyngitis; Ordered By:Jeanna Rubin; 4. The following home treatments may soothe a sore throat.; Status:Complete; Done: 31Iqv3116 10:49PM Ordered; For:Acute streptococcal pharyngitis; Ordered By:Jeanna Rubin; 5. Call if: The fever has not gone away in 2 days.; Status:Complete; Done: 33Aaa3256 10:49PM Ordered; For:Acute streptococcal pharyngitis; Ordered By:Jeanna Rubin; 6. Call if: You get a rash.; Status:Complete; Done: 61Djf4930 10:49PM Ordered; For:Acute streptococcal pharyngitis; Ordered By:Jeanna Rubin; 7. Call if: You start vomiting.; Status:Complete; Done: 15Anh0056 10:49PM Ordered; For:Acute streptococcal pharyngitis; Ordered By:Jeanna Rubin; 8. Call if: Your swallowing difficulty is not better in 3 days.; Status:Complete; Done: 65Gmb5324 10:49PM Ordered; For:Acute streptococcal pharyngitis; Ordered By:Jeanna Rubin; 9. Call 911 if: You have difficulty breathing, or you are short of breath more often.; Status:Complete; Done: 52Zuq3459 10:49PM Ordered; For:Acute streptococcal pharyngitis; Ordered By:Jeanna Rubin; 10. Seek Immediate Medical Attention if: You become dehydrated.; Status:Complete; Done: 05Tpj7590 10:49PM Ordered; For:Acute streptococcal pharyngitis; Ordered By:Jeanna Rubin; 11. Seek Immediate Medical Attention if: You get a severe headache that seems different from your usual ones.; Status:Complete; Done: 14Jwl2642 10:49PM Ordered; For:Acute streptococcal pharyngitis; Ordered By:Jeanna Rubin; 12. Seek Immediate Medical Attention if: Your swallowing difficulty is worse.; Status:Complete; Done: 26Ccs8225 10:49PM Ordered; For:Acute streptococcal pharyngitis; Ordered By:Jeanna Rubin; Acute streptococcal pharyngitis, Headache, Pneumonia 13. Hydrocodone-Acetaminophen [...] Pneumonia; CONCETTA = N; Verified Transmission to [facility]; Last Updated By: Sonny Zaidi; 09/16/2016 [...] or concerns about your problem.; Status:Complete; Done: 78Obg4418 10:50PM Ordered; For:Acute streptococcal pharyngitis, Pneumonia; Ordered By:Jeanna Rubin; 18. Complete medication as prescribed.; Status:Complete; Done: 21Sep2016 10:50PM Ordered; For:Acute streptococcal pharyngitis, Pneumonia; Ordered By:Jeanna Rubin; 19. Follow-up visit in 2 days Outpatient Follow-up Status: Hold For - Scheduling Requested for: 21Sep2016 Ordered; For: Acute streptococcal pharyngitis, Pneumonia; Ordered By: Jeanna Rubin Performed: Due: 03Nop1779 Pneumonia 20. ProAir HFA 108 (90 Base) MCG/ACT Inhalation Aerosol Solution; INHALE 2 PUFFS BY MOUTH EVERY 4 TO 6 HOURS NEEDED Rx By: Jeanna Rubin; Dispense: 0 Days ; #:1 X 8.5 GM Inhaler; Refill: 2; For: Pneumonia; CONCETTA = N;Verified Transmission to [facility]; Last Updated By: Sonny Zaidi; 09/16/2016 10:08:45 AM 21. Ipratropium-Albuterol 0.5-2.5 (3) MG/3ML Inhalation Solution Rx By: Jeanna Rubin; For: Pneumonia; Dose of 1 VIAL; Inhalation; CONCETTA = N; Administered by: Kath Ward: 09/16/2016 11:39:00 AM; Last Updated By: Kath Ward; 09/16/2016 11:40:05 AM 22. Call if: The cough is not gone in 10 days.; Status:Complete; Done: 08Ovh5863 10:49PM Ordered; For:Pneumonia; Ordered By:Jeanna Rubin; 23. Call if: The symptoms seem worse.; Status:Complete; Done: 63Mkj5894 10:49PM Ordered; For:Pneumonia; Ordered By:Jeanna Rubin; 24. Call if: You have pain in the chest that gets worse with deep breathing or coughing.; Status:Complete; Done: 13Kfg1547 10:49PM Ordered; For:Pneumonia; Ordered By:Jeanna Rubin; 25. Call if: Your shortness of breath is getting worse.; Status:Complete; Done: 23Omw3754 10:49PM Ordered; For:Pneumonia; Ordered By:Jeanna Rubin; 26. Seek Immediate Medical Attention if: You are coughing up blood or pink colored phlegm.; Status:Complete; Done: 83Vcj4296 10:49PM Ordered; For:Pneumonia; Ordered By:Jeanna Rubin; 27. Seek Immediate Medical Attention if: You are feeling short of breath.; Status:Complete; Done: 84Khd5918 10:49PM Ordered; For:Pneumonia; Ordered By:Jeanna Rubin; Continue the Z-yaakov and the Augmentin as prescribed from the ER doctor. Signatures Electronically signed by : Jeanna Rubin CNP; Sep 21 2016 10:52PM SENIOR FINANCIAL REPORTING ACCOUNTANT (Author) documented in this encounter Plan of Treatment Not on file documented as of this encounter Procedures Procedure Name Priority Date/Time Associated Diagnosis Comments COMPREHENSIVE METABOLIC PANEL Routine 09/16/2016 10:43 AM CDT CBC W/DIFF AUTOMATED Routine 09/16/2016 10:43 AM CDT documented in this encounter Results * (ABNORMAL) COMPREHENSIVE METABOLIC PANEL (09/16/2016 10:43 AM CDT) SODIUM S/P/B 135(L) 136 - 145 mmol/L [facility] CONVERSION POTASSIUM S/P/B 4.1 3.5 - [...] on filedocumented in this encounter Care Teams Under Trimmer Relationship Specialty Start Date End Date Jeanna Rubin FNP [address] [place] [address] PCP - General 09/24/16 Jeanna Rubin FNP [address] [place] [address] PCP - General 09/16/16 09/23/16 documented as of this encounter
--- OUTSIDE RECORDS SUMMARY | 2024-06-08 17:07 | XMS_ITS | Encounter Summary ---
Author Organization [facility] Address [address] [place] [address]. [place] [address] [place] [address] Care Team Providers Care Manager Material Name Role Phone Jeanna Rubin MICHELLE Primary Care Provider [phone] Reason for Visit * Reason Onset Date Comments Reschedule 08/05/2019 Encounter Details Date Type Department Care Team (Late st Contact Info) Description 08/05/2019 Telephone [facility] Medical Group Multispecialty Care - [facility] [address] [facility] [place] [address] Chandler Zeng MD [address] [facility] [address] [place] [address] Reschedule Social History Tobacco Use Types Packs/Day [...] his appt for today due to Dr. Zeng is out sick. RMARY ATTENDANT documented in this encounter Plan of Treatment Not on file documented as of this encounter Visit Diagnoses Not on filedocumented in this encounter Additional Health Concerns Assessment Noted Time PHQ-9 Depression Total Score: 0 06/08/19 20 12:13 PM [facility] ATTENDANT documented as of this encounter Care Teams Manager Material Relationship Specialty Start Date End Date Jeanna Rubin FNP [address] [place] [address] PCP - General 09/24/16 documented as of this encounter
--- OUTSIDE RECORDS SUMMARY | 2024-06-08 17:07 | XMS_ITS | Encounter Summary ---
Author Organization [facility] Address [facility] [place] [facility] [place] [address] [place] [address] Care Team Providers Care Change Control Specialist Name Role Phone Jeanna Rubin Primary Care Provider Encounter Details Date Type Department Care Team (Late st Contact Info) Description 09/24/2016 Abstract [facility] [place] [address] Jeanna Rubin FNP [facility] [place], [place] [id number] Social History Tobacco Use Types Packs/Day Years [...] - 99 mg/dL 09/24/2016 8:42 PM CDT [facility] BUN 16 8 - 23 mg/dL 09/24/2016 8:42 PM CDT [facility] CREATININE S/P/B 1.05 0.70 - 1.20 mg/dL 09/24/2016 8:42 PM CDT [facility] SODIUM S/P/B 140 136 - 145 mmol/L 09/24/2016 8:42 PM CDT [facility] POTASSIUM S/P/B 4.5 3.5 - 5.1 mmol/L 09/24/2016 8:42 PM CDT [facility] CHLORIDE S/P/B 99 98 - 107 mmol/L 09/24/2016 8:42 PM CDT [facility] CO2 25 22 - 29 mmol/L 09/24/2016 8:42 PM CDT [facility] BILIRUBIN TOTAL S/P/B 0.6 0.2 - 1.2 mg/dL 09/24/2016 8:42 PM CDT [facility] CALCIUM S/P/B 10.1 8.6 - 10.2 mg/dL 09/24/2016 8:42 PM CDT [facility] ALKALINE PHOSPHATASE S/P/B 81 40 - 129 U/L 09/24/2016 8:42 PM CDT [facility] AST 24 0 - 40 U/L 09/24/2016 8:42 PM CDT [facility] TOTAL PROTEIN S/P/B 7.5 6.4 - 8.3 g/dL 09/24/2016 8:42 PM CDT [facility] ALBUMIN S/P/B 4.7 3.5 - 5.2 g/dL 09/24/2016 8:42 PM CDT [facility] ALT 34 0 - 41 U/L 09/24/2016 8:42 PM CDT [facility] GLOBULIN 2.8 2.3 - 3.6 g/dL 09/24/2016 8:42 PM CDT [facility] A/G RATIO 1.7 1.0 - 2.0 09/24/2016 8:42 PM CDT [facility] ANION GAP 21(H) 8 - 20 09/24/2016 8:42 PM CDT [facility] EGFR NON-AFR. AMER. >60 >60 mL/min/1.7 3m'2 09/24/2016 8:42 PM CDT [facility] EGFR AFR. AMER. >60 >60 mL/min/1.7 3m'2 09/24/2016 8:42 PM CDT [facility] Comment: NOTE: eGFR is not calculated for patients <18 years of age. This is an estimated GFR (CKD EPI) and should not be used for calculating drug doses. 09/24/2016 10:4 9 AM CDT 09/24/2016 7:20 PM CDT us Generic Conversion Md [facility] Final R esult [facility] [address] [address], [place] [phone] * (ABNORMAL) CBC W/DIFF AUTOMATED (09/24/2016 10:49 AM CDT) WBC 6.7 4.8 - 10.8 x10'3/uL 09/24/2016 8:30 PM CDT [facility] RBC 5.26 4.70 - 6.10 x10'6/uL 09/24/2016 8:30 PM CDT [facility] HGB 15.4 14.0 - 18.0 G/DL 09/24/2016 8:30 PM CDT [facility] HCT 46.2 43.0 - 54.0 % 09/24/2016 8:30 PM CDT [facility] MCV 87.8 80.0 - 94.0 FL 09/24/2016 8:30 PM CDT [facility] MCH 29.3 27.0 - 31.0 PG 09/24/2016 8:30 PM CDT [facility] MCHC 33.3 32.0 - 36.0 G/DL 09/24/2016 8:30 PM CDT [facility] RDW 12.2 11.5 - 14.5 % 09/24/2016 8:30 PM CDT [facility] PLT 326 130 - 400 x10'3/uL 09/24/2016 8:30 PM CDT [facility] MPV 10.3 9.3 - 12.2 FL 09/24/2016 8:30 PM CDT [facility] IMMATURE GRANS % 0.4 0.0 - 1.0 % 09/24/2016 8:30 PM CDT [facility] NEUTROPHILS % 56.7 43.0 - 65.0 % 09/24/2016 8:30 PM CDT [facility] LYMPHOCYTES % 30.8 20.0 - 46.0 % 09/24/2016 8:30 PM CDT [facility] MONOCYTES % 7.9 5.0 - 12.0 % 09/24/2016 8:30 PM CDT [facility] EOSINOPHILS 3.0 1.0 - 3.0 % 09/24/2016 8:30 PM CDT [facility] BASOPHILS 1.2(H) 0.0 - 1.0 % 09/24/2016 8:30 PM CDT [facility] WHOLE BLOOD SPECIMEN / Unknown 09/24/2016 10:49 AM CDT 09/24/2016 7:20 PM CDT us Generic Conversion Md [facility] Final R esult [facility] [address] [place] [address], documented in this encounter Visit Diagnoses Diagnosis Pneumonia Pneumonia, organism unspecified documented in this encounter Care Teams Change Control Specialist Relationship Specialty Start Date End Date Jeanna Rubin FNP [address] [place] [address] PCP - General 09/24/16 documented as of this encounter
--- OUTSIDE RECORDS SUMMARY | 2024-06-08 17:07 | XMS_ITS | Encounter Summary ---
Author Organization [facility] Address [address] [place] [address]. [place] [address] [place] [address] Care Team Providers Care Automobile Radiator Mechanic Name Role Phone Jeanna Rubin MICHELLE Primary Care Provider [phone] Encounter Details Date Type Department Care Team (Late st Contact Info) Description 08/20/2017 Abstract [facility] Medical Group Family and Sports Medicine - [address] [address] Renetta Block DO Social History Tobacco Use [...] EVERY 4 TO 6 HOURS NEEDED; Therapy: [id number] to (Last Rx:[id number]) Requested for: [id number] Ordered Rx By: Jeanna Rubin; Dispense: 0 Days ; #:1 X 8.5 GM Inhaler; Refill: 6; For: Cough; CONCETTA = N; Verified Transmission to [facility] 05884; Last Updated By: [employer]; 05/21/2017 5:02:17 PM Allergies 1. Toradol Vomiting; [...] eyes; CONCETTA = N; Verified Transmission to [facility] 67476; Last Updated By: [employer]; 08/20/2017 5:19:06 PM Discussion/Summary discussed hygiene to prevent spread. OTC eye drops for symptom relief. For worrisome sx like visiontrouble, or severe photophobia, to notify. Change contacts Signatures Electronically signed by : Renetta Block D.O.; Aug 20 2017 5:24PM CLOTH BURLER (Author) documented in this encounter Plan of Treatment Not on file documented as of this encounter Visit Diagnoses Not on filedocumented in this encounter Care Teams Automobile Radiator Mechanic Relationship Specialty Start Date End Date Jeanna Rubin FNP [address] [place] [address] PCP - General 09/24/16 documented as of this encounter
--- OUTSIDE RECORDS SUMMARY | 2024-06-08 17:07 | XMS_ITS | Encounter Summary ---
Author Organization [facility] Address [facility]. [place], [place] [address] [place] [address] Care Team Providers Care Storeroom Keeper Name Role Phone Jeanna Rubin Primary Care Provider [phone] Encounter Details Date Type Department Care Team [...] documented as of this encounter Care Teams Storeroom Keeper Relationship Specialty Start Date End Date Jeanna Rubin FNP [address] [place] [address] PCP - General 09/24/16 documented as of this encounter
--- OUTSIDE RECORDS SUMMARY | 2024-06-08 17:07 | XMS_ITS | Encounter Summary ---
Author Organization [facility] Address [address] [place] [address]. [place], [place] [address] [place] [address] Care Team Providers Care Ed Teacher Name Role Phone Jeanna Rubin Primary Care Provider Reason for Visit * Reason Comments Abdominal Pain LLQ Encounter Details Date Type Department Care Team (Late st Contact Info) Description 06/08/2019 11:00 AM PAINT TRIMMER PIPE BOWLS Office Visit [facility] Medical Group Family & Internal Medicine [address] [place] [address] Jeanna Rubin FNP [address] [place] [address] [id number] Abdominal Pain (LLQ) Social History Tobacco Use [...] Comments Blood Pressure 128/86 06/08/2019 11:33 AM PAINT TRIMMER PIPE BOWLS Pulse 70 06/08/2019 11:33 AM PAINT TRIMMER PIPE BOWLS Temperature - - Respiratory Rate 16 06/08/2019 11:33 AM PAINT TRIMMER PIPE BOWLS Oxygen Saturation 97% 06/08/2019 11:33 AM PAINT TRIMMER PIPE BOWLS Inhaled Oxygen Concentration - - Weight 109.8 kg (242 lb) 06/08/2019 11:33 AM PAINT TRIMMER PIPE BOWLS Height 185.4 cm (6' 1 ) 06/08/2019 11:33 AM PAINT TRIMMER PIPE BOWLS Body Mass Index 31.93 06/08/2019 11:33 AM PAINT TRIMMER PIPE BOWLS documented in this encounter Patient Instructions * Patient Instructions* Jeanna Rubin, [employer] DEAN - 06/08/2019 11:00 AM PAINT TRIMMER PIPE BOWLS Start the medications as directed and prescribed [...] right for you. Copyright Copyright ?? 2019 [employer] and its affiliates and/or licensors. All rights reserved. T TRIMMER PIPE BOWLS documented in this encounter Progress Notes * [...] file Gets together: Not on file Attends hoahaoism service: Not on file Active member of [...] of Onset ??? Heart Disease Father Includes [place] ??? Cancer Father Carcinoid ??? Cancer Maternal [...] coordination of care. PCP: MICHELLE KAUR 06/16/2019 T TRIMMER PIPE BOWLS documented in this encounter Plan of Treatment Not on file documented as of this encounter Procedures Procedure Name Priority Date/Time Associated Diagnosis Comments URINALYSIS AUTO DIP Routine 06/08/2019 Left lower quadrant abdominal pain documented in this encounter Results * URINALYSIS AUTO DIP (06/08/2019) COLOR (U) YELLOW [facility] GLUCOSE (U) NEGATIVE NEGATIVE MG/DL [facility] BILIRUBIN (U) NEGATIVE NEGATIVE [facility] KET[facility] MG/DL (U) NEGATIVE NEGATIVE MG/DL [facility] SPECIFIC GRAVITY (U) 1.030 1.001 - 1.035 [facility] BLOOD (U) NEGATIVE NEGATIVE [facility] U PH 5.5 5.0 - 9.0 [facility] PROTEIN (U) NEGATIVE NEGATIVE mg/dL [facility] UROBILINOGEN 0.2 0.2 - 1.0 EU/dL = mg/dL [facility] NITRITES NEGATIVE NEGATIVE MG/DL [facility] LEUKOCYTES (U) NEGATIVE NEGATIVE MG-SO [facility] URINE SPECIMEN OBTAINED BY CLEAN CATCH PROCEDURE / Unknown 06/08/2019 Jeanna MARTINEZ URINE ORDERABLES Final Result [facility] [address] [place] [address], documented in this encounter Visit Diagnoses Diagnosis Left lower quadrant abdominal pain- Primary Colitis Other and unspecified noninfectious gastroenteritis and colitis Flank pain Abdominal pain, unspecified site documented in this encounter Additional Health Concerns Assessment Noted Time PHQ-9 Depression Total Score: 0 06/08/19 20 12:13 PM PAINT TRIMMER PIPE BOWLS documented as of this encounter Care Teams Ed Teacher Relationship Specialty Start Date End Date Jeanna Rubin FNP [address] [place] [address] PCP - General 09/24/16 documented as of this encounter
--- OUTSIDE RECORDS SUMMARY | 2024-06-08 17:07 | XMS_ITS | Encounter Summary ---
Author Organization [facility] Address [address] [place] [address]. [place], [place] [address] [place] [address] Care Team Providers Care Cooperative Education Coordinator Name Role Phone Jeanna Rubin Primary Care Provider Encounter Details Date Type Department Care Team (Late st Contact Info) Description 09/24/2016 Abstract [facility] Medical Group Family & Internal Medicine [address] [place] [address] Blue Shultz MD [address] [place] [address] [id number] Social History Tobacco Use Types Packs/Day Years [...] 4-6 hours as needed for pain; Therapy: 12Tgh8809 to (Last Rx:[id number]) Ordered 2. MethylPREDNISolone 4 MG Oral Tablet; USE DIRECTED; Therapy: 18Dpc8761 to (Last Rx:[id number]) Requested for: [id number] Ordered 3. ProAir HFA 108 (90 Base) MCG/ACT Inhalation Aerosol Solution; INHALE 2 PUFFS BY MOUTH EVERY 4 TO 6 HOURS NEEDED; Therapy: 89Dyc5130 to (Last Rx:16Sep2016) Requested for: [id number] Ordered Allergies 1. Toradol Vitals Recorded: 24Sep2016 [...] Progress - Specimen/Data Collected; Done: 24Sep2016 Perform:[facility]; Due:24Oct2016; Last Updated By:Rachael Cerda; 09/24/2016 10:49:38 AM;Ordered; For:Pneumonia; Ordered By:Jeanna Rubin; 5. Compr Metabolic Prof ( CMP ); Status:In Progress - Specimen/Data Collected; Done: 24Sep2016 [facility]form[facility]; Due:24Oct2016; Last Updated By:Rachael Cerda; 09/24/2016 [...] - Manual Activation; Requested for:24Sep2016; Perform:In Office; Due:[id number]; Last Updated By:Kath Ward; 09/24/2016 10:17:49 AM;Ordered; [...] Jeanna Rubin CNP; Sep 24 2016 3:16PM SUCTION OPERATOR (Author) documented in this encounter Miscellaneous Notes [...] September (Physician's Signature) Electronically signed by:Jeanna Rubin GENERAL INTERNAL MEDICINE DOCTOR Sep 24 2016 11:06AM SUCTION OPERATOR documented in this encounter Plan of [...] needed at this time us Jeanna Caryn [facility] Final Result [facility] [...] on filedocumented in this encounter Care Teams Cooperative Education Coordinator Relationship Specialty Start Date End Date Jeanna Rubin FNP [address] [place] [address] PCP - General 09/24/16 documented as of this encounter
--- OUTSIDE RECORDS SUMMARY | 2024-06-08 17:07 | XMS_ITS | Encounter Summary ---
Author Organization [facility] Address [facility]6 [facility]. [place], [place] [address] [place] [address] Care Team Providers Care Baggage Agent Name Role Phone Jeanna Rubin MICHELLE Primary Care Provider [phone] Encounter Details Date Type Department Care Team (Latest Contact Info) Description 06/15/2019 4:47 PM SUPERVISOR BILLPOSTING - 06/15/2019 7:36 PM [facility] Hospital Encounter [facility] [place] [address] Marcus Rivers MD Discharge Disposition: Home or [...] METABOLIC PANEL STAT 06/15/2019 5:56 PM SUPERVISOR BILLPOSTING Abdominal pain, unspecified abdominal location CBC W/DIFF AUTOMATED STAT 06/15/2019 5:56 PM SUPERVISOR BILLPOSTING Abdominal pain, unspecified abdominal location LIPASE STAT 06/15/2019 5:56 PM SUPERVISOR BILLPOSTING Abdominal pain, unspecified abdominal location documented in this encounter Results * LIPASE (06/15/2019 5:56 PM SUPERVISOR BILLPOSTING) LIPASE 92 73 - 393 UNITS/L 06/15/2019 6:36 PM SUPERVISOR BILLPOSTING [facility] 06/15/2019 5:56 PM SUPERVISOR BILLPOSTING [place] Rivers MD LABORATORY Final Result [facility] [address] [place] [address], * (ABNORMAL) COMPREHENSIVE METABOLIC PANEL (06/15/2019 5:56 PM SUPERVISOR BILLPOSTING) GLUCOSE 92 70 - 99 MG/DL 06/15/2019 6:36 PM SUPERVISOR BILLPOSTING [facility] BUN 18 7 - 18 MG/DL 06/15/2019 6:36 PM SUPERVISOR BILLPOSTING [facility] CREATININE S/P/B 1.23 0.7 - 1.3 MG/DL 06/15/2019 6:36 PM [facility] SODIUM S/P/B 134(L) 136 - 145 MMOL/L 06/15/2019 6:36 PM [facility] POTASSIUM S/P/B 4.3 3.5 - 5.1 MMOL/L 06/15/2019 6:36 PM [facility] CHLORIDE S/P/B 103 100 - 108 MMOL/L 06/15/2019 6:36 PM [facility] CO2 29.0 21 - 32 MMOL/L 06/15/2019 6:36 PM [facility] CALCIUM S/P/B 9.2 8.5 - 10.1 MG/DL 06/15/2019 6:36 PM [facility] BILIRUBIN TOTAL S/P/B 0.9 0.2 - 1.2 MG/DL 06/15/2019 6:36 PM [facility] TOTAL PROTEIN S/P/B 7.5 6.4 - 8.2 G/DL 06/15/2019 6:36 PM [facility] ALBUMIN S/P/B 4.3 3.4 - 5.0 G/DL 06/15/2019 6:36 PM [facility] AST 65(H) 15 - 37 U/L 06/15/2019 6:36 PM [facility] ALT 99(H) 16 - 60 U/L 06/15/2019 6:36 PM [facility] ALKALINE PHOSPHATASE S/P/B 63 50 - 136 U/L 06/15/2019 6:36 PM [facility] ANION GAP 2.0(L) 5 - 15 MMOL/L 06/15/2019 6:36 PM [facility] BUN CREATININE RATIO 14.6 6 - 26 06/15/2019 6:36 PM [facility] A/G RATIO 1.3 1.0 - 2.0 RATIO 06/15/2019 6:36 PM [facility] EGFR NON-AFR. AMER. 73(L) >90 ML/MIN/1.7 3 M2 06/15/2019 6:36 PM [facility] EGFR AFR. AMER. 85(L) >90 ML/MIN/1.7 3 M2 06/15/2019 6:36 PM [facility] Comment: NOTE: eGFR is not calculated for patients <18 years of age. This is an estimated GFR (CKD EPI) and should not be used for calculating drug doses. 06/15/2019 5:56 PM SUPERVISOR BILLPOSTING us Marcus Rivers MD LABORATORY Final Result [facility] [address] [place] [address], * CBC W/DIFF AUTOMATED (06/15/2019 5:56 PM SUPERVISOR BILLPOSTING) WBC 5.0 4.5 - 11.0 x10'3/uL 06/15/2019 6:09 PM [facility] RBC 5.10 4.70 - 6.10 x10'6/uL 06/15/2019 6:09 PM [facility] HGB 14.4 14.0 - 18.0 G/DL 06/15/2019 6:09 PM [facility] HCT 43.4 43.0 - 54.0 % 06/15/2019 6:09 PM [facility] MCV 85.1 80.0 - 94.0 FL 06/15/2019 6:09 PM [facility] MCH 28.2 27.0 - 31.0 PG 06/15/2019 6:09 PM [facility] MCHC 33.2 32.0 - 36.0 G/DL 06/15/2019 6:09 PM [facility] RDW 12.0 11.5 - 14.5 % 06/15/2019 6:09 PM [facility] PLT 229 130 - 400 x10'3/uL 06/15/2019 6:09 PM [facility] MPV 9.6 9.3 - 12.2 FL 06/15/2019 6:09 PM [facility] DIFFERENTIAL TYPE AUTOMATED DIFFERENTIAL 06/15/2019 6:09 PM [facility] NEUTROPHILS % 50.8 % 06/15/2019 6:09 PM [facility] LYMPHOCYTES % 36.3 % 06/15/2019 6:09 PM [facility] MONOCYTES % 10.5 % 06/15/2019 6:09 PM [facility] EOSINOPHILS 1.4 % 06/15/2019 6:09 PM [facility] BASOPHILS 0.8 % 06/15/2019 6:09 PM [facility] IMMATURE GRANS % 0.2 % 06/15/19 20 6:09 PM [facility] ABS. NEUTROPHILS TOTAL 2.52 1.80 - 7.70 x10'3/uL 06/15/2019 6:09 PM [facility] ABS. LYMPHOCYTES 1.80 1.00 - 4.80 x10'3/uL 06/15/2019 6:09 PM [facility] ABS. MONOCYTES 0.52 0.30 - 0.82 x10'3/uL 06/15/2019 6:09 PM [facility] ABS. EOSINOPHILS 0.07 0.04 - 0.54 x10'3/uL 06/15/2019 6:09 PM [facility] ABS. BASOPHILS 0.04 0.01 - 0.08 x10'3/uL 06/15/2019 6:09 PM SUPERVISOR BILLPOSTING [facility] ABS. IMMATURE GRANULOCYTES 0.01 0.00 - 0.49 x10'3/uL 06/15/2019 6:09 PM SUPERVISOR BILLPOSTING [facility] 06/15/2019 5:56 PM SUPERVISOR BILLPOSTING us [place] Rivers MD LABORATORY Final Result [facility] [address] [place] [address], documented in this encounter Visit Diagnoses Diagnosis Abdominal pain, unspecified abdominal location documented in this encounter Additional Health Concerns Assessment Noted Time PHQ-9 Depression Total Score: 0 06/08/19 20 12:13 PM SUPERVISOR BILLPOSTING documented as of this encounter Care Teams Baggage Agent Relationship Specialty Start Date End Date Jeanna Rubin FNP [address] [place] [address] PCP - General 09/24/16 documented as of this encounter
--- OUTSIDE RECORDS SUMMARY | 2024-06-08 17:07 | XMS_ITS | Encounter Summary ---
Author Organization [facility] Address [facility]6 [facility] [place] [address] [place] [address] Care Team Providers Care Mechanical Piping Designer Name Role Phone Jeanna Rubin MICHELLE Primary Care Provider [phone] Reason for Referral * Imaging (Emergency) - Closed Specialty Diagnoses / Procedures Referred By Contac t Referred To Contact RADIOLOGY Diagnoses Abdominal pain Procedures CT ABD+PEL W CON Marcus Rivers MD Referral ID Status Reason Start Date Expiration Date Visits Re quested Visits Authorized [id number] Closed 06/15/2019 07/16/2020 1 1 LY CHAIN SPECIALIST Reason for Visit * Imaging (Emergency) - Closed Specialty Diagnoses / Procedures Referred By Contac t Referred To Contact RADIOLOGY Diagnoses Abdominal pain Procedures CT ABD+PEL W CON Marcus Rivers MD Referral ID Status Reason Start Date Expiration Date Visits Re quested Visits Authorized [id number] Closed 06/15/2019 07/16/2020 1 1 Encounter Details Date Type Department Care Team (Latest Contact Info) Description 06/15/2019 4:30 PM SUPPLY CHAIN SPECIALIST - 06/15/2019 4:46 PM SUPPLY CHAIN SPECIALIST Hospital Encounter [facility] CT [address] [address] Marcus Rivers MD Discharge Disposition: Home or [...] ABD+PEL W CON STAT 06/15/2019 5:37 PM SUPPLY CHAIN SPECIALIST Abdominal pain documented in this encounter Results * CT ABD+PEL W CON (06/15/2019 5:37 PM SUPPLY CHAIN SPECIALIST) Anatomical Region Laterality Modality Abdomen Computed Tomogra phy 06/15/2019 5:51 PM SUPPLY CHAIN SPECIALIST Impressions 06/15/2019 5:55 PM SUPPLY CHAIN SPECIALIST IMPRESSION: Moderate stool throughout the colon. No evidence of acute intra-abdominal pathology. Interpreted By: Nikos Saab MD, 06/15/2019 5:51 PM Narrative 06/15/2019 5:[address]AIN [address] ABD+PEL W CON: 06/15/2019 5:24 PM [...] Thu06/15/19 at 1736 Given 06/15/2019 5:36 PM SUPPLY CHAIN SPECIALIST 100 mLs Ri ght Arm documented in this encounter Additional Health Concerns Assessment Noted Time PHQ-9 Depression Total Score: 0 06/08/19 20 12:13 PM SUPPLY CHAIN SPECIALIST documented as of this encounter Care Teams Mechanical Piping Designer Relationship Specialty Start Date End Date Jeanna Rubin FNP [address] [place] [address] PCP - General 09/24/16 documented as of this encounter
--- OUTSIDE RECORDS SUMMARY | 2024-06-08 17:07 | XMS_ITS | Encounter Summary ---
Author Organization [facility] Address [address] [place] [address] Care Team Providers Care Doctor Of Audiology Name Role Phone Hanh Duke MD Primary Care Provider Encounter Details Date Type Department Care Team (Late st Contact Info) Description 09/05/2008 Orders Only [facility] Default [id number] [place] [address] Daniel De Jesus MD [facility] [place] [address] Unspecified Chest Pain Social History [...] MITCH ALVARADO ?MITCH MATIAS REF- ?CON- PCP- HANH DUKE ?SCP- Procedure Note Casandra Masterson [...] unspecified documented in this encounter Care Teams Doctor Of Audiology Relationship Specialty Start Date End Date Hanh Duke MD [address] [address] PCP - General 09/05/08 documented as of this encounter
--- OUTSIDE RECORDS SUMMARY | 2024-06-08 17:07 | XMS_ITS | Encounter Summary ---
Author Organization [facility] Address Critical access hospital6 [facility] [place], [place] [address] [place] [address] Care Team Providers Care Shaper Hand Name Role Phone Jeanna Rubin [facility] Primary Care Provider [phone] Encounter Details Date Type Department Care Team (Latest Contact Info) Description 05/28/2017 Abstract [facility] Medical Group Social History Tobacco Use Types [...] Rubin Task Name: Call Back Assigned To: [facility] Nurse Team Regarding Patient: Ameya Santacruz, Status: [...] 496; Status:Hold For - Manual Activation; Requested for:[id number]; Perform:[facility]; Due:27Jun2017;Ordered; For:Blood glucose elevated; Ordered By:Jeanna Rubin; Signatures Electronically signed by : Katiana Iverson R.N.; May 28 2017 3:19PM CONTRACTING ENGINEER (Author) documented in this encounter Plan of Treatment Not on file documented as of this encounter Visit Diagnoses Not on filedocumented in this encounter Care Teams Shaper Hand Relationship Specialty Start Date End Date Jeanna Rubin FNP [address] [place] [address] PCP - General 09/24/16 documented as of this encounter
--- OUTSIDE RECORDS SUMMARY | 2024-06-08 17:07 | XMS_ITS | Encounter Summary ---
Author Organization [facility] Address [address] [place] [address]. [place], [place] [address] [place] [address] Care Team Providers Care Oracle Fusion Developer Name Role Phone Jeanna Rubin Primary Care Provider [phone] Encounter Details Date Type Department Care Team [...] documented as of this encounter Care Teams Oracle Fusion Developer Relationship Specialty Start Date End Date Jeanna Rubin FNP [address] [place] [address] PCP - General 09/24/16 documented as of this encounter
--- OUTSIDE RECORDS SUMMARY | 2024-06-08 17:07 | XMS_ITS | Patient Health Summary ---
Author Organization [facility] [employer] Address [address] [place] [address] Care Team Providers Care Clinical Project Manager Name Role Phone Hanh Duke MD Primary Care Provider Note from [facility],non-owned Affiliates and Associated Physician Practices is amultiple site organization consisting of ambulatory clinics and hospital sitesin [place], [place], [place] and [place]. This disclosure is being madepursuant to the Care Everywhere program and may not contain all information available regarding this patient. Last updated 18.[facility] [employer] Allergies No known active allergies Medications * [...] Comments Blood Pressure 141/95 06/04/2015 11:30 AM DRYWALL MECHANIC Pulse 85 06/04/2015 11:29 AM DRYWALL MECHANIC Temperature 36.3 ??C (97.4 ??F) 06/04/2015 11:[address] Respiratory Rate 19 06/04/2015 11:29 AM DRYWALL MECHANIC Oxygen Saturation 100% 06/04/2015 11:29 AM DRYWALL MECHANIC Inhaled Oxygen Concentration - - Weight 104.3 kg (230 lb) 06/04/2015 11:28 AM DRYWALL MECHANIC Height 185.4 cm (6' 1 ) 06/04/2015 11:28 AM DRYWALL MECHANIC Body Mass Index 30.34 06/04/2015 11:28 AM DRYWALL MECHANIC Procedures * XR FOOT LEFT 3VW OR [...] FOOT 3+ VW LEFT (06/04/2015 12:06 PM DRYWALL MECHANIC) Anatomical Region Laterality Modality Ankle / Foot Radiographic Fern ging 06/04/2015 12:0 9 PM DRYWALL MECHANIC Narrative 06/04/2015 12:10 PM DRYWALL MECHANIC Left Foot 3 Views INDICATION: Left leg pain, fall, initial evaluation FINDINGS: ??No fracture or malalignment is seen. Procedure Note Ron Lares MD - 06/04/2015 Left Foot 3 Views INDICATION: Left leg pain, fall, initial evaluation FINDINGS: No fracture or malalignment is seen. Jeromy VINES-Kaylie DIAGNOSTIC IMAGING O RDERABLES * XR TIBIA AND FIBULA 2 VW LEFT (06/04/2015 12:06 PM DRYWALL MECHANIC) Anatomical Region Laterality Modality Lower Extremity Radiographic Fern ging 06/04/2015 12:1 0 PM DRYWALL MECHANIC Impressions 06/04/2015 12:10 PM DRYWALL MECHANIC No acute fracture. Narrative 06/04/2015 12:10 PM DRYWALL MECHANIC Left tibia and fibula 2 views Indication: [...] ??M.D. ? Released Date Time- 09/07/08919 ? Tire Adjuster- CODY ??GilaD. ? ADM- MITCH BAKER ?ATT- [...] JESSE OAKES M.D. Released Date Time- 09/07/08919 Tire Adjuster- MMG M.D. ADM- MITCH BAKER ATT- MITCH BAKER REF- CON- BARIJESSICATWYLA PCP- HANH DUKE [facility]- Mitch Baker MD CT ORDERABLES [...] ? Released Date Time- 09/06/08 1526 ? Tire Adjuster- ADIEL ??M.D. ? ADM- MITCH BAKER ?ATT- TRINITYMITCH Bernstein REF- ?QI- TWYLA LOBO [...] ENAMORADO M.D. Released Date Time- 09/06/08 1526 Tire AdjusterSahra CHUN M.D. ADM- MITCH BAKER ATT- MITCH BAKER REF- TWYLA ARREDONDO SUSAN R [facility]- Mitch Baker MD [place] ORDERABLES * TROPONIN I (09/06/2008 5:03 AM CDT) Only the most recent of2 resultswithin the time period is included. Troponin I <0.10 SEE BELOW ng/ml [facility] Comment: Normal ? <0.10 [place] ??0.10-0.99 Positive ?? >=1.00 BLOOD SPECIMEN / Unknown 09/06/2008 5:03 AM CDT Mitch Baker MD LAB - CHEMISTRY YENNY RUIZ Performing Organization Address [facility] de Phone Number [facility] [address] [place] [address] * CKMB (09/06/2008 5:03 AM CDT) CK-MB 0.5 0.0 - 5.0 ng/ml [facility] Interpretation CK-MB [facility] Comment: An abrupt rise/fall of CKMB over 24 hours is an acute injury pattern. BLOOD SPECIMEN / Unknown 09/06/2008 5:03 AM CDT Mitch Baker MD LAB - CHEMISTRY YENNY RUIZ Performing Organization Address [facility] de Phone Number [facility] [address] [place] [address] * CK BLOOD (09/06/2008 5:03 AM CDT) CK 117 55.0 - 170.0 U/L [facility] BLOOD SPECIMEN / Unknown 09/06/2008 5:03 AM CDT Mitch Baker MD LAB - CHEMISTRY YENNY RUIZ Performing Organization Address [facility] de Phone Number [facility] [address] [place] [address] * (ABNORMAL) LIPID PROFILE (09/06/2008 5:03 AM CDT) Cholesterol 159 120.0 - 200.0 mg/dl [facility] Triglycerides 123 0.0 - 250.0 mg/dl [facility] HDL Cholesterol 27(L) >40 mg/dl [facility] LDL Calculated 107.4 mg/dl [facility] Chol HDL Ratio 5.9 [facility] Comment Lipid [facility] Comment: Risk Classification ? HDL CHOL [...] patients according to data reported from the [place] Study by Xavi Quijano M.D. ??The predictive [...] MD LAB - CHEMISTRY YENNY RUIZ [facility] [address] [place] [address] * MYOGLOBIN BLOOD (09/05/2008 11:10 PM CDT) Pathologist [facility] Myoglobin 43.9 0.0 - 110.0 ng/ml [facility] BLOOD SPECIMEN / Unknown 09/05/2008 11:10 PM CDT Daniel De Jesus MD LAB - CHEMISTRY OR DERABLES Performing Organization Address City/[facility] [address]/[facility] Co de Phone Number [facility] [address] [place] [address] * PTT (09/05/2008 11:10 PM CDT) Pathologist [facility] PTT 27.6 24.0 - 32.0 seconds [facility] BLOOD SPECIMEN / Unknown 09/05/2008 11:10 PM CDT Daniel De Jesus MD LAB - COAGULATION ORDERABLES Performing Organization Address [facility] [address]/[facility] Co de Phone Number [facility] [address] [place] [address] * PT-INR (09/05/2008 11:10 PM CDT) Pathologist [facility] PT 10.9 9.4 - 11.2 seconds [facility] INR 1.0 0.9 - 1.1 [facility] Interpretation INR D [facility] Comment: Conventional Anticoagulation INR 2.0-3.0 Intensive Anticoagulation INR 2.5-3.5 BLOOD SPECIMEN / Unknown 09/05/2008 11:10 PM CDT Daniel De Jesus MD LAB - COAGULATION ORDERABLES Performing Organization Address City/[facility] [address]/[facility] Co de Phone Number [facility] [address] [place] [address] * (ABNORMAL) CBC W AUTO DIFFERENTIAL (09/05/2008 11:10 PM CDT) Pathologist [facility] WBC 5.9 4.5 - 11.0 1000/mm3 [facility] RBC 5.15 4.7 - 6.1 10X6 [facility] Hemoglobin 14.7 13.0 - 18.0 gm/dl [facility] Hematocrit 42.9 39.0 - 54.0 % [facility] MCV 83.3 80.0 - 99.0 fl [facility] MCH 28.5 25.0 - 31.0 pg [facility] MCHC 34.3 32.0 - 36.0 gm/dl [facility] RDW 12.1 11.5 - 14.5 % [facility] Platelet Count 220 130.0 - 400.0 1000/mm3 [facility] Granulocytes % 46.1 40.0 - 70.0 % [facility] Lymphocytes % Manual 41.9(H) 22.0 - 40.0 % [facility] Monocytes % 9.6 2.0 - 10.0 % [facility] Eosinophils % 1.7 0.0 - 6.0 % [facility] Basophils % 0.7 0.0 - 3.0 % [facility] Comment Manual Diff Not Indicated [facility] Granulocytes Absolute 2.70 1.8 - 7.7 1000/mm3 [facility] BLOOD SPECIMEN / Unknown 09/05/2008 11:10 PM CDT Daniel De Jesus MD LAB - HEMATOLOGY O RDERABLES [facility] [address] [place] [address] * (ABNORMAL) COMPREHENSIVE METABOLIC PANEL (09/05/2008 11:10 PM CDT) BUN 15 9.0 - 20.0 mg/dl [facility] Sodium 139 137 - 145 mEq/L [facility] Potassium 3.9 3.6 - 5.0 mEq/L [facility] Chloride 98 98.0 - 107.0 mEq/L [facility] Glucose 87 75 - 110 mg/dl [facility] Creatinine 1.2 0.8 - 1.5 mg/dl [facility] AST 57 17.0 - 59.0 U/L [facility] Alkaline Phosphatase 74 38.0 - 126.0 U/L [facility] Calcium 9.4 8.4 - 10.2 mg/dl [facility] Bilirubin Total 0.5 0.2 - 1.3 [...] - CHEMISTRY OR DERABLES Performing Organization Address [facility] [address]/[facility] Co de Phone Number [facility] [address] [place] [address] * MAGNESIUM BLOOD (09/05/2008 11:10 PM CDT) Magnesium 2.1 1.6 - 2.3 mg/dl [facility] BLOOD SPECIMEN / Unknown 09/05/2008 11:10 PM CDT Daniel De Jesus MD LAB - CHEMISTRY OR DERABLES Performing Organization Address [facility] [address]/[facility] Co de Phone Number [facility] [address] [place] [address] * XR CHEST 1VW PORTABLE (09/05/2008 10:33 [...] ??M.D. ? Released Date Time- 09/06/08742 ? Tire Adjuster- CODY ??M.D. ? ADM- MITCH BAKER ?ATT- [...] OAKES M.D. Released Date Time- 09/06/08 0743 Tire Adjuster- CODY Srivastava ADM- MITCH BAKER ATT- MITCH BAKER REF- CON- PCP- HANH DUKE SCP- Daniel De Jesus MD DIAGNOSTIC IMAGING ORDERABLES Care Teams Clinical Project Manager Relationship Specialty Start Date End Date Hanh Duke MD [address] [place] [address] [address] [place] [address] [facility] - General 09/05/08
--- OUTSIDE RECORDS SUMMARY | 2024-06-08 17:07 | XMS_ITS | Encounter Summary ---
Author Organization [facility] Address [address] [place] [address]. [place] [address] [place] [address] Care Team Providers Care Recruiting Coordinator Name Role Phone Jeanna Rubin Primary Care Provider [phone] Encounter Details Date Type Department Care Team [...] Total Score: 0 06/08/19 20 12:13 PM THERAPY MANAGER documented as of this encounter Care Teams Recruiting Coordinator Relationship Specialty Start Date End Date Jeanna Rubin FNP [address] [place] [address] PCP - General 09/24/16 documented as of this encounter
--- OUTSIDE RECORDS SUMMARY | 2024-06-08 17:07 | XMS_ITS | Encounter Summary ---
Author Organization [facility] Address [address] [facility] [place] [address] [place] [address] Care Team Providers Care Maintenance Plumber Name Role Phone Jeanna Rubin Primary Care Provider [phone] Jeanna Rubin Primary Care Provider [phone] Jeanna Rubin Primary Care Provider [phone] Encounter Details Date Type Department Care Team (Latest Contact Info) Description 04/25/2016 Abstract [facility] Social History Tobacco Use [...] Task Name: Medical Complaint Callback Assigned To: [facility] Regarding Patient: Ameya Santacruz, Status: [...] Jacinta Lyle, ; Apr 25 2016 2:56PM GRADUATE ASSISTANT (Author) documented in this encounter Plan of Treatment Not on file documented as of this encounter Visit Diagnoses Not on filedocumented in this encounter Care Teams Maintenance Plumber Relationship Specialty Start Date End Date Jeanna Rubin FNP [address] [place] [address] PCP - General 09/24/16 Jeanna Rubin FNP [address] [place] [address] PCP - General 09/16/16 09/23/16 Jeanna Rubin FNP [address] [place] [address] PCP - General 04/21/16 09/15/16 documented as of this encounter
--- OUTSIDE RECORDS SUMMARY | 2024-06-08 17:07 | XMS_ITS | Encounter Summary ---
Author Organization [facility] Address [facility] [facility] [place] [address] [place] [address] Care Team Providers Care Director Learning Services Name Role Phone Jeanna Rubin Primary Care Provider [phone] Jeanna Rubin Primary Care Provider [phone] Jeanna Rubin Primary Care Provider [phone] Encounter Details Date Type Department Care Team (Late st Contact Info) Description 04/21/2016 Abstract [facility] Medical [facility] Family & Internal Medicine - [place] [address] [place] [address] Jeanna Rubin FNP [address] [place], [place] [id number] Social History Tobacco Use Types Packs/Day Years Used Date Smoking Tobacco: Never Assessed Sex and Gender Information Value Date Recorded Sex Assigned at Not on file Legal Sex Male 8:31 PM CDT Gender Identity Not on file Sexual Orientation Not on file documented as of this encounter Last Filed Vital Signs Vital Sign Reading Time Taken Comments Blood Pressure 128/84 04/21/2016 9:37 AM IN FLIGHT REFUELING OPERATOR Pulse 68 04/21/2016 9:37 AM IN FLIGHT REFUELING OPERATOR Temperature - - Respiratory Rate - - Oxygen Saturation - - Inhaled Oxygen Concentration - - Weight 108.4 kg (239 lb) 04/21/2016 9:37 AM IN FLIGHT REFUELING OPERATOR Height 185.4 cm (6' 1 ) 04/21/2016 9:37 AM IN FLIGHT REFUELING OPERATOR Body Mass Index 31.53 04/21/2016 9:37 AM IN FLIGHT REFUELING OPERATOR documented in this encounter Progress Notes * Jeanna Rubin, INSTRUCTOR TECHNICAL TRAINING - 04/21/2016 9:30 AM CST Reason For [...] Glucose Negative Bilirubin Negative Ketones Negative Specific [place] 1.020 Blood Negative pH 7.0 5.0 - [...] Status:Hold For - Manual Activation; Requested for:21Apr2016; Perform:[facility]; Due:[id number]; Last Updated By:Marley Chen; 04/21/2016 10:14:46 AM;Ordered; For:Abdominal pain, left lower quadrant; Ordered By:Jeanna Rubin; 3. Compr Metabolic Prof ( CMP ); Status:Hold For - Manual Activation; Requested for:21Apr2016; Perform:[facility]; Due:[id number]; Last Updated By:Marley Chen; 04/21/2016 10:14:46 AM;Ordered; For:Abdominal pain, left lower quadrant; Ordered By:Jeanna Rubin; 4. Free / Total Testosterone; Status:Hold For - Manual Activation; Requested for:21Apr2016; Perform:[facility]; Due:[id number]; Last Updated By:Marley Chen; 04/21/2016 10:14:46 AM;Ordered; For:Abdominal pain, left lower quadrant; Ordered By:Jeanna Rubin; 5. Lipid Profile; Status:Hold For - Manual Activation; Requested for:21Apr2016; Perform:[facility]; Due:[id number]; Last Updated By:Marley Chen; 04/21/2016 10:14:46 AM;Ordered; For:Abdominal pain, left lower quadrant; Ordered By:Jeanna Rubin; 6. TSH W Reflex Free T4; Status:Hold For - Manual Activation; Requested for:21Apr2016; Perform:[facility]; Due:[id number]; Last Updated By:Marley Chen; 04/21/2016 10:14:46 AM;Ordered; For:Abdominal pain, left lower quadrant; Ordered By:Jeanna Rubin; 7. Vitamin D 25 - Hydroxy; Status:Hold For - Manual Activation; Requested for:21Apr2016; Perform:[facility]; Due:[id number]; Last Updated By:Marley Chen; 04/21/2016 10:14:46 AM;Ordered; For:Abdominal pain, left lower quadrant; Ordered By:Jeanna Rubin; Abdominal pain, left lower quadrant, Left flank pain 8. Ciprofloxacin HCl - 500 MG Oral Tablet; Take 1 tablet twice daily Rx By: Jeanna Rubin; Dispense: 10 Days ; #:20 Tablet; Refill: 0; For: Abdominal pain, left lower quadrant, Left flank pain; CONCETTA = N; Verified Transmission to [facility]; Last Updated By:Sonny Zaidi; 04/21/2016 10:23:49 AM 9. MetroNIDAZOLE 500 MG Oral Tablet (Flagyl); Take 1 tablet twice daily Rx By: Jeanna Rubin; Dispense: 10 Days ; #:20 Tablet; Refill: 0; For: Abdominal pain, left lower quadrant, Left flank pain; CONCETTA = N; Verified Transmission to [facility] 10. Follow-up PRN Outpatient Follow-up Status: Complete Done: 21Apr2016 Ordered; For: Abdominal pain, left lower quadrant, Left flank pain; Ordered By: Jeanna Rubin Performed: Due: [id number] 11. Complete medication as prescribed.; Status:Complete; Done: [...] Jeanna Rubin, ; Apr 21 2016 10:41AM IN FLIGHT REFUELING OPERATOR (Author) documented in this encounter Plan of Treatment Not on file documented as of this encounter Procedures Procedure Name Priority Date/Time Associated Diagnosis Comments TSH W/REFLEX Routine 04/21/2016 11:37 AM IN FLIGHT REFUELING OPERATOR TESTOSTERONE, FREE & TOTAL Routine 04/21/2016 11:37 AM IN FLIGHT REFUELING OPERATOR COMPREHENSIVE METABOLIC PANEL Routine 04/21/2016 11:37 AM IN FLIGHT REFUELING OPERATOR LIPID PANEL Routine 04/21/2016 11:37 AM IN FLIGHT REFUELING OPERATOR CBC, MANUAL DIFF Routine 04/21/2016 11:3 7 AM IN FLIGHT REFUELING OPERATOR VITAMIN D, 25 OH Routine 04/21/2016 11:3 7 AM IN FLIGHT REFUELING OPERATOR URINALYSIS AUTO DIP Routine 04/21/2016 1 0:20 AM IN FLIGHT REFUELING OPERATOR documented in this encounter Results * (ABNORMAL) CBC, MANUAL DIFF (04/21/2016 11:37 AM IN FLIGHT REFUELING OPERATOR) WBC 4.2(L) 4.8 - 10.8 x10'3/uL [facility] [...] TO EPIC CONVERSION 04/21/2016 11:3 7 AM IN FLIGHT REFUELING OPERATOR 04/21/2016 11:37 AM IN FLIGHT REFUELING OPERATOR Narrative [facility] TO EPIC CONVERSION - 04/21/2016 10:55 PM IN FLIGHT REFUELING OPERATOR Result Communication: No patient communication needed at this time Jeanna Berkowitzradhames [facility] Final Result [facility] TO EPIC CONVERSION * TESTOSTERONE, FREE & TOTAL (04/21/2016 11:37 AM IN FLIGHT REFUELING OPERATOR) TESTOSTERONE TOTAL 590 [facility] TO [facility]IC CONVERSION Comment: Result Comment: Reference range: 250 to 1100 Unit: ng/dL For more information on this test, go to http://education.ToyTalk/faq/ TotalTestosteroneLCMSMS TESTOSTERONE FREE 83.8 ME [facility] TO EPIC CONVERSION Comment: Result Comment: Reference range: 35.0 to 155.0 Unit: pg/mL Test Performed by [facility], [facility], [address] [place] [address] Peter Silva M.D., Ph.D., Director of Laboratories , [facility] [id number] 04/21/2016 11:3 7 AM IN FLIGHT REFUELING OPERATOR 04/21/2016 11:37 AM IN FLIGHT REFUELING OPERATOR Narrative [facility] TO EPIC CONVERSION - 04/24/2016 3:55 PM IN FLIGHT REFUELING OPERATOR Result Communication: No patient communication needed at this time Jeanna Caryn [facility] Final Result Performing Organization Address [facility] Co de Phone Number [facility] TO EPIC CONVERSION * (ABNORMAL) LIPID PANEL (04/21/2016 11:37 AM IN FLIGHT REFUELING OPERATOR) CHOLESTEROL 194 <200 MG/DL [facility] TO EPIC [...] TO EPIC CONVERSION 04/21/2016 11:3 7 AM IN FLIGHT REFUELING OPERATOR 04/21/2016 11:37 AM IN FLIGHT REFUELING OPERATOR Narrative [facility] TO EPIC CONVERSION - 04/21/2016 8:37 PM IN FLIGHT REFUELING OPERATOR Result Communication: No patient communication needed at this time Jeanna Rubin [facility] Final Result [facility] TO EPIC CONVERSION * (ABNORMAL) COMPREHENSIVE METABOLIC PANEL (04/21/2016 11:37 AM IN FLIGHT REFUELING OPERATOR) SODIUM S/P/B 140 136 - 145 mmol/L [...] TO EPIC CONVERSION 04/21/2016 11:3 7 AM IN FLIGHT REFUELING OPERATOR 04/21/2016 11:37 AM IN FLIGHT REFUELING OPERATOR Narrative [facility] TO EPIC CONVERSION - 04/21/2016 8:37 PM IN FLIGHT REFUELING OPERATOR Result Communication: No patient communication needed at this time Jeanna Berkowitzradhames [facility] Final Result Performing Organization Address [facility]/ZIP Co de Phone Number [facility] TO EPIC CONVERSION * TSH W/REFLEX (SNS) (04/21/2016 11:37 AM IN FLIGHT REFUELING OPERATOR) TSH 1.93 0.27 - 4.20 mIU/mL [facility] Comment:Result Comment: FREE T4 NOT INDICATED 04/21/2016 11:3 7 AM IN FLIGHT REFUELING OPERATOR 04/21/2016 11:37 AM IN FLIGHT REFUELING OPERATOR Narrative [facility] TO EPIC CONVERSION - 04/21/2016 8:37 PM IN FLIGHT REFUELING OPERATOR Result Communication: No patient communication needed at this time [facility] Final Result [facility] TO EPIC CONVERSION * VITAMIN D, 25 OH (04/21/2016 11:37 AM IN FLIGHT REFUELING OPERATOR) VITAMIN D 25 HYDROXY S/P/B 42 30 - 100 NG/ML [facility] Comment: Result Comment: ?? SUPPLEMENTING WITH VITAMIN D2 MAY RESULT IN FALSELY LOW RESULTS, CLINICAL CORRELATION NEEDED. ? INTERPRETATION ? DEFICIENT ??<20 ?INSUFFICIENT 20-30 ?SUFFICIENT 30-100 POTENTIAL INTOXICATION ??>100 ? TESTING PERFORMED AT [facility] [address] [place] [address] 04/21/2016 11:3 7 AM IN FLIGHT REFUELING OPERATOR 04/21/2016 11:37 AM IN FLIGHT REFUELING OPERATOR Narrative [facility] TO EPIC CONVERSION - 04/22/2016 4:52 PM IN FLIGHT REFUELING OPERATOR Result Communication: No patient communication needed at this time Jeanna MARTINEZ [facility] Final Result [facility] TO EPIC CONVERSION * URINALYSIS AUTO DIP (04/21/2016 10:20 AM IN FLIGHT REFUELING OPERATOR) COLOR (U) Dark yellow [facility] TO EPIC [...] TO EPIC CONVERSION 04/21/2016 10:2 0 AM IN FLIGHT REFUELING OPERATOR 04/21/2016 10:20 AM IN FLIGHT REFUELING OPERATOR Narrative [facility] TO EPIC CONVERSION - 04/21/2016 10:20 AM IN FLIGHT REFUELING OPERATOR Result Communication: No patient communication needed at this time Jeanna MARTINEZ URINE ORDERABLES Final Result Performing Organization Address City/[facility]/ZIP Co de Phone Number [facility] TO EPIC CONVERSION documented in this encounter Visit Diagnoses Not on filedocumented in this encounter Care Teams Director Learning Services Relationship Specialty Start Date End Date Jeanna Rubin FNP [address] [place] [address] PCP - General 09/24/16 Jeanna Rubin FNP [address] [place] [address] PCP - General 09/16/16 09/23/16 Jeanna Rubin FNP [address] [place] [address] PCP - General 04/21/16 09/15/16 documented as of this encounter
--- OUTSIDE RECORDS SUMMARY | 2024-06-08 17:07 | XMS_ITS | Encounter Summary ---
Author Organization [facility] Address [address] [facility] [place] [address] [place] [address] Care Team Providers Care Beer Brewer Name Role Phone Jeanna Rubin Primary Care Provider Jeanna Rubin Primary Care Provider [phone] Jeanna Rubin Primary Care Provider Encounter Details Date Type Department Care Team (Late st Contact Info) Description 04/21/[address] [facility] [address] Jeanna Rubin FNP [address] [place], [place] [id number] Social History Tobacco Use Types Packs/Day Years [...] Comments TSH W/REFLEX Routine 04/21/2016 11:37 AM MANAGER FORMS TESTOSTERONE, FREE & TOTAL Routine 04/21/2016 11:37 AM MANAGER FORMS COMPREHENSIVE METABOLIC PANEL Routine 04/21/2016 11:37 AM MANAGER FORMS LIPID PANEL Routine 04/21/2016 11:37 AM MANAGER FORMS CBC, MANUAL DIFF Routine 04/21/2016 11:3 7 AM MANAGER FORMS VITAMIN D, 25 OH Routine 04/21/2016 11:3 7 AM MANAGER FORMS documented in this encounter Results * VITAMIN D, 25 OH (04/21/2016 11:37 AM MANAGER FORMS) VITAMIN D 25 HYDROXY S/P/B 42 30 - 100 NG/ML 04/22/2016 5:52 PM MANAGER FORMS [facility] Comment: SUPPLEMENTING WITH VITAMIN D2 MAY RESULT IN FALSELY LOW RESULTS, CLINICAL CORRELATION NEEDED. ? INTERPRETATION ? DEFICIENT ??<20 ?INSUFFICIENT 20-30 ?SUFFICIENT 30-100 POTENTIAL INTOXICATION ??>100 [place] [address] 04/21/2016 11:3 7 AM MANAGER FORMS 04/21/2016 8:47 PM MANAGER FORMS us Generic Conversion Md [facility] Final R esult [facility] [address] [place] [address], * TSH W/REFLEX (SNS) (04/21/2016 11:37 AM MANAGER FORMS) Pathologist [facility] TSH 1.93 0.27 - 4.20 mIU/mL 04/21/2016 9:37 PM MANAGER FORMS [facility] Comment:FREE T4 NOT INDICATE D SERUM OR PLASMA SPECIMEN / Unknown 04/21/2016 11:37 AM MANAGER FORMS 04/21/2016 8:47 PM MANAGER FORMS Generic Conversion Md [facility] Final R esult [facility] [address] [address], [place] [phone] * TESTOSTERONE, FREE & TOTAL (04/21/2016 11:37 AM MANAGER FORMS) TESTOSTERONE TOTAL 590 250 - 1,100 ng/dL 04/24/2016 4:55 PM MANAGER FORMS [employer] AIDAN MILLER Comment: For more information on this test, go to http://education.Valtech Cardio/faq/ TotalTestosteroneLCMSMS TESTOSTERONE FREE 83.8 35.0 - 155.0 pg/mL 04/24/2016 4:55 PM MANAGER FORMS [employer] AIDAN MILLER Comment: Test Performed by [facility], [facility], [address] [place] [address] Peter Silva M.D., Ph.D., Director of Laboratories , [facility] [id number] SERUM SPECIMEN / Unknown 04/21/2016 11:37 AM MANAGER FORMS 04/21/2016 8:47 PM MANAGER FORMS Generic Conversion Md [facility] Final R esult [employer] [address] [address], [place] [phone] * (ABNORMAL) LIPID PANEL (04/21/2016 11:37 AM MANAGER FORMS) CHOLESTEROL 194 <200 MG/DL 04/21/2016 9:37 PM MANAGER FORMS [facility] Comment: NOTE: Acetaminophen, N Acetyl p benzoquinone imine (NAPQI), N acetylcysteine (NAC), Metamizole, 4 Aminoantipyrine (4 AAP) and 4 Methylamino antipyrine (4 MAP) at high concentrations can cause falsely low results on Lactate, Uric Acid, Cholesterol, Triglyceride, HDL, and Direct LDL. TRIGLYCERIDES 72 <150 MG/DL 04/21/2016 9:37 PM [facility] HDL 44(L) >59 MG/DL 04/21/2016 9:37 PM [facility] LDL (CALCULATED) 136(H) <100 MG/DL 04/21/2016 9:37 PM [facility] NON HDL CHOLESTEROL 150(H) <130 MG/DL 04/21/2016 9:37 PM [facility] Comment: NOTE: WHEN THE TRIGLYCERIDES ARE >200 mg/dL, NON HDL C IS A SECONDARY TARGET OF THERAPY, WITH A GOAL 30 mg/dL HIGHER THAN THE IDENTIFIED LDL C GOAL. CHOL/HDL RATIO 4.4 0.0 - 4.5 04/21/2016 9:37 PM [facility] VLDL CALCULATION 14 5 - 55 MG/DL 04/21/2016 9:37 PM [facility] LIPID INTERPRETATION 04/21/2016 9:37 PM [facility] Comment: [facility] REPORT RECOMMENDATIONS: ?ADULT ?CHILD ??LOW [...] ? >=160 ?>=130 04/21/2016 11:3 7 AM MANAGER FORMS 04/21/2016 8:47 PM MANAGER FORMS us Generic Conversion Md [facility] Final R esult [facility] [address] [place] [address], * (ABNORMAL) COMPREHENSIVE METABOLIC PANEL (04/21/2016 11:37 AM MANAGER FORMS) GLUCOSE 91 70 - 99 mg/dL 04/21/2016 9:37 PM [facility] BUN 12 8 - 23 mg/dL 04/21/2016 9:37 PM [facility] CREATININE S/P/B 0.94 0.70 - 1.20 mg/dL 04/21/2016 9:37 PM [facility] SODIUM S/P/B 140 136 - 145 mmol/L 04/21/2016 9:37 PM [facility] POTASSIUM S/P/B 4.5 3.5 - 5.1 mmol/L 04/21/2016 9:37 PM [facility] CHLORIDE S/P/B 101 98 - 107 mmol/L 04/21/2016 9:37 PM [facility] CO2 28 22 - 29 mmol/L 04/21/2016 9:37 PM [facility] BILIRUBIN TOTAL S/P/B 0.6 0.2 - 1.2 mg/dL 04/21/2016 9:37 PM [facility] CALCIUM S/P/B 9.8 8.6 - 10.2 mg/dL 04/21/2016 9:37 PM [facility] ALKALINE PHOSPHATASE S/P/B 65 40 - 129 U/L 04/21/2016 9:37 PM [facility] AST 32 0 - 40 U/L 04/21/2016 9:37 PM [facility] TOTAL PROTEIN S/P/B 7.2 6.4 - 8.3 g/dL 04/21/2016 9:37 PM [facility] ALBUMIN S/P/B 4.9 3.5 - 5.2 g/dL 04/21/2016 9:37 PM [facility] ALT 48(H) 0 - 41 U/L 04/21/2016 9:37 PM [facility] GLOBULIN 2.3 2.3 - 3.6 g/dL 04/21/2016 9:37 PM [facility] A/G RATIO 2.1(H) 1.0 - 2.0 04/21/2016 9:37 PM [facility] ANION GAP 16 8 - 20 04/21/2016 9:37 PM [facility] EGFR NON-AFR. AMER. >60 >60 mL/min/1.7 3m'2 04/21/2016 9:37 PM [facility] EGFR AFR. AMER. >60 >60 mL/min/1.7 3m'2 04/21/2016 9:37 PM MANAGER FORMS [facility] Comment: NOTE: eGFR is not calculated for patients <18 years of age. This is an estimated GFR (CKD EPI) and should not be used for calculating drug doses. 04/21/2016 11:3 7 AM MANAGER FORMS 04/21/2016 8:47 PM MANAGER FORMS us Generic Conversion Md [facility] Final R esult [facility] [address] [place] [address], * (ABNORMAL) CBC, MANUAL DIFF (04/21/2016 11:37 AM MANAGER FORMS) EOSINOPHILS 1 1.0 - 3.0 % 04/21/2016 11:55 PM [facility] BANDS 2 0.0 - 3.0 % 04/21/2016 11:55 PM [facility] SEG NEUTROPHILS 43 43.0 - 65.0 % 04/21/2016 11:55 PM [facility] LYMPHOCYTES 44 20.0 - 46.0 % 04/21/2016 11:55 PM [facility] MONOCYTES 10 5.0 - 12.0 % 04/21/2016 11:55 PM [facility] DIFFERENTIAL TYPE MANUAL 016 11:55 PM [facility] WBC 4.2(L) 4.8 - 10.8 x10'3/uL 04/21/2016 11:49 PM [facility] RBC 5.04 4.70 - 6.10 x10'6/uL 04/21/2016 11:49 PM [facility] HGB 14.9 14.0 - 18.0 G/DL 04/21/2016 11:49 PM [facility] HCT 44.3 43.0 - 54.0 % 04/21/2016 11:49 PM MANAGER FORMS [facility] MCV 87.9 80.0 - 94.0 FL 04/21/2016 11:49 PM MANAGER FORMS [facility] MCH 29.6 27.0 - 31.0 PG 04/21/2016 11:49 PM MANAGER FORMS [facility] MCHC 33.6 32.0 - 36.0 G/DL 04/21/2016 11:49 PM MANAGER FORMS [facility] RDW 12.1 11.5 - 14.5 % 04/21/2016 11:49 PM MANAGER FORMS [facility] PLT 217 130 - 400 x10'3/uL 04/21/2016 11:49 PM [facility] MPV 11.1 9.3 - 12.2 FL 04/21/2016 11:49 PM [facility] 04/21/2016 11:3 7 AM MANAGER FORMS 04/21/2016 8:47 PM MANAGER FORMS us Generic Conversion Md [facility] Final R esult Performing Organization Address City/State/[facility] Co de Phone Number [facility] [address] [place] [address], documented in this encounter Visit Diagnoses Diagnosis Left lower quadrant pain Abdominal pain, left lower quadrant documented in this encounter Care Teams Beer Brewer Relationship Specialty Start Date End Date Jeanna Rubin FNP [address] [place] [address] PCP - General 09/24/16 Jeanna Rubin FNP [address] [place] [address] PCP - General 09/16/16 09/23/16 Jeanna Rubin FNP [address] [place] [address] PCP - General 04/21/16 09/15/16 documented as of this encounter
--- OUTSIDE RECORDS SUMMARY | 2024-06-08 17:07 | XMS_ITS | Encounter Summary ---
Author Organization [facility] Address [facility] [facility]. [place], [place] [address] [place] [address] Care Team Providers Care Hat Block Maker Name Role Phone Jeanna Rubin [facility] Primary Care Provider [phone] Encounter Details Date Type Department Care Team (Latest Contact Info) Description 09/25/2016 Abstract [facility] , Generic ConversionMD [...] Task Name: Medical Complaint Callback Assigned To: [facility] Nurse Team Regarding Patient: Ameya Santacruz, Status: Active Comment: Jeanna Rubin - 25 Sep 2016 9:12 AM TASK CREATED Ameya's labs are all normal. How is he feeling today? Rebeca Chaudhari - 25 Sep 2016 2:04 PM TASK IN PROGRESS Rebeca Chaudhari - 25 Sep 2016 2:06 PM TASK EDITED [id number] Mandy Raya - 25 Sep 2016 2:20 PM TASK EDITED pt notified and stated that he is feeling about the same, short of breath and fatigue. Jeanna Rubin - 25 Sep 2016 2:29 PM TASK REPLIED TO: Previously Assigned To Jeanna Rubin noted Signatures Electronically signed by : Rebeca Chaudhari MA; Sep 25 2016 2:33PM NUTRITION TECHNICIAN (Author) documented in this encounter Plan of Treatment Not on file documented as of this encounter Visit Diagnoses Not on filedocumented in this encounter Care Teams Hat Block Maker Relationship Specialty Start Date End Date Jeanna Rubin FNP [address] [place] [address] PCP - General 09/24/16 documented as of this encounter
--- OUTSIDE RECORDS SUMMARY | 2024-06-08 17:07 | XMS_ITS | Encounter Summary ---
Author Organization [facility] Address [address] [facility] [place] [address] [place] [address] Care Team Providers Care Bioinformatics Assistant Name Role Phone Jeanna Rubin Primary Care Provider Encounter Details Date Type Department Care Team (Latest Contact Info) Description 05/26/2017 Abstract [facility] Group Jeanna Rubin FNP [facility] [place] [address] Social History Tobacco Use Types Packs/Day Years [...] Comments TSH W/REFLEX Routine 05/26/2017 8:14 AM [employer] HEMOGLOBIN, GLYCOSYLATED Routine 05/26/2017 8:14 AM [employer] URINALYSIS, AUTO, COMPLETE Routine 05/26/2017 8:14 AM [employer] COMPREHENSIVE METABOLIC PANEL Routine 05/26/2017 8:14 AM [employer] CBC W/DIFF AUTOMATED Routine 05/26/2017 8:14 AM [employer]ER VITAMIN D, 25 OH Routine 05/26/2017 8:14 AM [employer] URIC ACID BLOOD Routine 05/26/2017 8:14 AM [employer] documented in this encounter Results * CBC W/DIFF AUTOMATED (05/26/2017 8:14 AM [employer]) WBC 4.7 3.8 - 10.8 [facility] TO [...] CONVERSION Comment: Result Comment: Test Performed at: [facility] [address] [place], [place] ??[phone] ? SHAHAB GR DO,MPH 05/26/2017 8:14 AM [facility] [employer] 05/26/2017 8:14 AM [facility] [employer] Narrative [facility] TO EPIC CONVERSION - 05/26/2017 8:15 AM [facility] [employer] Result Communication: No patient communication needed at this time Jeanna Berkowitzradhames [facility] Final Result [facility] TO EPIC CONVERSION * VITAMIN D, 25 OH (05/26/2017 8:14 AM [employer]) VITAMIN D 25 HYDROXY TOTAL S/P/B 38 30 - 100 ng/mL [facility] CONVERSION Comment: Result Comment: Vitamin D Status ? 25-OH Vitamin D: Deficiency: ?<20 ng/mL Insufficiency: ? 20 - 29 ng/mL Optimal: ? > or = 30 ng/mL For 25-OH Vitamin D testing on patients on D2-supplementation and patients for whom quantitation of D2 and D3 fractions is required, the QuestAvanzitureD(TM) 25-OH VIT D, (D2,D3), LC/MS/MS is recommended: order code 67968 (patients >2yrs). For more information on this test, go to: http://education.Dayak/faq/MIW431 (This link is being provided for informational/educational purposes only.) REPORT COMMENT: FASTING:YES Test Performed at: [facility] ??[phone] ? SHAHAB GR DO,MPH 05/26/2017 8:14 AM [facility] [employer] 05/26/2017 8:14 AM [facility] [employer] Narrative [facility] TO EPIC CONVERSION - 05/26/2017 8:15 AM [facility] [employer] Result Communication: No patient communication needed at this time Jeanna Berkowitzradhames [facility] Final Result Performing Organization Address [facility]/ZIP Co de Phone Number [facility] TO EPIC CONVERSION * URIC ACID BLOOD (05/26/2017 8:14 AM [facility] [employer]) URIC ACID 5.4 4.0 - 8.0 mg/dL [facility] TO [facility]IC CONVERSION Comment: Result Comment: Therapeutic target for gout patients: <6.0 mg/dL ?? Test Performed at: [facility] [address] [place], [place] ??[phone] ? SHAHAB GR DO,MPH 05/26/2017 8:14 AM [facility] [employer] 05/26/2017 8:14 AM [facility] [employer] Narrative [facility] TO EPIC CONVERSION - 05/26/2017 8:15 AM [facility] [employer] Result Communication: No patient communication needed at this time Jeanna [facility] Final Result [facility] TO [facility]IC CONVERSION * HEMOGLOBIN, GLYCOSYLATED (05/26/2017 8:14 AM [facility] [employer]) HGB A1C 5.3 <5.7 [facility] T O [...] diagnosis of diabetes in children. According to [place] Diabetes Association (ADA) guidelines, hemoglobin A1c <7.0% represents optimal control in non- diabetic patients. Different metrics may apply to specific patient populations. Standards of Medical Care in Diabetes(ADA). ?? REPORT COMMENT: FASTING:YES Test Performed at: [facility] [place] [address] [place], [place] ??[phone] ? SHAHAB GR DO,MPH 05/26/2017 8:14 AM [facility] [employer] 05/26/2017 8:14 AM [facility] [employer] Narrative [facility] TO EPIC CONVERSION - 05/26/2017 8:15 AM [facility] [employer] Result Communication: No patient communication needed at this time Jeanna Rubin ENGINEERING DOCUMENTATION SPECIALIST [facility] Final Result [facility] TO EP[facility] CONVERSION * (ABNORMAL) COMPREHENSIVE METABOLIC PANEL (05/26/2017 8:14 AM [facility] [employer]) [facility] GLUCOSE 104(H) 65 - 99 mg/dL [...] CONVERSION Comment: Result Comment: Test Performed at: [facility] [address] [place], [place] ??[phone] ? SHAHAB GR DO,MPH 05/26/2017 8:14 AM [facility] [employer] 05/26/2017 8:14 AM [facility] [employer] Narrative [facility] TO EPIC CONVERSION - 05/26/2017 8:15 AM [facility] [employer] Result Communication: No patient communication needed at this time [facility] Final Result Performing Organization Address [facility]/ZIP Co de Phone Number [facility] TO EPIC CONVERSION * TSH W/REFLEX (SNS) (05/26/2017 8:14 AM [facility] [employer]) Pathologist [facility] TSH 2.94 0.40 - 4.50 mIU/L [facility] TO [facility] CONVERSION Comment: Result Comment: Test Performed at: [facility] ??[phone] ? SHAHAB GR DO,MPH 05/26/2017 8:14 AM [facility] [employer] 05/26/2017 8:14 AM [facility] Narrative [facility] TO EPIC CONVERSION - 05/26/2017 8:15 AM [facility] Result Communication: No patient communication needed at this time [facility] Final Result Performing Organization Address [facility]/ZIP Co de Phone Number [facility] TO EPIC CONVERSION * URINALYSIS, AUTO, COMPLETE (05/26/2017 8:14 AM [facility] [employer]) COLOR (U) YELLOW YELLOW [facility] T O [...] CONVERSION Comment: Result Comment: Test Performed at: [facility] [address] ??[phone] ? SHAHAB GR DO,MPH 05/26/2017 8:14 AM [facility] 05/26/2017 8:14 AM [employer] Narrative [facility] TO EPIC CONVERSION - 05/26/2017 8:15 AM [facility] Result Communication: No patient communication needed at this time Jeanna MARTINEZ URINE ORDERABLES Final Result [facility] TO [facility]IC CONVERSION documented in this encounter Visit Diagnoses Not on filedocumented in this encounter Care Teams Bioinformatics Assistant Relationship Specialty Start Date End Date Jeanna Rubin FNP [address] [place] [address] PCP - General 09/24/16 documented as of this encounter
--- OUTSIDE RECORDS SUMMARY | 2024-06-08 17:07 | XMS_ITS | Encounter Summary ---
Author Organization [facility] Address [address] [place] [address]. [place], [place] [id number] [place] [address] Care Team Providers Care Endoscopy Nurse Name Role Phone Jeanna Rubin Primary Care Provider Encounter Details Date Type Department Care Team (Latest Contact Info) Description 10/13/2016 Abstract [facility] Medical Group Social History Tobacco [...] on filedocumented in this encounter Care Teams Endoscopy Nurse Relationship Specialty Start Date End Date Jeanna Rubin FNP [address] [facility] [place] [address] PCP - General 09/24/16 documented as of this encounter
--- OUTSIDE RECORDS SUMMARY | 2024-06-08 17:07 | XMS_ITS | Encounter Summary ---
Author Organization [facility] Address [facility] [place] [address] [place] [address] Care Team Providers Care Research Management Associate Name Role Phone Jeanna Rubin Primary Care Provider [phone] Jeanna Rubin Primary Care Provider Encounter Details Date Type Department Care Team (Late st Contact Info) Description 09/16/2016 Abstract [place] [place] [address] Jeanna Rubin FNP [facility] [place], [place] [id number] Social History Tobacco Use Types Packs/Day Years [...] - 99 mg/dL 09/16/2016 8:48 PM CDT [facility] BUN 12 8 - 23 mg/dL 09/16/2016 8:48 PM CDT [facility] CREATININE S/P/B 0.98 0.70 - 1.20 mg/dL 09/16/2016 8:48 PM CDT [facility] SODIUM S/P/B 135(L) 136 - 145 mmol/L 09/16/2016 8:48 PM CDT [facility] POTASSIUM S/P/B 4.1 3.5 - 5.1 mmol/L 09/16/2016 8:48 PM CDT [facility] CHLORIDE S/P/B 93(L) 98 - 107 mmol/L 09/16/2016 8:48 PM CDT [facility] CO2 27 22 - 29 mmol/L 09/16/2016 8:48 PM CDT [facility] BILIRUBIN TOTAL S/P/B 0.7 0.2 - 1.2 mg/dL 09/16/2016 8:48 PM CDT [facility] CALCIUM S/P/B 9.4 8.6 - 10.2 mg/dL 09/16/2016 8:48 PM CDT [facility] ALKALINE PHOSPHATASE S/P/B 67 40 - 129 U/L 09/16/2016 8:48 PM CDT [facility] AST 23 0 - 40 U/L 09/16/2016 8:48 PM CDT [facility] TOTAL PROTEIN S/P/B 7.0 6.4 - 8.3 g/dL 09/16/2016 8:48 PM CDT [facility] ALBUMIN S/P/B 4.3 3.5 - 5.2 g/dL 09/16/2016 8:48 PM CDT [facility] ALT 32 0 - 41 U/L 09/16/2016 8:48 PM CDT [facility] GLOBULIN 2.7 2.3 - 3.6 g/dL 09/16/2016 8:48 PM CDT [facility] A/G RATIO 1.6 1.0 - 2.0 09/16/2016 8:48 PM CDT [facility] ANION GAP 19 8 - 20 09/16/2016 8:48 PM CDT [facility] EGFR NON-AFR. AMER. >60 >60 mL/min/1.7 3m'2 09/16/2016 8:48 PM CDT [facility] EGFR AFR. AMER. >60 >60 mL/min/1.7 '2 09/16/2016 8:48 PM CDT [facility] Comment: NOTE: eGFR is not calculated for patients <18 years of age. This is an estimated GFR (CKD EPI) and should not be used for calculating drug doses. 09/16/2016 10:4 3 AM CDT 09/16/2016 8:08 PM CDT us Generic Conversion Md [facility] Final R esult [facility] [address] [place] [address], * (ABNORMAL) CBC W/DIFF AUTOMATED (09/16/2016 10:43 AM CDT) WBC 6.0 4.8 - 10.8 x10'3/uL 09/16/2016 8:50 PM CDT [facility] RBC 4.99 4.70 - 6.10 x10'6/uL 09/16/2016 8:50 PM CDT [facility] HGB 14.4 14.0 - 18.0 G/DL 09/16/2016 8:50 PM CDT [facility] HCT 44.0 43.0 - 54.0 % 09/16/2016 8:50 PM CDT [facility] MCV 88.2 80.0 - 94.0 FL 09/16/2016 8:50 PM CDT [facility] MCH 28.9 27.0 - 31.0 PG 09/16/2016 8:50 PM CDT [facility] MCHC 32.7 32.0 - 36.0 G/DL 09/16/2016 8:50 PM CDT [facility] RDW 12.3 11.5 - 14.5 % 09/16/2016 8:50 PM CDT [facility] PLT 211 130 - 400 x10'3/uL 09/16/2016 8:50 PM CDT [facility] MPV 10.6 9.3 - 12.2 FL 09/16/2016 8:50 PM CDT [facility] IMMATURE GRANS % 0.3 0.0 - 1.0 % 09/16/2016 8:50 PM CDT [facility] NEUTROPHILS % 71.0(H) 43.0 - 65.0 % 09/16/2016 8:50 PM CDT [facility] LYMPHOCYTES % 15.1(L) 20.0 - 46.0 % 09/16/2016 8:50 PM T [facility] MONOCYTES % 12.1(H) 5.0 - 12.0 % 09/16/2016 8:50 PM CDT [facility] EOSINOPHILS 0.8(L) 1.0 - 3.0 % 09/16/2016 8:50 PM T [facility] BASOPHILS 0.7 0.0 - 1.0 % 09/16/2016 8:50 PM T [facility] WHOLE BLOOD SPECIMEN / Unknown 09/16/2016 10:43 AM CDT 09/16/2016 8:08 PM CDT us Generic Conversion Md [facility] Final R esult [facility] [address] [place] [address], documented in this encounter Visit Diagnoses Diagnosis Streptococcal pharyngitis Streptococcal sore throat documented in this encounter Care Teams Research Management Associate Relationship Specialty Start Date End Date Jeanna Rubin FNP [address] [place] [address] PCP - General 09/24/16 Jeanna Rubin FNP [address] [place] [address] PCP - General 09/16/16 09/23/16 documented as of this encounter
--- OUTSIDE RECORDS SUMMARY | 2024-06-08 17:07 | XMS_ITS | Referral Summary ---
Author Organization [facility] Address [address] [place] [address] Care Team Providers Care Printing Specialist Name Role Phone Hanh Duke MD Primary Care Provider Source Comments [employer] [facility],non-owned Affiliates and Associated Physician Practices is amultiple site organization consisting of ambulatory clinics and hospital sitesin [place], [place], [place] and [place]. This disclosure is being madepursuant to the Care Everywhere program and may not contain all information available regarding this patient. Last updated 18.[employer] Allergies No known active allergies Medications * [...] Comments Blood Pressure 141/95 06/04/2015 11:30 AM [employer] Pulse 85 06/04/2015 11:29 AM [employer]TER [employer] Temperature 36.3 ??C (97.4 ??F) 06/04/2015 11:[address] Respiratory Rate 19 06/04/2015 11:29 AM [employer]TER M[employer]ER Oxygen Saturation 100% 06/04/2015 11:29 AM BATTER M[employer]ER Inhaled Oxygen Concentration - - Weight 104.3 kg (230 lb) 06/04/2015 11:28 AM [facility] Height 185.4 cm (6' 1 ) 06/04/2015 11:28 AM [facility] Body Mass Index 30.34 06/04/2015 11:28 AM [facility] Plan of Treatment Not on file Procedures [...] patients according to data reported from the [place] Study by Xavi Quijano M.D. ??The predictive [...] Baker MD LAB - CHEMISTRY [facility] [id number] [place] [address] from Last 3 Months or Most Recently Relevant to Health Maintenance Care Teams Printing Specialist Relationship Specialty Start Date End Date Hanh Duke MD [address] [id number] PCP - General 09/05/08
--- OUTSIDE RECORDS SUMMARY | 2024-06-08 17:07 | XMS_ITS | Encounter Summary ---
Author Organization [facility] Address [address] [place] [address] Care Team Providers Care Body Press Operator Name Role Phone Hanh Duke MD Primary Care Provider Encounter Details Date Type Department Care Team (Late st Contact Info) Description 09/06/2008 1:50 AM CDT - 09/07/2008 1:10 PM CDT Emergency [facility] 7S TELE/NEURO [address] [place] [address] Daniel De Jesus MD [address] [place] [phone] [place] [address] [address] Medical Outpatient Discharge Disposition: Home or Self Care Social History Tobacco Use Types Packs/Day Years Used Date Smoking Tobacco: Never Assessed Sex and Gender Information Value Date Recorded Sex Assigned at Not on file Gender Identity Not on file Sexual Orientation Not on file documented as of this encounter Consult Notes * Neyda Gavin - 09/06/2008 4:30 PM [facility] Consultation REASON FOR CONSULTATION: Medical management. HISTORY [...] Electronically Signed 09/09/2008 09:39:17 CDT AZR/Ceci #: [id number] documented in this encounter Plan of Treatment [...] (ABNORMAL) LIPID PROFILE (09/06/2008 5:03 AM CDT) [facility] Cholesterol 159 120.0 - 200.0 mg/dl [facility] Triglycerides 123 0.0 - 250.0 mg/dl [facility] HDL Cholesterol 27(L) >40 mg/dl [facility] LDL Calculated 107.4 mg/dl [facility] Chol HDL Ratio 5.9 [facility] Comment Lipid [facility] Comment: Risk Classification ? HDL [...] patients according to data reported from the [place] Study by Xavi Quijano M.D. ??The predictive [...] Baker MD LAB - CHEMISTRY YENNY RUIZ [facility] Organization Address City/State/ZIP Co de Phone Number [facility] [address] [place] [address] * CK BLOOD (09/06/2008 5:03 AM CDT) CK 117 55.0 - 170.0 U/L [facility] BLOOD SPECIMEN / Unknown 09/06/2008 5:03 AM CDT Leanne Baker MD LAB - CHEMISTRY YENNY RUIZ Performing Organization Address [facility] Co de Phone Number [facility] [address] [place] [address] * TROPONIN I (09/06/2008 5:03 AM CDT) Troponin I <0.10 SEE BELOW ng/ml [facility] Comment: Normal ? <0.10 [place] ??0.10-0.99 Positive ?? >=1.00 BLOOD SPECIMEN / Unknown 09/06/2008 5:03 AM CDT Leanne Baker MD LAB - CHEMISTRY YENNY RUIZ Performing Organization Address [facility] de Phone Number [facility] [address] [place] [address] * CKMB (09/06/2008 5:03 AM CDT) CK-MB 0.5 0.0 - 5.0 ng/ml [facility] Interpretation CK-MB [facility] Comment: An abrupt rise/fall of CKMB over 24 hours is an acute injury pattern. BLOOD SPECIMEN / Unknown 09/06/2008 5:03 AM CDT Leanne Baker MD LAB - CHEMISTRY ORDAlexys RUIZ Performing Organization Address [facility] de Phone Number [facility] [address] [place] [address] * TROPONIN I (09/05/2008 11:10 PM CDT) Troponin I <0.10 SEE BELOW ng/ml [facility] Comment: Normal ? <0.10 [place] ??0.10-0.99 Positive ?? >=1.00 BLOOD SPECIMEN / Unknown 09/05/2008 11:10 PM CDT Daniel De Jesus MD LAB - CHEMISTRY OR DERABLES Performing Organization Address City/[facility]/ZIP Co de Phone Number [facility] [address] [place] [address] * MYOGLOBIN BLOOD (09/05/2008 11:10 PM CDT) Myoglobin 43.9 0.0 - 110.0 ng/ml [facility] BLOOD SPECIMEN / Unknown 09/05/2008 11:10 PM CDT Daniel De Jesus MD LAB - CHEMISTRY OR DERABLES Performing Organization Address [facility] Co de Phone Number [facility] [address] [place] [address] * (ABNORMAL) COMPREHENSIVE METABOLIC PANEL (09/05/2008 11:10 PM CDT) BUN 15 9.0 - 20.0 mg/dl [facility] Sodium 139 137 - 145 mEq/L [facility] Potassium 3.9 3.6 - 5.0 mEq/L [facility] Chloride 98 98.0 - 107.0 mEq/L [facility] Glucose 87 75 - 110 mg/dl [facility] Creatinine 1.2 0.8 - 1.5 mg/dl [facility] AST 57 17.0 - 59.0 U/L [facility] Alkaline Phosphatase 74 38.0 - 126.0 U/L [facility] Calcium 9.4 8.4 - 10.2 mg/dl [facility] Bilirubin Total 0.5 0.2 - 1.3 mg/dl [facility] Albumin 4.7 3.5 - 5.0 gm/dl [facility] Protein Total 7.8 6.3 - 8.2 gm/dl [facility] CO2 31(H) 22.0 - 30.0 mEq/L [facility] ALT 47 21.0 - 72.0 U/L [facility] eGFR by MDRD 76.6 ml/min/1.7 3m2 [facility] BLOOD SPECIMEN / Unknown 09/05/2008 11:10 PM CDT Daniel De Jesus MD LAB - CHEMISTRY OR DERABLES Performing Organization Address [facility] de Phone Number [facility] [address] [place] [address] * MAGNESIUM BLOOD (09/05/2008 11:10 PM CDT) [facility] Magnesium 2.1 1.6 - 2.3 mg/dl [facility] BLOOD SPECIMEN / Unknown 09/05/2008 11:10 PM CDT Daniel De Jesus MD LAB - CHEMISTRY OR DERABLES Performing Organization Address [facility] de Phone Number [facility] [address] [place] [address] * PTT (09/05/2008 11:10 PM CDT) [facility] PTT 27.6 24.0 - 32.0 seconds [facility] BLOOD SPECIMEN / Unknown 09/05/2008 11:10 PM CDT Daniel De Jesus MD LAB - COAGULATION ORDERABLES Performing Organization Address [facility] de Phone Number [facility] [address] [place] [address] * PT-INR (09/05/2008 11:10 PM CDT) [facility] PT 10.9 9.4 - 11.2 seconds [facility] INR 1.0 0.9 - 1.1 [facility] Interpretation INR D [facility] Comment: Conventional Anticoagulation INR 2.0-3.0 Intensive Anticoagulation INR 2.5-3.5 BLOOD SPECIMEN / Unknown 09/05/2008 11:10 PM CDT Daniel De Jesus MD LAB - COAGULATION ORDERABLES Performing Organization Address [facility] de Phone Number [facility] [id number] [place] [address] * (ABNORMAL) CBC W AUTO DIFFERENTIAL (09/05/2008 11:10 PM CDT) [facility] WBC 5.9 4.5 - 11.0 1000/mm3 [facility] RBC 5.15 4.7 - 6.1 [...] - HEMATOLOGY O RDERABLES Performing Organization Address City/State/[facility] Co de Phone Number [facility] [address] [place] [address] documented in this encounter Visit Diagnoses Diagnosis Chest pain, unspecified documented in this encounter Care Teams Body Press Operator Relationship Specialty Start Date End Date Hanh Duke MD [address] [facility] [address] [place] [address] PCP - General 09/05/08 documented as of this encounter
--- OUTSIDE RECORDS SUMMARY | 2024-06-08 17:07 | XMS_ITS | Encounter Summary ---
Author Organization [facility] Address [address] [place] [address]. [place], [place] [address] [place] [address] Care Team Providers Care Cut To Length Operator Name Role Phone Jeanna Rubin Primary Care Provider [phone] Encounter Details Date Type Department Care Team [...] documented as of this encounter Care Teams Cut To Length Operator Relationship Specialty Start Date End Date Jeanna Rubin FNP [address] [place] [address] PCP - General 09/24/16 documented as of this encounter
--- OUTSIDE RECORDS SUMMARY | 2024-06-08 17:07 | XMS_ITS | Encounter Summary ---
Author Organization [facility] Address [address] [facility] [address] [place] [address] Care Team Providers Care Protection Specialist Name Role Phone Jeanna Rubin Primary Care Provider [phone] Jeanna Rubin Primary Care Provider [phone] Encounter Details Date Type Department Care Team (Latest Contact Info) Description 09/19/2016 Abstract [facility] , Generic ConversionMD Social History [...] Task Name: Medical Complaint Callback [facility] Regarding Patient: Ameya Santacruz, Status: In Progress Comment: Gail Jones - 18 Sep 2016 10:58 AM TASK CREATED Would like note to 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 Katiana Iverson - 18 Sep 2016 4:17 PM TASK EDITED [facility]-Katiana Anthony - 18 Sep 2016 4:18 PM TASK IN PROGRESS Jacinta Lyle - 19 Sep 2016 10:14 AM TASK EDITED Patient's would like to have light duty with no heavy lifting//af Message: Good - [email or web address] Signatures Electronically signed by : Katiana Iverson, RBrigidoNBrigido; Sep 19 2016 2:37PM GERIATRICS PHYSICIAN (Author) documented in this encounter Miscellaneous Notes [...] any further questions, contact my office at [phone]. MANJU Fox Electronically signed by:Jacinta Lyle Sep 19 2016 10:37AM GERIATRICS PHYSICIAN documented in this encounter Plan of Treatment Not on file documented as of this encounter Visit Diagnoses Not on filedocumented in this encounter Care Teams Protection Specialist Relationship Specialty Start Date End Date Jeanna Rubin FNP [address] [place] [address] PCP - General 09/24/16 Jeanna Rubin FNP [address] [place] [address] PCP - General 09/16/16 09/23/16 documented as of this encounter
--- OUTSIDE RECORDS SUMMARY | 2024-06-08 17:07 | XMS_ITS | Encounter Summary ---
Author Organization [facility] Address [facility] [facility] [place] [address] [place] [address] Care Team Providers Care Highway Maintenance Supervisor Name Role Phone Jeanna Rubin Primary Care Provider [phone] Reason for Visit * Reason Onset Date Comments Follow Up Call 06/15/2019 Encounter Details Date Type Department Care Team (Late st Contact Info) Description 06/15/2019 Telephone [facility] Family & Internal Medicine [place] [address] [place] [address] Jeanna Rubin FNP [facility] [place] [address] Follow Up Call Social History [...] 2:00 PM CST Patient scheduled for SDC PT MANAGER * Rafita Manzo DO - 06/15/2019 12:55 PM CST Needs to be seen today, at this point in the day can do same day clinic. He needs imaging, and he needs evaluation by someone in person ascertain if we can continue trying to treat this as an outpatient. PT MANAGER * Nazia Burciaga - 06/15/2019 12:18 PM CST Pt was in to see Jeanna last week due to abd pain, was rxd abx. Pt finished this and only had slight improvement. Stated the pain is still miserable. Asking what next steps would be? PT MANAGER documented in this encounter Plan of Treatment Not on file documented as of this encounter Visit Diagnoses Not on filedocumented in this encounter Additional Health Concerns Assessment Noted Time PHQ-9 Depression Total Score: 0 06/08/19 20 12:13 PM SCRIPT MANAGER documented as of this encounter Care Teams Highway Maintenance Supervisor Relationship Specialty Start Date End Date Jeanna Rubin FNP [address] [place] [address] PCP - General 09/24/16 documented as of this encounter
--- OUTSIDE RECORDS SUMMARY | 2024-06-08 17:07 | XMS_ITS | Encounter Summary ---
Author Organization [facility] Address [address] [place] [address]. [place] [address] [place] [address] Care Team Providers Care Stitch Welder Name Role Phone Jeanna Rubin MICHELLE Primary Care Provider [phone] Encounter Details Date Type Department Care Team (Late st Contact Info) Description 07/23/2017 Abstract [facility] Family and Sports Medicine - [place] [address] Renetta Block DO Social History Tobacco Use [...] Comments Blood Pressure 140/82 07/23/2017 10:35 AM ENGINE HEAD REPAIRER Pulse 76 07/23/2017 10:35 AM ENGINE HEAD REPAIRER Temperature - - Respiratory Rate - - Oxygen Saturation - - Inhaled Oxygen Concentration - - Weight 110.2 kg (243 lb) 07/23/2017 10:35 AM ENGINE HEAD REPAIRER Height 185.4 cm (6' 1 ) 07/23/2017 10:35 AM ENGINE HEAD REPAIRER Body Mass Index 32.06 07/23/2017 10:35 AM ENGINE HEAD REPAIRER documented in this encounter Progress Notes * [...] EVERY 4 TO 6 HOURS NEEDED; Therapy: [id number] to (Last Rx:[id number]) Requested for: [id number] Ordered Rx By: Jeanna Rubin; Dispense: 0 Days ; #:1 X 8.5 GM Inhaler; Refill: 6; For: Cough; CONCETTA = N; Verified Transmission to [facility] [address]; Last Updated By: Sonny Zaidi; 05/21/2017 5:02:17 PM Allergies 1. Toradol Vomiting; Recorded By: Marley Chen; 04/21/2016 9:32:03 AM Vitals Recorded: [id number] 10:35AM Temperature 98.2 F, Oral Heart Rate [...] Renetta Block D.O.; Jul 23 2017 10:49AM ENGINE HEAD REPAIRER (Author) documented in this encounter Plan of Treatment Not on file documented as of this encounter Visit Diagnoses Not on filedocumented in this encounter Care Teams Stitch Welder Relationship Specialty Start Date End Date Jeanna Rubin FNP [address] [place] [address] PCP - General 09/24/16 documented as of this encounter
--- OUTSIDE RECORDS SUMMARY | 2024-06-08 17:07 | XMS_ITS | Encounter Summary ---
Author Organization [facility] Address [facility] [facility] [place] [address] [place] [address] Care Team Providers Care Belt Tender Name Role Phone Kev Santoyo Primary Care Provider [phone] Reason for Referral * Imaging (Emergency) - Closed Specialty Diagnoses / Procedures Referred By Ankur sneed Referred To Contact RADIOLOGY Diagnoses Pain in both testicles Swelling of the testicles Procedures US TESTICULAR W DOPPLER Kev Santoyo FNP [address] [place] [address] Phone: tel: fax: Referral ID Status Reason Start Date Expiration Date Visits Re quested Visits Authorized [id number] Closed 10/12/2020 11/11/2021 1 1 Reason for Visit * Reason Comments Hernia lower abdomen/testic ular pain s/p surgeries Encounter Details Date Type Department Care Team (Late st Contact Info) Description 10/12/2020 8:00 AM CDT Office Visit [facility] Family & Internal Medicine - [address] [phone] Kev Santoyo FNP [address] [place] [address] Hernia (lower abdomen/testicular pain s/p surgeries ) [...] back with information from your workcomp management polysom tech so that we can get this imaging [...] has to check with his work comp polysom tech to see if it is okay to [...] puffs into the lungs as needed. ??? K-zxpjrmp-Z-folic acid 1 mg Tab Take 1 tablet [...] Gatherings with Friends and Family: ??? Attends Islam Services: ??? Active Member of Clubs or Organizations: ??? Attends Club or Organization Meetings: ??? Marital Status: Intimate Partner Violence: ??? Fear of Current or Ex-Partner: ??? Emotionally Abused: ??? Physically Abused: ??? Sexually Abused: Family History: Family History Problem Relation Name Age of Onset ??? Heart Disease Father Includes [place] ??? Cancer Father Carcinoid ??? Cancer Maternal [...] URINALYSIS AUTO DIP (10/12/2020) COLOR (U) YELLOW [facility] TRANSPARENCY CLEAR -SOUT H [facility] GLUCOSE (U) NEGATIVE NEGATIVE MG/DL [facility] BILIRUBIN (U) NEGATIVE NEGATIVE [facility] KETONES MG/DL (U) NEGATIVE NEGATIVE MG/DL [facility] SPECIFIC GRAVITY (U) 1.030 1.001 - 1.035 [facility] BLOOD (U) NEGATIVE NEGATIVE [facility] U PH 5.0 5.0 - 9.0 [facility] PROTEIN (U) NEGATIVE NEGATIVE mg/dL [facility] UROBILINOGEN 0.2 0.2 - 1.0 EU/dL = mg/dL [facility] NITRITES NEGATIVE NEGATIVE MG/DL [facility] LEUKOCYTES (U) NEGATIVE NEGATIVE [facility] URINE SPECIMEN OBTAINED BY CLEAN CATCH PROCEDURE / Unknown 10/12/2020 Kev Santoyo [facility] URINE ORDERABLES Final Result [facility] [address] [place] [address], documented in this encounter Visit Diagnoses Diagnosis [...] documented as of this encounter Care Teams Belt Tender Relationship Specialty Start Date End Date Kev Santoyo FNP [address] [place] [address] PCP - General 09/24/16 documented as of this encounter
--- OUTSIDE RECORDS SUMMARY | 2024-06-08 17:07 | XMS_ITS | Encounter Summary ---
Author Organization [facility] Address [facility] [place] [address] [place] [address] Care Team Providers Care First Assistant Manager Name Role Phone Jeanna Rubin MICHELLE Primary Care Provider [phone] Reason for Visit * Reason Comments Congestion Chest Breathing Problem Fatigue x 4 days Eye Problem right eye redness an d swelling x 4 days Encounter Details Date Type Department Care Team (Late st Contact Info) Description 10/28/2018 2:00 PM CDT Office Visit [facility] Family & Internal Medicine [address] [address] Rafita Manzo DO [address] [place] [phone] Congestion (Chest ); Breathing Problem; Fatigue (x [...] of Onset ??? Heart Disease Father Includes [place] ??? Cancer Father Carcinoid ??? Cancer Maternal [...] file Gets together: Not on file Attends jain service: Not on file Active member of [...] externum documented in this encounter Care Teams First Assistant Manager Relationship Specialty Start Date End Date Jeanna Rubin FNP [address] [place] [address] PCP - General 09/24/16 documented as of this encounter
--- OUTSIDE RECORDS SUMMARY | 2024-06-08 17:07 | XMS_ITS | Encounter Summary ---
Author Organization [facility] Address [address] [place] [address]. [place], [place] [address] [place] [address] Care Team Providers Care Gift Shop Clerk Name Role Phone Jeanna Rubin Primary Care Provider [phone] Encounter Details Date Type Department Care Team (Latest Contact Info) Description 07/24/2017 Abstract [facility] Social History Tobacco Use [...] on filedocumented in this encounter Care Teams Gift Shop Clerk Relationship Specialty Start Date End Date Jeanna Rubin FNP [address] [place] [address] PCP - General 09/24/16 documented as of this encounter
--- OUTSIDE RECORDS SUMMARY | 2024-06-08 17:07 | XMS_ITS | Clinical Summary ---
Author Organization [facility] Address [address] [facility] [address] [place] [address] Care Team Providers Care Executive Vice President And Chief Operating Officer Name Role Phone Jeanna Rubin MICHELLE Primary Care Provider [phone] Allergies Active Allergy Reactions Criticality Noted Date Comments Ketorolac Tromethamine Vomiting 04/21/2016 Medications albuterol sulfate HFA (PROAIR HFA) 108 (90 Base) MCG/ACT inhaler Inhale 2 puffs into the lungs as needed. 09/16/2016 Active W-qzxpidg-P-fol ic acid 1 mg Tab Take 1 [...] Doc Med Group 03/11/2024 Travel 03/10/2024 Telephone [facility] Group Family & Internal Medicine [address] [address] Jeanna Rubin FNP Medication from Last 3 Months Family History Medical History Relation Comments Cancer Father Carcinoid Heart Disease Father Includes [place] Heart Disease Maternal Grandfather Cancer Maternal Grandmother [...] Comments HEPATITIS PANEL,ACUTE Routine 07/21/2019 3:03 PM BAKER HELPER Elevated liver enzymes from Last 3 Months or Most Recently Relevant to Health Maintenance Results * HEPATITIS PANEL,ACUTE (07/21/2019 3:03 PM BAKER HELPER) HAV IGM NON-REACT TIFFANY NON-REACT TIFFANY [facility] Comment: For additional information, please refer to http://BaroFold.Mangstor/faq/XSB659 (This link is being provided for informational/ [...] a test for HCV RNA (test code 87297) is suggested. For additional information please refer to http://BaroFold.Mangstor/faq/VGS84s7 (This link is being provided for informational/ educational purposes only.) 07/21/2019 3:03 PM BAKER HELPER 07/22/2019 5:02 AM BAKER HELPER Narrative Resulting Agency Comment Performing Organization Information: ?Site ID: [email or web address] ?Name: [facility] ?Address: [facility] [place] [address] ?Director: Xavi Silverman D.O., MPH us Jeanna [facility] Final Result [facility] from Last 3 Months or Most Recently Relevant to Health Maintenance [place] [place] [address] Care Teams Executive Vice President And Chief Operating Officer Relationship Specialty Start Date End Date Jeanna Rubin FNP [address] [place] [address] PCP - General 09/24/16
--- OUTSIDE RECORDS SUMMARY | 2024-06-08 17:07 | XMS_ITS | Encounter Summary ---
Author Organization [facility] Address [facility]6 [facility] [place] [address] [place] [address] Care Team Providers Care Inter Com Servicer Name Role Phone Jeanna Rubin Primary Care Provider Reason for Visit * Reason Comments ER F/U Encounter Details Date Type Department Care Team (Late st Contact Info) Description 07/21/2019 2:20 PM REFRACTORY FURNACE DESIGNER Office Visit [facility] Medical Group Family & Internal Medicine [id number] [place] [address] Jeanna Rubin FNP [address] [place] [address] [phone] ER F/U Social History Tobacco Use Types [...] Instructions* MICHELLE Fox - 07/21/2019 2:20 PM REFRACTORY FURNACE DESIGNER Continue your medications as we discussed We will call you with your lab results when they come back Call for any questions or concerns Follow up in one month or sooner if needed. ACTORY FURNACE DESIGNER documented in this encounter Progress Notes * [...] puffs into the lungs as needed. ??? O-xhimdfk-Q-folic acid 1 mg Tab Take 1 tablet [...] file Gets together: Not on file Attends congregational service: Not on file Active member of [...] of Onset ??? Heart Disease Father Includes [place] ??? Cancer Father Carcinoid ??? Cancer Maternal [...] URINALYSIS AUTO DIP ??? HEPATITIS PANEL,ACUTE ??? U-tkwkkkw-X-folic acid 1 mg Tab Cannot display discharge medications since this is not an admission. PCP: MICHELLE KAUR 07/26/2019 ACTORY FURNACE DESIGNER * MICHELLE Fox - 07/21/2019 2:20 PM [...] to GI if not already done so. ACTORY FURNACE DESIGNER documented in this encounter Plan of Treatment Not on file documented as of this encounter Procedures Procedure Name Priority Date/Time Associated Diagnosis Comments COLLECTION VENOUS BLOOD VENIPUNCTURE Routine 07/21/2019 3:14 PM REFRACTORY FURNACE DESIGNER Abnormal laboratory test Elevated liver enzymes Left flank pain COMPREHENSIVE METABOLIC PANEL Routine 07/21/2019 3:03 PM REFRACTORY FURNACE DESIGNER Abnormal laboratory test HEPATITIS PANEL,ACUTE Routine 07/21/2019 3:03 PM REFRACTORY FURNACE DESIGNER Elevated liver enzymes CBC W/DIFF AUTOMATED Routine 07/21/2019 3:03 PM REFRACTORY FURNACE DESIGNER Abnormal laboratory test URINALYSIS AUTO DIP Routine 07/21/2019 Left flank pain documented in this encounter Results * HEPATITIS PANEL,ACUTE (07/21/2019 3:03 PM REFRACTORY FURNACE DESIGNER) HAV IGM NON-REACT TIFFANY NON-REACT TIFFANY [facility] Comment: For additional information, please refer to http://[employer]/faq/VIE539 (This link is being provided for informational/ [...] a test for HCV RNA (test code 91760) is suggested. For additional information please refer to http://[employer]/faq/SEB25u4 (This link is being provided for informational/ educational purposes only.) 07/21/2019 3:03 PM REFRACTORY FURNACE DESIGNER 07/22/2019 5:02 AM REFRACTORY FURNACE DESIGNER Narrative Resulting Agency Comment Performing Organization Information: ?Site ID: [place] ?Name: Maria T Jerez ?Address: [address] [place] [address] ?Director: Xavi Silverman D.O., MPH [facility] Final Result [facility] * (ABNORMAL) COMPREHENSIVE METABOLIC PANEL (07/21/2019 3:03 PM REFRACTORY FURNACE DESIGNER) GLUCOSE 84 65 - 99 mg/dL [facility] [...] 0.2 - 1.2 mg/dL [facility] ALK PHOS 65 36 - 130 U/L [facility] AST 49(H) 10 - 40 U/L [facility] ALT 67(H) 9 - 46 U/L [facility] 07/21/2019 3:03 PM REFRACTORY FURNACE DESIGNER 07/22/2019 5:02 AM REFRACTORY FURNACE DESIGNER Narrative Resulting Agency Comment Performing Organization Information: ?Site ID: [place] ?Name: Maria T Jerez ?Address: [address] [place] [address] ?Director: Xavi Silverman D.O., MPH [facility] Final Result [facility] * CBC W/DIFF AUTOMATED (07/21/2019 3:03 PM REFRACTORY FURNACE DESIGNER) WBC 6.2 3.8 - 10.8 Thousand/u L [...] [facility] 07/21/2019 3:03 PM REFRACTORY FURNACE DESIGNER 07/22/2019 5:02 AM REFRACTORY FURNACE DESIGNER Narrative Resulting Agency Comment Performing Organization Information: ?Site ID: [place] ?Name: Maria T Jerez ?Address: [facility] [address] [place] [address] ?Director: Xavi Silverman D.O., MPH [facility] Final Result [facility] * URINALYSIS AUTO DIP (07/21/2019) COLOR (U) YELLOW [facility] TRANSPARENCY CLEAR [facility] GLUCOSE (U) NEGATIVE NEGATIVE MG/DL [facility] BILIRUBIN (U) NEGATIVE NEGATIVE [facility]-K[facility] TH [facility] KETONES MG/DL (U) NEGATIVE NEGATIVE MG/DL [facility] SPECIFIC GRAVITY (U) 1.025 1.001 - 1.035 [facility] BLOOD (U) NEGATIVE NEGATIVE [facility] U PH 7.0 5.0 - 9.0 [facility] PROTEIN (U) NEGATIVE NEGATIVE mg/dL [facility] UROBILINOGEN 0.2 0.2 - 1.0 EU/dL = mg/dL [facility] NITRITES NEGATIVE NEGATIVE MG/DL [facility] LEUKOCYTES (U) NEGATIVE NEGATIVE [facility] URINE SPECIMEN OBTAINED BY CLEAN CATCH PROCEDURE / Unknown 07/21/2019 Jeanna MARTINEZ URINE ORDERABLES Final Result Performing Organization Address City/State/RUST Co de Phone Number [facility] [address] [place] [address], documented in this encounter Visit Diagnoses Diagnosis Abnormal laboratory test- Primary Other abnormal clinical finding Elevated liver enzymes Nonspecific elevation of levels of transaminase or lactic acid dehydrogenase (LDH) Left flank pain Abdominal pain, unspecified site documented in this encounter Additional Health Concerns Assessment Noted Time PHQ-9 Depression Total Score: 0 06/08/19 20 12:13 PM REFRACTORY FURNACE DESIGNER documented as of this encounter Care Teams Inter Com Servicer Relationship Specialty Start Date End Date Jeanna Rubin FNP [address] [place] [address] PCP - General 09/24/16 documented as of this encounter
--- OUTSIDE RECORDS SUMMARY | 2024-06-08 17:07 | XMS_ITS | Encounter Summary ---
Author Organization [facility] Address [facility]6 [facility] [place] [address] [place] [address] Care Team Providers Care Nicking Machine Operator Name Role Phone Jeanna Rubin Primary Care Provider [phone] Jeanna Rubin Primary Care Provider Encounter Details Date Type Department Care Team (Late st Contact Info) Description 09/18/2016 Abstract [facility] Medical Group Family & Internal Medicine [facility] [address] [place] [address] Blue Shultz MD [address] [place] [address] [phone] Social History Tobacco Use Types Packs/Day Years [...] this encounter Progress Notes * Jeanna Berkowitzradhames, PROTEIN PURIFICATION SCIENTIST - 09/18/2016 9:00 AM CDT Reason For [...] 4-6 hours as needed for pain; Therapy: [id number] to (Last Rx:[id number]) Ordered Rx By: Jeanna Rubin; Dispense: 0 Days ; #:60 Tablet; Refill: 0; For: Acute streptococcal pharyngitis, Headache, Pneumonia; CONCETTA = N; Print Rx 2. MethylPREDNISolone 4 MG Oral Tablet; USE DIRECTED; Therapy: [id number] to (Last Rx:[id number]) Requested for: [id number] Ordered Rx By: Jeanna Rubin; Dispense: 0 Days ; #:21 Tablet; Refill: 0; For: Acute streptococcal pharyngitis, Headache, Pneumonia; CONCETTA = N; Verified Transmission to [facility] 361; Last Updated By: [employer] 09/16/2016 10:08:45 AM 3. ProAir HFA 108 (90 Base) MCG/ACT Inhalation Aerosol Solution; INHALE 2 PUFFS BY MOUTH EVERY 4 TO 6 HOURS NEEDED; Therapy: [id number] to (Last Rx:[id number]) Requested for: [id number] Ordered Rx By: Jeanna Rubin; Dispense: 0 Days ; #:1 X 8.5 GM Inhaler; Refill: 2; For: Pneumonia; CONCETTA = N;Verified Transmission to [facility] 361; Last Updated By: [employer] 09/16/2016 10:08:45 AM Allergies 1. Toradol Vomiting; [...] Jeanna Rubin CNP; Sep 23 2016 6:18PM SOCIAL WORK MSW (Author) documented in this encounter Plan of Treatment Not on file documented as of this encounter Visit Diagnoses Not on filedocumented in this encounter Care Teams Nicking Machine Operator Relationship Specialty Start Date End Date Jeanna Rubin FNP [address] [place] [address] PCP - General 09/24/16 Jeanna Rubin FNP [address] [place] [address] PCP - General 09/16/16 09/23/16 documented as of this encounter
--- OUTSIDE RECORDS SUMMARY | 2024-06-08 17:07 | XMS_ITS | Encounter Summary ---
Author Organization [facility] Address [facility]6 [facility] [place], [place] [address] [place] [address] Care Team Providers Care Tub Wash Operator Name Role Phone Jeanna Rubin MICHELLE Primary Care Provider [phone] Encounter Details Date Type Department Care Team (Latest Contact Info) Description 06/15/2019 7:37 PM TRAIN ENGINEER - 06/15/2019 11:59 PM [facility] Hospital Encounter [facility] [place] [address] Marcus Rivers MD Discharge Disposition: Home or [...] URINE BACTERIA CULTURE Routine 06/15/2019 4:09 PM TRAIN ENGINEER Abdominal pain, unspecified abdominal location URINALYSIS MICRO ONLY Routine 06/15/2019 4:09 PM TRAIN ENGINEER Abdominal pain, unspecified abdominal location documented in this encounter Results * CULTURE URINE (06/15/2019 4:09 PM TRAIN ENGINEER) SPEC DESCRIPTION URINE CLEAN CATCH 06/15/2019 7:38 PM TRAIN ENGINEER [facility] SPECIAL REQUESTS NO SPECIAL REQUEST 06/15/2019 7:38 PM TRAIN ENGINEER [facility] CULTURE RESULT NO GROWTH 2 DAYS 06/18/2019 10:21 AM TRAIN ENGINEER [facility] URINE SPECIMEN OBTAINED BY CLEAN CATCH PROCEDURE / Unknown 06/15/2019 4:09 PM TRAIN ENGINEER 06/15/2019 8:22 PM TRAIN ENGINEER Marcus Rivers MD MICROBIOLOGY - GENERAL ORDER HARINDER Final Result [facility] [address] [place] [address], [place] [phone] * URINALYSIS MICRO ONLY (06/15/2019 4:09 PM TRAIN ENGINEER) WBC/HPF <1 <6 /HPF 06/15/2019 9:28 PM TRAIN ENGINEER [facility] RBC/HPF 1 <6 /HPF 06/15/2019 9:28 PM TRAIN ENGINEER [facility] CA OXALATE CRYSTALS RARE /HPF 06/15/2019 9:28 PM TRAIN ENGINEER [facility] URINE SPECIMEN OBTAINED BY CLEAN CATCH PROCEDURE / Unknown 06/15/2019 4:09 PM TRAIN ENGINEER us Marcus Rivers MD URINE ORDERABLES Final Resul t [facility] [address] [place] [address], documented in this encounter Visit Diagnoses Diagnosis Abdominal pain, unspecified abdominal location documented in this encounter Additional Health Concerns Assessment Noted Time PHQ-9 Depression Total Score: 0 06/08/19 20 12:13 PM TRAIN ENGINEER documented as of this encounter Care Teams Tub Wash Operator Relationship Specialty Start Date End Date Jeanna Rubin FNP [address] [place] [address] PCP - General 09/24/16 documented as of this encounter
--- OUTSIDE RECORDS SUMMARY | 2024-06-08 17:07 | XMS_ITS | Clinical Summary ---
Author Organization [employer] Address [address] [place] [address] Care Team Providers Care Enameler Name Role Phone Hanh Duke MD Primary Care Provider Source Comments [facility],non-owned Affiliates and Associated Physician Practices is amultiple site organization consisting of ambulatory clinics and hospital sitesin [place] and [place]. This disclosure is being madepursuant to the Care Everywhere program and may not contain all information available regarding this patient. Last updated 18.[facility] Allergies No known active allergies Medications * [...] Comments Blood Pressure 141/95 06/04/2015 11:30 AM FINE ARTS TEACHER Pulse 85 06/04/2015 11:29 AM FINE ARTS TEACHER Temperature 36.3 ??C (97.4 ??F) 06/04/2015 11:[address] Respiratory Rate 19 06/04/2015 11:29 AM FINE ARTS TEACHER Oxygen Saturation 100% 06/04/2015 11:29 AM FINE ARTS TEACHER Inhaled Oxygen Concentration - - Weight 104.3 kg (230 lb) 06/04/2015 11:28 AM FINE ARTS TEACHER Height 185.4 cm (6' 1 ) 06/04/2015 11:28 AM FINE ARTS TEACHER Body Mass Index 30.34 06/04/2015 11:28 AM FINE ARTS TEACHER Plan of Treatment Health Maintenance Due Date [...] CDT) Cholesterol 159 120.0 - 200.0 mg/dl [facility] Triglycerides 123 0.0 - 250.0 mg/dl [facility] HDL Cholesterol 27(L) >40 mg/dl [facility] LDL Calculated 107.4 mg/dl [facility] Chol HDL Ratio 5.9 [facility] Comment Lipid [facility] Comment: Risk Classification ? HDL [...] patients according to data reported from the [place] Study by Xavi Quijano M.D. ??The predictive [...] Organization Address City/State/ZIP Co de Phone Number [facility] [address] [place] [address] from Last 3 Months or Most Recently Relevant to Health Maintenance Care Teams Enameler Relationship Specialty Start Date End Date Hanh Duke MD [address] [phone] PCP - General 09/05/08
--- OUTSIDE RECORDS SUMMARY | 2024-06-08 17:07 | XMS_ITS | Encounter Summary ---
Author Organization [facility] Address [facility]6 [facility] [place] [address] [place] [address] Care Team Providers Care Heel Builder Machine Name Role Phone Jeanna Rubin Primary Care Provider [phone] Reason for Visit * Reason Onset Date Comments Medication 03/10/2024 Encounter Details Date Type Department Care Team (Late st Contact Info) Description 03/10/2024 Telephone [facility] Medical Group Family & Internal Medicine [facility] [address] [place] [address] Jeanna Rubin FNP [facility] [place] [address] Medication Social History Tobacco Use [...] a Oral Steroid, he use's [facility] on [facility] in [place], [facility] call and discuss. documented in this encounter Plan of Treatment Not on file documented as of this encounter Visit Diagnoses Not on filedocumented in this encounter Additional Health Concerns Assessment Noted Time PHQ-9 Depression Total Score: 0 10/13/19 21 9:29 AM CDT documented as of this encounter Care Teams Heel Builder Machine Relationship Specialty Start Date End Date Jeanna Rubin FNP [address] [place] [address] PCP - General 09/24/16 documented as of this encounter
--- OUTSIDE RECORDS SUMMARY | 2024-06-08 17:07 | XMS_ITS | Encounter Summary ---
Author Organization [facility] Address [address] [place] [address]. [place] [address] [place] [address] Care Team Providers Care Gas Distribution Supervisor Name Role Phone Jeanna Rubin Primary Care Provider [phone] Encounter Details Date Type Department Care Team [...] documented as of this encounter Care Teams Gas Distribution Supervisor Relationship Specialty Start Date End Date Jeanna Rubin FNP [address] [place] [id number] PCP - General 09/24/16 documented as of this encounter
--- OUTSIDE RECORDS SUMMARY | 2024-06-08 17:07 | XMS_ITS | Encounter Summary ---
Author Organization [facility] Address [address] [facility] [place] [address] [place] [address] Care Team Providers Care Cork Compounder Name Role Phone Jeanna Rubin Primary Care Provider [phone] Reason for Referral * Consultation (Routine) - Closed Specialty Diagnoses / Procedures Referred By Ankur sneed Referred To Contact GASTROENTEROLOGY Diagnoses Elevated liver enzymes Abnormal laboratory test Jeanna Rubin FNP [address] [place] [address] Phone: tel: fax: Chandler Zeng MD [address] [place] [address] Phone: tel: fax: Referral ID Status Reason Start Date Expiration Date Visits Re quested Visits Authorized [id number] Closed 07/26/2019 08/24/2020 100 100 HER MACHINE Reason for Visit * Reason Onset Date Comments Lab Results 07/25/2019 Encounter Details Date Type Department Care Team (Late st Contact Info) Description 07/25/2019 Telephone [facility] Medical Group Family & Internal Medicine - [place] [address] [place] [address] Jeanna Rubin FNP [address] [place], [place] [phone] (work) Lab Results Social History Tobacco Use [...] 9:39 AM CST Patient notified and v/u HER MACHINE * Karrie Mcnulty RN - 07/26/2019 9:02 AM CST LMTC 07/26/19 HER MACHINE * Karrie Mcnulty RN - 07/25/2019 10:17 AM CST LMTC 07/25/19 lab pended and referral pended HER MACHINE * Karrie Mcnulty RN - 07/25/2019 10:09 AM CST ----- Message from MICHELLE Fox sent at 07/25/2019 9:36 AM BRUSHER MACHINE ----- Labs show liver enzymes are still [...] to GI if not already done so. HER MACHINE documented in this encounter Plan of Treatment [...] Total Score: 0 06/08/19 20 12:13 PM BRUSHER MACHINE documented as of this encounter Care Teams Cork Compounder Relationship Specialty Start Date End Date Jeanna Rubin FNP [address] [place] [address] PCP - General 09/24/16 documented as of this encounter
--- OUTSIDE RECORDS SUMMARY | 2024-06-08 17:07 | XMS_ITS | Encounter Summary ---
Author Organization [facility] Address [facility]6 [facility]. [place], [place] [address] [place] [address] Care Team Providers Care Periodicals Clerk Name Role Phone Jeanna Rubin Primary [...] Total Score: 0 06/08/19 20 12:13 PM FUR REPAIR INSPECTOR documented as of this encounter Care Teams Periodicals Clerk Relationship Specialty Start Date End Date Jeanna Rubin FNP [address] [place] [address] PCP - General 09/24/16 documented as of this encounter
--- OUTSIDE RECORDS SUMMARY | 2024-06-08 17:07 | XMS_ITS | Encounter Summary ---
Author Organization [facility] Address [address] [facility]. [place], [place] [address] [place] [address] Care Team Providers Care Slider Assembler Name Role Phone Jeanna Rubin Primary Care Provider [phone] Jeanna Rubin Primary Care Provider [phone] Encounter Details Date Type Department Care Team (Latest Contact Info) Description 09/17/2016 Abstract [facility] Social History Tobacco Use [...] Task Name: Medical Complaint [facility]back [facility] Regarding Patient: Ameya Santacruz, Status: [...] am still waiting for his records from [facility] to determine if further testing needs to be done. Clemente Anaya - 17 Sep 2016 10:11 AM TASK EDITED lmom for pt to call Mandy Raya - 17 Sep 2016 10:21 AM TASK COMPLETED Message: pt informed and verbalized understanding. Signatures Electronically signed by : Mandy Raya, ; Sep 17 2016 10:22AM SUPERVISOR [employer]RAP PLACING (Author) documented in this encounter Plan of Treatment Not on file documented as of this encounter Visit Diagnoses Not on filedocumented in this encounter Care Teams Slider Assembler Relationship Specialty Start Date End Date Jeanna Rubin FNP [address] [place] [address] PCP - General 09/24/16 Jeanna Rubin FNP [address] [place] [address] PCP - General 09/16/16 09/23/16 documented as of this encounter
--- OUTSIDE RECORDS SUMMARY | 2024-06-08 17:07 | XMS_ITS | Encounter Summary ---
Author Organization [facility] Address [address] [place] [address]. [place] [address] [place] [address] Care Team Providers Care Bobj Developer Name Role Phone Jeanna Rubin Primary Care Provider [phone] Reason for Visit * Reason Onset Date Comments Results 10/12/2020 Encounter Details Date Type Department Care Team (Late st Contact Info) Description 10/12/2020 Telephone [facility] Medical Group Family & Internal Medicine [address] [place] [address] Jeanna Rubin FNP [address] [place] [address] Results Social History Tobacco Use Types [...] documented as of this encounter Care Teams Bobj Developer Relationship Specialty Start Date End Date Jeanna Rubin FNP [address] [place] [address] PCP - General 09/24/16 documented as of this encounter
--- OUTSIDE RECORDS SUMMARY | 2024-06-08 17:07 | XMS_ITS | Encounter Summary ---
Author Organization [facility] Address [address] [place] [address]. [place], [place] [address] [place] [address] Care Team Providers Care Bead Worker Sewing Name Role Phone Jeanna Rubin Primary Care Provider Encounter Details Date Type Department Care Team (Late st Contact Info) Description 09/29/2016 Abstract [facility] Medical Group Family & Internal Medicine [address] [place] [address] Jeanna Rubin FNP [address] [place], [place] [phone] Social History Tobacco Use Types Packs/Day Years [...] documented in this encounter Progress Notes * MIHCELLE Fox - 09/29/2016 11:30 AM CDT Reason [...] DAILY . RINSE MOUTH AFTER USE; Therapy: [id number] to (Last Rx:[id number]) Ordered 2. Hydrocodone-Acetaminophen 5-325 MG Oral Tablet; Take 1 to 2 tablets every 4-6 hours as needed for pain; Therapy: [id number] to (Last Rx:[id number]) Ordered 3. ProAir HFA 108 (90 Base) MCG/ACT Inhalation Aerosol Solution; INHALE 2 PUFFS BY MOUTH EVERY 4 TO 6 HOURS NEEDED; Therapy: [id number] to (Last Rx:[id number]) Requested for: [id number] Ordered Allergies 1. Toradol Vitals Recorded: 29Sep2016 [...] Follow-up PRN Outpatient Follow-up Status: Complete Done: 44Fms7665 12:41PM Ordered; For: Pneumonia; Ordered By: Jeanna Rubin Performed: Due: [id number] 2. Call if: New symptoms occur.; Status:Complete; [...] Jeanna Rubin CNP; Sep 29 2016 3:24PM ASSOCIATE DIRECTOR CAREER SERVICES (Author) documented in this encounter Miscellaneous Notes * Letter - MICHELLE Fox - 09/29/2016 11:30 AM CDT Date: September 29, 2016 Work Release This is to advise that Ameya Santacruz was seen on September 29, 2016 and may return to work, no limitations on September 30, 2016. (Physician's Signature) Electronically signed by:Jeanna Rubin CNP Sep 29 2016 12:39PM ASSOCIATE DIRECTOR CAREER SERVICES documented in this encounter Plan of Treatment Not on file documented as of this encounter Visit Diagnoses Not on filedocumented in this encounter Care Teams Bead Worker Sewing Relationship Specialty Start Date End Date Jeanna Rubin FNP [address] [facility] [address] PCP - General 09/24/16 documented as of this encounter
--- OUTSIDE RECORDS SUMMARY | 2024-06-08 17:09 | XMS_ITS | Clinical Summary ---
Author Organization [facility] Address [address] [place] [address] Care Team Providers Care Control Clerk Subassembly Name Role Phone Jeanna Rubin NP Primary Care Provider Allergies Active Allergy Reactions Criticality Noted Date [...] file Legal Sex Male 3:35 PM REHABILITATION SERVICES DIRECTOR Gender Identity Not on file Sexual Orientation [...] Insurance ANTHEM TRADITIONAL ANTHEM PREFERRED Care Teams Control Clerk Subassembly Relationship Specialty Start Date End Date Jeanna Rubin NP [address] [place] [address] PCP - General Nurse Practitioner 11/13/20
--- OUTSIDE RECORDS SUMMARY | 2024-06-08 17:09 | XMS_ITS | Encounter Summary ---
Author Organization [facility] Healthcare Address [address] [place] [address] Care Team Providers Care Cable Assembler Name Role Phone Unavailable Primary Care Provider Unavailabl e Encounter Details Date Type Department Care Team (Late st Contact Info) Description 10/14/2008 8:19 PM CDT - 10/14/2008 11:05 PM CDT Hospital Encounter [facility] Xavi Grace Jr., MD [address] [facility] [address] [place] [address] Open wound of lip; Striking against or struck accidentally by objects or persons in sports without subsequent fall; Place of occurrence, place for recreation and sport Social History Tobacco Use Types Packs/Day Years Used Date Smoking Tobacco: Never Assessed Sex and Gender Information Value Date Recorded Sex Assigned at Not on file Legal Sex Male 3:35 PM INTERNATIONAL REPRESENTATIVE Gender Identity Not on file Sexual Orientation [...]
--- OUTSIDE RECORDS SUMMARY | 2024-06-08 17:09 | XMS_ITS | Encounter Summary ---
Author Organization [facility] Healthcare Address [address] [place] [address] Care Team Providers Care Clay Modeler Name Role Phone Jeanna Rubin NP Primary Care Provider [phone] Encounter Details Date Type Department Care Team (Latest Contact Info) Description 01/15/2021 4:00 PM CDT - 01/15/2021 11:59 PM CDT Hospital Encounter [facility] [address] [place] [address] Discharge Disposition: Discharge to home or self care Social History Tobacco Use Types Packs/Day Years Used Date Smoking Tobacco: Never Assessed Sex and Gender Information Value Date Recorded Sex Assigned at Not on file Legal Sex Male 3:35 PM EVENT TECHNICIAN Gender Identity Not on file Sexual Orientation [...] Outside Reference (01/15/2021 4:00 PM CDT) Impressions [facility] - 01/15/2021 4:00 PM CDT These images are for Reference purposes only and have not been reviewed by [facility] Radiology. ??There will be no report generated by a [facility] Radiologist. Narrative RAD_PACS_[facility] - 01/15/2021 4:00 PM CDT EXAMINATION: ??Images For Reference Purposes Only us Victoriano Saunders MD IMG CT PROCEDURES Final Result [facility] documented in this encounter Visit Diagnoses Not on filedocumented in this encounter Care Teams Clay Modeler Relationship Specialty Start Date End Date Jeanna Rubin NP [address] [place] [address] PCP - General Nurse Practitioner 11/13/20 documented as of this encounter
--- OUTSIDE RECORDS SUMMARY | 2024-06-08 17:09 | XMS_ITS | Clinical Summary ---
Author Organization [facility] Address [address] [place] [address] Phone Care Team Providers Care Epilepsy Physician Name Role Phone Unavailable Primary Care Provider Unavailabl e Social History Tobacco Use Types Packs/Day Years Used Date Smoking Tobacco: Never Assessed Sex and Gender Information Value Date Recorded Sex Assigned at Not on file Gender Identity Not on file Sexual Orientation Not on file Plan of Treatment Upcoming Encounters Date Type Department Care Team (Late st Contact Info) Description 06/13/2024 11:45 AM JUNIOR PROJECT MANAGER Appointment [facility] [address] [facility] [address] [place] [address] Kraig Baugh MD [address] [facility] [address] [place] [address] Health Maintenance Due Date Last Done Comments [...]
--- OUTSIDE RECORDS SUMMARY | 2024-06-08 17:09 | XMS_ITS | Encounter Summary ---
Author Organization [facility] Address [address] [place] [address] Phone Care Team Providers Care Director Mobile Name Role Phone Jeanna Rubin NP Primary Care Provider [phone] Encounter Details Date Type Department Care Team (Late st Contact Info) Description 01/08/2021 Telephone [facility] 8th [place] [address] [place] [phone] Hannah Yoder CPhT Social History Tobacco Use Types Packs/Day Years Used Date Smoking Tobacco: Never Assessed Sex and Gender Information Value Date Recorded Sex Assigned at Not on file Legal Sex Male 3:35 PM NURSE CONSULTANT Gender Identity Not on file Sexual [...] filedocumented in this encounter Care Teams Director Mobile Relationship Specialty Start Date End Date Jeanna Rubin NP [address] [place] [address] PCP - General Nurse Practitioner 11/13/20 documented as of this encounter
--- OUTSIDE RECORDS SUMMARY | 2024-06-08 17:09 | XMS_ITS | Encounter Summary ---
Author Organization [facility] Address [address] [place] [address] Phone Care Team Providers Care Locomotive Engineer Electric Name Role Phone Unavailable Primary Care Provider Unavailabl e Encounter Details Date Type Department Care Team (Late st Contact Info) Description 11/09/2020 Telephone [facility] 8th [place] [address] [place] [address] Hannah Yoder CPhT Social History Tobacco Use Types Packs/Day Years Used Date Smoking Tobacco: Never Assessed Sex and Gender Information Value Date Recorded Sex Assigned at Not on file Legal Sex Male 3:35 PM MOBILE LOUNGE DRIVER Gender Identity Not on file Sexual Orientation [...]
--- OUTSIDE RECORDS SUMMARY | 2024-06-08 17:09 | XMS_ITS | Encounter Summary ---
Author Organization [facility] Address [address] [place] [address] Phone Care Team Providers Care Animation Producer Name Role Phone Jeanna Rubin NP Primary Care Provider [phone] Reason for Visit * Consultation (Routine) - Closed Specialty Diagnoses / Procedures Referred By Ankur t Referred To Contact Minimally Invasive Surgery Diagnoses Inguinal pain, unspecified laterality Jeanna Rubin, PENCIL INSPECTOR [address] [place] [address] Phone: tel: fax: [facility] (All Locations) Referral ID Status Reason Start Date Expiration Date V isits Requested Visits Authorized [id number] Closed Specialty Services Required 11/13/2020 12/13/2021 1 Encounter Details Date Type Department Care Team (Late st Contact Info) Description 01/18/2021 11:00 AM CDT Office Visit [facility] Surgery [address] [facility] 8th [place] [address] [place] [address] Victoriano Saunders MD [address] [place] [address] Inguinal pain, unspecified laterality Social History Tobacco Use Types Packs/Day Years Used Date Smoking Tobacco: Former Sex and Gender Information Value Date Recorded Sex Assigned at Not on file Legal Sex Male 3:35 PM ADVENTURE THERAPIST Gender Identity Not on file Sexual Orientation [...] from the original note were not included. [facility] Minimally Invasive Surgery New Patient Inguinal Hernia Evaluation Ameya Santacruz [phone] [id number] REFERRING PHYSICIAN: Jeanna Rubin NP PCP: [...] patient and reviewed, signed and dated in [facility]. Physical Exam: Vitals BP 130/86 Pulse 77 [...] Invasive GI Surgery & Abdominal Wall Reconstruction natural resource economist [facility] [phone] documented in this encounter Plan of Treatment [...] 01/18/2021 documented in this encounter Care Teams Animation Producer Relationship Specialty Start Date End Date Jeanna Rubin NP [address] [place] [address] PCP - General Nurse Practitioner 11/13/20 documented as of this encounter
--- OUTSIDE RECORDS SUMMARY | 2024-06-08 17:09 | XMS_ITS | Encounter Summary ---
Author Organization [facility] Healthcare Address [address] [place] [address] Care Team Providers Care Bull Wheel Worker Name Role Phone Unavailable Primary Care Provider Unavailabl e Encounter Details Date Type Department Care Team (Late st Contact Info) Description 06/25/2006 10:14 AM GEOLOGICAL AIDE - 06/28/2006 5:00 PM GEOLOGICAL AIDE Hospital Encounter [facility] Eloy Ruiz Jr., MD [address] [facility] [address] [address] Social History Tobacco Use Types Packs/Day Years Used Date Smoking Tobacco: Never Assessed Sex and Gender Information Value Date Recorded Sex Assigned at Not on file Legal Sex Male 3:35 PM GEOLOGICAL AIDE Gender Identity Not on file Sexual Orientation Not on file documented as of this encounter Plan of Treatment Not on file documented as of this encounter Visit Diagnoses Not on filedocumented in this encounter
--- OUTSIDE RECORDS SUMMARY | 2024-06-08 17:09 | XMS_ITS | Encounter Summary ---
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 COLLECTED: 2016-09-14 19:28:00 [id number] ?? REQ#: [id number] REQUESTING DR: Jorden Umanzor MD ?? SOURCE: BLOOD ?? SP DESC: COMMENT: LAC BC Draw ?? --- PROCEDURE --- ?--- RESULT --- ?? CULTURE BLOOD ADULT (SET OF 2) ??(Final) ??- ??Performed at [facility] ?* NO GROWTH DAY 5 - [facility] ? [address] ? [place] [address] ? Austin Garner MD Procedure Note 08/21/2018 Microbiology Specimen Report (Converted) SPECIMEN 17:[id number] COLLECTED: 2016-09-14 19:28:00 [id number] REQ#:[id number] REQUESTING DR: Jorden Umanzor MD SOURCE: BLOOD SP DESC: COMMENT: LAC BC Draw --- PROCEDURE --- --- RESULT --- CULTURE BLOOD ADULT (SET OF 2) (Final) - Performed at [facility] * NO GROWTH DAY 5 - [facility] [address] [place] [address] Austin Garner MD us Jorden Umanzor II, MD LAB BLOOD ORDERABLES Bria l Result [facility] HISTORICAL RESULTS * Microbiology Specimen Report (Converted) (09/14/2016 6:50 PM CDT) 09/14/2016 6:50 PM CDT 09/14/2016 6:58 PM CDT Narrative [facility] HISTORICAL RESULTS - 09/14/2016 6:50 PM CDT Microbiology Specimen Report (Converted) SPECIMEN 17:[id number] ?? COLLECTED: 2016-09-14 18:50:00 RN ?? REQ#: [id number] REQUESTING DR: Jorden Umanzor MD ?? SOURCE: BLOOD ?? SP DESC: --- PROCEDURE --- ?--- RESULT --- ?? CULTURE BLOOD ADULT (SET OF 2) ??(Final) ??- ??Performed at [facility] ?* NO GROWTH DAY 5 - [facility] ? [address] [facility] ? [place] [address] ? Austin Garner MD Procedure Note 08/21/2018 Microbiology Specimen Report (Converted) SPECIMEN 17:[id number] COLLECTED: 2016-09-14 18:50:00 RN REQ#:[id number] REQUESTING DR: Jorden Umanzor MD SOURCE: BLOOD SP DESC: --- PROCEDURE --- --- RESULT --- CULTURE BLOOD ADULT (SET OF 2) (Final) - Performed at [facility] * NO GROWTH DAY 5 - [address] [address] Austin Garner MD us Jorden Umanzor II, MD LAB BLOOD ORDERABLES Bria l Result [facility] HISTORICAL RESULTS * Lactate (09/14/2016 6:50 PM CDT) [facility] L-Lactate 0.8 mmol/L Comment:Lactate Reference Ra nge: 0.5 - 2.2 mmol/L 09/14/2016 6:50 PM CDT 09/14/2016 6:58 PM CDT us Jorden Umanzor II, MD LAB BLOOD ORDERABLES Bria l Result Performing Organization Address [facility]/ZIP Co de Phone Number [facility] HISTORICAL RESULTS * (ABNORMAL) Comprehensive metabolic panel (09/14/2016 6:50 PM CDT) [facility] [address] [facility] Sodium 135 135 - 145 mmol/L Potassium 3.8 3.3 - 5.1 mmol/L Chloride 94(L) 96 - 108 mmol/L Carbon Dioxide 26 22 - 32 mmol/L Anion Gap 15 7 - 16 Glucose 112(H) 70 - 100 mg/dL BUN 14 6 - 20 mg/dL Creatinine 1.0 0.5 - 1.3 mg/dL Comment: [...] g/dL Globulin 3.4 2.3 - 3.5 gm/dL Albumin/Globulin Ratio 1.2 1.1 - 1.8 Total Bilirubin 0.9 0.0 - 1.2 mg/dL AST 44(H) 0 - 40 U/L ALT 45(H) 0 - 41 U/L Alkaline Phosphatase 71 40 - 129 U/L 09/14/2016 6:50 PM CDT 09/14/2016 6:58 PM CDT us Jorden Umanzor II, MD LAB BLOOD ORDERABLES Bria l Result [facility] HISTORICAL RESULTS * CBC with auto differential (09/14/2016 6:50 PM CDT) WBC 8.7 4.6 - 10.2 x10 3/ul RBC 5.05 4.11 - 5.71 x10 6/ul Hemoglobin 15.0 13.0 - 17.0 g/dl Hct 42.4 38.2 - 48.5 % MCV 84.0 80.0 - 97.0 fl MCH 29.7 27.0 - 31.2 pg MCHC 35.4 31.8 - 35.4 g/dl RDW 12.0 11.6 - 14.8 % Plt Count 164 124 - 400 x10 3/ul MPV 9.6 7.4 - 10.4 fl Neut % 82.9 37.0 - 85.0 % Immature Gran % 0.5 0.0 - 3.0 % Lymph % 7.7 5.0 - 45.0 % [place] % 8.6 3.0 - 15.0 % Eos [...] ORDERABLES Bria l Result Performing Organization Address City/[facility]/ZIP Co de Phone Number [facility] HISTORICAL RESULTS * Microbiology Specimen Report (Converted) (09/14/2016 4:30 PM CDT) 09/14/2016 4:30 PM CDT 09/14/2016 4:41 PM CDT Narrative [facility] HISTORICAL RESULTS - 09/14/2016 4:30 PM CDT Microbiology Specimen Report (Converted) SPECIMEN 17:[id number] ?? COLLECTED: 2016-09-14 16:30:00 ARC ?? REQ#: [id number] REQUESTING DR: Jacy Smith ?? SOURCE: THROAT ?? SP DESC: SWAB --- PROCEDURE --- ?--- RESULT --- ?? CULTURE THROAT: BETA STREP A ??(Final) ??- ??Performed at [facility] ?* NO PATHOGENIC STREPTOCOCCI ISOLATED. - [facility] ? [address] [place] [address] ? [place] [address] ? Austin Garner MD Procedure Note 08/21/2018 Microbiology Specimen Report (Converted) SPECIMEN 17:[id number] COLLECTED: 2016-09-14 16:30:00 ARC REQ#:[id number] REQUESTING DR: Jacy Smith SOURCE: THROAT SP DESC: SWAB --- PROCEDURE --- --- RESULT --- CULTURE THROAT: BETA STREP A (Final) - Performed at [facility] * NO PATHOGENIC STREPTOCOCCI ISOLATED. - [address] [address] Austin Garner MD us Jacy Smith NP LAB BLOOD ORDERABLES Final Result Performing Organization Address [facility]/ZIP Co de Phone Number [facility] HISTORICAL RESULTS * Influenza A/B antigens, rapid (09/14/2016 4:30 PM CDT) [facility] Influenza A Ag NEGATIVE NEGATIVE Influenza B Ag NEGATIVE NEGATIVE Comment: A NEGATIVE RESULT DOES NOT ELIMINATE THE POSSIBILITY OF AN ?? INFLUENZA A OR B INFECTION. ??INADEQUATE SPECIMEN COLLECTION ?? OR IMPROPER SAMPLE HANDLING/TRANSPORT, OR LOW LEVELS OF ?? VIRAL SHEDDING MAY YIELD A FALSE NEGATIVE RESULT. 09/14/2016 4:30 PM CDT 09/14/2016 4:41 PM CDT [facility] HISTORICAL RESULTS - 09/14/2016 5:03 PM CDT Collected By arc us Jacy Smith BUSINESS OPERATIONS CONSULTANT LAB MICROBIOLOGY - GENERAL ORDERABLES Final Result Performing Organization Address [facility] de Phone Number [facility] HISTORICAL RESULTS * Strep A DNA, quantitative (09/14/2016 4:30 PM CDT) [facility] Rapid Strep A NEGATIVE NEGATIVE Comment:CULTURE ADDED RESULT S TO FOLLOW. 09/14/2016 4:30 PM CDT 09/14/2016 4:41 PM CDT [facility] HISTORICAL RESULTS - 09/14/2016 6:58 PM CDT Collected By arc us Jacy Smith BUSINESS OPERATIONS CONSULTANT LAB BODY FLUIDS AND STOOLS ORDERABLES Final Result Performing Organization Address [facility] de Phone Number [facility] HISTORICAL RESULTS * XR Chest 1 View [...] Arce D.O. :as 06:09 PM 06:09 PM [facility] [EOD] Jorden Umanzor II, MD IMG XR PROCEDURES Final R esult documented in this encounter Visit Diagnoses Diagnosis Lobar pneumonia (CMS/HCC) (HCC) Pneumococcal pneumonia (streptococcus pneumoniae pneumonia) documented in this encounter
--- OUTSIDE RECORDS SUMMARY | 2024-06-08 17:09 | XMS_ITS | Referral Summary ---
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
--- OUTSIDE RECORDS SUMMARY | 2024-06-08 17:09 | XMS_ITS | Encounter Summary ---
Author Organization [facility] Address [address] [place] [address] Phone Care Team Providers Care Registry Rn Name Role Phone Jeanna Rubin NP Primary Care Provider Encounter Details Date Type Department Care Team (Late st Contact Info) Description 01/10/2021 Telephone [facility] Surgery [address] [facility] Advanced [facility] 8th [place] [address] [place] [phone] Hannah Yoder CPhT Social History Tobacco Use Types Packs/Day Years Used Date Smoking Tobacco: Never Assessed Sex and Gender Information Value Date Recorded Sex Assigned at Not on file 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 [place] [address] PCP - General Nurse Practitioner 11/13/20 documented as of this encounter
--- OUTSIDE RECORDS SUMMARY | 2024-06-08 17:10 | XMS_ITS | Continuity of Care Document ---
Author Organization [facility] Address [address] [place] [address] Phone Care Team Providers Care Record Cutter Name Role Phone Hanh Duke MD Unavailable Unavailable Advance Directives Directive Yes / No Effective Date File Name No Information Encounters Encounter Description Practice Location Reason(s) For Visit Diagnoses Date Provider Providers Copied on Encounter [facility], [address], [place], [place], [address], tel:[phone] [facility] No Information Nov-0 5-200 6 [address], [place], [place], [id number] , [place]. tel: [phone] [facility], [address], [place], [place], [address], tel:[phone] [facility] ROUTINE MEDICAL EXAMCOMMUNIC DIS CONTACT NOS Carlos-3 0-200 6 [address], [address], [place], [place], [id number] , . tel: [phone] [facility], [address], [place], [place], [address], tel:[phone] [facility] BACKACHE NOSESOPHAGEAL REFLUX Aug-0 2-200 5 [address], [address], [place], [place], [address] , [place]. tel: [phone] [facility], [address], [place], [place], [address], tel:[phone] [facility] OTALGIA NOSIMPACTED CERUMENSWELLING IN HEAD & NECK Mar-1 0-200 5 [address], [address], [place], [place], [address] , [place]. tel: [phone] Family History Family Member Type Diagnosis Age At Onset No Information Payers Payer name Insurance type Covered libertarian ID Authoriza tion(s) No Information Social History [...]
== END 2024-06-02 00:41 | disposition home or self-care (01) ==
PROVIDERS: Emergency Provider Emergency Medicine; PCP Nurse Practitioner Family
DX: S46.811A Strain of other muscles, fascia and tendons at shoulder and upper arm level, right arm, initial encounter (principal); E66.9 Obesity, unspecified; Z68.33 Body mass index [BMI] 33.0-33.9, adult; R94.31 Abnormal electrocardiogram [ECG] [EKG]; X58.XXXA Exposure to other specified factors, initial encounter
CPT/HCPCS: 36415; 70496; 70498; 71045; 73030; 80053; 82565; 83880; 84484; 85025; 85380; 93005; 96372; 96374; 96375; 96376; 99284; A9270; J1171; J1885; J2919; J3360; Q9967